=== PATIENT | female | born 1970 | race Caucasian/White ===

== ENCOUNTER 2020-12-18 09:24 | Emergency (ER) | payer OTHER, SELFPAY ==
[2020-12-18 09:41] VITALS: BP 132/84; PULSE 79; RESP 18; TEMP 36.8; O2SAT 96; BMI 36.8
[2020-12-18 09:43] VITALS: BP 132/84; PULSE 79; RESP 18; TEMP 36.8; O2SAT 96
--- NOTE | 2020-12-18 10:11 | ED.PSYCH ---
HPI - Psych General Chief Complaint: Psychiatric Symptoms <Yvonne Ram PA-C - Last Filed: 12/18/20 14:22> Stated Complaint: crisis <Yvonne Ram PA-C - Last Filed: 12/18/20 14:22> Time Seen by Provider: 12/18/20 10:00 <Yvonne Ram PA-C - Last Filed: 12/18/20 14:22> Source: patient <Yvonne Ram PA-C - Last Filed: 12/18/20 14:22> Mode of arrival: EMS <MADELEINE Carrasco Last Filed: 12/18/20 14:22> Limitations: no limitations <Yvonne Ram PA-C - Last Filed: 12/18/20 14:22> History of Present Illness HPI Narrative: Patient is a 50-year-old female unknown medical history who comes from a senior care stating she wants to kill herself via smothering herself. She states she does not like the senior care she is in and she is on a list to be transferred but she thinks she is 6 on the list and does not think she is going to be transferred any time soon. She states she does want to hurt 1 of the girls who lives at the senior care because the girl thinks she wants to buck her. She admits to seeing patterns on the wall sometimes they are scary men and sometimes they are monsters. She denies any auditory hallucinations. She has no physical complaints at this time. She denies any alcohol or drug use. She denies taking any psychiatric medications on a daily basis and she denies any mental health diagnoses. She states she only takes a vitamin daily. She is requesting to speak with crisis. <Yvonne Ram PA-C - Last Filed: 12/18/20 14:22> Related Data Home Medications: Home Medications Medication Instructions Recorded Confirmed acetaminophen [Mapap Arthritis 1 - 2 tab PO Q8H PRN 12/18/20 12/18/20 Pain] ascorbic acid-vitamin E-biotin tab PO DIRECTED 12/18/20 [Hair, Skin, Nails with Biotin] cyanocobalamin (vitamin B-12) 1 tab PO DAILY 12/18/20 12/18/20 [Vitamin B-12] diphenhydramine HCl [Banophen] 1 cap PO BEDTIME 12/18/20 12/18/20 docusate sodium 1 cap PO BID PRN 12/18/20 12/18/20 lanolin oyfvsci-dr-z.pet-ceres appl TOPICAL BID 12/18/20 [Minerin Creme] lorazepam 1 tab PO BID PRN 12/18/20 12/18/20 nicotine 1 patch TOPICAL DAILY 12/18/20 12/18/20 omeprazole 1 cap PO DAILY 12/18/20 12/18/20 oxybutynin chloride 1 tab PO DAILY 12/18/20 12/18/20 paliperidone palmitate [Invega 1 syringe IM Q4W 12/18/20 12/18/20 Sustenna] quetiapine 1 tab PO BEDTIME 12/18/20 12/18/20 quetiapine 1 tab PO DAILY PRN 12/18/20 12/18/20 topiramate 1 tab PO QAM 12/18/20 12/18/20 <Yvonne Ram PA-C - Last Filed: 12/18/20 14:22> Allergies/Adverse Reactions: Allergies Allergy/AdvReac Type Severity Reaction Status Date / Time lisinopril [LISINOPRIL] Allergy Unknown UNKNOWN Unverified 06/17/20 14:51 <Yvonne Ram PA-C - Last Filed: 12/18/20 14:22> Review of Systems Review of Systems: Yes all other systems are reviewed and are negative <Yvonne Ram PA-C - Last Filed: 12/18/20 14:22> FOR[facility]LY [facility], [facility] Social History Social History: Social History Alcohol intake: former Smoking Status: Current every day smoker Smoked in Last 30 Days: Yes Use of substances other than those prescribed or required for medical reasons: No Advance Directives: No Advance Directives Information Provided: No <Yvonne Ram PA-C - Last Filed: 12/18/20 14:22> Physical Exam Vital Signs: Vital Signs: Last Vital Signs Temp 97.8 F 12/19/20 06:37 Pulse 83 12/19/20 06:37 Resp 19 12/19/20 06:37 BP 96/53 L 12/19/20 06:37 Pulse Ox 97 12/19/20 06:37 Body Mass Index 36.8 <Yvonne Ram PA-C - Last Filed: 12/18/20 14:22> Vital Signs: Last Vital Signs Temp 97.8 F 12/19/20 06:37 Pulse 83 12/19/20 06:37 Resp 19 12/19/20 06:37 BP 96/53 L 12/19/20 06:37 Pulse Ox 97 12/19/20 06:37 Body Mass Index 36.8 <LESIA Lawson - Last Filed: 12/19/20 08:17> Const: General: cooperative, healthy appearing, comfortable and no acute distress <Yvonne Ram PA-C - Last Filed: 12/18/20 14:22> Nutritional Appearance: average body habitus <Yvonne Ram PA-C - Last Filed: 12/18/20 14:22> Orientation/consciousness: patient oriented x3 <Yvonne Ram PA-C - Last Filed: 12/18/20 14:22> HENMT: Head: Yes normal to inspection, Yes normocephalic and Yes atraumatic <Yvonne Ram PA-C - Last Filed: 12/18/20 14:22> Ears: hearing grossly normal bilaterally <Yvonne Ram PA-C - Last Filed: 12/18/20 14:22> General nose exam: Normal external nose present <Yvonne Ram PA-C - Last Filed: 12/18/20 14:22> Face and sinus: Yes normal facial exam <Yvonne Ram PA-C - Last Filed: 12/18/20 14:22> Eyes: General: appearance normal, both eyes and all related structures <Yvonne Ram PA-C - Last Filed: 12/18/20 14:22> Resp: Effort & Inspection: normal respiratory effort and able to speak in complete sentences <Yvonne Ram PA-C - Last Filed: 12/18/20 14:22> Neuro: General: patient oriented x3 <Yvonne Ram PA-C - Last Filed: 12/18/20 14:22> Psych: Appearance: disheveled <Yvonne Ram PA-C - Last Filed: 12/18/20 14:22> Speech and movement: Normal speech and movement present <Yvonne Ram PA-C - Last Filed: 12/18/20 14:22> Affect: normal affect <Yvonne Ram PA-C - Last Filed: 12/18/20 14:22> Attitude: cooperative <Yvonne Ram PA-C - Last Filed: 12/18/20 14:22> Thought process: Flight of ideas present <Yvonne Ram PA-C - Last Filed: 12/18/20 14:22> Thought content: Suicidality present and Homicidality present <Yvonne Ram PA-C - Last Filed: 12/18/20 14:22> Insight: Limited insight present (Psych) <Yvonne Ram PA-C - Last Filed: 12/18/20 14:22> Judgement: Limited judgement present (Psych) <Yvonne Ram PA-C - Last Filed: 12/18/20 14:22> Course Course Course Narrative: Patient is a 50-year-old female with no known psychiatric or medical history who presents with SI via self smothering and HI from her senior care. Ultimately, it appears the patient would like to transfer to a different senior care and is requesting a consult with crisis. VSS, tox screen ordered, consult ordered. <Yvonne Ram PA-C - Last Filed: 12/18/20 14:22> Physician observation started at 8am. Patient placed in physician observation because patient is awaiting possible placement to Respite. At the time observation was started patient's vital signs were stable. Home meds have been ordered. Patient is alert and oriented. Neuro exam is non-focal. CV: RRR and lungs are clear. Will continue to monitor. <LESIA Lawson Last Filed: 12/19/20 08:17> Reevaluation(s) Reevaluation #1: + cocaine <Yvonne Ram PA-C - Last Filed: 12/18/20 14:22> Time: 10:48 <MADELEINE Carrasco Last Filed: 12/18/20 14:22> Reevaluation #2: Crisis evluated pt, she should be transferred to respite tomorrow. We will keep until she has bed availability as patient is SI/HI. <Yvonne Ram PA-C - Last Filed: 12/18/20 14:22> Time: 14:21 <Yvonne Ram PA-C - Last Filed: 12/18/20 14:22> MDM - Psych Lab Data Labs: Lab Results 12/18/20 12/18/20 Range/Units 09:58 12:41 Urine Opiates Screen Not Detected (Not Detect) Ur Barbiturates Screen Not Detected (Not Detect) Ur Phencyclidine Scrn Not Detected (Not Detect) Ur Amphetamines Screen Not Detected (Not Detect) U Benzodiazepines Scrn Not Detected (Not Detect) Urine Cocaine Screen POSITIVE H (Not Detect) U Marijuana (THC) Screen Not Detected (Not Detect) COVID-19 (GONZALEZ) Negative (Negative) COVID-19 Clin Com See Note <Yvonne Ram PA-C - Last Filed: 12/18/20 14:22> Lab Results 12/18/20 12/18/20 Range/Units 09:58 12:41 Urine Opiates Screen Not Detected (Not Detect) Ur Barbiturates Screen Not Detected (Not Detect) Ur Phencyclidine Scrn Not Detected (Not Detect) Ur Amphetamines Screen Not Detected (Not Detect) U Benzodiazepines Scrn Not Detected (Not Detect) Urine Cocaine Screen POSITIVE H (Not Detect) U Marijuana (THC) Screen Not Detected (Not Detect) COVID-19 (GONZALEZ) Negative (Negative) COVID-19 Clin Com See Note <LESIA Lawson Last Filed: 12/19/20 08:17> Discharge Plan Discharge Prescriptions: No Action nicotine 14 mg/24 hr patch 24 hour 1 patch topical DAILY RF: 0 oxybutynin chloride 10 mg tablet extended release 24hr 1 tab PO DAILY RF: 0 cyanocobalamin (vitamin B-12) [Vitamin B-12] 250 mcg tablet 1 tab PO DAILY RF: 0 omeprazole 40 mg capsule,delayed release(DR/EC) 1 cap PO DAILY RF: 0 quetiapine 100 mg tablet 1 tab PO BEDTIME RF: 0 acetaminophen [Mapap Arthritis Pain] 650 mg tablet extended release 1 - 2 tab PO Q8H PRN (Reason: pain) RF: 0 lorazepam 0.5 mg tablet 1 tab PO BID PRN (Reason: dyspnea) RF: 0 diphenhydramine HCl [Banophen] 25 mg capsule 1 cap PO BEDTIME RF: 0 docusate sodium 100 mg capsule 1 cap PO BID PRN (Reason: constipation) RF: 0 topiramate 100 mg tablet 1 tab PO QAM RF: 0 quetiapine 50 mg tablet 1 tab PO DAILY PRN (Reason: anxiety) RF: 0 Minerin Creme Cream topical BID RF: 0 Invega Sustenna 156 mg/mL syringe 1 syringe IM Q4W RF: 0 Hair, Skin, Nails with Biotin 7.5-7.5-1,250 mg-unit-mcg tablet,chewable PO DIRECTED RF: 0 <Yvonne Ram PA-C - Last Filed: 12/18/20 14:22>
[2020-12-18 10:29] LABS: Amphetamine Screen Urine Not Detected (Not Detect); Barbiturates, Urine Not Detected (Not Detect); Benzodiazepines Screen Urine Not Detected (Not Detect); Cannabinoid Screen Urine Not Detected (Not Detect); Cocaine Screen Urine POSITIVE (Not Detect); Opiate Screen Urine Not Detected (Not Detect); Phencyclidine Screen Urine Not Detected (Not Detect)
--- NOTE | 2020-12-18 11:00 | PC.NURSE ---
[facility] faxed and called, clinician should be out to see pt within the hour.
--- NOTE | 2020-12-18 12:25 | PC.NURSE ---
[facility] at bedside for eval.
--- NOTE | 2020-12-18 12:48 | PC.NURSE ---
[facility] contacted for medicaiton list. Staff to fax list.
[2020-12-18 13:04] LABS: COVID-19 Test Negative (Negative)
--- NOTE | 2020-12-18 15:14 | PC.NURSE ---
Report received. Pt asleep at current. No signs of distress. RR even and unlabored.
--- NOTE | 2020-12-18 16:52 | PC.NURSE ---
Pt asleep at current. No signs of distress. RR even and unlabored.
[2020-12-18 17:06] VITALS: BP 93/48; PULSE 79; RESP 18; TEMP 36.8; O2SAT 95
[2020-12-19 06:37] VITALS: BP 96/53; PULSE 83; RESP 19; TEMP 36.6; O2SAT 97
--- NOTE | 2020-12-19 07:23 | PC.NURSE ---
Report received. PT currently eating breakfast, calm and cooperative. PT is respite bedsearch.
[2020-12-19] MEDS: Nicotine 14 MG PATCH.TD24 TRANSDERMA (09:07)
[2020-12-19] MEDS: Cyanocobalamin (Vitamin B-12) 500 MCG TABLET 250 MCG PO (09:21)
[2020-12-19] MEDS: Topiramate 100 MG TABLET PO (09:21)
[2020-12-19] MEDS: Omeprazole 40 MG CAPSULE.DR PO (09:21)
[2020-12-19 09:33] VITALS: BP 112/61; PULSE 67; RESP 18; TEMP 36.6; O2SAT 97
--- NOTE | 2020-12-19 09:55 | PC.NURSE ---
PT labile, crying and then states she is happy, tangential in conversation, reports that the TV is talking about her. PT easily reoriented and redirectible.
--- NOTE | 2020-12-19 10:59 | PC.NURSE ---
[facility] at bedside for MSU
== END 2020-12-19 12:36 ==
PROVIDERS: Physician Assistant; Emergency Provider Emergency Medicine; PCP Pediatrics
DX: F33.1 Major depressive disorder, recurrent, moderate (principal); R45.851 Suicidal ideations; R45.850 Homicidal ideations; F17.200 Nicotine dependence, unspecified, uncomplicated; Z71.6 Tobacco abuse counseling; Z20.822 Contact with and (suspected) exposure to COVID-19; Z79.899 Other long term (current) drug therapy
CPT/HCPCS: 36415; 80307; 87635; 96372; 99285

== ENCOUNTER 2023-05-29 21:13 | Inpatient (IN) | payer OTHER, SELFPAY ==
--- OUTSIDE RECORDS SUMMARY | 2023-05-29 21:17 | XMS_ITS | Continuity of Care Document ---
Author Name Unknown Organization [facility] Address [address] [place] [address]- Care Team Providers Care Director Employment Name Role Phone Arlene Hernandez DO Primary Care Physician Encounter [facility] Date(s): 03/22/22 - 04/21/22 [facility] [address] [place], [place] [id number] Allergies, Adverse Reactions, Alerts Substance Reaction Severity Status lisinopril Active Immunizations Given and Recorded Vaccine Date Status Refusal Reason influenza virus vaccine, inactivated 1 07/28/21 Gi deneen influenza virus vaccine, inactivated 07/23/20 Give n influenza virus vaccine, inactivated 07/11/19 Give n influenza virus vaccine, inactivated 08/20/17 Miguel rded influenza virus vaccine, inactivated 07/19/14 Give n influenza virus vaccine, inactivated 08/23/11 Give n SARS-CoV-2 (COVID-19) mRNA-1273 vaccine 12/01/20 R ecorded SARS-CoV-2 (COVID-19) mRNA-1273 vaccine 11/03/20 R ecorded tetanus/diphtheria/pertussis, acel(Tdap) 11/06/19 Given pneumococcal 23-valent vaccine 08/20/17 Recorded pneumococcal 23-valent vaccine 07/19/14 Given 1Result Comment: [facility] [id number] Medications Discontinue Nicotine Patches Discontinue Nicotine Patches, See Instructions, # 1 each, Refills 0, Tot. Refills 0, Maintenance, Dx: Tobacco Dependence, 10/25/21 12:24:00 EST, Supply Start Date: 10/25/21 Status: Ordered hydrOXYzine hydrochloride 50 mg oral tablet 1 tablet = 50 mg, By Mouth, 3 times a day, PRN for anxiety, Maintenance, 07/14/21 15:19:00 EDT, Tablet, ; Start Date: 07/14/21 Status: Ordered Invega Sustenna 156 mg/mL intramuscular suspension, extended release = 156 mg, Intramuscular, Every 28 days, # 1 each, 0 Refills, Maintenance, 06/01/21 9:16:00 EDT, Injection, [facility], Partial fill upon patient request if the prescription is for a schedule II opioid drug., 06/06/21, 163, cm, 06/01/21 7:16:... Start Date: 06/01/21 Status: Ordered Mapap Arthritis Pain 650 mg oral tablet, extended release 2 tablet = 1,300 mg, By Mouth, Every 6 hours, PRN as needed, Maintenance, 07/14/21 15:23:00 EDT, ; Start Date: 07/14/21 Status: Ordered metFORMIN 500 mg oral tablet 1 tablet = 500 mg, By Mouth, Daily in AM, with breakfast, # 90 tablet, 1 Refills, Maintenance, 11/08/21 10:10:00 EST, Tablet, [id number] fill upon patient request if the prescriptionis for a schedule II opioid drug., 170, cm, ... Start Date: 11/08/21 Stop Date: 05/07/22 Status: Ordered multivitamin Multiple Vitamins oral tablet 1 tablet, By Mouth, Daily, # 90 tablet, 4 Refills, Maintenance, 07/28/21 17:59:00 EDT, Tablet, [id number] Partial fill upon patient request if the prescription is for a schedule II opioid drug., 1 tablet By Mouth Daily, 163, cm, 07/28/21 9:27... Start Date: 07/28/21 Status: Ordered omeprazole 40 mg oral enteric coated capsule 1 capsule, By Mouth, Daily, # 30 capsule, 2 Refills, Maintenance, 06/02/21 13:03:00 EDT, [facility], 163, cm, 06/01/21 10:51:00 EDT, Height, 104.7, kg, 05/25/21 4:20:00 EDT, Dry Weight Start Date: 06/02/21 Status: Ordered oxybutynin 10 mg/24 hr oral tablet, extended release 1 tablet = 10 mg, By Mouth, Daily, # 30 tablet, 5 Refills, Maintenance, 06/02/21 13:03:00 EDT, ER Tablet, [facility], 163, cm, 06/01/21 10:51:00 EDT, Height, 104.7, kg, 05/25/21 4:20:00 EDT, Dry Weight Start Date: 06/02/21 Status: Ordered SEROquel 100 mg oral tablet 100 mg, 1, tablet, By Mouth, Daily at bedtime, # 30 tablet, Refills 0, Tot. Refills 0, Maintenance,06/01/21 9:12:00 EDT, Route to Pharmacy Electronically, [facility], Partial fill upon patient request if the prescription is for a schedule I... Start Date: 06/01/21 Status: Ordered SEROquel 50 mg oral tablet 1 tablet = 50 mg, By Mouth, 2 times a day, PRN Anxiety, # 60 tablet, 0 Refills, Maintenance, 06/01/21 9:12:00 EDT, Tablet, [facility], Partial fill upon patient request if the prescription is for a schedule II opioid drug., 163, cm, 06/01/21... Start Date: 06/01/21 Stop Date: 07/01/21 Status: Ordered simethicone 80 mg oral tablet, chewable 80 mg, 1, tablet, Chew, 3 times a day after meals and bedtime, PRN, Maintenance, gi discomfort, 07/14/21 15:20:00 EDT, ; Start Date: 07/14/21 Status: Ordered Topamax 100 mg oral tablet 1 tablet = 100 mg, By Mouth, Daily, # 30 tablet, 0 Refills, Maintenance, 06/01/21 9:16:00 EDT, Tablet, [facility], Partial fill upon patient request if the prescription is for a schedule IIopioid drug., 163, cm, 06/01/21 7:16:00 EDT, Height... Start Date: 06/01/21 Stop Date: 07/01/21 Status: Ordered Ventolin HFA 108 mcg/inh inhalation aerosol with adapter 1 puffs, Inhalation, Every 6 hours, PRN for wheezing, # 18 Gm, 0 Refills, Maintenance, 06/01/21 9:11:00 EDT, Aerosol, [facility], 163, cm, 06/01/21 7:16:00 EDT, Height, 104.7, kg, 05/25/21 4:20:00 EDT, Dry Weight Start Date: 06/01/21 Status: Ordered Problem List Condition Effective Dates Status Health Status Inform ant Anemia(Confirmed) Active Cannabis abuse(Confirmed) Active Cocaine abuse(Confirmed) Active Drug abuse(Confirmed) Active Dysuria(Confirmed) Active GERD (gastroesophageal reflu x disease)(Confirmed) Active Stress incontinence(Confirmed) Active Nicotine dependence(Confirmed) Active Obesity(Confirmed) Active Screen for STD (sexually tra nsmitted disease)(Confirmed) Active Encounter for well adult exa m with abnormal findings(Confirmed) Active Personality disorder(Confirmed) Active PTSD (post-traumatic stress disorder)(Confirmed) Active Prediabetes(Confirmed) Active Schizoaffective Disorder(Confirmed) 08/23/11 Active Encounter for general adult medical examination without abnormal findings(Confirmed) Active Wheezing(Confirmed) Active Social History Social History Type Response Smoking Status Current every day zahra sutton entered on: 07/21/14 Sex
--- OUTSIDE RECORDS SUMMARY | 2023-05-29 21:17 | XMS_ITS | Continuity of Care Document ---
Author Name Unknown Organization [facility] Address [address] [place] [address]- Care Team Providers Care Ad Operations Specialist Name Role Phone Not on Staff, PCP Primary Care Physician Unavail able Encounter [facility] Date(s): 04/09/23 - 04/10/[address] [address]- Encounter Diagnosis Schizophrenia(Final) - 04/10/23 Bipolar illness(Final) - 04/10/23 Hallucination(Final) - 04/10/23 Discharge Disposition: A-D/C Home Attending Physician: Breezy Nix MD Admitting Physician: Breezy Nix MD Referring Physician: Not on Staff, Referring MD Allergies, Adverse Reactions, Alerts No Known Allergies Medications nystatin topical 358560 u/gm powder 1 application, Topically, 2 times a day, # 30 Gm, 0 Refills, Acute 04/14/23 12:12:00 EDT, 04/10/23 12:12:00 EDT, Powder, [facility], Partial fill upon patient request if the prescription is for a schedule II opioid drug., 1 application T... Start Date: 04/10/23 Stop Date: 04/14/23 Status: Ordered Vital Signs Most recent to oldest [Reference Range]: 1 2 3 Oxygen Saturation [94-100 %] 98 % (04/10/23 12:08 PM) 97 % (04/10/23 9:00 AM) 95 % (04/10/23 6:15 AM) Pulse Rate [55-90 bpm] 72 bpm (04/10/23 12:08 PM) 70 bpm (04/10/23 9:00 AM) 87 bpm (04/10/23 6:15 AM) Blood Pressure [90-138/55-84 mm Hg] 110/67mm Hg (04/10/23 12:08 PM) 105/56mm Hg (04/10/23 9:00 AM) 99/57mm Hg (04/10/23 6:15 AM) Respiratory Rate [16-30 br/min] 16 br/min (04/10/23 12:08 PM) 17 br/min (04/10/23 9:00 AM) 18 br/min (04/10/23 6:15 AM) Temperature [96.8-100.4 DegF] 98.2 DegF (04/10/23 12:08 PM) 98.0 DegF (04/10/23 9:00 AM) 97.5 DegF (04/09/23 10:52 PM) Liters per Minute 2 L/min (04/09/23 10:52 PM) Mode of Delivery (Oxygen) Room air (04/10/23 12:08 PM) Room air (04/10/23 9:00 AM) Room air (04/10/23 6:15 AM) Blood pressure sites Arm, right (04/09/23 10:52 PM) Temperature Route Oral (04/10/23 12:08 PM) Oral (04/10/23 9:00 AM) Oral (04/09/23 10:52 PM) Note * Dinah VINES, Breezy R: PERFORM Event Display: Patient Education Leaflets Authored Date: [id number] Bipolar Disorder ?? [id number] Bipolar Disorder Bipolar disorder is a serious, life-altering illness. It causes strong mood swings between depression and hannah. It used to be called manic depression. The mood swings are different from the normal ups and downs people have in their lives. They are more severe and last longer. They can seriously interfere with work and relationships. These episodes are changes from usual moods and behavior. They can be mild, or drastic and explosive. The time between feelings of depression and hannah varies with each person. It can be weeks, month, or even years. ??? In a manic episode, you may think fast and do things quickly. It may seem like you are getting a lot done. It may feel very good at first. But in the extreme, hannah can lead to a lifestyle that is disorganized and chaotic. You may take part in risky behavior. Examples are spending sprees, sexual acting-out, or drug use. In later stages, you may have no interest in food. You may not be able tosleep for days at a time. Your speech may speed up and become hard to understand. You may appear toothers as if you are in your own world. ??? In a depressive episode, you may feel a lack of interest in normal activities. Sometimes you feel sadness or guilt without any clear reason. Your thinking may become slow. You may also lack energy or good concentration, or feel hopeless. Some people have thoughts of harming themselves at this stage. Thoughts can even turn to suicide. You may feel OK between these phases. This does not mean that the illness is gone. People with thisdisorder will often have to treat it all their life. Correct use of medicines and ongoing medical and mental health support can greatly ease symptoms. They can enhance your quality of life. The exact cause of bipolar disorder is unknown. But there is a genetic link that makes a person more likely to get it. Using illegal drugs such as speed (amphetamine) and cocaine raises a person's risk for this illness. Home care Here is what you can do at home: ??? Ongoing care and support can help you manage this disease. Find a healthcare provider and therapist who meet your needs. Seek help right away when you feel like you may be heading into either a manic episode or a depressive state. ??? Take your medicine as prescribed. Get regular blood work to check the levels of medicine in your body. Do this??even if you think you don???t need to do it. ??? Don't change or stop taking your medicine unless your healthcare provider says it is OK to do so. Don't share or use another person's medicines. ??? Tell all your healthcare providers about all the prescriptions, ycol-iwy-btuvsir medicines, and supplements you take.? ?Certain supplements interact with medicines. They may cause dangerous side effects. You can also ask your pharmacist about medicine interactions before starting any new medicine or supplement. ??? Talk with your family and trusted friends about your thoughts and feelings. Ask them to help you notice behavior changes early. You can then get help and have your medicines adjusted, if needed. When you are feeling well, make a management plan for a trusted friend or family member to help you during hard times. For example, you can ask them to hold your credit cards for you if you overspend during a hannah. Or they can get emergency help for you if your depression leads to suicidal thoughts. Ifyour illness is severe, consider giving trusted people access to your healthcare providers. They can then work together to keep you safe. ??? Don't drink alcohol or use illegal drugs. They can bring on an episode and make it worse. ??? If your life is severely affected by this illness, the Americans with Disabilities Act (ADA) may provide help. The ADA protects people with chronic physical and mental health problems. Contact your local ADA office for help if you are having trouble keeping jobs,managing workplace issues, or caring for yourself because of your bipolar disorder. The U.[place]. Department of Justice has a toll-free [employer] information line at 956-591-5527 (voice) or 726-708-6504 (TTY). It can help you find a local office. Or??go to www.Suitey.gov for more information. ??? Join an in-person or virtual support group for people with mental health problems. ?? Follow-up care Follow up with your healthcare provider or therapist as advised. They can help you find ways to improve your life. ?? Call or text [phone] When you call or text 988, you will be connected to trained crisis counselors at the Suicide Prevention Lifeline. An online chat option is also available. Lifeline is free and available 23/04. 988 counselors will work closely with [facility] to get you the care you need. Call or text [phone] if you have: ??? Suicidal thoughts, a plan to harm yourself, and the means to do so ??? Serious thoughts of hurting someone else ??? Trouble breathing ??? Confusion ??? Drowsiness ortrouble wakening ??? Fainting or loss of consciousness ??? Rapid heart rate, very low heart rate, or a new irregular heart rate ??? Seizure ??? New chest pain that becomes more severe, lasts longer, or spreads into your shoulder, arm, neck, jaw, or back ?? When to seek medical advice Call your healthcare provider right away if any of these happen: ??? Feeling like your symptoms aregetting worse (depression, agitation, or excessive energy) ??? Not eating or sleeping for more than48 hours ??? Feeling out of control (racing thoughts, paranoid thoughts, hallucinations, or poor concentration) ??? Feeling like you want to harm yourself or another ??? Being unable to care for yourself ?? Last Reviewed Date: 2022 ?? [id number] [employer]. All rights reserved. This information is not intended as a substitute for professional medical care. Always follow your healthcare professional's instructions. ?? Patient Care team information Care Team Personnel Name: Not on Staff, PCP Position: [facility] Physician (General Medicine) Member Role: PCP Name: *[facility], ED Attending Position: [facility] ED Attendings Patient Name: Kahlil Alvarado Position: [facility] ED TA [facility] Member Role: Rrt Name: Breezy Nix MD Position: [facility] ED Medicine MD Member Role: Admitting Physician Address: Address: [address] [place] [address] [place], [place] [address] Name: Catalina Vasquez Position: [facility] ED RN W/OE and Tasks Member Role: Patient Care Provider
--- OUTSIDE RECORDS SUMMARY | 2023-05-29 21:17 | XMS_ITS | Continuity of Care Document ---
Author Name Unknown Organization [facility] Address [address] [place] [id number]- Care Team Providers Care District Sales Leader Name Role Phone Arlene Hernandez DO Primary Care Physician Encounter [facility] [place] Date(s): 12/28/20 - 12/29/[address] [address]- Encounter Diagnosis Examination, general medical(Final) - 12/28/20 Discharge Disposition: A-D/C Home Attending Physician: Kahlil Rocha MD Admitting Physician: Kahlil Rocha MD Referring Physician: Not on Staff, Referring MD Allergies, Adverse Reactions, Alerts Substance Reaction Severity Status lisinopril Active Immunizations Given and Recorded Vaccine Date Status Refusal Reason influenza virus vaccine, inactivated 07/23/20 Give n influenza virus vaccine, inactivated 07/11/19 Give n influenza virus vaccine, inactivated 07/19/14 Give n influenza virus vaccine, inactivated 08/23/11 Give n tetanus/diphtheria/pertussis, acel(Tdap) 11/06/19 Given pneumococcal 23-valent vaccine 07/19/14 Given Medications Benadryl 25 mg oral capsule 1 capsule = 25 mg, By Mouth, Daily at bedtime, # 30 capsule, 0 Refills, Maintenance, 01/18/18 9:37:18 EDT, Capsule Start Date: 01/18/18 Status: Ordered Colace sodium 100 mg oral capsule 100 mg, 1, capsule, By Mouth, 2 times a day, hold for looses stools, Refills 0, Maintenance, 11/15/18 11:13:27 EST Start Date: 11/15/18 Status: Ordered [facility] DRY SKIN THERAPY CREME [facility] DRY SKIN THERAPY CREME, See Instructions, # 454 Gm, 0 Refills, Maintenance, APPLY TO AFFECTED AREA TWICE A DAY, 163, cm, 09/20/20 11:14:00 EST, Height, 104.7, kg, 11/21/20 5:07:00 EST, Dry Weight Start Date: 11/26/20 Status: Ordered diclofenac sodium 50 mg oral delayed release tablet 1 tablet = 50 mg, By Mouth, 2 times a day, with food, # 28 tablet, 0 Refills, Maintenance, :29:00 EST, [facility]/pharmacy #[id number], 163, cm, 07/23/20 13:15:00 EDT, Height, 105.3, kg, 07/23/20 13:15:00 EDT, Dry Weight Start Date: 09/07/20 Stop Date: 09/21/20 Status: Ordered Diflucan 150 mg oral tablet 1 tablet = 150 mg, By Mouth, Once, # 1 tablet, 0 Refills, Soft Stop, 10/11/20 13:10:00 EST, Tablet,[facility][id number], Partial fill upon patient request if the prescription is for a schedule II opioid drug., 163, cm, 09/20/20 11:14:00 EST, Height, 10... Start Date: 10/11/20 Status: Ordered Eucerin Moisturizing Creme Eucerin Moisturizing Creme, 1, application, Topically, 2 times a day, # 454 Gm, Refills 2, Tot. Refills 2, Maintenance, 11/06/19 14:46:00 EST, Compound, 160.3, cm, 11/06/19 14:14:00 EST, Height, 117.1, kg, 10/29/19 10:15:00 EST, Dry Weight Start Date: 11/06/19 Status: Ordered guaiFENesin 100 mg/5 mL oral liquid 5 mL = 100 mg, By Mouth, 2 times a day, PRN for cough, # 120 mL, 0 Refills, Maintenance, 09/16/19 12:41:32 EST, Liquid, [id number], 160.8, cm, 09/16/19 12:10:53 EST, Height, 100, kg, :30:20 EDT, Dry Weight Start Date: 09/16/19 Stop Date: 09/26/19 Status: Ordered Invega Sustenna 156 mg/mL intramuscular suspension, extended release Intramuscular, Every 28 days, 0 Refills, Maintenance, 03/06/18 15:04:32 EDT Start Date: 03/06/18 Status: Ordered LORazepam 0.5 mg oral tablet 0 Refills, Maintenance, 11/06/19 19:02:00 EST Start Date: 11/06/19 Status: Ordered Mapap Arthritis Pain 650 mg oral tablet, extended release 1-2 tablet, By Mouth, Every 8 hours, PRN NEEDED FOR PAIN, # 50 tablet, 5 Refills, Maintenance, 07/21/20 15:03:00 EDT, [facility]/pharmacy #[id number], 163, cm, 06/24/20 11:48:00 EDT, Height, 105.8, kg, 03/08/20 17:47:00 EDT, Dry Weight Start Date: 07/21/20 Status: Ordered Nature's Bounty Hair Skin & Nails oral tablet, chewable See Instructions, take as directed per package labeling, # 100 each, 2 Refills, Maintenance, 03/18/20 13:42:00 EDT, [facility]/pharmacy #[id number], d/c prior MV, take as directed per package labeling, 163, cm, 03/08/20 17:43:00 EDT, Height, 105.8, kg, 03/08/20 17... Start Date: 03/18/20 Status: Ordered nicotine 2 mg oral transmucosal lozenge See Instructions, 1 lozenge Every 2 hours prn as directed on package labeling do not chew or swallow whole, # 110 lozenge, 1 Refills, Maintenance, 07/11/19 8:57:30 EDT, 1 lozenge Every 2 hours prn; as directed on package labeling; do not chew or swa... Start Date: 07/11/19 Status: Ordered nicotine 21 mg/24 hr transdermal film, extended release 1 patch, Topically, Daily, # 30 patch, 0 Refills, Maintenance, 07/11/19 9:02:23 EDT, Patch Start Date: 07/11/19 Status: Ordered omeprazole 40 mg oral enteric coated capsule 1 capsule, By Mouth, Daily, # 30 capsule, 6 Refills, Maintenance, 07/13/20 12:42:00 EDT, [id number], 163, cm, 06/24/20 11:48:00 EDT, Height, 105.8, kg, 03/08/20 17:47:00 EDT, Dry Weight Start Date: 07/13/20 Status: Ordered oxybutynin 10 mg/24 hr oral tablet, extended release 1 tablet = 10 mg, By Mouth, Daily, # 30 tablet, 5 Refills, Maintenance, 05/25/20 15:37:00 EDT, ER Tablet, [facility]/pharmacy #[id number], 163, cm, 03/08/20 17:43:00 EDT, Height, 105.8, kg, 03/08/20 17:47:00 EDT,Dry Weight Start Date: 05/25/20 Status: Ordered QUEtiapine 200 mg oral tablet 200 mg, 1, tablet, By Mouth, Daily at bedtime, Psych prescriber, Refills 0, Maintenance, 07/11/19 9:01:13 EDT Start Date: 07/11/19 Status: Ordered QUEtiapine 50 mg oral tablet 1 tablet = 50 mg, By Mouth, Every 4 hours, PRN Agitation, # 60 tablet, 0 Refills, Maintenance, 07/11/19 9:02:49 EDT, Tablet, rx by [facility] Start Date: 07/11/19 Status: Ordered Topamax 100 mg oral tablet 1 tablet = 100 mg, By Mouth, Daily, # 30 tablet, 0 Refills, Maintenance, 01/18/18 9:37:42 EDT, Tablet Start Date: 01/18/18 Status: Ordered Ventolin HFA 108 mcg/inh inhalation aerosol with adapter 1 puffs, Inhalation, Every 6 hours, PRN for wheezing, # 18 Gm, 0 Refills, Maintenance, 09/16/19 12:41:30 EST, Aerosol, [facility]/pharmacy #[id number], 160.8, cm, 09/16/19 12:10:53 EST, Height, 100, kg, 07/11/19 8:30:20 EDT, Dry Weight Start Date: 09/16/19 Status: Ordered Vitamin B-12 250 mcg oral tablet 1 tablet, By Mouth, Daily, # 30 tablet, 11 Refills, Maintenance, 10/21/20 18:16:00 EST, [id number], 163, cm, 09/20/20 11:14:00 EST, Height, 107.3, kg, 09/20/20 11:18:00 EST, Dry Weight Start Date: 10/21/20 Status: Ordered Zithromax Z-Peewee 250 mg oral tablet See Instructions, as directed on package labeling, # 1 pack/packet, 0 Refills, Maintenance, 10/11/20 13:10:00 EST, [facility]/pharmacy #[id number], Partial fill upon patient request if the prescription is for a schedule II opioid drug., 163, cm, 09/20/20 11:14:00... Start Date: 10/11/20 Status: Ordered Problem List Condition Effective Dates Status Health Status Inform ant Anemia(Confirmed) Active Cannabis abuse(Confirmed) Active Cocaine abuse(Confirmed) Active Drug abuse(Confirmed) Active Dysuria(Confirmed) Active GERD (gastroesophageal reflu x disease)(Confirmed) Active Stress incontinence(Confirmed) Active Nicotine dependence(Confirmed) Active Screen for STD (sexually tra nsmitted disease)(Confirmed) Active Personality disorder(Confirmed) Active PTSD (post-traumatic stress disorder)(Confirmed) Active Schizoaffective Disorder(Confirmed) 08/23/11 Active Wheezing(Confirmed) Active Vital Signs Most recent to oldest [Reference Range]: 1 2 Oxygen Saturation [94-100 %] 97 % (12/29/20 1:45 AM) 96 % (12/28/20 9:08 PM) Pulse Rate [55-90 bpm] 88 bpm (12/29/20 1:45 AM) 81 bpm (12/28/20 9:08 PM) Blood Pressure [90-138/55-84 mm Hg] 95/4 8mm Hg (12/29/20 1:45 AM) 129/64mm Hg (12/28/20 9:08 PM) Respiratory Rate [16-30 br/min] 16 br/mi n (12/29/20 1:45 AM) 18 br/min (12/28/20 9:08 PM) Temperature [96.8-100.4 DegF] 98.5 DegF (12/29/20 1:45 AM) 97.6 DegF (12/28/20 9:08 PM) Mode of Delivery (Oxygen) Room air (12/29/20 1:45 AM) Room air (12/28/20 9:08 PM) Blood pressure sites Arm, left (12/29/20 1:45 AM) Arm, left (12/28/20 9:08 PM) Temperature Route Oral (12/29/20 1:45 AM) Oral (12/28/20 9:08 PM) Social History Social History Type Response Smoking Status Current every day zahra sutton entered on: 07/21/14 Sex Female
--- OUTSIDE RECORDS SUMMARY | 2023-05-29 21:17 | XMS_ITS | Continuity of Care Document ---
Author Name Unknown Organization [facility] Address [address] [place] [id number]- Care Team Providers Care Electronic Publishing Specialist Name Role Phone Arlene Hernandez DO Primary Care Physician [place] [facility] [place] 09/12/[address] [address]- Discharge Disposition: A-D/C Home Attending Physician: Kahlil [...] 11:13:27 EST Start Date: 11/15/18 Status: Ordered diclofenac sodium 50 mg oral delayed release tablet 1 tablet = 50 mg, By Mouth, 2 times a day, with food, # 28 tablet, 0 Refills, Maintenance, :29:00 EST, [facility]/pharmacy #[id number], 163, cm, 07/23/20 13:15:00 EDT, Height, 105.3, kg, 07/23/20 13:15:00 EDT, Dry Weight Start Date: 09/07/20 Stop Date: 09/21/20 Status: Ordered Eucerin Moisturizing Creme Eucerin Moisturizing [...] 0 Refills, Maintenance, 09/16/19 12:41:32 EST, Liquid, [facility]/pharmacy #[id number], 160.8, cm, 09/16/19 12:10:53 EST, Height, 100, kg, 198:30:20 EDT, Dry Weight Start Date: 09/16/19 Stop [...] tablet, 5 Refills, Maintenance, 07/21/20 15:03:00 EDT, [id number], 163, cm, 06/24/20 11:48:00 EDT, Height, 105.8, kg, 03/08/20 17:47:00 EDT, Dry Weight Start Date: 07/21/20 Status: Ordered Nature's Bounty Hair Skin & Nails oral tablet, chewable See Instructions, take as directed per package labeling, # 100 each, 2 Refills, Maintenance, 03/18/20 13:42:00 EDT, [facility]/pharmacy #[id number], d/c prior MV, take as directed [...] capsule, 6 Refills, Maintenance, 07/13/20 12:42:00 EDT, [id number], 163, cm, 06/24/20 11:48:00 EDT, Height, 105.8, kg, 03/08/20 17:47:00 EDT, Dry Weight Start Date: 07/13/20 Status: Ordered oxybutynin 10 mg/24 hr oral tablet, extended release 1 tablet = 10 mg, By Mouth, Daily, # 30 tablet, 5 Refills, Maintenance, 05/25/20 15:37:00 EDT, ER Tablet, [facility]/pharmacy #[id number], 163, cm, 03/08/20 17:43:00 EDT, Height, [...] 0 Refills, Maintenance, 09/16/19 12:41:30 EST, Aerosol, [facility]/pharmacy #[id number], 160.8, cm, 09/16/19 12:10:53 EST, Height, 100, kg, 07/11/19 8:30:20 EDT, Dry Weight Start Date: 09/16/19 Status: Ordered Vitamin B12 250 mcg oral tablet 1 tablet = 250 mcg, By Mouth, Daily, # 90 tablet, 3 Refills, Maintenance, 09/16/19 12:41:31 EST, Tablet, [id number], 160.8, cm, 09/16/19 12:10:53 EST, Height, 100, kg, 07/11/19 8:30:20 EDT, Dry Weight Start Date: 09/16/19 Stop Date: 09/10/20 Status: Ordered Problem List Condition Effective Dates [...] 2 Oxygen Saturation [94-100 %] 97 % (09/12/20 2:08 PM) 96 % (09/12/20 10:15 AM) Pulse Rate [55-90 bpm] 75 bpm (09/12/20 2:08 PM) 79 bpm (09/12/20 10:15 AM) Blood Pressure [90-138/55-84 mm Hg] 108/ 44mm Hg (09/12/20 2:08 PM) 119/68mm Hg (09/12/20 10:15 AM) Respiratory Rate [16-30 br/min] 17 br/mi n (09/12/20 2:08 PM) 16 br/min (09/12/20 10:15 AM) Temperature [96.8-100.4 DegF] 98.4 DegF (09/12/20 2:08 PM) 98.4 DegF (09/12/20 10:15 AM) Mode of Delivery (Oxygen) Room air (09/12/20 2:08 PM) Blood pressure sites Arm, left (09/12/20 2:08 PM) Arm, left (09/12/20 10:15 AM) Temperature Route Oral (09/12/20 2:08 PM) Oral (09/12/20 10:15 AM) Social History Social History Type Response Smoking Status Current every day zahra sutton entered on: 07/21/14 Sex Female
--- OUTSIDE RECORDS SUMMARY | 2023-05-29 21:17 | XMS_ITS | Continuity of Care Document ---
Author Name Unknown Organization [facility] ter Address [address] [place] [id number]- Care Team Providers Care Electronic Maintenance Supervisor Name Role Phone Arlene Hernandez DO Primary Care Physician Encounter [facility] Date(s): 11/05/20 - 11/05/[address] [address]- Encounter Diagnosis Medical clearance for psychiatric admission(Final) - 11/05/20 Discharge Disposition: A-D/C Home Attending Physician: Gurinder Wheeler MD Admitting Physician: Gurinder Wheeler MD Referring Physician: Not on Staff, Referring [...] 28 tablet, 0 Refills, Maintenance, :29:00 EST, [id number], 163, cm, 07/23/20 13:15:00 EDT, Height, 105.3, kg, 07/23/20 13:15:00 EDT, Dry Weight Start Date: 09/07/20 Stop Date: 09/21/20 Status: Ordered Diflucan 150 mg oral tablet 1 tablet = 150 mg, By Mouth, Once, # 1 tablet, 0 Refills, Soft Stop, 10/11/20 13:10:00 EST, Tablet,[facility]/pharmacy #[id number], Partial fill upon patient request if [...] 0 Refills, Maintenance, 09/16/19 12:41:32 EST, Liquid, [facility]/pharmacy #[id number], 160.8, cm, 09/16/19 12:10:53 EST, Height, [...] tablet, 5 Refills, Maintenance, 07/21/20 15:03:00 EDT, [facility]/pharmacy #[id number], 163, cm, 06/24/20 11:48:00 EDT, Height, 105.8, kg, 03/08/20 17:47:00 EDT, Dry Weight Start Date: 07/21/20 Status: Ordered Nature's Bounty Hair Skin & Nails oral tablet, chewable See Instructions, take as directed per package labeling, # 100 each, 2 Refills, Maintenance, 03/18/20 13:42:00 EDT, [facility]/pharmacy #[id number], d/c prior MV, take as directed [...] capsule, 6 Refills, Maintenance, 07/13/20 12:42:00 EDT, [facility] STORE [id number], 163, cm, 06/24/20 11:48:00 EDT, Height, 105.8, kg, 03/08/20 17:47:00 EDT, Dry Weight Start Date: 07/13/20 Status: Ordered oxybutynin 10 mg/24 hr oral tablet, extended release 1 tablet = 10 mg, By Mouth, Daily, # 30 tablet, 5 Refills, Maintenance, 05/25/20 15:37:00 EDT, ER Tablet, [facility]/pharmacy #[id number], 163, cm, 03/08/20 17:43:00 EDT, Height, [...] 0 Refills, Maintenance, 09/16/19 12:41:30 EST, Aerosol, [facility]/pharmacy #[id number], 160.8, cm, 09/16/19 12:10:53 EST, Height, 100, kg, 07/11/19 8:30:20 EDT, Dry Weight Start Date: 09/16/19 Status: Ordered Vitamin B-12 250 mcg oral tablet 1 tablet, By Mouth, Daily, # 30 tablet, 11 Refills, Maintenance, 10/21/20 18:16:00 EST, [id number], 163, cm, 09/20/20 11:14:00 EST, Height, 107.3, kg, 09/20/20 11:18:00 EST, Dry Weight Start Date: 10/21/20 Status: Ordered Zithromax Z-Peewee 250 mg oral tablet See Instructions, as directed on package labeling, # 1 pack/packet, 0 Refills, Maintenance, 10/11/20 13:10:00 EST, [facility]/pharmacy #[id number], Partial fill upon patient request if [...] 1 2 3 Oxygen Saturation [94-100 %] 100 % (11/05/20 5:39 PM) 98 % (11/05/20 4:10 PM) 100 % (11/05/20 12:39 PM) Pulse Rate [55-90 bpm] 88 bpm (11/05/20 5:39 PM) 75 bpm (11/05/20 4:10 PM) 70 bpm (11/05/20 12:39 PM) Blood Pressure [90-138/55-84 mm Hg] 135/96mm Hg (11/05/20 5:39 PM) 110/60mm Hg (11/05/20 4:10 PM) 107/68mm Hg (11/05/20 12:39 PM) Respiratory Rate [16-30 br/min] 16 br/min (11/05/20 5:39 PM) 18 br/min (11/05/20 4:10 PM) 18 br/min (11/05/20 12:39 PM) Temperature [96.8-100.4 DegF] 97.9 DegF (11/05/20 5:39 PM) 98 DegF (11/05/20 12:39 PM) Mode of Delivery (Oxygen) Room air (11/05/20 5:39 PM) Room air (11/05/20 4:10 PM) Room air (11/05/20 12:39 PM) Blood pressure sites Arm, left (11/05/20 5:39 PM) Arm, right (11/05/20 4:10 PM) Arm, left (11/05/20 12:39 PM) Temperature Route Oral (11/05/20 5:39 PM) Oral (11/05/20 12:39 PM) Social History Social History Type Response Smoking Status Current every day zahra sutton entered on: 07/21/14 Sex Female
--- OUTSIDE RECORDS SUMMARY | 2023-05-29 21:17 | XMS_ITS | Continuity of Care Document ---
Author Name Unknown Organization [facility] Address [address] [place] [address]- Care Team Providers Care Unix Developer Name Role Phone Arlene Hernandez DO Primary Care Physician [place] [facility] [place] 09/07/20 - 09/14/20 [facility] [address] [place] [address]- Encounter Diagnosis Knee pain, left(Discharge Diagnosis) - 09/07/20 Attending Physician: Julia Chu MD Allergies, Adverse Reactions, Alerts Substance Reaction [...] 28 tablet, 0 Refills, Maintenance, :29:00 EST, [facility]/pharmacy #[id number], 163, cm, 07/23/20 13:15:00 EDT, [...] 0 Refills, Maintenance, 09/16/19 12:41:32 EST, Liquid, [facility]/pharmacy #[id number], 160.8, cm, 09/16/19 12:10:53 EST, [...] each, 2 Refills, Maintenance, 03/18/20 13:42:00 EDT, [facility]/pharmacy #[id number], d/c prior MV, take as [...] capsule, 6 Refills, Maintenance, 07/13/20 12:42:00 EDT, [facility] STORE [id number], 163, cm, 06/24/20 11:48:00 EDT, Height, 105.8, kg, 03/08/20 17:47:00 EDT, Dry Weight Start Date: 07/13/20 Status: Ordered oxybutynin 10 mg/24 hr oral tablet, extended release 1 tablet = 10 mg, By Mouth, Daily, # 30 tablet, 5 Refills, Maintenance, 05/25/20 15:37:00 EDT, ER Tablet, [facility]/pharmacy #[id number], 163, cm, 03/08/20 17:43:00 EDT, [...] 0 Refills, Maintenance, 09/16/19 12:41:30 EST, Aerosol, [id number], 160.8, cm, 09/16/19 12:10:53 EST, [...] Active Schizoaffective Disorder(Confirmed) 08/23/11 Active Wheezing(Confirmed) Active Diagnosis Diagnosis Type Effective Dates Health Status Cl inical Service Informant Knee pain, left Discharge Diagnosis 09/07/20 Social History Social History Type Response Smoking Status Current every day zahra sutton entered on: 07/21/14 Sex Female
--- OUTSIDE RECORDS SUMMARY | 2023-05-29 21:17 | XMS_ITS | Continuity of Care Document ---
Author Name Unknown Organization [facility] Address [address] [place] [address]- Care Team Providers Care Medical Sales Specialist Name Role Phone Arlene Hernandez DO Primary Care Physician [place] [facility] [place] 10/07/20 - 10/14/20 [facility] [address] [place], [place] [address] Attending Physician: Arlene Hernandez DO Allergies, Adverse Reactions, Alerts Substance Reaction Severity [...] 0 Refills, Soft Stop, 10/11/20 13:10:00 EST, Tablet,[facility]/pharmacy #[id number], Partial fill upon patient [...] 0 Refills, Maintenance, 09/16/19 12:41:32 EST, Liquid, [facility]/pharmacy #[id number], 160.8, cm, 09/16/19 12:10:53 [...] each, 2 Refills, Maintenance, 03/18/20 13:42:00 EDT, [facility]/pharmacy #[id number], d/c prior MV, take [...] capsule, 6 Refills, Maintenance, 07/13/20 12:42:00 EDT, [facility] STORE [id number], 163, cm, 06/24/20 11:48:00 EDT, Height, 105.8, kg, 03/08/20 17:47:00 EDT, Dry Weight Start Date: 07/13/20 Status: Ordered oxybutynin 10 mg/24 hr oral tablet, extended release 1 tablet = 10 mg, By Mouth, Daily, # 30 tablet, 5 Refills, Maintenance, 05/25/20 15:37:00 EDT, ER Tablet, [facility]/pharmacy #[id number], 163, cm, 03/08/20 17:43:00 [...] 0 Refills, Maintenance, 09/16/19 12:41:30 EST, Aerosol, [facility]/pharmacy #[id number], 160.8, cm, 09/16/19 12:10:53 [...] Date: 09/16/19 Stop Date: 09/10/20 Status: Ordered Zithromax Z-Peewee 250 mg oral tablet See Instructions, as directed on package labeling, # 1 pack/packet, 0 Refills, Maintenance, 10/11/20 13:10:00 EST, [id number], Partial fill upon patient request if [...] Active Schizoaffective Disorder(Confirmed) 08/23/11 Active Wheezing(Confirmed) Active Social History Social History Type Response Smoking Status Current every day zahra sutton entered on: 07/21/14 Sex Female
--- OUTSIDE RECORDS SUMMARY | 2023-05-29 21:17 | XMS_ITS | Continuity of Care Document ---
Author Name Unknown Organization [facility] ter Address [address] [place] [address]- Care Team Providers Care Specimen Processor Name Role Phone Arlene Hernandez DO Primary Care Physician Encounter [facility] [place] Date(s): 04/04/22 - 04/05/[address] [address]- Discharge Disposition: A-D/C Home Attending Physician: Isabella Gonzales MD Admitting Physician: Isabella Gonzales MD Referring Physician: Not on Staff, Referring [...] 23-valent vaccine 07/19/14 Given 1Result Comment: [facility] [id number] Medications Discontinue Nicotine Patches Discontinue Nicotine Patches, [...] 0 Refills, Maintenance, 06/01/21 9:16:00 EDT, Injection, [facility], Partial fill upon patient request if [...] 1 Refills, Maintenance, 11/08/21 10:10:00 EST, Tablet, [facility]/pharmacy #[id number], Partial fill upon patient request if the prescriptionis for a schedule II opioid drug., 170, cm, ... Start Date: 11/08/21 Stop Date: 05/07/22 Status: Ordered multivitamin Multiple Vitamins oral tablet 1 tablet, By Mouth, Daily, # 90 tablet, 4 Refills, Maintenance, 07/28/21 17:59:00 EDT, Tablet, [facility]/pharmacy #[id number], Partial fill upon patient request if the prescription is for a schedule II opioid drug., 1 tablet By Mouth Daily, 163, cm, 07/28/21 9:27... Start Date: 07/28/21 Status: Ordered nystatin topical 399020 u/gm ointment 1 application, Topically, 3 times a day, for 14 days, # 30 Gm, 0 Refills, Acute 04/19/22 12:35:00 EDT, 04/05/22 12:35:00 EDT, Ointment, [facility]/pharmacy #[id number], Partial fill upon patient request if the prescription is for a schedule II opioid drug., 1 appl... Start Date: 04/05/22 Stop Date: 04/19/22 Status: Ordered omeprazole 40 mg oral enteric coated capsule 1 capsule, By Mouth, Daily, # 30 capsule, 2 Refills, Maintenance, 06/02/21 13:03:00 EDT, [facility], 163, cm, 06/01/21 10:51:00 EDT, Height, 104.7, kg, 05/25/21 4:20:00 EDT, Dry Weight Start Date: 06/02/21 Status: Ordered oxybutynin 10 mg/24 hr oral tablet, extended release 1 tablet = 10 mg, By Mouth, Daily, # 30 tablet, 5 Refills, Maintenance, 06/02/21 13:03:00 EDT, ER Tablet, [facility], 163, cm, 06/01/21 10:51:00 EDT, Height, 104.7, kg, 05/25/21 4:20:00 EDT, Dry Weight Start Date: 06/02/21 Status: Ordered SEROquel 100 mg oral tablet 100 mg, 1, tablet, By Mouth, Daily at bedtime, # 30 tablet, Refills 0, Tot. Refills 0, Maintenance,06/01/21 9:12:00 EDT, Route to Pharmacy Electronically, [facility], Partial fill upon patient request if the prescription is for a schedule I... Start Date: 06/01/21 Status: Ordered SEROquel 50 mg oral tablet 1 tablet = 50 mg, By Mouth, 2 times a day, PRN Anxiety, # 60 tablet, 0 Refills, Maintenance, 06/01/21 9:12:00 EDT, Tablet, [facility], Partial fill upon patient request if the [...] 0 Refills, Maintenance, 06/01/21 9:16:00 EDT, Tablet, [facility], Partial fill upon patient request if the prescription is for a schedule IIopioid drug., 163, cm, 06/01/21 7:16:00 EDT, Height... Start Date: 06/01/21 Stop Date: 07/01/21 Status: Ordered Ventolin HFA 108 mcg/inh inhalation aerosol with adapter 1 puffs, Inhalation, Every 6 hours, PRN for wheezing, # 18 Gm, 0 Refills, Maintenance, 06/01/21 9:11:00 EDT, Aerosol, [facility], 163, cm, 06/01/21 7:16:00 EDT, Height, [...] examination without abnormal findings(Confirmed) Active Wheezing(Confirmed) Active Vital Signs Most recent to oldest [Reference Range]: 1 2 3 Height 165 cm (04/05/22 2:19 PM) Weight 100 kg (04/05/22 2:19 PM) Oxygen Saturation [94-100 %] 100 % (04/05/22 5:22 AM) 99 % (04/04/22 10:08 PM) 95 % (04/04/22 5:05 PM) Pulse Rate [55-90 bpm] 89 bpm (04/05/22 5:22 AM) 88 bpm (04/04/22 10:08 PM) 87 bpm (04/04/22 5:05 PM) Blood Pressure [90-138/55-84 mm Hg] 129/60mm Hg (04/05/22 5:22 AM) 130/55mm Hg (04/04/22 10:08 PM) 128/97mm Hg (04/04/22 5:05 PM) Respiratory Rate [16-30 br/min] 20 br/min (04/05/22:22 AM) 20 br/min (04/04/22 5:05 PM) Temperature [96.8-100.4 DegF] 98.6 DegF (04/05/22 5:22 AM) 98.6 DegF (04/04/22 10:08 PM) 98.5 DegF (04/04/22 5:05 PM) Mode of Delivery (Oxygen) Room air (04/05/22 5:22 AM) Room air (04/04/22 5:05 PM) Blood pressure sites Arm, right (04/05/22:22 AM) Arm, right (04/04/22 10:08 PM) Arm, right (04/04/22 5:05 PM) Temperature Route Oral (04/05/22 5:22 AM) Oral (04/04/22 10:08 PM) Oral (04/04/22 5:05 PM) Dry Weight 100 kg (04/05/22 2:19 PM) Weight Obtained Via Patient/family state d (04/05/22 2:19 PM) Dry Weight Obtained Via Patient/family s tated (04/05/22 2:19 PM) Social History Social History Type Response Smoking Status Current every day zahra sutton entered on: 07/21/14 Sex
--- OUTSIDE RECORDS SUMMARY | 2023-05-29 21:17 | XMS_ITS | Continuity of Care Document ---
Author Name Unknown Organization [facility] ter Address [address] [place] [address]- Care Team Providers Care General Claims Agent Name Role Phone Arlene Hernandez DO Primary Care Physician Encounter [facility] Date(s): 11/26/22 - 11/28/[address] [address]- [facility] Attending Physician: Brigitte Bolaños MD Admitting Physician: Brigitte Bolaños MD Referring Physician: Not on Staff, Referring MD Allergies, Adverse Reactions, Alerts Substance Reaction Severity Status lisinopril Active Immunizations Given and Recorded Vaccine Date Status Refusal Reason SARS-CoV-2 (COVID-19) mRNA-1273 vaccine 04/22/22 R ecorded SARS-CoV-2 (COVID-19) mRNA-1273 vaccine 12/01/20 R ecorded SARS-CoV-2 (COVID-19) mRNA-1273 vaccine 11/03/20 R ecorded influenza virus vaccine, inactivated 1 07/28/21 Gi deneen influenza virus vaccine, inactivated 07/23/20 Give n influenza virus vaccine, inactivated 07/11/19 Give n influenza virus vaccine, inactivated 08/20/17 Miguel rded influenza virus vaccine, inactivated 07/19/14 Give n influenza virus vaccine, inactivated 08/23/11 Give n tetanus/diphtheria/pertussis, acel(Tdap) 11/06/19 Given pneumococcal 23-valent vaccine 08/20/17 Recorded pneumococcal 23-valent vaccine 07/19/14 Given 1Result Comment: [facility] [id number] Medications Acetaminophen Tablet 650 mg, Tablet, By Mouth, Every 8 hours, PRN for Pain , Moderate, Routine, 11/26/22 2:44:00 EST Start Date: 11/26/22 Stop Date: 3/28/23 Status: Ordered benztropine 1 mg oral tablet 1 mg, 1, tablet, By Mouth, 2 times a day, # 180 tablet, Refills 0, Maintenance, 05/12/22 15:45:00 EDT, Partial fill upon patient request if the prescription is for a schedule II opioid drug. Start Date: 05/12/22 Status: Ordered busPIRone 10 mg oral tablet 10 mg, 1, tablet, By Mouth, 3 times a day, # 270 tablet, Refills 0, Maintenance, 05/12/22 15:45:00 EDT, Partial fill upon patient request if the prescription is for a schedule II opioid drug. Start Date: 05/12/22 Status: Ordered diclofenac sodium 50 mg oral delayed release tablet 1 tablet = 50 mg, By Mouth, 3 times a day, # 270 tablet, 0 Refills, Maintenance, 05/12/22 15:45:00 EDT, EC Tablet, Partial fill upon patient request if the prescription is for a schedule II opioid drug. Start Date: 05/12/22 Status: Ordered Discontinue Nicotine Patches Discontinue Nicotine Patches, See Instructions, # 1 each, Refills 0, Tot. Refills 0, Maintenance, Dx: Tobacco Dependence, 10/25/21 12:24:00 EST, Supply Start Date: 10/25/21 Status: Ordered haloperidol 10 mg oral tablet 10 mg, 1, tablet, By Mouth, 2 times a day, # 180 tablet, Refills 0, Maintenance, 05/12/22 15:45:00 EDT, Partial fill upon patient request if the prescription is for a schedule II opioid drug. Start Date: 05/12/22 Status: Ordered HM SENNA-S 8.6-50MG HM SENNA-S 8.6-50MG, 1, tablet, By Mouth, 2 times a day, # 60 tablet, 0 Refills, Maintenance, FOR CONSTIPATION., 06/07/22 8:59:00 EDT, 165, cm, 04/05/22 14:19:00 EDT, Height, 100, kg, 04/05/22 14:19:00 EDT, Dry Weight Start Date: 06/07/22 Status: Ordered hydrOXYzine hydrochloride 50 mg oral tablet 1 tablet = 50 mg, By Mouth, 3 times a day, PRN for anxiety, Maintenance, 07/14/21 15:19:00 EDT, Tablet, ; Start Date: 07/14/21 Status: Ordered hydrOXYzine pamoate 50 mg oral capsule 1 capsule = 50 mg, By Mouth, Daily, 0 Refills, Maintenance, 05/12/22 15:45:00 EDT, Capsule, Partialfill upon patient request if the prescription is for a schedule II opioid drug. Start Date: 05/12/22 Status: Ordered Invega Sustenna 156 mg/mL intramuscular suspension, extended release = 156 mg, Intramuscular, Every 28 days, # 1 each, 0 Refills, Maintenance, 06/01/21 9:16:00 EDT, Injection, [facility], Partial fill upon patient request if [...] 1 Refills, Maintenance, 11/08/21 10:10:00 EST, Tablet, [facility]/pharmacy #[id number], Partial fill upon patient request if the prescriptionis for a schedule II opioid drug., 170, cm, ... Start Date: 11/08/21 Stop Date: 05/07/22 Status: Ordered multivitamin Multiple Vitamins oral tablet 1 tablet, By Mouth, Daily, # 90 tablet, 4 Refills, Maintenance, 07/28/21 17:59:00 EDT, Tablet, [facility]/pharmacy #[id number], Partial fill upon patient request if the prescription is for a schedule II opioid drug., 1 tablet By Mouth Daily, 163, cm, 07/28/21 9:27... Start Date: 07/28/21 Status: Ordered omeprazole 40 mg oral enteric coated capsule 1 capsule, By Mouth, Daily, # 30 capsule, 2 Refills, Maintenance, 06/02/21 13:03:00 EDT, [facility], 163, cm, 06/01/21 10:51:00 EDT, Height, 104.7, kg, 05/25/21 4:20:00 EDT, Dry Weight Start Date: 06/02/21 Status: Ordered oxybutynin 10 mg/24 hr oral tablet, extended release 1 tablet = 10 mg, By Mouth, Daily, # 30 tablet, 5 Refills, Maintenance, 06/02/21 13:03:00 EDT, ER Tablet, [facility], 163, cm, 06/01/21 10:51:00 EDT, Height, 104.7, kg, 05/25/21 4:20:00 EDT, Dry Weight Start Date: 06/02/21 Status: Ordered oxybutynin 15 mg/24 hr oral tablet, extended release 1 tablet = 15 mg, By Mouth, Daily, # 30 tablet, 0 Refills, Maintenance, 05/12/22 15:45:00 EDT, ER Tablet, Partial fill upon patient request if the prescription is for a schedule II opioid drug. Start Date: 05/12/22 Status: Ordered pantoprazole 20 mg oral delayed release tablet 1 tablet = 20 mg, By Mouth, Daily, # 14 tablet, 0 Refills, Maintenance, 08/15/22 13:04:00 EST, CR Tablet, 163, cm, 08/15/22 11:30:00 EST, Height, 100, kg, 08/14/22 6:06:00 EST, Dry Weight Start Date: 08/15/22 Stop Date: 08/29/22 Status: Ordered SEROquel 100 mg oral tablet 100 mg, 1, tablet, By Mouth, Daily at bedtime, # 30 tablet, Refills 0, Tot. Refills 0, Maintenance,06/01/21 9:12:00 EDT, Route to Pharmacy Electronically, [facility], Partial fill upon patient request if the prescription is for a schedule I... Start Date: 06/01/21 Status: Ordered SEROquel 50 mg oral tablet 1 tablet = 50 mg, By Mouth, 2 times a day, PRN Anxiety, # 60 tablet, 0 Refills, Maintenance, 06/01/21 9:12:00 EDT, Tablet, [facility], Partial fill upon patient request if [...] 0 Refills, Maintenance, 06/01/21 9:16:00 EDT, Tablet, [facility], Partial fill upon patient request if the prescription is for a schedule IIopioid drug., 163, cm, 06/01/21 7:16:00 EDT, Height... Start Date: 06/01/21 Stop Date: 07/01/21 Status: Ordered traZODone 100 mg oral tablet 100 mg, 1, tablet, By Mouth, 2 times a day, # 180 tablet, Refills 0, Maintenance, 05/12/22 15:46:00EDT, Partial fill upon patient request if the prescription is for a schedule II opioid drug. Start Date: 05/12/22 Status: Ordered Ventolin HFA 108 mcg/inh inhalation aerosol with adapter 1 puffs, Inhalation, Every 6 hours, PRN for wheezing, # 18 Gm, 0 Refills, Maintenance, 06/01/21 9:11:00 EDT, Aerosol, [facility], 163, cm, 06/01/21 7:16:00 EDT, Height, 104.7, kg, 05/25/21 4:20:00 EDT, Dry Weight Start Date: 06/01/21 Status: Ordered Problem List Condition Confirmation Course Effective Dates Status H ealth Status Informant Anemia Confirmed Active Cannabis abuse Confirmed Active Cocaine abuse Confirmed Active Drug abuse Confirmed Active Dysuria Confirmed Active GERD (gastroesophageal reflux disease) Confirmed Active Stress incontinence Confirmed Active Nicotine dependence Confirmed Active Obesity Confirmed Active Screen for STD (sexually transmitted disease) Confirmed Active Encounter for well adult exam with abnormal findings Confirmed Active Personality disorder Confirmed Active PTSD (post-traumatic stress disorder) Confirmed Active Prediabetes Confirmed Active Schizoaffective Disorder Confirmed 08/23/11 Active Encounter for general adult medical examination without abnormal findings Confirmed Active Wheezing Confirmed Active Results Radiology Reports * Exam Date Time Procedure Performing Provider Status 11/26/22 1:46 AM Ankle Min 3 Views Right Desrochers , S amantha; Auth (Verified) Notes: (Ankle Min 3 Views Right) Reason For Exam: Trauma RESULT: Ankle Min 3 Views Right Tibia/Fibula 2 Views Right, Ankle Min 3 Views Right Reason: Trauma; Clinical Question(s): Fracture COMPARISON: None. FINDINGS: There is an oblique fracture of the distal fibula with mild fragment displacement. The fracture maybe comminuted. The mortise is disrupted with mild lateral subluxation of the talus and lateral malleolus. The knee joint is remarkable only for narrowing of the medial compartment. Generalized soft tissue swelling at the ankle, greater laterally than medially. IMPRESSION: Oblique fracture of the distal fibula with mild fragment displacement. Disrupted mortise with slight lateral subluxation of the talus relative to the tibia. Generalized soft tissue swelling at the ankle. Cartilage thinning in the medial compartment of the right knee. WSN: [id number] Ordering Physician: Aminah Kang Dictated By: Lemuel Rojas MD Dictated Date/Time: 11/26/22 7:19 am Reviewed By: Lemuel Rojas MD Signed By: Lemuel Rojas MD Signed Date/Time: 11/26/22 7:19 am Transcribed By: AMELIA Transcribed Date/Time: 11/26/22 7:15 am * Exam Date Time Procedure Performing Provider Status 11/26/22 1:46 AM Tibia/Fibula 2 Views Right Radha Man; Phyllis (Verified) Notes: (Tibia/Fibula 2 Views Right) Reason For Exam: Trauma RESULT: Tibia/Fibula 2 Views Right Tibia/Fibula 2 Views Right, Ankle Min 3 Views Right Reason: Trauma; Clinical Question(s): Fracture COMPARISON: None. FINDINGS: There is an oblique fracture of the distal fibula with mild fragment displacement. The fracture maybe comminuted. The mortise is disrupted with mild lateral subluxation of the talus and lateral malleolus. The knee joint is remarkable only for narrowing of the medial compartment. Generalized soft tissue swelling at the ankle, greater laterally than medially. IMPRESSION: Oblique fracture of the distal fibula with mild fragment displacement. Disrupted mortise with slight lateral subluxation of the talus relative to the tibia. Generalized soft tissue swelling at the ankle. Cartilage thinning in the medial compartment of the right knee. WSN: [id number] Ordering Physician: Aminah Kang Dictated By: Lemuel Rojas MD Dictated Date/Time: 11/26/22 7:19 am Reviewed By: Lemuel Rojas MD Signed By: Lemuel Rojas MD Signed Date/Time: 11/26/22 7:19 am Transcribed By: AMELIA Transcribed Date/Time: 11/26/22 7:15 am Vital Signs Most recent to oldest [Reference Range]: 1 2 3 Oxygen Saturation [94-100 %] 97 % (11/28/22 4:00 PM) 98 % (11/28/22 2:26 PM) 98 % (11/28/22 9:00 AM) Pulse Rate [55-90 bpm] 80 bpm (11/28/22 4:00 PM) 88 bpm (11/28/22 2: PM) 89 bpm (11/28/22 9:00 AM) Blood Pressure [90-138/55-84 mm Hg] 130/80mm Hg (11/28/22 4:00 PM) 136/88mm Hg (11/28/22 2:26 PM) 148/89mm Hg *H* (11/28/22 9:00 AM) Respiratory Rate [16-30 br/min] 16 br/min (11/28/22 4:00 PM) 18 br/min (11/28/22 2:26 PM) 18 br/min (11/28/22 10:42 AM) Temperature [96.8-100.4 DegF] 98 DegF (11/28/22 2:26 PM) 98.6 DegF (11/28/22 9:00 AM) 98.2 DegF (11/28/22 2:28 AM) Mode of Delivery (Oxygen) Room air (11/28/22 4:00 PM) Room air (11/28/22 2:26 PM) Room air (11/28/22 9:00 AM) Blood pressure sites Arm, left (11/28/22 4:00 PM) Arm, left (11/28/22 2:26 PM) Arm, left (11/28/22 9:00 AM) Temperature Route Oral (11/28/22 2:26 PM) Oral (11/28/22 9:00 AM) Oral (11/28/22 2:28 AM) Social History Social History Type Response Smoking Status Current every day zahra sutton entered on: 07/21/14 Sex XR Ankle - right GE 3 Views * [facility] , CIS S: TRANSCRIBE Lemuel Rojas MD: VERIFY Event Display: Result: Authored Date: [id number] Tibia/Fibula 2 Views Right, Ankle Min 3 Views Right Reason: Trauma; Clinical Question(s): Fracture COMPARISON: None. FINDINGS: There is an oblique fracture of the distal fibula with mild fragment displacement. The fracture maybe comminuted. The mortise is disrupted with mild lateral subluxation of the talus and lateral malleolus. The knee joint is remarkable only for narrowing of the medial compartment. Generalized soft tissue swelling at the ankle, greater laterally than medially. IMPRESSION: Oblique fracture of the distal fibula with mild fragment displacement. Disrupted mortise with slight lateral subluxation of the talus relative to the tibia. Generalized soft tissue swelling at the ankle. Cartilage thinning in the medial compartment of the right knee. WSN: [id number] Ordering Physician: Aminah Kang Dictated By: Lemuel Rojas MD Dictated Date/Time: 11/26/22 7:19 am Reviewed By: Lemuel Rojas MD Signed By: Lemuel Rojas MD Signed Date/Time: 11/26/22 7:19 am Transcribed By: AMELIA Transcribed Date/Time: 11/26/22 7:15 am XR Tibia and Fibula - right 2 Views * [facility] , CIS S: TRANSCRILemuel Neri MD: VERIFY Event Display: Result: Authored Date: [id number] Tibia/Fibula 2 Views Right, Ankle Min 3 Views Right Reason: Trauma; Clinical Question(s): Fracture COMPARISON: None. FINDINGS: There is an oblique fracture of the distal fibula with mild fragment displacement. The fracture maybe comminuted. The mortise is disrupted with mild lateral subluxation of the talus and lateral malleolus. The knee joint is remarkable only for narrowing of the medial compartment. Generalized soft tissue swelling at the ankle, greater laterally than medially. IMPRESSION: Oblique fracture of the distal fibula with mild fragment displacement. Disrupted mortise with slight lateral subluxation of the talus relative to the tibia. Generalized soft tissue swelling at the ankle. Cartilage thinning in the medial compartment of the right knee. WSN: [id number] Ordering Physician: Aminah Kang Dictated By: Lemuel Rojas MD Dictated Date/Time: 11/26/22 7:19 am Reviewed By: Lemuel Rojas MD Signed By: Lemuel Rojas MD Signed Date/Time: 11/26/22 7:19 am Transcribed By: AMELIA Transcribed Date/Time: 11/26/22 7:15 am Patient Care team information Care Team Personnel Name: Patti Arevalo RN Position: [facility] RN Member Role: Primary Care Nurse Name: Arlene Hernandez DO Position: [facility] Primary Care Physician Member Role: PCP Address: Address: [address] [place] [address] [facility] [address] Name: Licha Benjamin RN Position: [facility] RN Member Role: Primary Care Nurse Name: Demarcus Gomez RN Position: [facility] RN Member Role: Primary Care Nurse Name: Vibha Ramos RN Position: [facility] OB RN Member Role: Primary Care Nurse [facility] Attending Position: [facility] ED Attendings Patient Name: Adelaida Guadalupe RN Position: [facility] ED RN W/OE and Tasks Member Role: Patient Care Provider Name: Cara De Los Santos Position: [facility] ED [facility] Member Role: Consumer Credit Counselor Name: Lemuel Pearce Position: [facility] ED [facility] Name: Brigitte Bolaños MD Position: [facility] Resident Member Role: Admitting Physician Address: Address: [address] [place] [address] Care Team Related Persons Name: ALE FRAGOSO Name: CAITIE NELSON
--- OUTSIDE RECORDS SUMMARY | 2023-05-29 21:17 | XMS_ITS | Continuity of Care Document ---
Author Name Unknown Organization [facility] Address [address] [place] [address]- Care Team Providers Care Transplanter Orchid Name Role Phone Arlene Hernandez DO Primary Care Physician Encounter [facility] Date(s): 07/05/20 - 08/04/20 [facility] [address] [place] [address]- [facility] Allergies, Adverse Reactions, Alerts Substance Reaction Severity Status lisinopril Active Immunizations Given and Recorded Vaccine Date Status Refusal Reason influenza virus vaccine, inactivated 07/23/20 Give n influenza virus vaccine, inactivated 07/11/19 Give n influenza virus vaccine, inactivated 07/19/14 Give n influenza virus vaccine, inactivated 08/23/11 Give n tetanus/diphtheria/pertussis, acel(Tdap) 11/06/19 Given pneumococcal 23-valent vaccine 07/19/14 Given Medications azithromycin 500 mg oral tablet 2 tablet = 1,000 mg, By Mouth, Once, # 2 tablet, 0 Refills, Soft Stop, 03/10/20 11:32:00 EDT, Tablet, [id number], 163, cm, 03/08/20 17:43:00 EDT, Height, 105.8, kg, 03/08/20 17:47:00 EDT, DryWeight Start Date: 03/10/20 Status: Ordered Benadryl 25 mg oral capsule 1 capsule = 25 mg, By Mouth, Daily at bedtime, # 30 capsule, 0 Refills, Maintenance, 01/18/18 9:37:18 EDT, Capsule Start Date: 01/18/18 Status: Ordered Colace sodium 100 mg oral capsule 100 mg, 1, capsule, By Mouth, 2 times a day, hold for looses stools, Refills 0, Maintenance, 11/15/18 11:13:27 EST Start Date: 11/15/18 Status: Ordered Eucerin Moisturizing Creme Eucerin Moisturizing [...] each, 2 Refills, Maintenance, 03/18/20 13:42:00 EDT, [id number], d/c prior MV, take as directed [...] capsule, 6 Refills, Maintenance, 07/13/20 12:42:00 EDT, [id number], 163, cm, 06/24/20 11:48:00 EDT, Height, 105.8, kg, 03/08/20 17:47:00 EDT, Dry Weight Start Date: 07/13/20 Status: Ordered oxybutynin 10 mg/24 hr oral tablet, extended release 1 tablet = 10 mg, By Mouth, Daily, # 30 tablet, 5 Refills, Maintenance, 05/25/20 15:37:00 EDT, ER Tablet, [facility]/pharmacy #[id number], 163, cm, 03/08/20 17:43:00 EDT, Height, [...] 0 Refills, Maintenance, 09/16/19 12:41:30 EST, Aerosol, [facility]/pharmacy #[id number], 160.8, cm, 09/16/19 12:10:53 EST, Height, [...]
--- OUTSIDE RECORDS SUMMARY | 2023-05-29 21:17 | XMS_ITS | Continuity of Care Document ---
Author Name Unknown Organization [facility] Address [address] [place] [address]- Care Team Providers Care Supervisory Civil Engineer Name Role Phone Arlene Hernandez DO Primary Care Physician Encounter [facility] Date(s): 07/29/21 - 08/28/21 [facility] [address] [place], [place] [address] Allergies, Adverse Reactions, Alerts Substance Reaction Severity [...] pneumococcal 23-valent vaccine 07/19/14 Given 1Result Comment: [facility] [id number] Medications hydrOXYzine hydrochloride 50 mg oral tablet 1 tablet = 50 mg, By Mouth, 3 times a day, PRN for anxiety, Maintenance, 07/14/21 15:19:00 EDT, Tablet, ; Start Date: 07/14/21 Status: Ordered Invega Sustenna 156 mg/mL intramuscular suspension, extended release = 156 mg, Intramuscular, Every 28 days, # 1 each, 0 Refills, Maintenance, 06/01/21 9:16:00 EDT, Injection, [facility], Partial fill upon patient request if [...] breakfast, # 90 tablet, 1 Refills, Maintenance, 07/28/21 10:16:00 EDT, Tablet, [facility]/pharmacy #[id number], Partial fill upon patient request if the prescriptionis for a schedule II opioid drug., 163, cm, ... Start Date: 07/28/21 Stop Date: 01/24/22 Status: Ordered multivitamin Multiple Vitamins oral tablet 1 tablet, By Mouth, Daily, # 90 tablet, 4 Refills, Maintenance, 07/28/21 17:59:00 EDT, Tablet, [facility]/pharmacy #[id number], Partial fill upon patient request if the prescription is for a schedule II opioid drug., 1 tablet By Mouth Daily, 163, cm, 07/28/21 9:27... Start Date: 07/28/21 Status: Ordered omeprazole 40 mg oral enteric coated capsule 1 capsule, By Mouth, Daily, # 30 capsule, 2 Refills, Maintenance, 06/02/21 13:03:00 EDT, [facility], 163, cm, 06/01/21 10:51:00 EDT, Height, 104.7, kg, 05/25/21 4:20:00 EDT, Dry Weight Start Date: 06/02/21 Status: Ordered oxybutynin 10 mg/24 hr oral tablet, extended release 1 tablet = 10 mg, By Mouth, Daily, # 30 tablet, 5 Refills, Maintenance, 06/02/21 13:03:00 EDT, ER Tablet, [facility], 163, cm, 06/01/21 10:51:00 EDT, Height, 104.7, kg, 05/25/21 4:20:00 EDT, Dry Weight Start Date: 06/02/21 Status: Ordered SEROquel 100 mg oral tablet 100 mg, 1, tablet, By Mouth, Daily at bedtime, # 30 tablet, Refills 0, Tot. Refills 0, Maintenance,06/01/21 9:12:00 EDT, Route to Pharmacy Electronically, [facility], Partial fill upon patient request if the prescription is for a schedule I... Start Date: 06/01/21 Status: Ordered SEROquel 50 mg oral tablet 1 tablet = 50 mg, By Mouth, 2 times a day, PRN Anxiety, # 60 tablet, 0 Refills, Maintenance, 06/01/21 9:12:00 EDT, Tablet, [facility], Partial fill upon patient request if [...] 0 Refills, Maintenance, 06/01/21 9:16:00 EDT, Tablet, [facility], Partial fill upon patient request if the prescription is for a schedule IIopioid drug., 163, cm, 06/01/21 7:16:00 EDT, Height... Start Date: 06/01/21 Stop Date: 07/01/21 Status: Ordered Ventolin HFA 108 mcg/inh inhalation aerosol with adapter 1 puffs, Inhalation, Every 6 hours, PRN for wheezing, # 18 Gm, 0 Refills, Maintenance, 06/01/21 9:11:00 EDT, Aerosol, [facility], 163, cm, 06/01/21 7:16:00 EDT, Height, [...]
--- OUTSIDE RECORDS SUMMARY | 2023-05-29 21:17 | XMS_ITS | Continuity of Care Document ---
Author Name Unknown Organization [facility] Address [address] [place] [address]- Care Team Providers Care Payer Specialist Name Role Phone Arlene Hernandez DO Primary Care Physician En[place] [facility] [place](s[place] 02/20/21 - 02/20/[address] [address]- Encounter Diagnosis Well adult health check(Final) - 02/20/21 Discharge Disposition: A-D/C Home Attending Physician: Bobby Love MD Admitting Physician: Bobby Love MD Referring Physician: Not on Staff, Referring [...] 28 tablet, 0 Refills, Maintenance, :29:00 EST, [facility]/pharmacy #[id number], 163, cm, 07/23/20 13:15:00 EDT, Height, 105.3, kg, 07/23/20 13:15:00 EDT, Dry Weight Start Date: 09/07/20 Stop Date: 09/21/20 Status: Ordered Diflucan 150 mg oral tablet 1 tablet = 150 mg, By Mouth, Once, # 1 tablet, 0 Refills, Soft Stop, 10/11/20 13:10:00 EST, Tablet,[facility]/pharmacy #[id number], Partial fill upon [...] tablet, 5 Refills, Maintenance, 07/21/20 15:03:00 EDT, [facility]/pharmacy #[id number], 163, cm, 06/24/20 11:48:00 EDT, Height, 105.8, kg, 03/08/20 17:47:00 EDT, Dry Weight Start Date: 07/21/20 Status: Ordered meloxicam 15 mg oral tablet 1 tablet = 15 mg, By Mouth, Daily, # 30 tablet, 0 Refills, Maintenance, 02/20/21 10:44:00 EDT, Tablet, Partial fill upon patient request if the prescription is for a schedule II opioid drug. Start Date: 02/20/21 Status: Ordered Nature's Bounty Hair Skin & Nails oral tablet, chewable See Instructions, take as directed per package labeling, # 100 each, 2 Refills, Maintenance, 03/18/20 13:42:00 EDT, [facility]/pharmacy #[id number], d/c prior MV, take as directed per package labeling, 163, cm, 03/08/20 17:43:00 EDT, Height, 105.8, kg, 03/08/20 17... Start Date: 03/18/20 Status: Ordered nicotine 14 mg/24 hr transdermal film, extended release 1 patch, Topically, Daily, # 30 patch, 0 Refills, Maintenance, 02/20/21 10:42:00 EDT, Patch, Partial fill upon patient request if the prescription is for a schedule II opioid drug. Start Date: 02/20/21 Status: Ordered nicotine 2 mg oral transmucosal [...] Daily, # 30 capsule, 2 Refills, Maintenance, 02/12/21 8:30:00 EDT, [facility]/pharmacy #[id number], 163, cm, 09/20/20 11:14:00 EST, Height, 104.7, kg, 11/21/20 5:07:00 EST, Dry Weight Start Date: 02/12/21 Status: Ordered oxybutynin 10 mg/24 hr oral tablet, extended release 1 tablet = 10 mg, By Mouth, Daily, # 30 tablet, 5 Refills, Maintenance, 02/15/21 13:11:00 EDT, [id number] 163, cm, 09/20/20 11:14:00 EST, Height, 104.7, kg, 11/21/20 5:07:00 EST, Dry Weight Start Date: 02/15/21 Status: Ordered QUEtiapine 200 mg oral tablet [...] by Landstrom Start Date: 07/11/19 Status: Ordered risperiDONE 2 mg oral tablet 2 mg, 1, tablet, By Mouth, 3 times a day, Refills 0, Maintenance, 02/20/21 10:44:00 EDT, Partial fill upon patient request if the prescription is for a schedule II opioid drug. Start Date: 02/20/21 Status: Ordered SEROquel 100 mg oral tablet 100 mg, 1, tablet, By Mouth, Daily at bedtime, Refills 0, Maintenance, 02/20/21 10:41:00 EDT, Partial fill upon patient request if the prescription is for a schedule II opioid drug. Start Date: 02/20/21 Status: Ordered SEROquel 50 mg oral tablet See Instructions, PRN Anxiety, 1 tablet By Mouth 2 times a day, 0 Refills, Maintenance, 02/20/21 10:43:00 EDT, Tablet, Partial fill upon patient request if the prescription is for a schedule II opioid drug. Start Date: 02/20/21 Status: Ordered Topamax 100 mg oral tablet 1 tablet = 100 mg, By Mouth, Daily, # 30 tablet, 0 Refills, Maintenance, 01/18/18 9:37:42 EDT, Tablet Start Date: 01/18/18 Status: Ordered Ventolin HFA 108 mcg/inh inhalation aerosol with adapter 1 puffs, Inhalation, Every 6 hours, PRN for wheezing, # 18 Gm, 0 Refills, Maintenance, 09/16/19 12:41:30 EST, Aerosol, [facility]/pharmacy #[id number], 160.8, cm, 09/16/19 12:10:53 EST, Height, 100, kg, 07/11/19 8:30:20 EDT, Dry Weight Start Date: 09/16/19 Status: Ordered Vitamin B-12 250 mcg oral tablet 1 tablet, By Mouth, Daily, # 30 tablet, 11 Refills, Maintenance, 10/21/20 18:16:00 EST, [id number], 163, cm, 09/20/20 11:14:00 EST, Height, 107.3, [...] 2 Oxygen Saturation [94-100 %] 97 % (02/20/21 12:32 PM) 98 % (02/20/21 10:35 AM) Pulse Rate [55-90 bpm] 80 bpm (02/20/21 12:32 PM) 85 bpm (02/20/21 10:35 AM) Blood Pressure [90-138/55-84 mm Hg] 128/ 84mm Hg (02/20/21 12:32 PM) 130/95mm Hg (02/20/21 10:35 AM) Respiratory Rate [16-30 br/min] 18 br/mi n (02/20/21 12:32 PM) 20 br/min (02/20/21 10:35 AM) Temperature [96.8-100.4 DegF] 98.2 DegF (02/20/21 10:35 AM) Mode of Delivery (Oxygen) Room air (02/20/21 10:35 AM) Blood pressure sites Arm, left (02/20/21 10:35 AM) Temperature Route Oral (02/20/21 10:35 AM) Social History Social History Type Response Smoking Status Current every day zahra sutton entered on: 07/21/14 Sex Female
--- OUTSIDE RECORDS SUMMARY | 2023-05-29 21:17 | XMS_ITS | Continuity of Care Document ---
Author Name Unknown Organization [facility] Address [address] [place] [address]- Care Team Providers Care Nursing Resident Name Role Phone Arlene Hernandez DO Primary Care Physician Encounter [facility] [place] Date(s): 08/17/22 - 09/16/22 [facility] [address] [place], [place] [address] Allergies, Adverse Reactions, Alerts Substance Reaction Severity [...] pneumococcal 23-valent vaccine 07/19/14 Given 1Result Comment: [facility] [id number] Medications benztropine 1 mg oral tablet 1 mg, [...] 0 Refills, Maintenance, 06/01/21 9:16:00 EDT, Injection, [facility], Partial fill upon patient request if [...] 1 Refills, Maintenance, 11/08/21 10:10:00 EST, [id number] fill upon patient request if the prescriptionis for a schedule II opioid drug., 170, cm, ... Start Date: 11/08/21 Stop Date: 05/07/22 Status: Ordered multivitamin Multiple Vitamins oral tablet 1 tablet, By Mouth, Daily, # 90 tablet, 4 Refills, Maintenance, 07/28/21 17:59:00 EDT, Tablet, [id number] Partial fill upon patient request if the prescription is for a schedule II opioid drug., 1 tablet By Mouth Daily, 163, cm, 07/28/21 9:27... Start Date: 07/28/21 Status: Ordered omeprazole 40 mg oral enteric coated capsule 1 capsule, By Mouth, Daily, # 30 capsule, 2 Refills, Maintenance, 06/02/21 13:03:00 EDT, [facility], 163, cm, 06/01/21 10:51:00 EDT, Height, 104.7, kg, 05/25/21 4:20:00 EDT, Dry Weight Start Date: 06/02/21 Status: Ordered oxybutynin 10 mg/24 hr oral tablet, extended release 1 tablet = 10 mg, By Mouth, Daily, # 30 tablet, 5 Refills, Maintenance, 06/02/21 13:03:00 EDT, ER Tablet, [facility], 163, cm, 06/01/21 10:51:00 EDT, Height, [...] Maintenance,06/01/21 9:12:00 EDT, Route to Pharmacy Electronically, [facility], Partial fill upon patient request if the prescription is for a schedule I... Start Date: 06/01/21 Status: Ordered SEROquel 50 mg oral tablet 1 tablet = 50 mg, By Mouth, 2 times a day, PRN Anxiety, # 60 tablet, 0 Refills, Maintenance, 06/01/21 9:12:00 EDT, Tablet, [facility], Partial fill upon patient request if [...] 0 Refills, Maintenance, 06/01/21 9:16:00 EDT, Tablet, [facility], Partial fill upon patient request if [...] 0 Refills, Maintenance, 06/01/21 9:11:00 EDT, Aerosol, [facility], 163, cm, 06/01/21 7:16:00 EDT, Height, [...] abnormal findings Confirmed Active Wheezing Confirmed Active Social History Social History Type Response Smoking Status Current every day sm oker entered on: 07/21/14 Sex Patient Care team information Care Team Personnel Name: Oscar Menjivar RN Position: [facility] RN Member Role: Primary Care Nurse Name: Patti Arevalo RN Position: S RN Member Role: Primary Care Nurse Name: Arlene Hernandez DO Position: [facility] Primary Care Physician Member Role: PCP Address: Address: [address] [place] [address] Adult [facility] [place] [address]- [place] Name: Licha Benjamin RN Position: S RN Member Role: Primary Care Nurse Name: Demarcus Gomez RN Position: S RN Member Role: Primary Care Nurse Name: Vibha Ramos RN Position: [facility] OB RN Member Role: Primary Care Nurse Name: Sho Calhoun RN Position: S RN Member Role: Primary Care Nurse Care Team Related Persons Name: ALE FRAGOSO Name: CAITIE NELSON
--- OUTSIDE RECORDS SUMMARY | 2023-05-29 21:17 | XMS_ITS | Continuity of Care Document ---
Author Name Unknown Organization [facility] Address [address] [place] [id number]- Care Team Providers Care Airport Clerk Name Role Phone Arlene Hernandez DO Primary Care Physician En[place] [facility] [place](s): 02/17/21 - 03/19/[address] [address] Attending Physician: Eleno Hernandez Admitting Physician: Eleno Hernandez Referring Physician: AdmtrEleno Allergies, Adverse Reactions, Alerts Substance Reaction Severity [...] 28 tablet, 0 Refills, Maintenance, :29:00 EST, [facility]/pharmacy #[id number], 163, cm, 07/23/20 13:15:00 EDT, Height, 105.3, kg, 07/23/20 13:15:00 EDT, Dry Weight Start Date: 09/07/20 Stop Date: 09/21/20 Status: Ordered Diflucan 150 mg oral tablet 1 tablet = 150 mg, By Mouth, Once, # 1 tablet, 0 Refills, Soft Stop, 10/11/20 13:10:00 EST, Tablet,[facility]/pharmacy #[id number], Partial fill upon patient request [...] tablet, 5 Refills, Maintenance, 07/21/20 15:03:00 EDT, [facility]/pharmacy #[id number], 163, cm, 06/24/20 11:48:00 EDT, [...] each, 2 Refills, Maintenance, 03/18/20 13:42:00 EDT, [facility]/pharmacy #[id number], d/c prior MV, take as directed per package labeling, 163, cm, 03/08/20 17:43:00 EDT, Height, 105.8, kg, 03/08/20 17... Start Date: 03/18/20 Status: Ordered nicotine 14 mg/24 hr transdermal film, extended release 1 patch, Topically, Daily, # 30 patch, 0 Refills, Acute, 02/21/21 14:02:00 EDT, [id number], 30, APPLY 1 PATCH TOPICALLY EVERY DAY, AFTER COMPLETING 21MG/24HR PATCH, 163, cm, 09/20/20 11:14:00 EST, Height, 104.7, kg, 11/21/20 5:07:00 EST, Dry Weight Start Date: 02/21/21 Status: Ordered omeprazole 40 mg oral enteric coated capsule 1 capsule, By Mouth, Daily, # 30 capsule, 2 Refills, Maintenance, 02/12/21 8:30:00 EDT, [facility]/pharmacy #[id number], 163, cm, 09/20/20 11:14:00 EST, Height, 104.7, kg, 11/21/20 5:07:00 EST, Dry Weight Start Date: 02/12/21 Status: Ordered oxybutynin 10 mg/24 hr oral tablet, extended release 1 tablet = 10 mg, By Mouth, Daily, # 30 tablet, 5 Refills, Maintenance, 02/15/21 13:11:00 EDT, ER Tablet, [facility]/pharmacy #[id number], 163, cm, 09/20/20 11:14:00 EST, [...] 0 Refills, Maintenance, 09/16/19 12:41:30 EST, Aerosol, [facility]/pharmacy #[id number], 160.8, cm, 09/16/19 12:10:53 EST, Height, 100, kg, 07/11/19 8:30:20 EDT, Dry Weight Start Date: 09/16/19 Status: Ordered Vitamin B-12 250 mcg oral tablet 1 tablet, By Mouth, Daily, # 30 tablet, 11 Refills, Maintenance, 10/21/20 18:16:00 EST, [id number], 163, cm, 09/20/20 11:14:00 EST, Height, 107.3, [...]
--- OUTSIDE RECORDS SUMMARY | 2023-05-29 21:17 | XMS_ITS | Continuity of Care Document ---
Author Name Unknown Organization [facility] Address [address] [place] [address]- Care Team Providers Care Cms Expert Name Role Phone Arlene Hernandez DO Primary Care Physician Encounter [facility] [place] Date(s): 10/28/20 - 11/27/20 [facility] [address] [place], [place] [address] Allergies, Adverse Reactions, Alerts Substance Reaction Severity [...] food, # 28 tablet, 0 Refills, Maintenance, 209:29:00 EST, [facility]/pharmacy #[id number], 163, cm, 07/23/20 13:15:00 EDT, Height, 105.3, kg, 07/23/20 13:15:00 EDT, Dry Weight Start Date: 09/07/20 Stop Date: 09/21/20 Status: Ordered Diflucan 150 mg oral tablet 1 tablet = 150 mg, By Mouth, Once, # 1 tablet, 0 Refills, Soft Stop, 10/11/20 13:10:00 EST, Tablet,[facility]/pharm[facility] #[id number], Partial fill upon patient [...] 0 Refills, Maintenance, 09/16/19 12:41:32 EST, Liquid, [facility]/pharmacy #[id number], 160.8, cm, 09/16/19 12:10:53 [...] tablet, 5 Refills, Maintenance, 07/21/20 15:03:00 EDT, [facility]/pharmacy #[id number], 163, cm, 06/24/20 11:48:00 EDT, Height, 105.8, kg, 03/08/20 17:47:00 EDT, Dry Weight Start Date: 07/21/20 Status: Ordered Nature's Bounty Hair Skin & Nails oral tablet, chewable See Instructions, take as directed per package labeling, # 100 each, 2 Refills, Maintenance, 03/18/20 13:42:00 EDT, [facility]/pharmacy #[id number], d/c prior MV, take [...] capsule, 6 Refills, Maintenance, 07/13/20 12:42:00 EDT, [id number], 163, cm, 06/24/20 11:48:00 EDT, Height, 105.8, kg, 03/08/20 17:47:00 EDT, Dry Weight Start Date: 07/13/20 Status: Ordered oxybutynin 10 mg/24 hr oral tablet, extended release 1 tablet = 10 mg, By Mouth, Daily, # 30 tablet, 5 Refills, Maintenance, 05/25/20 15:37:00 EDT, ER Tablet, [facility]/pharmacy #[id number], 163, cm, 03/08/20 17:43:00 [...] 0 Refills, Maintenance, 09/16/19 12:41:30 EST, Aerosol, [facility]/pharmacy #[id number], 160.8, cm, 09/16/19 12:10:53 EST, Height, 100, kg, 07/11/19 8:30:20 EDT, Dry Weight Start Date: 09/16/19 Status: Ordered Vitamin B-12 250 mcg oral tablet 1 tablet, By Mouth, Daily, # 30 tablet, 11 Refills, Maintenance, 10/21/20 18:16:00 EST, [id number], 163, cm, 09/20/20 11:14:00 EST, Height, 107.3, kg, 09/20/20 11:18:00 EST, Dry Weight Start Date: 10/21/20 Status: Ordered Zithromax Z-Peewee 250 mg oral tablet See Instructions, as directed on package labeling, # 1 pack/packet, 0 Refills, Maintenance, 10/11/20 13:10:00 EST, [facility]/pharmacy #[id number], Partial fill upon patient request if the [...]
--- OUTSIDE RECORDS SUMMARY | 2023-05-29 21:17 | XMS_ITS | Continuity of Care Document ---
Author Name Unknown Organization [facility] Address [address] [place] [address]- Care Team Providers Care Release And Technical Records Clerk Name Role Phone Arlene Hernandez DO Primary Care Physician ( [phone] Encounter [facility] Date(s): 03/09/21 - 04/08/21 [facility] [address] [place], [place] [address] Allergies, Adverse Reactions, Alerts Substance [...] 28 tablet, 0 Refills, Maintenance, 209:29:00 EST, [facility]/pharmacy #[id number], 163, cm, 07/23/20 13:15:00 EDT, Height, 105.3, kg, 07/23/20 13:15:00 EDT, Dry Weight Start Date: 09/07/20 Stop Date: 09/21/20 Status: Ordered Diflucan 150 mg oral tablet 1 tablet = 150 mg, By Mouth, Once, # 1 tablet, 0 Refills, Soft Stop, 10/11/20 13:10:00 EST, Tablet,[facility]/pharmacy #[id number], Partial fill upon patient [...] 0 Refills, Maintenance, 09/16/19 12:41:32 EST, Liquid, [facility]/pharmacy #[id number], 160.8, cm, 09/16/19 12:10:53 [...] tablet, 5 Refills, Maintenance, 07/21/20 15:03:00 EDT, [facility]/pharmacy #[id number], 163, cm, 06/24/20 11:48:00 [...] each, 2 Refills, Maintenance, 03/18/20 13:42:00 EDT, [facility]/pharmacy #[id number], d/c prior MV, take as directed per package labeling, 163, cm, 03/08/20 17:43:00 EDT, Height, 105.8, kg, 03/08/20 17... Start Date: 03/18/20 Status: Ordered nicotine 14 mg/24 hr transdermal film, extended release 1 patch, Topically, Daily, # 30 patch, 0 Refills, Acute, 02/21/21 14:02:00 EDT, [facility], 30, APPLY 1 PATCH TOPICALLY EVERY DAY, AFTER COMPLETING 21MG/24HR PATCH, 163, cm, 09/20/20 11:14:00 EST, Height, 104.7, kg, 11/21/20 5:07:00 EST, Dry Weight Start Date: 02/21/21 Status: Ordered omeprazole 40 mg oral enteric coated capsule 1 capsule, By Mouth, Daily, # 30 capsule, 2 Refills, Maintenance, 02/12/21 8:30:00 EDT, [facility]/pharmacy #[id number], 163, cm, 09/20/20 11:14:00 EST, Height, 104.7, kg, 11/21/20 5:07:00 EST, Dry Weight Start Date: 02/12/21 Status: Ordered oxybutynin 10 mg/24 hr oral tablet, extended release 1 tablet = 10 mg, By Mouth, Daily, # 30 tablet, 5 Refills, Maintenance, 02/15/21 13:11:00 EDT, ER Tablet, [facility]/pharmacy #[id number], 163, cm, 09/20/20 11:14:00 EST, Height, [...] 0 Refills, Maintenance, 09/16/19 12:41:30 EST, Aerosol, [facility]/pharmacy #[id number], 160.8, cm, 09/16/19 12:10:53 EST, Height, 100, kg, 07/11/19 8:30:20 EDT, Dry Weight Start Date: 09/16/19 Status: Ordered Vitamin B-12 250 mcg oral tablet 1 tablet, By Mouth, Daily, # 30 tablet, 11 Refills, Maintenance, 10/21/20 18:16:00 EST, [facility], 163, cm, 09/20/20 11:14:00 EST, Height, 107.3, [...]
--- OUTSIDE RECORDS SUMMARY | 2023-05-29 21:17 | XMS_ITS | Continuity of Care Document ---
Author Name Unknown Organization [facility] Address [address] [place] [address]- Care Team Providers Care Inoculator Name Role Phone Arlene Hernandez DO Primary Care Physician Encounter [facility] Date(s): 05/20/20 - 06/19/20 [facility] [address] [place] [address]- [facility] Allergies, Adverse Reactions, Alerts Substance Reaction Severity Status lisinopril Active Immunizations Given and Recorded Vaccine Date Status Refusal Reason tetanus/diphtheria/pertussis, acel(Tdap) 11/06/19 Given influenza virus vaccine, inactivated 07/11/19 Give n influenza virus vaccine, inactivated 07/19/14 Give n influenza virus vaccine, inactivated 08/23/11 Give n pneumococcal 23-valent vaccine 07/19/14 Given Medications azithromycin [...] 0 Refills, Maintenance, 09/16/19 12:41:32 EST, Liquid, [facility]/pharmacy #[id number], 160.8, cm, 09/16/19 12:10:53 EST, Height, [...] Pain 650 mg oral tablet, extended release 1 tablet, By Mouth, Every 8 hours, PRN NEEDED FOR PAIN, # 50 tablet, 1 Refills, Acute, 01/08/20 11:41:00 EDT, [id number], 163, cm, 12/05/19 4:26:00 EST, Height, 117.1, kg, 10/29/19 10:15:00 EST, Dry Weight Start Date: 01/08/20 Status: Ordered Nature's Bounty Hair Skin & Nails oral tablet, chewable See Instructions, take as directed per package labeling, # 100 each, 2 Refills, Maintenance, 03/18/20 13:42:00 EDT, [facility]/pharmacy #[id number], d/c prior MV, take as directed [...] 40 mg oral enteric coated capsule 1 capsule = 40 mg, By Mouth, Daily, # 30 capsule, 6 Refills, Maintenance, 09/16/19 12:41:32 EST, Suspension, [facility]/pharmacy #[id number], 160.8, cm, 09/16/19 12:10:53 EST, Height, 100, kg, 07/11/19 8:30:20 EDT, Dry Weight Start Date: 09/16/19 Stop Date: 04/13/20 Status: Ordered oxybutynin 10 mg/24 hr oral tablet, extended release 1 tablet = 10 mg, By Mouth, Daily, # 30 tablet, 5 Refills, Maintenance, 05/25/20 15:37:00 EDT, ER Tablet, [facility]/pharmacy #[id number], 163, cm, 03/08/20 17:43:00 EDT, Height, [...] 0 Refills, Maintenance, 09/16/19 12:41:30 EST, Aerosol, [facility]/pharmacy #[id number], 160.8, cm, 09/16/19 12:10:53 EST, Height, [...] Active Stress incontinence(Confirmed) Active Nicotine dependence(Confirmed) Active Personality disorder(Confirmed) Active PTSD (post-traumatic stress disorder)(Confirmed) Active Schizoaffective Disorder(Confirmed) 08/23/11 Active Wheezing(Confirmed) Active Social History Social History Type Response Smoking Status Current every day zahra sutton entered on: 07/21/14 Sex Female
--- OUTSIDE RECORDS SUMMARY | 2023-05-29 21:17 | XMS_ITS | Continuity of Care Document ---
Author Name Unknown Organization [facility] Address [address] [place] [address]- Care Team Providers Care Wedger Machine Name Role Phone Arlene Hernandez DO Primary Care Physician Encounter [facility] [place] Date(s): 05/28/20 - 05/29/[address] [address]- [facility] Encounter Diagnosis Agitation(Final) - 05/28/20 Discharge Disposition: A-D/C Home Attending Physician: Lemuel Flores MD Admitting Physician: Lemuel Flores MD Referring Physician: Not on Staff, Referring [...] 0 Refills, Maintenance, 09/16/19 12:41:32 EST, Liquid, [facility]/pharmacy #[id number], 160.8, cm, 09/16/19 12:10:53 [...] tablet, 1 Refills, Acute, 01/08/20 11:41:00 EDT, [id number], 163, cm, 12/05/19 4:26:00 EST, Height, 117.1, [...] 6 Refills, Maintenance, 09/16/19 12:41:32 EST, Suspension, [facility]/pharmacy #[id number], 160.8, cm, 09/16/19 12:10:53 EST, Height, 100, kg, 07/11/19 8:30:20 EDT, Dry Weight Start Date: 09/16/19 Stop Date: 04/13/20 Status: Ordered oxybutynin 10 mg/24 hr oral tablet, extended release 1 tablet = 10 mg, By Mouth, Daily, # 30 tablet, 5 Refills, Maintenance, 05/25/20 15:37:00 EDT, ER Tablet, [facility]/pharmacy #[id number], 163, cm, 03/08/20 17:43:00 [...] 0 Refills, Maintenance, 09/16/19 12:41:30 EST, Aerosol, [facility]/pharmacy #[id number], 160.8, cm, 09/16/19 12:10:53 [...] Most recent to oldest [Reference Range]: 1 Oxygen Saturation [94-100 %] 96 % (05/28/20 7:26 PM) Pulse Rate [55-90 bpm] 87 bpm (05/28/20 7:26 PM) Blood Pressure [90-138/55-84 mm Hg] 98/4 8mm Hg (05/28/20 7:26 PM) Respiratory Rate [16-30 br/min] 18 br/mi n (05/28/20 7:26 PM) Temperature [96.8-100.4 DegF] 98.3 DegF (05/28/20 7:26 PM) Mode of Delivery (Oxygen) Room air (05/28/20 7:26 PM) Social History Social History Type Response Smoking Status Current every day zahra sutton entered on: 07/21/14 Sex Female
--- OUTSIDE RECORDS SUMMARY | 2023-05-29 21:17 | XMS_ITS | Continuity of Care Document ---
Author Name Unknown Organization [facility] Address [address] [place] [address]- Care Team Providers Care Code And Test Clerk Name Role Phone Arlene Hernandez DO Primary Care Physician Encounter [facility] [place] Date(s): 12/21/20 - 12/28/20 [facility] [address], [place] [address] Attending Physician: Arlene Hernandez DO Allergies, [...] 28 tablet, 0 Refills, Maintenance, :29:00 EST, [facility]/pharmacy #[id number], 163, cm, 07/23/20 13:15:00 EDT, Height, 105.3, kg, 07/23/20 13:15:00 EDT, Dry Weight Start Date: 09/07/20 Stop Date: 09/21/20 Status: Ordered Diflucan 150 mg oral tablet 1 tablet = 150 mg, By Mouth, Once, # 1 tablet, 0 Refills, Soft Stop, 10/11/20 13:10:00 EST, Tablet,[facility]/pharmacy #[id number], Partial fill upon patient request if [...] 0 Refills, Maintenance, 09/16/19 12:41:32 EST, Liquid, [facility]/pharmacy #[id number], 160.8, cm, 09/16/19 12:10:53 EST, Height, [...] tablet, 5 Refills, Maintenance, 07/21/20 15:03:00 EDT, [facility]/pharmacy #[id number], 163, cm, 06/24/20 11:48:00 EDT, Height, 105.8, kg, 03/08/20 17:47:00 EDT, Dry Weight Start Date: 07/21/20 Status: Ordered Nature's Bounty Hair Skin & Nails oral tablet, chewable See Instructions, take as directed per package labeling, # 100 each, 2 Refills, Maintenance, 03/18/20 13:42:00 EDT, [facility]/pharmacy #[id number], d/c prior MV, take as directed [...] capsule, 6 Refills, Maintenance, 07/13/20 12:42:00 EDT, [facility], 163, cm, 06/24/20 11:48:00 EDT, Height, 105.8, kg, 03/08/20 17:47:00 EDT, Dry Weight Start Date: 07/13/20 Status: Ordered oxybutynin 10 mg/24 hr oral tablet, extended release 1 tablet = 10 mg, By Mouth, Daily, # 30 tablet, 5 Refills, Maintenance, 05/25/20 15:37:00 EDT, ER Tablet, [facility]/pharmacy #[id number], 163, cm, 03/08/20 17:43:00 EDT, Height, [...] 0 Refills, Maintenance, 09/16/19 12:41:30 EST, Aerosol, [facility]/pharmacy #[id number], 160.8, cm, 09/16/19 12:10:53 EST, Height, 100, kg, 07/11/19 8:30:20 EDT, Dry Weight Start Date: 09/16/19 Status: Ordered Vitamin B-12 250 mcg oral tablet 1 tablet, By Mouth, Daily, # 30 tablet, 11 Refills, Maintenance, 10/21/20 18:16:00 EST, [facility], 163, cm, 09/20/20 11:14:00 EST, Height, 107.3, kg, 09/20/20 11:18:00 EST, Dry Weight Start Date: 10/21/20 Status: Ordered Zithromax Z-Peewee 250 mg oral tablet See Instructions, as directed on package labeling, # 1 pack/packet, 0 Refills, Maintenance, 10/11/20 13:10:00 EST, [facility]/pharmacy #[id number], Partial fill upon patient request if [...]
--- OUTSIDE RECORDS SUMMARY | 2023-05-29 21:17 | XMS_ITS | Continuity of Care Document ---
Author Name Unknown Organization [facility] Address [address] [place] [address]- Care Team Providers Care Banana Carrier Name Role Phone Not on Staff, PCP Primary Care Physician Unavail able Encounter [facility] Date(s): 05/31/21 - 07/08/[address] [address]- Attending Physician: Not on Staff, Attending
--- OUTSIDE RECORDS SUMMARY | 2023-05-29 21:17 | XMS_ITS | Continuity of Care Document ---
Author Name Unknown Organization [facility] Address [address] [place] [address]- Care Team Providers Care Spa Therapist Name Role Phone Arlene Hernandez DO Primary Care Physician ( [phone] Encounter [facility] [place] Date(s): 06/25/20 - 07/25/20 [facility] [address] [place] [address]- [facility] Allergies, Adverse Reactions, Alerts Substance Reaction Severity [...] capsule, 6 Refills, Maintenance, 07/13/20 12:42:00 EDT, [facility], 163, cm, 06/24/20 11:48:00 EDT, Height, 105.8, kg, 03/08/20 17:47:00 EDT, Dry Weight Start Date: 07/13/20 Status: Ordered oxybutynin 10 mg/24 hr oral tablet, extended release 1 tablet = 10 mg, By Mouth, Daily, # 30 tablet, 5 Refills, Maintenance, 05/25/20 15:37:00 EDT, ER Tablet, [facility]/pharmacy #[id number], 163, cm, 03/08/20 17:43:00 EDT, [...] 0 Refills, Maintenance, 09/16/19 12:41:30 EST, Aerosol, [facility]/pharmacy #[id number], 160.8, cm, 09/16/19 12:10:53 EST, [...]
--- OUTSIDE RECORDS SUMMARY | 2023-05-29 21:17 | XMS_ITS | Continuity of Care Document ---
Author Name Unknown Organization [facility] Address [address] [place] [address]- Care Team Providers Care Hand Cloth Examiner Name Role Phone Arlene Hernandez DO Primary Care Physician Encounter [facility] [place] Date(s): 07/06/20 - 08/05/20 [facility] [address] [place], [place] [address] Allergies, Adverse Reactions, Alerts Substance [...] 0 Refills, Maintenance, 09/16/19 12:41:32 EST, Liquid, [facility]/pharmacy #[id number], 160.8, cm, 09/16/19 12:10:53 [...] capsule, 6 Refills, Maintenance, 07/13/20 12:42:00 EDT, [facility] ST[facility], 163, cm, 06/24/20 11:48:00 EDT, Height, 105.8, kg, 03/08/20 17:47:00 EDT, Dry Weight Start Date: 07/13/20 Status: Ordered oxybutynin 10 mg/24 hr oral tablet, extended release 1 tablet = 10 mg, By Mouth, Daily, # 30 tablet, 5 Refills, Maintenance, 05/25/20 15:37:00 EDT, ER Tablet, [facility]/pharmacy #[id number], 163, cm, 03/08/20 17:43:00 [...] 0 Refills, Maintenance, 09/16/19 12:41:30 EST, Aerosol, [facility]/pharmacy #[id number], 160.8, cm, 09/16/19 12:10:53 [...]
--- OUTSIDE RECORDS SUMMARY | 2023-05-29 21:17 | XMS_ITS | Continuity of Care Document ---
Author Name Unknown Organization [facility] Address [address] [place] [address]- Care Team Providers Care Podiatry Teacher Name Role Phone Arlene Hernandez DO Primary Care Physician ( [phone] Encounter [facility] [place] Date(s): 12/13/20 - 12/13/[address] [address]- Discharge Disposition: A-D/C Home Attending Physician: Aaron Isaac MD Admitting Physician: Aaron Isaac MD Referring Physician: Not on Staff, Referring [...] 28 tablet, 0 Refills, Maintenance, 209:29:00 EST, [id number], 163, cm, 07/23/20 13:15:00 EDT, Height, 105.3, kg, 07/23/20 13:15:00 EDT, Dry Weight Start Date: 09/07/20 Stop Date: 09/21/20 Status: Ordered Diflucan 150 mg oral tablet 1 tablet = 150 mg, By Mouth, Once, # 1 tablet, 0 Refills, Soft Stop, 10/11/20 13:10:00 EST, Tablet,[facility]/pharmacy #[id number], Partial fill upon patient request if [...] Intramuscular, Every 28 days, 0 Refills, Maintenance, 06/06/18 15:04:32 EDT Start Date: 03/06/18 Status: Ordered LORazepam 0.5 mg oral tablet 0 Refills, Maintenance, 11/06/19 19:02:00 EST Start Date: 11/06/19 Status: Ordered Mapap Arthritis Pain 650 mg oral tablet, extended release 1-2 tablet, By Mouth, Every 8 hours, PRN NEEDED FOR PAIN, # 50 tablet, 5 Refills, Maintenance, 07/21/20 15:03:00 EDT, [facility]/pharmacy #[id number], 163, cm, 06/24/20 11:48:00 EDT, Height, 105.8, kg, 03/08/20 17:47:00 EDT, Dry Weight Start Date: 07/21/20 Status: Ordered Nature's Bounty Hair Skin & Nails oral tablet, chewable See Instructions, take as directed per package labeling, # 100 each, 2 Refills, Maintenance, 03/18/20 13:42:00 EDT, [facility]/pharmacy #[id number], d/c prior MV, take as directed [...] capsule, 6 Refills, Maintenance, 07/13/20 12:42:00 EDT, [facility], 163, cm, 06/24/20 11:48:00 EDT, Height, 105.8, kg, 03/08/20 17:47:00 EDT, Dry Weight Start Date: 07/13/20 Status: Ordered oxybutynin 10 mg/24 hr oral tablet, extended release 1 tablet = 10 mg, By Mouth, Daily, # 30 tablet, 5 Refills, Maintenance, 05/25/20 15:37:00 EDT, ER Tablet, [facility]/pharmacy #[id number], 163, cm, 03/08/20 17:43:00 EDT, Height, [...] 0 Refills, Maintenance, 09/16/19 12:41:30 EST, Aerosol, [facility]/pharmacy #[id number], 160.8, cm, 09/16/19 12:10:53 EST, Height, 100, kg, 07/11/19 8:30:20 EDT, Dry Weight Start Date: 09/16/19 Status: Ordered Vitamin B-12 250 mcg oral tablet 1 tablet, By Mouth, Daily, # 30 tablet, 11 Refills, Maintenance, 10/21/20 18:16:00 EST, [facility], 163, cm, 09/20/20 11:14:00 EST, Height, 107.3, kg, 09/20/20 11:18:00 EST, Dry Weight Start Date: 10/21/20 Status: Ordered Zithromax Z-Peewee 250 mg oral tablet See Instructions, as directed on package labeling, # 1 pack/packet, 0 Refills, Maintenance, 10/11/20 13:10:00 [facility]/pharmacy #[id number], Partial fill upon patient request if the [...] 2 Oxygen Saturation [94-100 %] 97 % (12/13/20 1:49 PM) 97 % (12/13/20 10:44 AM) Pulse Rate [55-90 bpm] 81 bpm (12/13/20 1:49 PM) 63 bpm (12/13/20 10:44 AM) Blood Pressure [90-138/55-84 mm Hg] 113/ 62mm Hg (12/13/20 1:49 PM) 102/55mm Hg (12/13/20 10:44 AM) Respiratory Rate [16-30 br/min] 18 br/mi n (12/13/20 1:49 PM) 18 br/min (12/13/20 10:44 AM) Temperature [96.8-100.4 DegF] 98 DegF (12/13/20 10:44 AM) Mode of Delivery (Oxygen) Room air (12/13/20 1:49 PM) Room air (12/13/20 10:44 AM) Blood pressure sites Arm, left (12/13/20 1:49 PM) Arm, left (12/13/20 10:44 AM) Temperature Route Oral (12/13/20 10:44 AM) Social History Social History Type Response Smoking Status Current every day zahra sutton entered on: 07/21/14 Sex Female
--- OUTSIDE RECORDS SUMMARY | 2023-05-29 21:18 | XMS_ITS | Continuity of Care Document ---
Author Name Unknown Organization [facility] Address [address] [place] [address]- Care Team Providers Care School Business Administrator Name Role Phone Arlene Hernandez DO Primary Care Physician Encounter [facility] Date(s): 07/20/22 - 08/19/22 [facility] [address] [place], [place] [address] Allergies, Adverse Reactions, Alerts Substance Reaction Severity [...] 07/19/14 Given 1Result Comment: [facility] [id number] Medications benztropine 1 mg oral tablet 1 [...] 0 Refills, Maintenance, 06/01/21 9:16:00 EDT, Injection, [facility], Partial fill upon patient request if [...] 1 Refills, Maintenance, 11/08/21 10:10:00 EST, [id number] fill upon patient request if the prescriptionis for a schedule II opioid drug., 170, cm, ... Start Date: 11/08/21 Stop Date: 05/07/22 Status: Ordered multivitamin Multiple Vitamins oral tablet 1 tablet, By Mouth, Daily, # 90 tablet, 4 Refills, Maintenance, 07/28/21 17:59:00 EDT, Tablet, [id number], Partial fill upon patient request if the prescription is for a schedule II opioid drug., 1 tablet By Mouth Daily, 163, cm, 07/28/21 9:27... Start Date: 07/28/21 Status: Ordered omeprazole 40 mg oral enteric coated capsule 1 capsule, By Mouth, Daily, # 30 capsule, 2 Refills, Maintenance, 06/02/21 13:03:00 EDT, [facility], 163, cm, 06/01/21 10:51:00 EDT, Height, 104.7, kg, 05/25/21 4:20:00 EDT, Dry Weight Start Date: 06/02/21 Status: Ordered oxybutynin 10 mg/24 hr oral tablet, extended release 1 tablet = 10 mg, By Mouth, Daily, # 30 tablet, 5 Refills, Maintenance, 06/02/21 13:03:00 EDT, ER Tablet, [facility], 163, cm, 06/01/21 10:51:00 EDT, Height, [...] Maintenance,06/01/21 9:12:00 EDT, Route to Pharmacy Electronically, [facility], Partial fill upon patient request if the prescription is for a schedule I... Start Date: 06/01/21 Status: Ordered SEROquel 50 mg oral tablet 1 tablet = 50 mg, By Mouth, 2 times a day, PRN Anxiety, # 60 tablet, 0 Refills, Maintenance, 06/01/21 9:12:00 EDT, Tablet, [facility], Partial fill upon patient request if [...] 0 Refills, Maintenance, 06/01/21 9:16:00 EDT, Tablet, [facility], Partial fill upon patient request if [...] 0 Refills, Maintenance, 06/01/21 9:11:00 EDT, Aerosol, [facility], 163, cm, 06/01/21 7:16:00 EDT, Height, [...] Team Personnel Name: Oscar Menjivar RN Position: [facility] RN Member Role: Primary Care Nurse Name: Patti Arevalo RN Position: S RN Member Role: Primary Care Nurse Name: Arlene Hernandez DO Position: [facility] Primary Care Physician Member Role: PCP Address: Address: [address] [place] [address] Adult [facility] [place] [address]- [place] Name: Licha Benjamin RN Position: S RN Member Role: Primary Care Nurse Name: Demarcus Gomez RN Position: S RN Member Role: Primary Care Nurse Name: Vibha Ramos RN Position: [facility] OB RN Member Role: Primary Care Nurse Name: Sho Calhoun RN Position: S RN Member Role: Primary Care Nurse Care Team Related Persons Name: ALE FRAGOSO Name: CAITIE NELSON
--- OUTSIDE RECORDS SUMMARY | 2023-05-29 21:18 | XMS_ITS | Continuity of Care Document ---
Author Name Unknown Organization [facility] Address [address] [place] [address]- Care Team Providers Care Tiedown Operator Name Role Phone Arlene Hernandez DO Primary Care Physician [place] [facility] [place] 02/01[place] - 02/02/[address] [address]- Discharge Disposition: A-D/C Home Attending Physician: Bobby [...] 28 tablet, 0 Refills, Maintenance, 209:29:00 EST, [facility]/pharmacy #[id number], 163, cm, 07/23/20 13:15:00 EDT, Height, 105.3, kg, 07/23/20 13:15:00 EDT, Dry Weight Start Date: 09/07/20 Stop Date: 09/21/20 Status: Ordered Diflucan 150 mg oral tablet 1 tablet = 150 mg, By Mouth, Once, # 1 tablet, 0 Refills, Soft Stop, 10/11/20 13:10:00 EST, Tablet,[facility]/pharmacy #[id number], Partial fill upon patient request [...] tablet, 5 Refills, Maintenance, 07/21/20 15:03:00 EDT, [facility]/pharmacy #[id number], 163, cm, 06/24/20 11:48:00 EDT, Height, 105.8, kg, 03/08/20 17:47:00 EDT, Dry Weight Start Date: 07/21/20 Status: Ordered Nature's Bounty Hair Skin & Nails oral tablet, chewable See Instructions, take as directed per package labeling, # 100 each, 2 Refills, Maintenance, 03/18/20 13:42:00 EDT, [facility]/pharmacy #[id number], d/c prior MV, take as [...] capsule, 6 Refills, Maintenance, 07/13/20 12:42:00 EDT, [facility] ST[facility], 163, cm, 06/24/20 11:48:00 EDT, Height, 105.8, kg, 03/08/20 17:47:00 EDT, Dry Weight Start Date: 07/13/20 Status: Ordered oxybutynin 10 mg/24 hr oral tablet, extended release 1 tablet = 10 mg, By Mouth, Daily, # 30 tablet, 5 Refills, Maintenance, 05/25/20 15:37:00 EDT, ER Tablet, [facility]/pharmacy #[id number], 163, cm, 03/08/20 17:43:00 EDT, [...] 0 Refills, Maintenance, 09/16/19 12:41:30 EST, Aerosol, [facility]/pharmacy #[id number], 160.8, cm, 09/16/19 12:10:53 EST, Height, 100, kg, 07/11/19 8:30:20 EDT, Dry Weight Start Date: 09/16/19 Status: Ordered Vitamin B-12 250 mcg oral tablet 1 tablet, By Mouth, Daily, # 30 tablet, 11 Refills, Maintenance, 10/21/20 18:16:00 EST, [facility], 163, cm, 09/20/20 11:14:00 EST, Height, 107.3, kg, 09/20/20 11:18:00 EST, Dry Weight Start Date: 10/21/20 Status: Ordered Zithromax Z-Peewee 250 mg oral tablet See Instructions, as directed on package labeling, # 1 pack/packet, 0 Refills, Maintenance, 10/11/20 13:10:00 [facility]/pharmacy #[id number], Partial fill upon patient request if the [...] 3 Oxygen Saturation [94-100 %] 98 % (02/01/21 8:52 PM) 100 % (02/01/21 12:30 PM) 99 % (02/01/21 11:11 AM) Pulse Rate [55-90 bpm] 68 bpm (02/01/21 8:52 PM) 75 bpm (02/01/21 12:30 PM) 72 bpm (02/01/21 11:11 AM) Blood Pressure [90-138/55-84 mm Hg] 92/56mm Hg (02/01/21 8:52 PM) 119/70mm Hg (02/01/21 12:30 PM) 123/73mm Hg (02/01/21 11:11 AM) Respiratory Rate [16-30 br/min] 19 br/min (02/01/21 8:52 PM) 16 br/min (02/01/21 12:30 PM) 17 br/min (02/01/21 11:11 AM) Temperature [96.8-100.4 DegF] 98.8 DegF (02/01/21 8:52 PM) 97.5 DegF (02/01/21 8:47 AM) Mode of Delivery (Oxygen) Room air (02/01/21 8:52 PM) Room air (02/01/21 12:30 PM) Room air (02/01/21 11:11 AM) Blood pressure sites Arm, left (02/01/21 8:52 PM) Arm, right (02/01/21 11:11 AM) Arm, right (02/01/21 8:47 AM) Temperature Route Oral (02/01/21 8:52 PM) Oral (02/01/21 8:47 AM) Social History Social History Type Response Smoking Status Current every day zahra sutton entered on: 07/21/14 Sex Female
--- OUTSIDE RECORDS SUMMARY | 2023-05-29 21:18 | XMS_ITS | Continuity of Care Document ---
Author Name Unknown Organization [facility] Address [address] [place] [address]- Care Team Providers Care Tire And Lube Technician Name Role Phone Arlene Hernandez DO Primary Care Physician Encounter [facility] [place] Date(s): 05/01/21 - 05/01/[address] [address]- Encounter Diagnosis Cocaine intoxication(Final) - 05/01/21 Delusions(Final) - 05/01/21 Discharge Disposition: A-D/C Home Attending Physician: Cony Madden MD Admitting Physician: Cony Madden MD Referring Physician: Not on Staff, Referring [...] 0 Refills, Soft Stop, 10/11/20 13:10:00 EST, [id number], Partial fill upon patient request if [...] tablet, 5 Refills, Maintenance, 07/21/20 15:03:00 EDT, [facility]/pharmacy #[id number], 163, cm, 06/24/20 11:48:00 EDT, [...] each, 2 Refills, Maintenance, 03/18/20 13:42:00 EDT, [facility]/pharmacy #[id number], d/c prior MV, take as directed per package labeling, 163, cm, 03/08/20 17:43:00 EDT, Height, 105.8, kg, 03/08/20 17... Start Date: 03/18/20 Status: Ordered nicotine 14 mg/24 hr transdermal film, extended release 1 patch, Topically, Daily, # 30 patch, 0 Refills, Acute, 02/21/21 14:02:00 EDT, [facility] ST[facility], 30, APPLY 1 PATCH TOPICALLY EVERY DAY, AFTER COMPLETING 21MG/24HR PATCH, 163, cm, 09/20/20 11:14:00 EST, Height, 104.7, kg, 11/21/20 5:07:00 EST, Dry Weight Start Date: 02/21/21 Status: Ordered omeprazole 40 mg oral enteric coated capsule 1 capsule, By Mouth, Daily, # 30 capsule, 2 Refills, Maintenance, 02/12/21 8:30:00 EDT, [facility]/pharmacy #[id number], 163, cm, 09/20/20 11:14:00 EST, Height, 104.7, kg, 11/21/20 5:07:00 EST, Dry Weight Start Date: 02/12/21 Status: Ordered oxybutynin 10 mg/24 hr oral tablet, extended release 1 tablet = 10 mg, By Mouth, Daily, # 30 tablet, 5 Refills, Maintenance, 02/15/21 13:11:00 EDT, ER Tablet, [facility]/pharmacy #[id number], 163, cm, 09/20/20 11:14:00 EST, [...] Maintenance, 07/11/19 9:02:49 EDT, Tablet, rx by [facility] Start Date: 07/11/19 Status: Ordered risperiDONE 2 [...] 0 Refills, Maintenance, 09/16/19 12:41:30 EST, Aerosol, [facility]/pharmacy #[id number], 160.8, cm, 09/16/19 12:10:53 EST, Height, 100, kg, 07/11/19 8:30:20 EDT, Dry Weight Start Date: 09/16/19 Status: Ordered Vitamin B-12 250 mcg oral tablet 1 tablet, By Mouth, Daily, # 30 tablet, 11 Refills, Maintenance, 10/21/20 18:16:00 EST, [facility], 163, cm, 09/20/20 11:14:00 EST, Height, 107.3, [...] 3 Oxygen Saturation [94-100 %] 98 % (05/01/21 7:26 PM) 99 % (05/01/21 4:41 PM) 98 % (05/01/21 1:21 PM) Pulse Rate [55-90 bpm] 88 bpm (05/01/21 7:26 PM) 74 bpm (05/01/21 4:41 PM) 85 bpm (05/01/21 1:21 PM) Blood Pressure [90-138/55-84 mm Hg] 142/88mm Hg *H* (05/01/21 7:26 PM) 110/68mm Hg (05/01/21 4:41 PM) 131/85mm Hg (05/01/21 1:21 PM) Respiratory Rate [16-30 br/min] 16 br/min (05/01/21 7:26 PM) 16 br/min (05/01/21 4:41 PM) 16 br/min (05/01/21 1:21 PM) Temperature [96.8-100.4 DegF] 97.5 DegF (05/01/21 4:41 PM) 98.6 DegF (05/01/21 1:21 PM) Mode of Delivery (Oxygen) Room air (05/01/21 7:26 PM) Room air (05/01/21 4:41 PM) room air (05/01/21 1:21 PM) Blood pressure sites Arm, left (05/01/21 4:41 PM) Arm, right (05/01/21 1:21 PM) Temperature Route Oral (05/01/21 4:41 PM) Oral (05/01/21 1:21 PM) Social History Social History Type Response Smoking Status Current every day zahra sutton entered on: 07/21/14 Sex Female
--- OUTSIDE RECORDS SUMMARY | 2023-05-29 21:18 | XMS_ITS | Continuity of Care Document ---
Author Name Unknown Organization [facility] Address [address] [place] [address]- Care Team Providers Care Account Executive Agribusiness Name Role Phone Arlene Hernandez DO Primary Care Physician [facility] Date[facility]s): 12/14/22 - 02/03/23 [facility] [address] [place], [place] [address] Attending Physician: Arlene Hernandez DO Allergies, Adverse Reactions, Alerts Substance Reaction Severity Status lisinopril Active Immunizations Given and Recorded Vaccine Date Status Refusal Reason SARS-CoV-2 mRNA ([id number]) vax 01/11/23 Recorded [id number] bivalent booster vax 12/19/22 Recorded SARS-CoV-2 (COVID-19) mRNA-1273 vaccine 04/22/22 R ecorded [...] pneumococcal 23-valent vaccine 07/19/14 Given 1Result Comment: [facility] [id number] Medications divalproex sodium 250 mg oral tablet, extended release 5 tablet = 1,250 mg, By Mouth, Daily, # 150 tablet, 0 Refills, Maintenance, 12/26/22 21:00:00 EDT, ER Tablet, [id number], Partial fill upon patient request if the prescription is for a schedule II opioid drug., 165, cm, 12/26/22 8:47:00 EDT, H... Start Date: 12/26/22 Status: Ordered Home physical therapy Home physical therapy, See Instructions, # 1 each, Refills 0, Tot. Refills 0, Maintenance, Home physical therapy 1-2x per week for up to 12 weeks For help with ambulation, stransfers, strength, balance, and safety, 12/26/22 21:10:00 EDT, Supply Start Date: 12/26/22 Status: Ordered levothyroxine 0.025 mg oral tablet 1 tablet = 25 mcg, By Mouth, Daily, # 30 tablet, 0 Refills, Maintenance, 12/26/22 21:01:00 EDT, Tablet, [facility]/pharmacy #[id number], Partial fill upon patient request if the prescription is for a schedule II opioid drug., 165, cm, 12/26/22 8:47:00 EDT, Height,... Start Date: 12/26/22 Status: Ordered metFORMIN 500 mg oral tablet 1 each = 500 mg, By Mouth, Daily in AM, # 30 tablet, 0 Refills, Maintenance, 12/26/22 21:03:00 EDT,Tablet, [facility]/pharmacy #[id number], Partial fill upon patient request if the prescription is for a scheduleII opioid drug., 165, cm, 12/26/22 8:47:00 EDT, Hei... Start Date: 12/26/22 Stop Date: 01/25/23 Status: Ordered omeprazole 20 mg oral enteric coated capsule 1 capsule = 20 mg, By Mouth, Daily, TAKE 1 CAPSULE BY MOUTH EVERY DAY, # 30 capsule, 0 Refills, Maintenance, 12/26/22 21:00:00 EDT, [id number], Partial fill upon patient request if the prescription is for a schedule II opioid drug., 165, cm, 0... Start Date: 12/26/22 Stop Date: 01/25/23 Status: Ordered oxybutynin 5 mg/24 hours oral tablet, extended release 1 tablet = 5 mg, By Mouth, Daily, # 30 tablet, 0 Refills, Maintenance, 12/26/22 21:01:00 EDT, XL Tablet, [facility]/pharmacy #[id number], Partial fill upon patient request if the prescription is for a schedule IIopioid drug., 165, cm, 12/26/22 8:47:00 EDT, Height... Start Date: 12/26/22 Status: Ordered paliperidone 3 mg oral tablet, extended release 1 tablet = 3 mg, By Mouth, Daily, # 30 tablet, 0 Refills, Maintenance, 12/26/22 21:00:00 EDT, ER Tablet, [id number], Partial fill upon patient request if the prescription is for a schedule IIopioid drug., 165, cm, 12/26/22 8:47:00 EDT, Height... Start Date: 12/26/22 Status: Ordered Rollator walker Rollator walker, See Instructions, # 1 each, Refills 0, Tot. Refills 0, Maintenance, Use walker as needed, 12/26/22 21:08:00 EDT, Supply Start Date: 12/26/22 Status: Ordered SEROquel 100 mg oral tablet 100 mg, 1, tablet, By Mouth, Daily at bedtime, # 30 tablet, Refills 0, Tot. Refills 0, Maintenance,12/26/22 21:01:00 EDT, Route to Pharmacy Electronically, [facility]/pharmacy #[id number], Partial fill upon patient request if the prescription is for a schedule II... Start Date: 12/26/22 Status: Ordered SEROquel 50 mg oral tablet 1 tablet = 50 mg, By Mouth, 2 times a day, PRN Psychosis, # 60 tablet, 0 Refills, Maintenance, 12/26/22 21:01:00 EDT, Tablet, [facility]/pharmacy #[id number], Partial fill upon patient request if the prescriptionis for a schedule II opioid drug., 165, cm, ... Start Date: 12/26/22 Stop Date: 01/25/23 Status: Ordered Problem List Condition Confirmation Course [...] Confirmed Active Schizoaffective Disorder Confirmed 08/23/11 Active Severe obesity Confirmed Active Encounter for general adult medical examination without abnormal findings Confirmed Active Wheezing Confirmed Active Social History Social History Type Response Smoking Status Current every day zahra lesley entered on: 07/21/14 Sex Female Patient Care team information Care Team Personnel Name: Patti Arevalo RN Position: S RN Member Role: Primary Care Nurse Name: Arlene Hernandez DO Position: [facility] Primary Care Physician Member Role: PCP Address: Address: [address] [place] [address] Adult [facility] Pediatric [place], [place] [address] Name: Licha Benjamin RN Position: S RN Member Role: Primary Care Nurse Name: Demarcus Gomez RN Position: [facility] RN Member Role: Primary Care Nurse Name: Marva Ibarra RN Position: S RN Member Role: Primary Care Nurse Name: Lenora Grimaldo RN Position: S RN Member Role: Primary Care Nurse Name: Vibha Ramos RN Position: [facility] OB RN Member Role: Primary Care Nurse Care Team Related Persons Name: CAMACHO METAL GRINDERASHLI Address: home [address] [place] [address] Name: CAITIE NELSON Name: SANCHEZ PIPING SUPERVISORPJ Address: home [address] [place] [address]
--- OUTSIDE RECORDS SUMMARY | 2023-05-29 21:18 | XMS_ITS | Continuity of Care Document ---
Author Name Unknown Organization [facility] Address [address] [place] [address]- Care Team Providers Care Slag Wheeler Name Role Phone Arlene Hernandez DO Primary Care Physician Encounter [facility] [place] Date(s): 01/21/21 - 01/21/[address] [address]- Encounter Diagnosis Chest pain(Final) - 01/21/21 Discharge Disposition: A-D/C Home Attending Physician: Aaron [...] 5 Refills, Maintenance, 07/21/20 15:03:00 EDT, [facility]/pharmacy #[id number], 163, cm, 06/24/20 11:48:00 EDT, Height, 105.8, kg, 03/08/20 17:47:00 EDT, Dry Weight Start Date: 07/21/20 Status: Ordered Nature's Bounty Hair Skin & Nails oral tablet, chewable See Instructions, take as directed per package labeling, # 100 each, 2 Refills, Maintenance, 03/18/20 13:42:00 EDT, [facility]/pharmacy #[id number], d/c prior MV, take as directed [...] 6 Refills, Maintenance, 07/13/20 12:42:00 EDT, [facility] STORE [id number], 163, cm, 06/24/20 11:48:00 EDT, Height, 105.8, kg, 03/08/20 17:47:00 EDT, Dry Weight Start Date: 07/13/20 Status: Ordered oxybutynin 10 mg/24 hr oral tablet, extended release 1 tablet = 10 mg, By Mouth, Daily, # 30 tablet, 5 Refills, Maintenance, 05/25/20 15:37:00 EDT, ER Tablet, [facility]/pharmacy #[id number], 163, cm, 03/08/20 17:43:00 EDT, Height, [...] Refills, Maintenance, 09/16/19 12:41:30 EST, Aerosol, [facility]/pharmacy #[id number], 160.8, cm, 09/16/19 12:10:53 EST, Height, 100, kg, 07/11/19 8:30:20 EDT, Dry Weight Start Date: 09/16/19 Status: Ordered Vitamin B-12 250 mcg oral tablet 1 tablet, By Mouth, Daily, # 30 tablet, 11 Refills, Maintenance, 10/21/20 18:16:00 EST, [facility] STORE 17527, 163, cm, 09/20/20 11:14:00 EST, Height, 107.3, kg, 09/20/20 11:18:00 EST, Dry Weight Start Date: 10/21/20 Status: Ordered Zithromax Z-Peewee 250 mg oral tablet See Instructions, as directed on package labeling, # 1 pack/packet, 0 Refills, Maintenance, 10/11/20 13:10:00 EST, [id number], Partial fill upon patient request if the [...] Active Schizoaffective Disorder(Confirmed) 08/23/11 Active Wheezing(Confirmed) Active Results Radiology Reports * Exam Date Time Procedure Performing Provider Status 01/21/21 12:57 PM Chest Portable Carito Mckeon Aut h (Verified) Notes: (Chest Portable) Reason For Exam: Shortness of Breath RESULT: Chest Portable Chest Portable REASON: Shortness of Breath; Clinical Question(s): CHF / CHF COMPARISON: 10/05/2020 FINDINGS: LINES AND TUBES: None. LUNGS AND PLEURA: Clear lungs. Normal pulmonary vascularity. No pleural effusion. No pneumothorax. HEART, MEDIASTINUM AND CLINT: Heart is normal in size. Normal mediastinal and hilar contour. BONES AND SOFT TISSUES: No acute abnormality. IMPRESSION: No evidence of acute abnormality. WSN: [id number] Ordering Physician: Florian Stacy Dictated By: Jignesh Krishnamurthy MD Dictated Date/Time: 01/21/21 1:00 pm Reviewed By: Jignesh Krishnamurthy MD Signed By: Jignesh Krishnamurthy MD Signed Date/Time: 01/21/21 1:00 pm Transcribed By: AMELIA Transcribed Date/Time: 01/21/21 12:59 pm Vital Signs Most recent to oldest [Reference Range]: 1 2 3 Oxygen Saturation [94-100 %] 96 % (01/21/21 3:00 PM) 96 % (01/21/21 1:00 PM) 97 % (01/21/21 12:19 PM) Pulse Rate [55-90 bpm] 98 bpm *H* (01/21/21 3:00 PM) 77 bpm (01/21/21 1:00 PM) 76 bpm (01/21/21 12:00 PM) Blood Pressure [90-138/55-84 mm Hg] 121/78mm Hg (01/21/21 3:00 PM) 137/71mm Hg (01/21/21 1:00 PM) Respiratory Rate [16-30 br/min] 19 br/min (01/21/21 3:00 PM) 19 br/min (01/21/21 1:00 PM) 18 br/min (01/21/21 12:00 PM) Temperature [96.8-100.4 DegF] 98.2 DegF (01/21/21 3:00 PM) 98.7 DegF (01/21/21 1:00 PM) Liters per Minute 2 L/min (01/21/21 12:19 PM) Mode of Delivery (Oxygen) Room air (01/21/21 3:00 PM) Room air (01/21/21 1:00 PM) Nasal cannula (01/21/21 12:19 PM) Temperature Route Oral (01/21/21 3:00 PM) Oral (01/21/21 1:00 PM) Social History Social History Type Response Smoking Status Current every day zahra sutton entered on: 07/21/14 Sex Female
--- OUTSIDE RECORDS SUMMARY | 2023-05-29 21:18 | XMS_ITS | Continuity of Care Document ---
Author Name Unknown Organization [facility] Address [address] [place] [address]- Care Team Providers Care Machine Pecan Picker Name Role Phone Arlene Hernandez DO Primary Care Physician ( [phone] [place] [facility] [place]/20 [facility] [address] [place] [address]- [facility] Allergies, Adverse Reactions, Alerts Substance Reaction [...] 0 Refills, Maintenance, 09/16/19 12:41:32 EST, Liquid, [facility]/pharmacy #[id number], 160.8, cm, 09/16/19 12:10:53 EST, Height, [...] tablet, 1 Refills, Acute, 01/08/20 11:41:00 EDT, [facility] STORE 23310, 163, cm, 12/05/19 4:26:00 EST, Height, 117.1, kg, 10/29/19 10:15:00 EST, Dry Weight Start Date: 01/08/20 Status: Ordered Nature's Bounty Hair Skin & Nails oral tablet, chewable See Instructions, take as directed per package labeling, # 100 each, 2 Refills, Maintenance, 03/18/20 13:42:00 EDT, [facility]/pharmacy #[id number], d/c prior MV, take as directed [...] 6 Refills, Maintenance, 09/16/19 12:41:32 EST, Suspension, [facility]/pharmacy #[id number], 160.8, cm, 09/16/19 12:10:53 EST, Height, 100, kg, 07/11/19 8:30:20 EDT, Dry Weight Start Date: 09/16/19 Stop Date: 04/13/20 Status: Ordered oxybutynin 10 mg/24 hr oral tablet, extended release 1 tablet = 10 mg, By Mouth, Daily, # 30 tablet, 5 Refills, Maintenance, 10/29/19 12:00:00 EST, ER Tablet, [facility]/pharmacy #[id number], 160.3, cm, 10/29/19 10:15:00 EST, Height, 117.1, kg, 10/29/19 10:15:00 EST, Dry Weight Start Date: 10/29/19 Status: Ordered QUEtiapine 200 mg oral tablet [...]
--- OUTSIDE RECORDS SUMMARY | 2023-05-29 21:18 | XMS_ITS | Continuity of Care Document ---
Author Name Unknown Organization [facility] ter Address [address] [place] [address]- Care Team Providers Care Car Varnisher Name Role Phone Arlene Hernandez DO Primary Care Physician [facility]counter [facility] Date(s): 09/16/19 - 09/16/[address] [address]- [facility] Attending Physician: Arlene Hernandez DO Allergies, Adverse Reactions, Alerts Substance Reaction Severity Status lisinopril Active Immunizations Given and Recorded Vaccine Date Status Refusal Reason influenza virus vaccine, inactivated 07/11/19 Give n influenza virus vaccine, inactivated 07/19/14 Give n influenza virus vaccine, inactivated 08/23/11 Give n pneumococcal 23-valent vaccine 07/19/14 Given Medications Benadryl [...] 11:13:27 EST Start Date: 11/15/18 Status: Ordered guaiFENesin 100 mg/5 mL oral [...] 15:04:32 EDT Start Date: 03/06/18 Status: Ordered multivitamin Multiple Vitamins oral tablet 1 tablet, By Mouth, Daily, # 90 tablet, 4 Refills, Maintenance, 09/16/19 12:41:29 EST, Tablet, [facility]/pharmacy #[id number], 1 tablet By Mouth Daily,x90 days, 160.8, cm, 09/16/19 12:10:53 EST, Height, 100, kg,07/11/19 8:30:20 EDT, Dry Weight Start Date: 09/16/19 Stop Date: 12/09/20 Status: Ordered nicotine 2 mg oral transmucosal [...] 6 Refills, Maintenance, 09/16/19 12:41:32 EST, Suspension, [facility]/pharmacy #[id number], 160.8, cm, 09/16/19 12:10:53 EST, Height, 100, kg, 07/11/19 8:30:20 EDT, Dry Weight Start Date: 09/16/19 Stop Date: 04/13/20 Status: Ordered oxybutynin 5 mg oral tablet 1 tablet = 5 mg, By Mouth, 3 times a day, # 30 tablet, 0 Refills, Maintenance, 01/18/18 9:40:48 EDT, Tablet Start Date: 01/18/18 Status: Ordered QUEtiapine 200 mg oral tablet [...] EDT, Tablet Start Date: 01/18/18 Status: Ordered traZODone 50 mg oral tablet 50 mg, 1, tablet, By Mouth, Daily at bedtime, PRN, rx by [facility], # 30 tablet, Refills 0, Maintenance, Insomnia, 07/11/19 9:01:50 EDT Start Date: 07/11/19 Status: Ordered Tylenol 8 Hour 650 mg oral tablet, extended release 1 tablet = 650 mg, By Mouth, Every 8 hours, PRN as needed for pain, # 50 tablet, 1 Refills, Maintenance, 09/16/19 12:41:34 EST, ER Tablet, [id number], 160.8, cm, 09/16/19 12:10:53 EST, Height, 100, kg, 07/11/19 8:30:20 EDT, Dry Weight Start Date: 09/16/19 Status: Ordered Ventolin HFA 108 mcg/inh inhalation [...] Active Cocaine abuse(Confirmed) Active Drug abuse(Confirmed) Active GERD (gastroesophageal reflu x disease)(Confirmed) Active Stress incontinence(Confirmed) Active Nicotine dependence(Confirmed) Active Personality disorder(Confirmed) Active PTSD (post-traumatic stress disorder)(Confirmed) Active Schizoaffective Disorder(Confirmed) 08/23/11 Active Wheezing(Confirmed) Active Social History Social History Type Response Smoking Status Current every day zahra sutton entered on: 07/21/14 Sex
--- OUTSIDE RECORDS SUMMARY | 2023-05-29 21:18 | XMS_ITS | Continuity of Care Document ---
Author Name Unknown Organization [facility] Address [address] [place] [address]- Care Team Providers Care Functional Mental Disability Teacher Name Role Phone Arlene Hernandez DO Primary Care Physician Encounter [facility] [place] Date(s): 09/13/20 - 10/13/20 [facility] [address] [place], [place] [address] Allergies, Adverse Reactions, Alerts Substance Reaction [...] 28 tablet, 0 Refills, Maintenance, :29:00 EST, [facility]/pharmacy #[id number], 163, cm, 07/23/20 13:15:00 EDT, Height, 105.3, kg, 07/23/20 13:15:00 EDT, Dry Weight Start Date: 09/07/20 Stop Date: 09/21/20 Status: Ordered Diflucan 150 mg oral tablet 1 tablet = 150 mg, By Mouth, Once, # 1 tablet, 0 Refills, Soft Stop, 10/11/20 13:10:00 EST, Tablet,[facility]/pharmacy #[id number], Partial fill upon patient request [...] Refills, Maintenance, 09/16/19 12:41:32 EST, Liquid, [facility]/pharmacy #[id number], 160.8, cm, 09/16/19 12:10:53 EST, [...] tablet, 5 Refills, Maintenance, 07/21/20 15:03:00 EDT, [facility]/pharmacy #[id number], 163, cm, 06/24/20 11:48:00 EDT, Height, 105.8, kg, 03/08/20 17:47:00 EDT, Dry Weight Start Date: 07/21/20 Status: Ordered Nature's Bounty Hair Skin & Nails oral tablet, chewable See Instructions, take as directed per package labeling, # 100 each, 2 Refills, Maintenance, 03/18/20 13:42:00 EDT, [facility]/pharmacy #[id number], d/c prior MV, take as [...] capsule, 6 Refills, Maintenance, 07/13/20 12:42:00 EDT, [facility] STORE 53666, 163, cm, 06/24/20 11:48:00 EDT, Height, 105.8, kg, 03/08/20 17:47:00 EDT, Dry Weight Start Date: 07/13/20 Status: Ordered oxybutynin 10 mg/24 hr oral tablet, extended release 1 tablet = 10 mg, By Mouth, Daily, # 30 tablet, 5 Refills, Maintenance, 05/25/20 15:37:00 EDT, ER Tablet, [facility]/pharmacy #[id number], 163, cm, 03/08/20 17:43:00 EDT, [...] Refills, Maintenance, 09/16/19 12:41:30 EST, Aerosol, [facility]/pharmacy #[id number], 160.8, cm, 09/16/19 12:10:53 EST, [...]
--- OUTSIDE RECORDS SUMMARY | 2023-05-29 21:18 | XMS_ITS | Continuity of Care Document ---
Author Name Unknown Organization [facility] Address [address] [place] [address]- Care Team Providers Care Transport Driver Name Role Phone Arlene Hernandez DO Primary Care Physician ( [phone] Encounter [facility] [place] Date(s): 11/08/21 - 11/15/21 [facility] [address] [place], [place] [address] Attending Physician: Arlene Hernandez DO Allergies, Adverse [...] pneumococcal 23-valent vaccine 07/19/14 Given 1Result Comment: formerly named [facility] [id number] Medications Discontinue Nicotine Patches Discontinue Nicotine Patches, [...] 0 Refills, Maintenance, 06/01/21 9:16:00 EDT, Injection, [facility], Partial fill upon patient request if [...] 1 Refills, Maintenance, 11/08/21 10:10:00 EST, Tablet, [facility]/pharmacy #[id number], Partial fill upon patient request if the prescriptionis for a schedule II opioid drug., 170, cm, ... Start Date: 11/08/21 Stop Date: 05/07/22 Status: Ordered multivitamin Multiple Vitamins oral tablet 1 tablet, By Mouth, Daily, # 90 tablet, 4 Refills, Maintenance, 07/28/21 17:59:00 EDT, Tablet, [id number] Partial fill upon patient request if the prescription is for a schedule II opioid drug., 1 tablet By Mouth Daily, 163, cm, 07/28/21 9:27... Start Date: 07/28/21 Status: Ordered omeprazole 40 mg oral enteric coated capsule 1 capsule, By Mouth, Daily, # 30 capsule, 2 Refills, Maintenance, 06/02/21 13:03:00 EDT, [facility], 163, cm, 06/01/21 10:51:00 EDT, Height, 104.7, kg, 05/25/21 4:20:00 EDT, Dry Weight Start Date: 06/02/21 Status: Ordered oxybutynin 10 mg/24 hr oral tablet, extended release 1 tablet = 10 mg, By Mouth, Daily, # 30 tablet, 5 Refills, Maintenance, 06/02/21 13:03:00 EDT, ER Tablet, [facility], 163, cm, 06/01/21 10:51:00 EDT, Height, 104.7, kg, 05/25/21 4:20:00 EDT, Dry Weight Start Date: 06/02/21 Status: Ordered SEROquel 100 mg oral tablet 100 mg, 1, tablet, By Mouth, Daily at bedtime, # 30 tablet, Refills 0, Tot. Refills 0, Maintenance,06/01/21 9:12:00 EDT, Route to Pharmacy Electronically, [facility], Partial fill upon patient request if the prescription is for a schedule I... Start Date: 06/01/21 Status: Ordered SEROquel 50 mg oral tablet 1 tablet = 50 mg, By Mouth, 2 times a day, PRN Anxiety, # 60 tablet, 0 Refills, Maintenance, 06/01/21 9:12:00 EDT, Tablet, [facility], Partial fill upon patient request if [...] 0 Refills, Maintenance, 06/01/21 9:16:00 EDT, Tablet, [facility], Partial fill upon patient request if the prescription is for a schedule IIopioid drug., 163, cm, 06/01/21 7:16:00 EDT, Height... Start Date: 06/01/21 Stop Date: 07/01/21 Status: Ordered Ventolin HFA 108 mcg/inh inhalation aerosol with adapter 1 puffs, Inhalation, Every 6 hours, PRN for wheezing, # 18 Gm, 0 Refills, Maintenance, 06/01/21 9:11:00 EDT, Aerosol, [facility], 163, cm, 06/01/21 7:16:00 EDT, Height, [...]
--- OUTSIDE RECORDS SUMMARY | 2023-05-29 21:18 | XMS_ITS | Continuity of Care Document ---
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/pharmacy #[id number], 163, cm, 07/23/20 13:15:00 [...] tablet, 5 Refills, Maintenance, 07/21/20 15:03:00 EDT, [facility]/pharmacy #[id number], 163, cm, 06/24/20 11:48:00 [...] patch, 0 Refills, Acute, 02/21/21 14:02:00 EDT, [facility] STORE 55036, 30, APPLY 1 PATCH TOPICALLY EVERY DAY, AFTER COMPLETING 21MG/24HR PATCH, 163, cm, 09/20/20 11:14:00 EST, Height, 104.7, kg, 11/21/20 5:07:00 EST, Dry Weight Start Date: 02/21/21 Status: Ordered omeprazole 40 mg oral enteric coated capsule 1 capsule, By Mouth, Daily, # 30 capsule, 2 Refills, Maintenance, 02/12/21 8:30:00 EDT, [facility]/pharmacy #[id number], 163, cm, 09/20/20 11:14:00 EST, Height, 104.7, kg, 11/21/20 5:07:00 EST, Dry Weight Start Date: 02/12/21 Status: Ordered oxybutynin 10 mg/24 hr oral tablet, extended release 1 tablet = 10 mg, By Mouth, Daily, # 30 tablet, 5 Refills, Maintenance, 02/15/21 13:11:00 EDT, ER Tablet, [facility]/pharmacy #[id number], 163, cm, 09/20/20 11:14:00 [...] Refills, Maintenance, 10/21/20 18:16:00 EST, [facility], 163, cm, 09/20/20 11:14:00 EST, Height, 107.3, [...]
--- OUTSIDE RECORDS SUMMARY | 2023-05-29 21:18 | XMS_ITS | Continuity of Care Document ---
Author Name Unknown Organization [facility] ter Address [address] [place] [address]- Care Team Providers Care Toilet And Laundry Soap Supervisor Name Role Phone Arlene Hernandez DO Primary Care Physician ( [phone] [place] [facility] [place] 04/04/21 - 04/04/[address] [address]- Discharge Disposition: A-D/C Home Attending Physician: Anne Montes MD Admitting Physician: Anne Montes MD Referring Physician: Not on Staff, Referring [...] 28 tablet, 0 Refills, Maintenance, 209:29:00 EST, [facility]/pharmacy #[id number], 163, cm, 07/23/20 13:15:00 EDT, [...] patch, 0 Refills, Acute, 02/21/21 14:02:00 EDT, [facility] STORE 42137, 30, APPLY 1 PATCH TOPICALLY EVERY DAY, AFTER COMPLETING 21MG/24HR PATCH, 163, cm, 09/20/20 11:14:00 EST, Height, 104.7, kg, 11/21/20 5:07:00 EST, Dry Weight Start Date: 02/21/21 Status: Ordered omeprazole 40 mg oral enteric coated capsule 1 capsule, By Mouth, Daily, # 30 capsule, 2 Refills, Maintenance, 02/12/21 8:30:00 EDT, [facility]/pharmacy #[id number], 163, cm, 09/20/20 11:14:00 EST, Height, 104.7, kg, 11/21/20 5:07:00 EST, Dry Weight Start Date: 02/12/21 Status: Ordered oxybutynin 10 mg/24 hr oral tablet, extended release 1 tablet = 10 mg, By Mouth, Daily, # 30 tablet, 5 Refills, Maintenance, 02/15/21 13:11:00 EDT, ER Tablet, [facility]/pharmacy #[id number], 163, cm, 09/20/20 11:14:00 EST, [...] Refills, Maintenance, 10/21/20 18:16:00 EST, [facility], 163, cm, 09/20/20 11:14:00 EST, Height, 107.3, [...] [Reference Range]: 1 Oxygen Saturation [94-100 %] 100 % (04/04/21 12:48 PM) Pulse Rate [55-90 bpm] 80 bpm (04/04/21 12:48 PM) Blood Pressure [90-138/55-84 mm Hg] 104/ 61mm Hg (04/04/21 12:48 PM) Respiratory Rate [16-30 br/min] 18 br/mi n (04/04/21 12:48 PM) Temperature [96.8-100.4 DegF] 98.2 DegF (04/04/21 12:48 PM) Mode of Delivery (Oxygen) Room air (04/04/21 12:48 PM) Blood pressure sites Arm, right (04/04/21 12:48 PM) Temperature Route Oral (04/04/21 12:48 PM) Social History Social History Type Response Smoking Status Current every day zahra sutton entered on: 07/21/14 Sex Female
--- OUTSIDE RECORDS SUMMARY | 2023-05-29 21:18 | XMS_ITS | Continuity of Care Document ---
Author Name Unknown Organization [facility] Address [address] [place] [id number]- Care Team Providers Care Professor Of Physical Education Name Role Phone Arlene Hernandez DO Primary Care Physician Encounter [facility] Date(s): 10/24/20 - 10/24/[address] [address]- Encounter Diagnosis Encounter for medical screening examination(Final) - 10/24/20 Discharge Disposition: A-D/C Home Attending Physician: Hui Herrera MD Admitting Physician: Hui Herrera MD Referring Physician: Not on Staff, Referring [...] 28 tablet, 0 Refills, Maintenance, 209:29:00 EST, [facility]/pharmacy #[id number], 163, cm, 07/23/20 13:15:00 EDT, Height, 105.3, kg, 07/23/20 13:15:00 EDT, Dry Weight Start Date: 09/07/20 Stop Date: 09/21/20 Status: Ordered Diflucan 150 mg oral tablet 1 tablet = 150 mg, By Mouth, Once, # 1 tablet, 0 Refills, Soft Stop, 10/11/20 13:10:00 EST, Tablet,[facility]/pharmacy #[id number], Partial fill upon patient request [...] 0 Refills, Maintenance, 09/16/19 12:41:32 EST, Liquid, [facility]/pharmacy #[id number], 160.8, cm, 09/16/19 12:10:53 EST, [...] tablet, 5 Refills, Maintenance, 07/21/20 15:03:00 EDT, [facility]/pharmacy #[id number], 163, cm, 06/24/20 11:48:00 EDT, Height, 105.8, kg, 03/08/20 17:47:00 EDT, Dry Weight Start Date: 07/21/20 Status: Ordered Nature's Bounty Hair Skin & Nails oral tablet, chewable See Instructions, take as directed per package labeling, # 100 each, 2 Refills, Maintenance, 03/18/20 13:42:00 EDT, [facility]/pharmacy #[id number], d/c prior MV, take as [...] capsule, 6 Refills, Maintenance, 07/13/20 12:42:00 EDT, [facility] STORE [id number], 163, cm, 06/24/20 11:48:00 EDT, Height, 105.8, kg, 03/08/20 17:47:00 EDT, Dry Weight Start Date: 07/13/20 Status: Ordered oxybutynin 10 mg/24 hr oral tablet, extended release 1 tablet = 10 mg, By Mouth, Daily, # 30 tablet, 5 Refills, Maintenance, 05/25/20 15:37:00 EDT, ER Tablet, [facility]/pharmacy #[id number], 163, cm, 03/08/20 17:43:00 EDT, [...] 0 Refills, Maintenance, 09/16/19 12:41:30 EST, Aerosol, [facility]/pharmacy #[id number], 160.8, cm, 09/16/19 12:10:53 EST, Height, 100, kg, 07/11/19 8:30:20 EDT, Dry Weight Start Date: 09/16/19 Status: Ordered Vitamin B-12 250 mcg oral tablet 1 tablet, By Mouth, Daily, # 30 tablet, 11 Refills, Maintenance, 10/21/20 18:16:00 EST, [facility] STORE [id number], 163, cm, 09/20/20 11:14:00 EST, Height, 107.3, kg, 09/20/20 11:18:00 EST, Dry Weight Start Date: 10/21/20 Status: Ordered Zithromax Z-Peewee 250 mg oral tablet See Instructions, as directed on package labeling, # 1 pack/packet, 0 Refills, Maintenance, 10/11/20 13:10:00 EST, [facility]/pharmacy #[id number], Partial fill upon patient request [...] 2 Oxygen Saturation [94-100 %] 97 % (10/24/20 2:39 PM) 99 % (10/24/20 11:14 AM) Pulse Rate [55-90 bpm] 107 bpm *H* (10/24/20 2:39 PM) 84 bpm (10/24/20 11:14 AM) Blood Pressure [90-138/55-84 mm Hg] 148/ 78mm Hg *H* (10/24/20 2:39 PM) 132/77mm Hg (10/24/20 11:14 AM) Respiratory Rate [16-30 br/min] 19 br/mi n (10/24/20 2:39 PM) 19 br/min (10/24/20 11:14 AM) Temperature [96.8-100.4 DegF] 98.6 DegF (10/24/20 11:14 AM) Mode of Delivery (Oxygen) Room air (10/24/20 2:39 PM) Room air (10/24/20 11:14 AM) Blood pressure sites Arm, right (10/24/20 2:39 PM) Arm, right (10/24/20 11:14 AM) Temperature Route Oral (10/24/20 11:14 AM) Social History Social History Type Response Smoking Status Current every day zahra sutton entered on: 07/21/14 Sex Female
--- OUTSIDE RECORDS SUMMARY | 2023-05-29 21:18 | XMS_ITS | Continuity of Care Document ---
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 Name Role Phone Arlene Hernandez DO Primary Care Physician ( [phone] Encounter [facility] Date(s): 12/02/19 - 12/12/19 [facility] Jaime Bola[facility]oss [facility] [address] [place] [address], [address] [place] [address]- Attending Physician: Eleno Hernandez Admitting Physician: AdmEleno spain Referring Physician: AdmtrEleno Allergies, Adverse Reactions, Alerts [...] 0 Refills, Maintenance, 09/16/19 12:41:32 EST, Liquid, [facility]/pharmacy #[id number], 160.8, cm, 09/16/19 12:10:53 EST, Height, 100, kg, 198:30:20 EDT, Dry Weight Start Date: 09/16/19 Stop Date: 09/26/19 Status: Ordered Invega Sustenna 156 mg/mL intramuscular suspension, extended release Intramuscular, Every 28 days, 0 Refills, Maintenance, 03/06/18 15:04:32 EDT Start Date: 03/06/18 Status: Ordered LORazepam 0.5 mg oral tablet 0 Refills, Maintenance, 11/06/19 19:02:00 EST Start Date: 11/06/19 Status: Ordered Nature's Bounty Hair Skin & Nails oral tablet, chewable See Instructions, take as directed per package labeling, # 100 each, 0 Refills, Maintenance, 11/06/19 14:46:00 EST, [facility]/pharmacy #[id number], d/c prior MV, take as directed per package labeling, 160.3, cm,11/06/19 14:14:00 EST, Height, 117.1, kg, 10/29/19... Start Date: 11/06/19 Status: Ordered nicotine 2 mg oral transmucosal [...] 6 Refills, Maintenance, 09/16/19 12:41:32 EST, Suspension, [facility]/pharmacy #[id number], 160.8, cm, 09/16/19 12:10:53 EST, Height, 100, kg, 07/11/19 8:30:20 EDT, Dry Weight Start Date: 09/16/19 Stop Date: 04/13/20 Status: Ordered oxybutynin 10 mg/24 hr oral tablet, extended release 1 tablet = 10 mg, By Mouth, Daily, # 30 tablet, 5 Refills, Maintenance, 10/29/19 12:00:00 EST, ER Tablet, [facility]/pharmacy #[id number], 160.3, cm, 10/29/19 10:15:00 EST, Height, [...] EDT, Tablet Start Date: 01/18/18 Status: Ordered Tylenol 8 Hour 650 mg oral tablet, extended release 1 tablet = 650 mg, By Mouth, Every 8 hours, PRN as needed for pain, # 50 tablet, 1 Refills, Maintenance, 09/16/19 12:41:34 EST, ER Tablet, [facility]/pharmacy #[id number], 160.8, cm, 09/16/19 12:10:53 EST, Height, 100, kg, 07/11/19 8:30:20 EDT, Dry Weight Start Date: 09/16/19 Status: Ordered Ventolin HFA 108 mcg/inh inhalation aerosol with adapter 1 puffs, Inhalation, Every 6 hours, PRN for wheezing, # 18 Gm, 0 Refills, Maintenance, 09/16/19 12:41:30 EST, Aerosol, [facility]/pharmacy #[id number], 160.8, cm, 09/16/19 12:10:53 EST, Height, 100, kg, 07/11/19 8:30:20 EDT, Dry Weight Start Date: 09/16/19 Status: Ordered Vitamin B12 250 mcg oral tablet 1 tablet = 250 mcg, By Mouth, Daily, # 90 tablet, 3 Refills, Maintenance, 09/16/19 12:41:31 EST, Tablet, [facility]/pharmacy #[id number], 160.8, cm, 09/16/19 12:10:53 EST, [...]
--- OUTSIDE RECORDS SUMMARY | 2023-05-29 21:18 | XMS_ITS | Continuity of Care Document ---
Author Name Unknown Organization [facility] ter Address [address] [place] [address]- Care Team Providers Care Crusher Tender Name Role Phone Arlene Hernandez DO Primary Care Physician Encounter [facility] [id number] Date(s): 01/02/20 - 01/03/[address] [address]- [facility] Encounter Diagnosis Hallucinations(Final) - 01/02/20 Discharge Disposition: A-D/C Home Attending Physician: Edi Tineo MD Admitting Physician: Edi Tineo MD Referring Physician: Not on Staff, Referring [...] 0 Refills, Maintenance, 09/16/19 12:41:32 EST, Liquid, [facility]/pharmacy #[id number], 160.8, cm, 09/16/19 12:10:53 EST, [...] each, 0 Refills, Maintenance, 11/06/19 14:46:00 EST, [facility]/pharmacy #[id number], d/c prior MV, take as [...] 6 Refills, Maintenance, 09/16/19 12:41:32 EST, Suspension, [facility]/pharmacy #[id number], 160.8, cm, 09/16/19 12:10:53 EST, Height, 100, kg, 07/11/19 8:30:20 EDT, Dry Weight Start Date: 09/16/19 Stop Date: 04/13/20 Status: Ordered oxybutynin 10 mg/24 hr oral tablet, extended release 1 tablet = 10 mg, By Mouth, Daily, # 30 tablet, 5 Refills, Maintenance, 10/29/19 12:00:00 EST, ER Tablet, [facility]/pharmacy #[id number], 160.3, cm, 10/29/19 10:15:00 EST, Height, [...] Refills, Maintenance, 09/16/19 12:41:34 EST, ER Tablet, [facility]/pharmacy #[id number], 160.8, cm, 09/16/19 12:10:53 EST, [...] Exam Date Time Procedure Performing Provider Status 01/02/20 12:41 PM Chest Portable KiCarlota lepe; Auth (Ve rified) Notes: (Chest Portable) Reason For Exam: Cough RESULT: Chest Portable Chest Portable AP upright 11:49 AM Refer to EMR; Reason: Cough COMPARISON: 12/16/2019. FINDINGS: LINES AND TUBES: None. LUNGS AND PLEURA: Low lung volumes with mild basilar atelectasis. Lungs are otherwise clear with no consolidation. Chronic left apical suture line or calcification. No pleural effusion. No pneumothorax. HEART, MEDIASTINUM AND CLINT: Heart is normal in size. Normal mediastinal and hilar contour. BONES AND SOFT TISSUES: No acute abnormality. IMPRESSION: Low lung volumes. No acute abnormality. I have personally reviewed the images and I agree with this report. WSN: [id number] Ordering Physician: Henny Grimes Dictated By: Connie Durham MD Dictated Date/Time: 01/02/20 12:47 p Reviewed By: Reyes Berger MD Signed By: Reyes Berger MD Signed Date/Time: 01/02/20 12:52 pm Transcribed By: AMELIA Transcribed Date/Time: 01/02/20 12:45 pm Vital Signs Most recent to oldest [Reference Range]: 1 2 3 Oxygen Saturation [94-100 %] 97 % (01/03/20 6:58 AM) 99 % (01/02/20 9:12 PM) 100 % (01/02/20 3:42 PM) Pulse Rate [55-90 bpm] 80 bpm (01/03/20 6:58 AM) 80 bpm (01/02/20 9:12 PM) 85 bpm (01/02/20 3:42 PM) Blood Pressure [90-138/55-84 mm Hg] 106/64mm Hg (01/03/20 6:58 AM) 118/68mm Hg (01/02/20 9:12 PM) 116/63mm Hg (01/02/20 3:42 PM) Respiratory Rate [16-30 br/min] 18 br/min (01/03/20 6:58 AM) 18 br/min (01/02/20 9:12 PM) 18 br/min (01/02/20 3:42 PM) Temperature [96.8-100.4 DegF] 98.1 DegF (01/03/20 6:58 AM) 98.2 DegF (01/02/20 9:12 PM) 97.5 DegF (01/02/20 3:42 PM) Mode of Delivery (Oxygen) Room air (01/03/20 6:58 AM) Room air (01/02/20 9:12 PM) Room air (01/02/20 3:42 PM) Blood pressure sites Arm, left (01/03/20 6:58 AM) Arm, right (01/02/20 9:12 PM) Arm, right (01/02/20 2:22 PM) Temperature Route Oral (01/03/20 6:58 AM) Oral (01/02/20 9:12 PM) Oral (01/02/20 3:42 PM) Social History Social History Type Response Smoking Status Current every day zahra sutton entered on: 07/21/14 Sex Female
--- OUTSIDE RECORDS SUMMARY | 2023-05-29 21:18 | XMS_ITS | Continuity of Care Document ---
Author Name Unknown Organization [facility] Address [address] [place] [address]- Care Team Providers Care Noc Analyst Name Role Phone Arlene Hernandez DO Primary Care Physician ( [phone] Encounter [facility] Date(s): 12/05/19 - 12/05/[address] [address]- [facility] Encounter Diagnosis Dyspnea(Final) - 12/05/19 Alcohol use(Final) - 12/05/19 Discharge Disposition: A-D/C Home Attending Physician: Chun Saez MD Admitting Physician: Chun Saez MD Referring Physician: Not on Staff, Referring [...] each, 0 Refills, Maintenance, 11/06/19 14:46:00 EST, [facility]/pharmacy [...] 6 Refills, Maintenance, 09/16/19 12:41:32 EST, Suspension, [facility]/pharmacy #[id number], 160.8, cm, 09/16/19 12:10:53 EST, Height, 100, kg, 07/11/19 8:30:20 EDT, Dry Weight Start Date: 09/16/19 Stop Date: 04/13/20 Status: Ordered oxybutynin 10 mg/24 hr oral tablet, extended release 1 tablet = 10 mg, By Mouth, Daily, # 30 tablet, 5 Refills, Maintenance, 10/29/19 12:00:00 EST, ER Tablet, [facility]/pharmacy #[id number], 160.3, cm, 10/29/19 10:15:00 EST, [...] Refills, Maintenance, 09/16/19 12:41:34 EST, ER Tablet, [facility] [...] Exam Date Time Procedure Performing Provider Status 12/05/19 4:57 AM Chest 2 Views Frontal and Lat Marco Haque; Phyllis (Verified) Notes: (Chest 2 Views Frontal and Lat) Reason For Exam: wheezing;Other: RESULT: Chest 2 Views Frontal and Lat PA and lateral chest dated December 05, 2019. Comparison films are from August 15, 2029. HISTORY: Wheezing. FINDINGS: The cardiac silhouette is within normal limits for size. Hilar and mediastinal structuresare unremarkable. No airspace infiltrate or pleural effusion is identified. Visualized osseous structures are unremarkable. IMPRESSION: No evidence of acute pulmonary disease. Examination [address]. Thank you for allowing me to participate in the care of this patient. WSN: [id number] Ordering Physician: Sameer Hewitt Dictated By: Grant Hsieh MD Dictated Date/Time: 12/05/19 8:01 am Reviewed By: Grant Hsieh MD Signed By: Garnt Hsieh MD Signed Date/Time: 12/05/19 8:01 am Transcribed By: AMELIA Transcribed Date/Time: 12/05/19 8:00 am Vital Signs Most recent to oldest [Reference Range]: 1 2 3 Height 163 cm (12/05/19 4:26 AM) 163 cm (12/05/19 3:04 AM) Oxygen Saturation [94-100 %] 100 % (12/05/19 6:00 AM) 100 % (12/05/19 4:26 AM) 100 % (12/05/19 3:04 AM) Pulse Rate [55-90 bpm] 70 bpm (12/05/19 6:00 AM) 59 bpm (12/05/19 4:26 AM) 77 bpm (12/05/19 3:04 AM) Blood Pressure [90-138/55-84 mm Hg] 117/78mm Hg (12/05/19 6:00 AM) 111/59mm Hg (12/05/19 4:26 AM) 105/61mm Hg (12/05/19 3:04 AM) Respiratory Rate [16-30 br/min] 17 br/min (12/05/19 6:00 AM) 18 br/min (12/05/19 4:26 AM) 16 br/min (12/05/19 3:04 AM) Temperature [96.8-100.4 DegF] 97.6 DegF (12/05/19 3:04 AM) 98.2 DegF (12/05/19 2:57 AM) Mode of Delivery (Oxygen) Room air (12/05/19 6:00 AM) Room air (12/05/19 4:26 AM) Room air (12/05/19 3:04 AM) Blood pressure sites Arm, left (12/05/19 6:00 AM) Arm, left (12/05/19 4:26 AM) Arm, right (12/05/19 2:57 AM) Temperature Route Oral (12/05/19 3:04 AM) Oral (12/05/19 2:57 AM) Social History Social History Type Response Smoking Status Current every day zahra sutton entered on: 07/21/14 Sex
--- OUTSIDE RECORDS SUMMARY | 2023-05-29 21:18 | XMS_ITS | Continuity of Care Document ---
Author Name Unknown Organization [facility] ter Address [address] [place] [address]- Care Team Providers Care Usability Specialist Name Role Phone Arlene Hernandez DO Primary Care Physician Encounter [facility] Date(s): 01/10/23 - 01/11/[address] [address]- Discharge Disposition: Transfer to [facility] Facility Attending Physician: Missael Reyes MD Admitting Physician: Missael Reyes MD Referring Physician: Not on Staff, Referring MD Allergies, Adverse Reactions, Alerts Substance Reaction Severity Status lisinopril Active Immunizations Given and Recorded Vaccine Date Status Refusal Reason [id number] bivalent booster vax 12/19/22 Recorded SARS-CoV-2 (COVID-19) [...] pneumococcal 23-valent vaccine 07/19/14 Given 1Result Comment: [facility] [id number] Medications divalproex sodium 250 mg oral tablet, [...] 0 Refills, Maintenance, 12/26/22 21:01:00 EDT, Tablet, [facility]/pharmacy #[id number], Partial fill upon patient request if the prescription is for a schedule II opioid drug., 165, cm, 12/26/22 8:47:00 EDT, Height,... Start Date: 12/26/22 Status: Ordered metFORMIN 500 mg oral tablet 1 each = 500 mg, By Mouth, Daily in AM, # 30 tablet, 0 Refills, Maintenance, 12/26/22 21:03:00 EDT,Tablet, [facility]/pharmacy #[id number], Partial fill upon patient request [...] Refills, Maintenance, 12/26/22 21:01:00 EDT, XL Tablet, [facility]/pharmacy #[id number], Partial fill upon patient request if the prescription is for a schedule IIopioid drug., 165, cm, 12/26/22 8:47:00 EDT, Height... Start Date: 12/26/22 Status: Ordered paliperidone 3 mg oral tablet, extended release 1 tablet = 3 mg, By Mouth, Daily, # 30 tablet, 0 Refills, Maintenance, 12/26/22 21:00:00 EDT, ER Tablet, [facility]/pharmacy #[id number], Partial fill upon patient request [...] Maintenance,12/26/22 21:01:00 EDT, Route to Pharmacy Electronically, [facility]/pharmacy #[id number], Partial fill upon patient request if the prescription is for a schedule II... Start Date: 12/26/22 Status: Ordered SEROquel 50 mg oral tablet 1 tablet = 50 mg, By Mouth, 2 times a day, PRN Psychosis, # 60 tablet, 0 Refills, Maintenance, 12/26/22 21:01:00 EDT, Tablet, [facility]/pharmacy #[id number], Partial fill upon patient request [...] abnormal findings Confirmed Active Wheezing Confirmed Active Vital Signs Most recent to oldest [Reference Range]: 1 2 3 Oxygen Saturation [94-100 %] 98 % (01/11/23 4:18 PM) 96 % (01/11/23 4:38 AM) 97 % (01/10/23 7:32 PM) Pulse Rate [55-90 bpm] 69 bpm (01/11/23 4:18 PM) 66 bpm (01/11/23 4:38 AM) 70 bpm (01/10/23 11:30 PM) Blood Pressure [90-138/55-84 mm Hg] 118/69mm Hg (01/11/23 4:18 PM) 107/63mm Hg (01/11/23 4:38 AM) 110/65mm Hg (01/10/23 11:30 PM) Respiratory Rate [16-30 br/min] 16 br/min (01/11/23 4:18 PM) 16 br/min (01/11/23 4:38 AM) 16 br/min (01/10/23 11:30 PM) Temperature [96.8-100.4 DegF] 98.2 DegF (01/11/23 4:18 PM) 98.2 DegF (01/10/23 7:32 PM) 98 DegF (01/10/23 4:40 PM) Mode of Delivery (Oxygen) Room air (01/11/23 4:18 PM) Room air (01/11/23 4:38 AM) Room air (01/10/23 7:32 PM) Blood pressure sites Arm, right (01/11/23 4:18 PM) Arm, right (01/10/23 4:40 PM) Temperature Route Oral (01/11/23 4:18 PM) Oral (01/10/23 7:32 PM) Oral (01/10/23 4:40 PM) Social History Social History Type Response Smoking Status Current every day zahra sutton entered on: 07/21/14 Sex Female Patient Care team information Care Team Personnel Name: Irina ROYAL, Patti Patel Position: [facility] RN Member Role: Primary Care Nurse Name: Kacey Urban Position: [facility] RN Member Role: Primary Care Nurse Name: Arlene Hernandez DO Position: [facility] Primary Care Physician Member Role: PCP Address: Address: [address] [place] [address] Adult & [place] [address]- Name: Licha Benjamin RN Position: [facility] RN Member Role: Primary Care Nurse Name: Demarcus Gomez RN Position: [facility] RN Member Role: Primary Care Nurse Name: Marva Ibarra RN Position: [facility] RN Member Role: Primary Care Nurse Name: Lenora Grimaldo RN Position: [facility] RN Member Role: Primary Care Nurse Name: Vibha Ramos RN Position: [facility] OB RN Member Role: Primary Care Nurse Name: Adelaida Arreguin RN Position: [facility] RN Member Role: Primary Care Nurse [facility] Attending Position: [facility] ED Attendings Patient Name: Marci Stokes RN Position: [facility] ED RN W/OE and Tasks Member Role: Patient Care Provider Name: Ross Maciel MD Position: [facility] Resident Member Role: ED Resident Address: Address: [address] [place] [address] [place] [address]- Care Team Related Persons Name: CAMACHO MANGA ARTISTASHLI Address: home [address] [place] [address] Name: CAITIE NELSON Name: SANCHEZ TEMPLATE REPRODUCTION TECHNICIAN, PJ Address: home [address] [place] [address]
--- OUTSIDE RECORDS SUMMARY | 2023-05-29 21:18 | XMS_ITS | Continuity of Care Document ---
Author Name Unknown Organization [facility] Address [address] [place] [address]- Care Team Providers Care Compensation And Benefits Analyst Name Role Phone Arlene Hernandez DO Primary Care Physician Encounter [facility] Date(s): 05/09/22 - 09/06/22 [facility] [address] [place], [place] [address] Attending Physician: Arlene Hernandez [...] pneumococcal 23-valent vaccine 07/19/14 Given 1Result Comment: [facility] [id number] Medications benztropine 1 mg oral tablet 1 [...] 0 Refills, Maintenance, 06/01/21 9:16:00 EDT, Injection, [facility], Partial fill upon patient request if [...] 1 Refills, Maintenance, 11/08/21 10:10:00 EST, Tablet, [facility]/pharmacy #[id number], Partial fill upon patient request if the prescriptionis for a schedule II opioid drug., 170, cm, ... Start Date: 11/08/21 Stop Date: 05/07/22 Status: Ordered multivitamin Multiple Vitamins oral tablet 1 tablet, By Mouth, Daily, # 90 tablet, 4 Refills, Maintenance, 07/28/21 17:59:00 EDT, Tablet, [facility]/pharmacy #[id number], Partial fill upon patient request if the prescription is for a schedule II opioid drug., 1 tablet By Mouth Daily, 163, cm, 07/28/21 9:27... Start Date: 07/28/21 Status: Ordered omeprazole 40 mg oral enteric coated capsule 1 capsule, By Mouth, Daily, # 30 capsule, 2 Refills, Maintenance, 06/02/21 13:03:00 EDT, [facility], 163, cm, 06/01/21 10:51:00 EDT, Height, 104.7, kg, 05/25/21 4:20:00 EDT, Dry Weight Start Date: 06/02/21 Status: Ordered oxybutynin 10 mg/24 hr oral tablet, extended release 1 tablet = 10 mg, By Mouth, Daily, # 30 tablet, 5 Refills, Maintenance, 06/02/21 13:03:00 EDT, ER Tablet, [facility], 163, cm, 06/01/21 10:51:00 EDT, Height, [...] Maintenance,06/01/21 9:12:00 EDT, Route to Pharmacy Electronically, [facility], Partial fill upon patient request if the prescription is for a schedule I... Start Date: 06/01/21 Status: Ordered SEROquel 50 mg oral tablet 1 tablet = 50 mg, By Mouth, 2 times a day, PRN Anxiety, # 60 tablet, 0 Refills, Maintenance, 06/01/21 9:12:00 EDT, Tablet, [facility], Partial fill upon patient request if [...] 0 Refills, Maintenance, 06/01/21 9:16:00 EDT, Tablet, [facility], Partial fill upon patient request if [...] 0 Refills, Maintenance, 06/01/21 9:11:00 EDT, Aerosol, [facility], 163, cm, 06/01/21 7:16:00 EDT, Height, [...] day zahra sutton entered on: 07/21/14 Sex Patient Care team information Care Team Personnel Name: Oscar Menjivar RN Position: [facility] RN Member Role: Primary Care Nurse Name: Patti Arevalo RN Position: S RN Member Role: Primary Care Nurse Name: Arlene Hernandez DO Position: [facility] Primary Care Physician Member Role: PCP Address: Address: [address] [facility] [place] [address]- Name: Lciha Benjamin RN Position: S RN Member Role: Primary Care Nurse Name: Demarcus Gomez RN Position: S RN Member Role: Primary Care Nurse Name: Vibha Ramos RN Position: [facility] OB RN Member Role: Primary Care Nurse Name: Sho Calhoun RN Position: S RN Member Role: Primary Care Nurse Care Team Related Persons Name: ALE FRAGOSO Name: CAITIE NELSON
--- OUTSIDE RECORDS SUMMARY | 2023-05-29 21:18 | XMS_ITS | Continuity of Care Document ---
Author Name Unknown Organization [facility] Address [address] [place] [address]- Care Team Providers Care Barrel Roller Operator Name Role Phone Arlene Hernandez DO Primary Care Physician ( [phone] Encounter [facility] Date(s): 12/27/22 - 01/26/23 [facility] [address] [place], [place] [address] Allergies, Adverse Reactions, Alerts Substance Reaction Severity Status lisinopril Active Immunizations Given and Recorded Vaccine Date Status Refusal Reason [id number] bivalent booster vax 12/19/22 Recorded SARS-CoV-2 (COVID-19) [...] pneumococcal 23-valent vaccine 07/19/14 Given 1Result Comment: [facility] [id number] Medications divalproex sodium 250 mg oral tablet, extended release 5 tablet = 1,250 mg, By Mouth, Daily, # 150 tablet, 0 Refills, Maintenance, 12/26/22 21:00:00 EDT, ER Tablet, [id number], Partial fill upon patient request if the [...] 0 Refills, Maintenance, 12/26/22 21:01:00 EDT, Tablet, [facility]/pharmacy #[id number], Partial fill upon patient request if the prescription is for a schedule II opioid drug., 165, cm, 12/26/22 8:47:00 EDT, Height,... Start Date: 12/26/22 Status: Ordered metFORMIN 500 mg oral tablet 1 each = 500 mg, By Mouth, Daily in AM, # 30 tablet, 0 Refills, Maintenance, 12/26/22 21:03:00 EDT,Tablet, [facility]/pharmacy #[id number], Partial fill upon patient request if [...] Refills, Maintenance, 12/26/22 21:01:00 EDT, XL Tablet, [id number], Partial fill upon patient request if the prescription is for a schedule IIopioid drug., 165, cm, 12/26/22 8:47:00 EDT, Height... Start Date: 12/26/22 Status: Ordered paliperidone 3 mg oral tablet, extended release 1 tablet = 3 mg, By Mouth, Daily, # 30 tablet, 0 Refills, Maintenance, 12/26/22 21:00:00 EDT, ER Tablet, [facility]/pharmacy #[id number], Partial fill upon patient request if [...] Maintenance,12/26/22 21:01:00 EDT, Route to Pharmacy Electronically, [facility]/pharmacy #[id number], Partial fill upon patient request if the prescription is for a schedule II... Start Date: 12/26/22 Status: Ordered SEROquel 50 mg oral tablet 1 tablet = 50 mg, By Mouth, 2 times a day, PRN Psychosis, # 60 tablet, 0 Refills, Maintenance, 12/26/22 21:01:00 EDT, Tablet, [facility]/pharmacy #[id number], Partial fill upon patient request if [...] Care Nurse Name: Arlene Hernandez DO Position: [facility] Primary Care Physician Member Role: PCP Address: Address: [address] [place] [address] Adult & Pediatric [place], [place] [address] Name: Licha Benjamin RN Position: S RN Member Role: Primary Care Nurse Name: Demarcus Gomez RN Position: S RN Member Role: Primary Care Nurse Name: Marva Ibarra RN Position: S RN Member Role: Primary Care Nurse Name: Lenora Grimaldo RN Position: S RN Member Role: Primary Care Nurse Name: Vibha Ramos RN Position: [facility] OB RN Member Role: Primary Care Nurse Care Team Related Persons Name: CAMACHO PROJECT DEVELOPMENT LEADERASHLI Address: home [address] [place] [address] Name: CAITIE NELSON Name: SANCHEZ HISTOLOGY TECHNOLOGIST, PJ Address: home [address] [place] [address]
--- OUTSIDE RECORDS SUMMARY | 2023-05-29 21:18 | XMS_ITS | Continuity of Care Document ---
Author Name Unknown Organization [facility] Address [address] [place] [address]- Care Team Providers Care Nursing Aide Name Role Phone Arlene Hernandez DO Primary Care Physician [place] [facility] [place] 12/[place] - 01/01/20 [facility] [address] [place] [address]- [facility] Attending Physician: Eleno Hernandez Admitting Physician: AdmtrEleno Referring Physician: Admtr, Ar8 Allergies, Adverse Reactions, Alerts Substance Reaction Severity [...] 0 Refills, Maintenance, 09/16/19 12:41:32 EST, Liquid, [facility]/pharmacy #[id number], 160.8, cm, 09/16/19 12:10:53 [...] each, 0 Refills, Maintenance, 11/06/19 14:46:00 EST, [facility]/pharmacy #[id number], d/c prior MV, take [...] 6 Refills, Maintenance, 09/16/19 12:41:32 EST, Suspension, [facility]/pharmacy #[id number], 160.8, cm, 09/16/19 12:10:53 EST, Height, 100, kg, 07/11/19 8:30:20 EDT, Dry Weight Start Date: 09/16/19 Stop Date: 04/13/20 Status: Ordered oxybutynin 10 mg/24 hr oral tablet, extended release 1 tablet = 10 mg, By Mouth, Daily, # 30 tablet, 5 Refills, Maintenance, 10/29/19 12:00:00 EST, ER Tablet, [facility]/pharmacy #[id number], 160.3, cm, 10/29/19 10:15:00 [...] Refills, Maintenance, 09/16/19 12:41:34 EST, ER Tablet, [facility]/pharmacy #[id number], 160.8, cm, 09/16/19 12:10:53 [...]
--- OUTSIDE RECORDS SUMMARY | 2023-05-29 21:18 | XMS_ITS | Continuity of Care Document ---
Author Name Unknown Organization [facility] Address [address] [place] [id number]- Care Team Providers Care Roll Up Guider Operator Name Role Phone Arlene Hernandez DO Primary Care Physician En[place] [facility] [place] Date(s): 02/17/21 - 03/19/[address] [address] Allergies, Adverse Reactions, Alerts Substance [...] 28 tablet, 0 Refills, Maintenance, :29:00 EST, [facility]/pharmacy #[id number], 163, cm, 07/23/20 [...] 0 Refills, Maintenance, 09/16/19 12:41:32 EST, Liquid, [facility]/pharmacy #[id number], 160.8, cm, 09/16/19 12:10:53 [...] patch, 0 Refills, Acute, 02/21/21 14:02:00 EDT, [facility] STORE [id number], 30, APPLY 1 PATCH TOPICALLY EVERY DAY, AFTER COMPLETING 21MG/24HR PATCH, 163, cm, 09/20/20 11:14:00 EST, Height, 104.7, kg, 11/21/20 5:07:00 EST, Dry Weight Start Date: 02/21/21 Status: Ordered omeprazole 40 mg oral enteric coated capsule 1 capsule, By Mouth, Daily, # 30 capsule, 2 Refills, Maintenance, 02/12/21 8:30:00 EDT, [facility]/pharmacy #[id number], 163, cm, 09/20/20 11:14:00 EST, Height, 104.7, kg, 11/21/20 5:07:00 EST, Dry Weight Start Date: 02/12/21 Status: Ordered oxybutynin 10 mg/24 hr oral tablet, extended release 1 tablet = 10 mg, By Mouth, Daily, # 30 tablet, 5 Refills, Maintenance, 02/15/21 13:11:00 EDT, ER Tablet, [facility]/pharmacy #[id number], 163, cm, 09/20/20 11:14:00 EST, [...] Refills, Maintenance, 10/21/20 18:16:00 EST, [id number], 163, cm, 09/20/20 11:14:00 EST, Height, 107.3, [...]
--- OUTSIDE RECORDS SUMMARY | 2023-05-29 21:18 | XMS_ITS | Continuity of Care Document ---
Author Name Unknown Organization [facility] Address [address] [place] [address]- Care Team Providers Care Agriculture Manager Name Role Phone Arlene Hernandez DO Primary Care Physician [place] [facility] [place]): 09/20/20 - 10/20/20 [facility] [address] [place], [place] [address] Attending Physician: Eleno Hernandez Admitting Physician: Admtr, Eleno Referring Physician: Admtr, Ar8 Allergies, Adverse Reactions, [...] tablet, 0 Refills, Maintenance, :29:00 EST, [facility]/pharmacy #[id number], 163, cm, 07/23/20 13:15:00 EDT, Height, 105.3, kg, 10/23/20 13:15:00 EDT, Dry Weight Start Date: 09/07/20 Stop Date: 09/21/20 Status: Ordered Diflucan 150 mg oral tablet 1 tablet = 150 mg, By Mouth, Once, # 1 tablet, 0 Refills, Soft Stop, 10/11/20 13:10:00 EST, Tablet,[facility]/pharm[facility] #[id number], Partial fill upon patient [...] Refills, Maintenance, 09/16/19 12:41:32 EST, Liquid, [facility]/pharmacy #[id number], 160.8, cm, 09/16/19 12:10:53 [...] 2 Refills, Maintenance, 03/18/20 13:42:00 EDT, [facility]/pharmacy #[id number], d/c prior MV, take [...] 6 Refills, Maintenance, 07/13/20 12:42:00 EDT, [facility] STORE 210[facility], 163, cm, 06/24/20 11:48:00 EDT, Height, 105.8, kg, 03/08/20 17:47:00 EDT, Dry Weight Start Date: 07/13/20 Status: Ordered oxybutynin 10 mg/24 hr oral tablet, extended release 1 tablet = 10 mg, By Mouth, Daily, # 30 tablet, 5 Refills, Maintenance, 05/25/20 15:37:00 EDT, ER Tablet, [facility]/pharmacy #[id number], 163, cm, 03/08/20 17:43:00 [...] Refills, Maintenance, 09/16/19 12:41:30 EST, Aerosol, [facility]/pharmacy #[id number], 160.8, cm, 09/16/19 12:10:53 [...]
--- OUTSIDE RECORDS SUMMARY | 2023-05-29 21:18 | XMS_ITS | Continuity of Care Document ---
Author Name Unknown Organization [facility] Address [address] [place] [address]- Care Team Providers Care Outside Sales Professional Name Role Phone Arlene Hernandez DO Primary Care Physician [place] [facility] [place] Date(s): 11/06/19 - 11/16/19 [facility] [address] [place] [address]- [facility] Attending Physician: Eleno Hernandez Admitting Physician: AdmtrEleno Referring Physician: Admtr ArCarola Allergies, Adverse Reactions, Alerts Substance Reaction Severity [...] each, 0 Refills, Maintenance, 11/06/19 14:46:00 EST, [facility]/pharmacy #[id number], d/c prior MV, [...] 6 Refills, Maintenance, 09/16/19 12:41:32 EST, Suspension, [facility]/pharmacy #[id number], 160.8, cm, 09/16/19 12:10:53 EST, Height, 100, kg, 07/11/19 8:30:20 EDT, Dry Weight Start Date: 09/16/19 Stop Date: 04/13/20 Status: Ordered oxybutynin 10 mg/24 hr oral tablet, extended release 1 tablet = 10 mg, By Mouth, Daily, # 30 tablet, 5 Refills, Maintenance, 10/29/19 12:00:00 EST, ER Tablet, [facility]/pharmacy #[id number], 160.3, cm, 10/29/19 10:15:00 EST, Height, [...] Refills, Maintenance, 09/16/19 12:41:34 EST, ER Tablet, [facility]/pharmacy #[id number], 160.8, cm, 09/16/19 [...]
--- OUTSIDE RECORDS SUMMARY | 2023-05-29 21:18 | XMS_ITS | Continuity of Care Document ---
Author Name Unknown Organization [facility] Address [address] [place] [address]- Care Team Providers Care Research Instrumentation Technician Name Role Phone Alrene Hernandez DO Primary Care Physician En[place] [facility] [place] Date(s): 05/18/22 - 07/14/22 [facility] [address] [place], [place] [address] Attending Physician: Sharon West DO Allergies, Adverse Reactions, Alerts Substance Reaction [...] 23-valent vaccine 07/19/14 Given 1Result Comment: [facility] [id number] Medications benztropine 1 mg oral tablet 1 [...] 0 Refills, Maintenance, 06/01/21 9:16:00 EDT, Injection, [facility], Partial fill upon patient request if [...] 1 tablet = 500 mg, By Mouth, Daily, with meals, # 30 tablet, 0 Refills, Maintenance, 05/12/22 15:45:00 EDT, Tablet, Partial fill upon patient request if the prescription is for a schedule II opioid drug. Start Date: 05/12/22 Status: Ordered metFORMIN 500 mg oral tablet 1 tablet = 500 mg, By Mouth, Daily in AM, with breakfast, # 90 tablet, 1 Refills, Maintenance, 11/08/21 10:10:00 EST, Tablet, [facility]/pharmacy #[id number], Partial fill upon patient request if the prescriptionis for a schedule II opioid drug., 170, cm, ... Start Date: 11/08/21 Stop Date: 05/07/22 Status: Ordered multivitamin Multiple Vitamins oral tablet 1 tablet, By Mouth, Daily, # 90 tablet, 4 Refills, Maintenance, 07/28/21 17:59:00 EDT, [id number] Partial fill upon patient request if the prescription is for a schedule II opioid drug., 1 tablet By Mouth Daily, 163, cm, 07/28/21 9:27... Start Date: 07/28/21 Status: Ordered omeprazole 40 mg oral enteric coated capsule 1 capsule, By Mouth, Daily, # 30 capsule, 2 Refills, Maintenance, 06/02/21 13:03:00 EDT, [facility], 163, cm, 06/01/21 10:51:00 EDT, Height, 104.7, kg, 05/25/21 4:20:00 EDT, Dry Weight Start Date: 06/02/21 Status: Ordered oxybutynin 10 mg/24 hr oral tablet, extended release 1 tablet = 10 mg, By Mouth, Daily, # 30 tablet, 5 Refills, Maintenance, 06/02/21 13:03:00 EDT, ER Tablet, [facility], 163, cm, 06/01/21 10:51:00 EDT, Height, [...] opioid drug. Start Date: 05/12/22 Status: Ordered SEROquel 100 mg oral tablet 100 mg, 1, tablet, By Mouth, Daily at bedtime, # 30 tablet, Refills 0, Tot. Refills 0, Maintenance,06/01/21 9:12:00 EDT, Route to Pharmacy Electronically, [facility], Partial fill upon patient request if the prescription is for a schedule I... Start Date: 06/01/21 Status: Ordered SEROquel 50 mg oral tablet 1 tablet = 50 mg, By Mouth, 2 times a day, PRN Anxiety, # 60 tablet, 0 Refills, Maintenance, 06/01/21 9:12:00 EDT, Tablet, [facility], Partial fill upon patient request if [...] 0 Refills, Maintenance, 06/01/21 9:16:00 EDT, Tablet, [facility], Partial fill upon patient request if [...] 0 Refills, Maintenance, 06/01/21 9:11:00 EDT, Aerosol, [facility], 163, cm, 06/01/21 7:16:00 EDT, Height, [...] on: 07/21/14 Sex Patient Care team information Personnel Name: Arlene Hernandez DO Address: Address: [address] [place] [address] [facility] [address]
--- OUTSIDE RECORDS SUMMARY | 2023-05-29 21:18 | XMS_ITS | Continuity of Care Document ---
Author Name Unknown Organization [facility] Address [address] [place] [address]- Care Team Providers Care Slate Splitter Name Role Phone Arlene Hernandez DO Primary Care Physician Encounter [facility] [place] Date(s): 07/23/20 - 07/30/20 [facility] [address] [place] [address]- [facility] Attending Physician: Arlene Hernandez DO Allergies, Adverse [...] capsule, 6 Refills, Maintenance, 07/13/20 12:42:00 EDT, [facility] ST[id number], 163, cm, 06/24/20 11:48:00 EDT, Height, 105.8, kg, 03/08/20 17:47:00 EDT, Dry Weight Start Date: 07/13/20 Status: Ordered oxybutynin 10 mg/24 hr oral tablet, extended release 1 tablet = 10 mg, By Mouth, Daily, # 30 tablet, 5 Refills, Maintenance, 05/25/20 15:37:00 EDT, ER Tablet, [facility]/pharmacy #[id number], 163, cm, 03/08/20 17:43:00 EDT, [...] 0 Refills, Maintenance, 09/16/19 12:41:30 EST, Aerosol, [facility]/pharmacy #[id number], 160.8, cm, 09/16/19 12:10:53 EST, [...] Most recent to oldest [Reference Range]: 1 Height 163 cm (07/23/20 1:15 PM) Weight 105.3 kg (07/23/20 1:15 PM) Oxygen Saturation [94-100 %] 97 % (07/23/20 1:15 PM) Pulse Rate [55-90 bpm] 98 bpm *H* (07/23/20 1:15 PM) Body Mass Index [18.5-24.99] 39.63 *>HHI* (07/23/20 1:15 PM) Blood Pressure [90-138/55-84 mm Hg] 124/ 79mm Hg (07/23/20 1:15 PM) Temperature [96.8-100.4 DegF] 98.5 DegF (07/23/20 1:15 PM) Mode of Delivery (Oxygen) Room air (07/23/20 1:15 PM) Blood pressure sites Arm, left (07/23/20 1:15 PM) Temperature Route Temporal (07/23/20 1:15 PM) Dry Weight 105.3 kg (07/23/20 1:15 PM) Weight Obtained Via Standing scale (07/23/20 1:15 PM) Social History Social History Type Response Smoking Status Current every day zahra sutton entered on: 07/21/14 Sex Female
--- OUTSIDE RECORDS SUMMARY | 2023-05-29 21:18 | XMS_ITS | Continuity of Care Document ---
Author Name Unknown Organization [facility] Address [address] [place] [address]- Care Team Providers Care Petrologist Name Role Phone Arlene Hernandez DO Primary Care Physician Encounter [facility] [place] Date(s): 03/23/22 - 04/27/22 [facility] [address] [place], [place] [address] Attending Physician: Amber OLERICULTURE PROFESSOR, Yoana Allergies, Adverse Reactions, Alerts Substance Reaction Severity [...] pneumococcal 23-valent vaccine 07/19/14 Given 1Result Comment: [facility] [id number] Medications Discontinue Nicotine Patches Discontinue Nicotine Patches, [...] 0 Refills, Maintenance, 06/01/21 9:16:00 EDT, Injection, [facility], Partial fill upon patient request if [...] 1 Refills, Maintenance, 11/08/21 10:10:00 EST, Tablet, [facility]/pharmacy #[id number], Partial fill upon patient request if the prescriptionis for a schedule II opioid drug., 170, cm, ... Start Date: 11/08/21 Stop Date: 05/07/22 Status: Ordered multivitamin Multiple Vitamins oral tablet 1 tablet, By Mouth, Daily, # 90 tablet, 4 Refills, Maintenance, 07/28/21 17:59:00 EDT, Tablet, [facility]/pharmacy #[id number], Partial fill upon patient request if the prescription is for a schedule II opioid drug., 1 tablet By Mouth Daily, 163, cm, 07/28/21 9:27... Start Date: 07/28/21 Status: Ordered omeprazole 40 mg oral enteric coated capsule 1 capsule, By Mouth, Daily, # 30 capsule, 2 Refills, Maintenance, 06/02/21 13:03:00 EDT, [facility], 163, cm, 06/01/21 10:51:00 EDT, Height, 104.7, kg, 05/25/21 4:20:00 EDT, Dry Weight Start Date: 06/02/21 Status: Ordered oxybutynin 10 mg/24 hr oral tablet, extended release 1 tablet = 10 mg, By Mouth, Daily, # 30 tablet, 5 Refills, Maintenance, 06/02/21 13:03:00 EDT, ER Tablet, [facility], 163, cm, 06/01/21 10:51:00 EDT, Height, 104.7, kg, 05/25/21 4:20:00 EDT, Dry Weight Start Date: 06/02/21 Status: Ordered SEROquel 100 mg oral tablet 100 mg, 1, tablet, By Mouth, Daily at bedtime, # 30 tablet, Refills 0, Tot. Refills 0, Maintenance,06/01/21 9:12:00 EDT, Route to Pharmacy Electronically, [facility], Partial fill upon patient request if the prescription is for a schedule I... Start Date: 06/01/21 Status: Ordered SEROquel 50 mg oral tablet 1 tablet = 50 mg, By Mouth, 2 times a day, PRN Anxiety, # 60 tablet, 0 Refills, Maintenance, 06/01/21 9:12:00 EDT, Tablet, [facility], Partial fill upon patient request [...] 0 Refills, Maintenance, 06/01/21 9:16:00 EDT, Tablet, [facility], Partial fill upon patient request if the prescription is for a schedule IIopioid drug., 163, cm, 06/01/21 7:16:00 EDT, Height... Start Date: 06/01/21 Stop Date: 07/01/21 Status: Ordered Ventolin HFA 108 mcg/inh inhalation aerosol with adapter 1 puffs, Inhalation, Every 6 hours, PRN for wheezing, # 18 Gm, 0 Refills, Maintenance, 06/01/21 9:11:00 EDT, Aerosol, [facility], 163, cm, 06/01/21 7:16:00 EDT, Height, [...]
--- OUTSIDE RECORDS SUMMARY | 2023-05-29 21:18 | XMS_ITS | Continuity of Care Document ---
Author Name Unknown Organization [facility] Address [address] [place] [address]- Care Team Providers Care Prosthetic Lab Technician Name Role Phone Not on Staff, PCP Primary Care Physician Unavail able Encounter [facility] Date(s): 03/09/23 - 04/08/23 [facility] [address] [place], [place] [address] Attending Physician: Eleno Hernandez Admitting Physician: AdmEleno spain Referring Physician: Admtr, Ar8 Allergies, Adverse Reactions, Alerts Substance Reaction Severity Status lisinopril Active Immunizations Given and Recorded Vaccine Date Status Refusal Reason SARS-CoV-2 mRNA (sxvhotl-ymya-zalab) vax 01/11/23 Recorded [id number] bivalent booster vax 12/19/22 Recorded SARS-CoV-2 (COVID-19) [...] 1Result Comment: [facility] [id number] Medications clotrimazole 1% topical cream 1 application, Topically, 2 times a day, # 60 Gm, 0 Refills, Maintenance, 03/29/23 12:58:00 EDT, Cream, [facility]/pharmacy #[id number], Partial fill upon patient request if the prescription is for a schedule II opioid drug., 1 application Topically 2 times a day,... Start Date: 03/29/23 Status: Ordered divalproex sodium 250 mg oral tablet, extended release 5 tablet = 1,250 mg, By Mouth, Daily, # 150 tablet, 0 Refills, Maintenance, 12/26/22 21:00:00 EDT, ER Tablet, [facility]/pharmacy #[id number], Partial fill upon patient request if the prescription is for a schedule II opioid drug., 165, cm, 12/26/22 8:47:00 EDT, H... Start Date: 12/26/22 Status: Ordered divalproex sodium 500 mg oral enteric coated tablet 1 tablet = 500 mg, By Mouth, 3 times a day, # 90 tablet, 0 Refills, Maintenance, 02/15/23 18:41:00 EDT, EC Tablet, Partial fill upon patient request if the prescription is for a schedule II opioid drug. Start Date: 02/15/23 Status: Ordered Home physical therapy Home physical therapy, See Instructions, # 1 each, Refills 0, Tot. Refills 0, Maintenance, Home physical therapy 1-2x per week for up to 12 weeks For help with ambulation, stransfers, strength, balance, and safety, 12/26/22 21:10:00 EDT, Supply Start Date: 12/26/22 Status: Ordered Invega Sustenna 234 mg/1.5 mL intramuscular suspension, extended release 0 Refills, Maintenance, 02/15/23 18:40:00 EDT, Partial fill upon patient request if the prescription is for a schedule II opioid drug. Start Date: 02/15/23 Status: Ordered Invega Sustenna 234 mg/1.5 mL intramuscular suspension, extended release 0 Refills, Maintenance, 03/05/23 0:29:00 EDT, Partial fill upon patient request if the prescriptionis for a schedule II opioid drug. Start Date: 03/05/23 Status: Ordered levothyroxine 0.025 mg oral tablet 1 tablet = 25 mcg, By Mouth, Daily, # 30 tablet, 0 Refills, Maintenance, 12/26/22 21:01:00 EDT, Tablet, [id number], Partial fill upon patient request if the prescription is for a schedule II opioid drug., 165, cm, 12/26/22 8:47:00 EDT, Height,... Start Date: 12/26/22 Status: Ordered levothyroxine 0.025 mg oral tablet 1 tablet = 25 mcg, By Mouth, Daily, # 30 tablet, 0 Refills, Maintenance, 02/15/23 18:40:00 EDT, Tablet, Partial fill upon patient request if the prescription is for a schedule II opioid drug. Start Date: 02/15/23 Status: Ordered levothyroxine 0.025 mg oral tablet 0 Refills, Maintenance, 03/05/23 0:29:00 EDT, Partial fill upon patient request if the prescriptionis for a schedule II opioid drug. Start Date: 03/05/23 Status: Ordered metFORMIN 500 mg oral tablet 1 each = 500 mg, By Mouth, Daily in AM, # 30 tablet, 0 Refills, Maintenance, 12/26/22 21:03:00 EDT,Tablet, [facility]/pharmacy #[id number], Partial fill upon patient request if the prescription is for a scheduleII opioid drug., 165, cm, 12/26/22 8:47:00 EDT, Hei... Start Date: 12/26/22 Stop Date: 01/25/23 Status: Ordered metFORMIN 500 mg oral tablet 0 Refills, Maintenance, 03/05/23 0:29:00 EDT, Partial fill upon patient request if the prescriptionis for a schedule II opioid drug. Start Date: 03/05/23 Status: Ordered omeprazole 20 mg oral enteric [...] omeprazole 20 mg oral enteric coated capsule 0 Refills, Maintenance, 03/05/23 0:29:00 EDT, Partial fill upon patient request if the prescriptionis for a schedule II opioid drug. Start Date: 03/05/23 Status: Ordered oxybutynin 5 mg oral tablet 1 tablet = 5 mg, By Mouth, 3 times a day, # 30 tablet, 0 Refills, Maintenance, 02/15/23 18:40:00 EDT, Tablet, Partial fill upon patient request if the prescription is for a schedule II opioid drug. Start Date: 02/15/23 Status: Ordered oxybutynin 5 mg oral tablet 0 Refills, Maintenance, 03/05/23 0:29:00 EDT, Partial fill upon patient request if the prescriptionis for a schedule II opioid drug. Start Date: 03/05/23 Status: Ordered oxybutynin 5 mg/24 hours oral tablet, extended release 1 tablet = 5 mg, By Mouth, Daily, # 30 tablet, 0 Refills, Maintenance, 12/26/22 21:01:00 EDT, XL Tablet, [facility]/pharmacy #[id number], Partial fill upon patient request if the prescription is for a schedule IIopioid drug., 165, cm, 12/26/22 8:47:00 EDT, Height... Start Date: 12/26/22 Status: Ordered paliperidone 3 mg oral tablet, extended release 1 tablet = 3 mg, By Mouth, Daily, # 30 tablet, 0 Refills, Maintenance, 12/26/22 21:00:00 EDT, ER Tablet, [facility]/pharmacy #[id number], Partial fill upon patient request if the prescription is for a schedule IIopioid drug., 165, cm, 12/26/22 8:47:00 EDT, Height... Start Date: 12/26/22 Status: Ordered QUEtiapine 100 mg oral tablet 100 mg, 1, tablet, By Mouth, 3 times a day, # 90 tablet, Refills 0, Maintenance, 02/15/23 18:40:00 EDT, Partial fill upon patient request if the prescription is for a schedule II opioid drug. Start Date: 02/15/23 Status: Ordered QUEtiapine 100 mg oral tablet Refills 0, Maintenance, 03/05/23 0:29:00 EDT, Partial fill upon patient request if the prescriptionis for a schedule II opioid drug. Start Date: 03/05/23 Status: Ordered Rollator walker Rollator walker, See Instructions, # 1 each, Refills 0, Tot. Refills 0, Maintenance, Use walker as needed, 12/26/22 21:08:00 EDT, Supply Start Date: 12/26/22 Status: Ordered SEROquel 100 mg oral tablet 100 mg, 1, tablet, By Mouth, Daily at bedtime, # 30 tablet, Refills 0, Tot. Refills 0, Maintenance,12/26/22 21:01:00 EDT, Route to Pharmacy Electronically, [facility]/pharmacy #[id number], Partial fill upon patient request if the prescription is for a schedule II... Start Date: 12/26/22 Status: Ordered SEROquel 50 mg oral tablet 1 tablet = 50 mg, By Mouth, 2 times a day, PRN Psychosis, # 60 tablet, 0 Refills, Maintenance, 12/26/22 21:01:00 EDT, Tablet, [facility]/pharmacy #[id number], Partial fill upon patient request if the prescriptionis for a schedule II opioid drug., 165, cm, ... Start Date: 12/26/22 Stop Date: 01/25/23 Status: Ordered traZODone 150 mg oral tablet 0.5 tablet = 75 mg, By Mouth, 2 times a day, # 30 tablet, 0 Refills, Maintenance, 02/15/23 18:41:00EDT, Tablet, Partial fill upon patient request if the prescription is for a schedule II opioid drug. Start Date: 02/15/23 Status: Ordered traZODone 150 mg oral tablet 0 Refills, Maintenance, 03/05/23 0:29:00 EDT, Partial fill upon patient request if the prescriptionis for a schedule II opioid drug. Start Date: 03/05/23 Status: Ordered Problem List Condition Confirmation Course [...] Team Personnel Name: Patti Arevalo RN Position: [facility] RN Member Role: Primary Care Nurse Name: Licha Benjamin RN Position: [facility] RN Member Role: Primary Care Nurse Name: Demarcus Gomez RN Position: [facility] RN Member Role: Primary Care Nurse Name: Marva Ibarra RN Position: S RN Member Role: Primary Care Nurse Name: Not on Staff, PCP Position: [facility] Physician (General Medicine) Member Role: PCP Name: Lenora Grimaldo RN Position: S RN Member Role: Primary Care Nurse Name: Vibha Ramos RN Position: [facility] OB RN Member Role: Primary Care Nurse Care Team Related Persons Name: CAMACHO POTATO PICKERASHLI Address: [address] [place] [address] Name: CAITIE NELSON Name: SANCHEZ MACHINE PACKAGERPJ Address: home [address] [place] [address]
--- OUTSIDE RECORDS SUMMARY | 2023-05-29 21:18 | XMS_ITS | Continuity of Care Document ---
Author Name Unknown Organization [facility] Address [address] [place] [address]- Care Team Providers Care Fish House Worker Name Role Phone Arlene Hernandez DO Primary Care Physician Encounter [facility] Date(s): 06/24/20 - 07/01/20 [facility] [address] [place] [address]- [facility] Attending Physician: Arlene Hernandez DO Allergies, Adverse [...] Maintenance, 09/16/19 12:41:32 EST, Liquid, [facility]/pharmacy #[id number], 160.8, cm, 09/16/19 12:10:53 EST, [...] 1 Refills, Acute, 01/08/20 11:41:00 EDT, [facility] STORE [id number], 163, cm, 12/05/19 4:26:00 EST, Height, 117.1, kg, 10/29/19 10:15:00 EST, Dry Weight Start Date: 01/08/20 Status: Ordered Nature's Bounty Hair Skin & Nails oral tablet, chewable See Instructions, take as directed per package labeling, # 100 each, 2 Refills, Maintenance, 03/18/20 13:42:00 EDT, [facility]/pharmacy #[id number], d/c prior MV, take as [...] Refills, Maintenance, 09/16/19 12:41:32 EST, Suspension, [facility]/pharmacy #[id number], 160.8, cm, 09/16/19 12:10:53 EST, Height, 100, kg, 07/11/19 8:30:20 EDT, Dry Weight Start Date: 09/16/19 Stop Date: 04/13/20 Status: Ordered oxybutynin 10 mg/24 hr oral tablet, extended release 1 tablet = 10 mg, By Mouth, Daily, # 30 tablet, 5 Refills, Maintenance, 05/25/20 15:37:00 EDT, ER Tablet, [facility]/pharmacy #[id number], 163, cm, 03/08/20 17:43:00 EDT, [...] oldest [Reference Range]: 1 Height 163 cm (06/24/20 11:48 AM) Weight 105.4 kg (06/24/20 11:48 AM) Oxygen Saturation [94-100 %] 98 % (06/24/20 11:48 AM) Pulse Rate [55-90 bpm] 83 bpm (06/24/20 11:48 AM) Body Mass Index [18.5-24.99] 39.67 *>HHI* (06/24/20 11:48 AM) Blood Pressure [90-138/55-84 mm Hg] 120/ 64mm Hg (06/24/20 11:48 AM) Temperature [96.8-100.4 DegF] 98.3 DegF (06/24/20 11:48 AM) Mode of Delivery (Oxygen) Room air (06/24/20 11:48 AM) Blood pressure sites Arm, left (06/24/20 11:48 AM) Temperature Route Temporal (06/24/20 11:48 AM) Weight Obtained Via Standing scale (06/24/20 11:48 AM) Social History Social History Type Response Smoking Status Current every day zahra sutton entered on: 07/21/14 Sex Female
--- OUTSIDE RECORDS SUMMARY | 2023-05-29 21:19 | XMS_ITS | Continuity of Care Document ---
Author Name Unknown Organization [facility] Address [address] [place] [address]- Care Team Providers Care Dirt Shoveler Name Role Phone Arlene Hernandez DO Primary Care Physician [facility]counter [facility] Date(s): 10/06/20 - 11/05/20 [facility] [address] [place], [place] [address] Allergies, Adverse Reactions, Alerts Substance [...] 28 tablet, 0 Refills, Maintenance, :29:00 EST, [facility]/pharmacy #[id number], 163, cm, 07/23/20 13:15:00 EDT, Height, 105.3, kg, 07/23/20 13:15:00 EDT, Dry Weight Start Date: 09/07/20 Stop Date: 09/21/20 Status: Ordered Diflucan 150 mg oral tablet 1 tablet = 150 mg, By Mouth, Once, # 1 tablet, 0 Refills, Soft Stop, 10/11/20 13:10:00 EST, Tablet,[facility]/pharmacy #[id number], Partial fill upon patient request if [...] tablet, 5 Refills, Maintenance, 07/21/20 15:03:00 EDT, [facility]/pharmacy #[id number], 163, cm, 06/24/20 11:48:00 EDT, Height, [...] capsule, 6 Refills, Maintenance, 07/13/20 12:42:00 EDT, [facility] STORE [id number], 163, cm, 06/24/20 11:48:00 EDT, Height, 105.8, kg, 03/08/20 17:47:00 EDT, Dry Weight Start Date: 07/13/20 Status: Ordered oxybutynin 10 mg/24 hr oral tablet, extended release 1 tablet = 10 mg, By Mouth, Daily, # 30 tablet, 5 Refills, Maintenance, 05/25/20 15:37:00 EDT, ER Tablet, [facility]/pharmacy #[id number], 163, cm, 03/08/20 17:43:00 EDT, Height, [...] 0 Refills, Maintenance, 09/16/19 12:41:30 EST, Aerosol, [facility]/pharmacy #[id number], 160.8, cm, 09/16/19 12:10:53 EST, Height, 100, kg, 07/11/19 8:30:20 EDT, Dry Weight Start Date: 09/16/19 Status: Ordered Vitamin B-12 250 mcg oral tablet 1 tablet, By Mouth, Daily, # 30 tablet, 11 Refills, Maintenance, 10/21/20 18:16:00 EST, [id number], 163, cm, 09/20/20 11:14:00 EST, Height, 107.3, kg, 09/20/20 11:18:00 EST, Dry Weight Start Date: 10/21/20 Status: Ordered Zithromax Z-Peewee 250 mg oral tablet See Instructions, as directed on package labeling, # 1 pack/packet, 0 Refills, Maintenance, 10/11/20 13:10:00 EST, [facility]/pharmacy #[id number], Partial fill upon patient request if [...]
--- OUTSIDE RECORDS SUMMARY | 2023-05-29 21:19 | XMS_ITS | Continuity of Care Document ---
Author Name Unknown Organization [facility] Address [address] [place] [address]- Care Team Providers Care Professional Soccer Player Name Role Phone Arlene Hernandez DO Primary Care Physician ( [phone] Encounter [facility] Date(s): 06/09/20 - 07/09/20 [facility] [address] [place] [address]- [facility] Allergies, Adverse Reactions, Alerts Substance Reaction [...] tablet, 1 Refills, Acute, 01/08/20 11:41:00 EDT, [facility] STORE [id number], 163, cm, 12/05/19 4:26:00 EST, Height, 117.1, kg, 10/29/19 10:15:00 EST, Dry Weight Start Date: 01/08/20 Status: Ordered Nature's Bounty Hair Skin & Nails oral tablet, chewable See Instructions, take as directed per package labeling, # 100 each, 2 Refills, Maintenance, 03/18/20 13:42:00 EDT, [facility]/pharmacy #[id number], d/c prior MV, [...] Refills, Maintenance, 05/25/20 15:37:00 EDT, ER Tablet, [facility]/pharmacy #[id number], 163, cm, 03/08/20 17:43:00 EDT, [...] 0 Refills, Maintenance, 09/16/19 12:41:30 EST, Aerosol, [facility]/pharmacy #[id number], 160.8, cm, 09/16/19 [...]
--- OUTSIDE RECORDS SUMMARY | 2023-05-29 21:19 | XMS_ITS | Continuity of Care Document ---
Author Name Unknown Organization [facility] Address [address] [place] [address]- Care Team Providers Care Access Services Representative Name Role Phone Arlene Hernandez DO Primary Care Physician [place] [facility] [place] 05/15/22 - 06/14/22 [facility] [address] [place], [place] [address] Allergies, Adverse Reactions, Alerts [...] [facility] [id number] Medications benztropine 1 mg oral tablet 1 [...] 0 Refills, Maintenance, 06/01/21 9:16:00 EDT, Injection, [facility], Partial fill upon patient request if [...] Refills, Maintenance, 11/08/21 10:10:00 EST, Tablet, [facility]/pharmacy #[id number], Partial fill upon patient request if the prescriptionis for a schedule II opioid drug., 170, cm, ... Start Date: 11/08/21 Stop Date: 05/07/22 Status: Ordered multivitamin Multiple Vitamins oral tablet 1 tablet, By Mouth, Daily, # 90 tablet, 4 Refills, Maintenance, 07/28/21 17:59:00 EDT, Tablet, [facility]/pharmacy #[id number], Partial fill upon patient request if the prescription is for a schedule II opioid drug., 1 tablet By Mouth Daily, 163, cm, 07/28/21 9:27... Start Date: 07/28/21 Status: Ordered omeprazole 40 mg oral enteric coated capsule 1 capsule, By Mouth, Daily, # 30 capsule, 2 Refills, Maintenance, 06/02/21 13:03:00 EDT, [facility], 163, cm, 06/01/21 10:51:00 EDT, Height, 104.7, kg, 05/25/21 4:20:00 EDT, Dry Weight Start Date: 06/02/21 Status: Ordered oxybutynin 10 mg/24 hr oral tablet, extended release 1 tablet = 10 mg, By Mouth, Daily, # 30 tablet, 5 Refills, Maintenance, 06/02/21 13:03:00 EDT, ER Tablet, [facility], 163, cm, 06/01/21 10:51:00 EDT, Height, [...] Maintenance,06/01/21 9:12:00 EDT, Route to Pharmacy Electronically, [facility], Partial fill upon patient request if the prescription is for a schedule I... Start Date: 06/01/21 Status: Ordered SEROquel 50 mg oral tablet 1 tablet = 50 mg, By Mouth, 2 times a day, PRN Anxiety, # 60 tablet, 0 Refills, Maintenance, 06/01/21 9:12:00 EDT, Tablet, [facility], Partial fill upon patient request if [...] 0 Refills, Maintenance, 06/01/21 9:16:00 EDT, Tablet, [facility], Partial fill upon patient request if [...] 0 Refills, Maintenance, 06/01/21 9:11:00 EDT, Aerosol, [facility], 163, cm, 06/01/21 7:16:00 EDT, Height, [...] day zahra sutton entered on: 07/21/14 Sex Care Team Personnel Name: Arlene Hernandez DO Address: [address] [place] [address] Adult [facility] Pediatric [facility] [address]
--- OUTSIDE RECORDS SUMMARY | 2023-05-29 21:19 | XMS_ITS | Continuity of Care Document ---
Author Name Unknown Organization [facility] Address [address] [place] [address]- Care Team Providers Care Thoracic Medicine Physician Name Role Phone Arlene Hernandez DO Primary Care Physician ( [phone] Encounter [place] Date(s): 05/05/22 - 05/05/[address] [address]- Encounter Diagnosis Drug use disorder(Final) - 05/05/22 Discharge Disposition: A-D/C Home Attending Physician: Cony Ortiz MD Admitting Physician: Cony Ortiz MD Referring Physician: Not on Staff, Referring [...] pneumococcal 23-valent vaccine 07/19/14 Given 1Result Comment: [facility] [id number] Medications Discontinue Nicotine Patches Discontinue Nicotine Patches, [...] 0 Refills, Maintenance, 06/01/21 9:16:00 EDT, Injection, [facility], Partial fill upon patient request if [...] 1 Refills, Maintenance, 11/08/21 10:10:00 EST, [id number] [...] capsule, 2 Refills, Maintenance, 06/02/21 13:03:00 EDT, [facility], 163, cm, 06/01/21 10:51:00 EDT, Height, 104.7, kg, 05/25/21 4:20:00 EDT, Dry Weight Start Date: 06/02/21 Status: Ordered oxybutynin 10 mg/24 hr oral tablet, extended release 1 tablet = 10 mg, By Mouth, Daily, # 30 tablet, 5 Refills, Maintenance, 06/02/21 13:03:00 EDT, ER Tablet, [facility], 163, cm, 06/01/21 10:51:00 EDT, Height, 104.7, kg, 05/25/21 4:20:00 EDT, Dry Weight Start Date: 06/02/21 Status: Ordered SEROquel 100 mg oral tablet 100 mg, 1, tablet, By Mouth, Daily at bedtime, # 30 tablet, Refills 0, Tot. Refills 0, Maintenance,06/01/21 9:12:00 EDT, Route to Pharmacy Electronically, [facility], Partial fill upon patient request if the prescription is for a schedule I... Start Date: 06/01/21 Status: Ordered SEROquel 50 mg oral tablet 1 tablet = 50 mg, By Mouth, 2 times a day, PRN Anxiety, # 60 tablet, 0 Refills, Maintenance, 06/01/21 9:12:00 EDT, Tablet, [facility], Partial fill upon patient request if [...] 0 Refills, Maintenance, 06/01/21 9:16:00 EDT, Tablet, [facility], Partial fill upon patient request if the prescription is for a schedule IIopioid drug., 163, cm, 06/01/21 7:16:00 EDT, Height... Start Date: 06/01/21 Stop Date: 07/01/21 Status: Ordered Ventolin HFA 108 mcg/inh inhalation aerosol with adapter 1 puffs, Inhalation, Every 6 hours, PRN for wheezing, # 18 Gm, 0 Refills, Maintenance, 06/01/21 9:11:00 EDT, Aerosol, [facility], 163, cm, 06/01/21 7:16:00 EDT, Height, [...] [Reference Range]: 1 Oxygen Saturation [94-100 %] 98 % (05/05/22 6:28 AM) Pulse Rate [55-90 bpm] 70 bpm (05/05/22 6:28 AM) Blood Pressure [90-138/55-84 mm Hg] 117/ 68mm Hg (05/05/22 6:28 AM) Respiratory Rate [16-30 br/min] 18 br/mi n (05/05/22 6:28 AM) Temperature [96.8-100.4 DegF] 97.5 DegF (05/05/22 6:28 AM) Temperature Route Oral (05/05/22 6:28 AM) Social History Social History Type Response Smoking Status Current every day zahra sutton entered on: 07/21/14 Sex
--- OUTSIDE RECORDS SUMMARY | 2023-05-29 21:19 | XMS_ITS | Continuity of Care Document ---
Author Name Unknown Organization [facility] Address [address] [place] [address]- Care Team Providers Care Safety Officer Name Role Phone Arlene Hernandez DO Primary Care Physician ( [phone] [place] [facility] Date(s): 08/29/22 - 09/28/22 [facility] [address] [place], [place] [address] Attending Physician: Eleno Hernandez Admitting Physician: AdmEleno [...] pneumococcal 23-valent vaccine 07/19/14 Given 1Result Comment: [facility] [id number] Medications benztropine 1 mg oral tablet 1 [...] 0 Refills, Maintenance, 06/01/21 9:16:00 EDT, Injection, [facility], Partial fill upon patient request if [...] 1 Refills, Maintenance, 11/08/21 10:10:00 EST, [id number] Partial fill upon patient request if the prescriptionis for a schedule II opioid drug., 170, cm, ... Start Date: 11/08/21 Stop Date: 05/07/22 Status: Ordered multivitamin Multiple Vitamins oral tablet 1 tablet, By Mouth, Daily, # 90 tablet, 4 Refills, Maintenance, 07/28/21 17:59:00 EDT, Tablet, [facility]/pharmacy #[id number], Partial fill upon patient request if the prescription is for a schedule II opioid drug., 1 tablet By Mouth Daily, 163, cm, 07/28/21 9:27... Start Date: 07/28/21 Status: Ordered omeprazole 40 mg oral enteric coated capsule 1 capsule, By Mouth, Daily, # 30 capsule, 2 Refills, Maintenance, 06/02/21 13:03:00 EDT, [facility], 163, cm, 06/01/21 10:51:00 EDT, Height, 104.7, kg, 05/25/21 4:20:00 EDT, Dry Weight Start Date: 06/02/21 Status: Ordered oxybutynin 10 mg/24 hr oral tablet, extended release 1 tablet = 10 mg, By Mouth, Daily, # 30 tablet, 5 Refills, Maintenance, 06/02/21 13:03:00 EDT, ER Tablet, [facility], 163, cm, 06/01/21 10:51:00 EDT, Height, [...] Maintenance,06/01/21 9:12:00 EDT, Route to Pharmacy Electronically, [facility], Partial fill upon patient request if the prescription is for a schedule I... Start Date: 06/01/21 Status: Ordered SEROquel 50 mg oral tablet 1 tablet = 50 mg, By Mouth, 2 times a day, PRN Anxiety, # 60 tablet, 0 Refills, Maintenance, 06/01/21 9:12:00 EDT, Tablet, [facility], Partial fill upon patient request if [...] 0 Refills, Maintenance, 06/01/21 9:16:00 EDT, Tablet, [facility], Partial fill upon patient request if [...] 0 Refills, Maintenance, 06/01/21 9:11:00 EDT, Aerosol, [facility], 163, cm, 06/01/21 7:16:00 EDT, Height, [...] Team Personnel Name: Oscar Menjivar RN Position: S RN Member Role: Primary Care Nurse Name: Patti Arevalo RN Position: S RN Member Role: Primary Care Nurse Name: Arlene Hernandez DO Position: [facility] Primary Care Physician Member Role: PCP Address: Address: [address] [place], [place] [address] Name: Licha Benjamin RN Position: [facility] RN Member Role: Primary Care Nurse Name: Demarcus Gomez RN Position: [facility] RN Member Role: Primary Care Nurse Name: Vibha Ramos RN Position: [facility] OB RN Member Role: Primary Care Nurse Name: Sho Calhoun RN Position: [facility] RN Member Role: Primary Care Nurse Care Team Related Persons Name: ALE FRAGOSO Name: CAITIE NELSON
--- OUTSIDE RECORDS SUMMARY | 2023-05-29 21:19 | XMS_ITS | Continuity of Care Document ---
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 Start Date: 05/12/22 Status: Ordered hydrOXYzine hydrochloride 50 mg oral [...] 0 Refills, Maintenance, 06/01/21 9:16:00 EDT, Injection, [facility], Partial fill upon patient request if [...] 1 Refills, Maintenance, 11/08/21 10:10:00 EST, Tablet, [facility]/pharmacy #[id number], Partial fill upon patient request if the prescriptionis for a schedule II opioid drug., 170, cm, ... Start Date: 11/08/21 Stop Date: 05/07/22 Status: Ordered multivitamin Multiple Vitamins oral tablet 1 tablet, By Mouth, Daily, # 90 tablet, 4 Refills, Maintenance, 07/28/21 17:59:00 EDT, Tablet, [facility]/pharmacy #[id number], Partial fill upon patient request if the prescription is for a schedule II opioid drug., 1 tablet By Mouth Daily, 163, cm, 07/28/21 9:27... Start Date: 07/28/21 Status: Ordered omeprazole 40 mg oral enteric coated capsule 1 capsule, By Mouth, Daily, # 30 capsule, 2 Refills, Maintenance, 06/02/21 13:03:00 EDT, [facility], 163, cm, 06/01/21 10:51:00 EDT, Height, 104.7, kg, 05/25/21 4:20:00 EDT, Dry Weight Start Date: 06/02/21 Status: Ordered oxybutynin 10 mg/24 hr oral tablet, extended release 1 tablet = 10 mg, By Mouth, Daily, # 30 tablet, 5 Refills, Maintenance, 06/02/21 13:03:00 EDT, ER Tablet, [facility], 163, cm, 06/01/21 10:51:00 EDT, Height, [...] Maintenance,06/01/21 9:12:00 EDT, Route to Pharmacy Electronically, [facility], Partial fill upon patient request if the prescription is for a schedule I... Start Date: 06/01/21 Status: Ordered SEROquel 50 mg oral tablet 1 tablet = 50 mg, By Mouth, 2 times a day, PRN Anxiety, # 60 tablet, 0 Refills, Maintenance, 06/01/21 9:12:00 EDT, Tablet, [facility], Partial fill upon patient request if [...] 0 Refills, Maintenance, 06/01/21 9:16:00 EDT, Tablet, [facility], Partial fill upon patient request if [...] 0 Refills, Maintenance, 06/01/21 9:11:00 EDT, Aerosol, [facility], 163, cm, 06/01/21 7:16:00 EDT, Height, [...] 3 Oxygen Saturation [94-100 %] 96 % (05/13/22 6:11 AM) 96 % (05/12/22 11:00 PM) 95 % (05/12/22 7:57 PM) Pulse Rate [55-90 bpm] 74 bpm (05/13/22 6:11 AM) 76 bpm (05/13/22 3:00 AM) 80 bpm (05/12/22 11:00 PM) Blood Pressure [90-138/55-84 mm Hg] 110/83mm Hg (05/13/22 6:11 AM) 110/58mm Hg (05/13/22 3:00 AM) 114/60mm Hg (05/12/22 11:00 PM) Respiratory Rate [16-30 br/min] 16 br/min (05/13/22 3:00 AM) 18 br/min (05/12/22 11:00 PM) 18 br/min (05/12/22 7:57 PM) Temperature [96.8-100.4 DegF] 98.8 DegF (05/13/22 6:11 AM) 97.7 DegF (05/12/22 1:09 PM) Mode of Delivery (Oxygen) Room air (05/12/22 11:00 PM) Room air (05/12/22 7:57 PM) Room air (05/12/22 1:09 PM) Temperature Route Oral (05/13/22 6:11 AM) Oral (05/12/22 1:09 PM) Social History Social History Type Response Smoking Status Current every day zahra sutton entered on: 07/21/14 Sex
--- OUTSIDE RECORDS SUMMARY | 2023-05-29 21:19 | XMS_ITS | Continuity of Care Document ---
Author Name Unknown Organization [facility] Address [address] [place] [address]- Care Team Providers Care Paint Stripper Name Role Phone Arlene Hernandez DO Primary Care Physician Encounter [facility] Date(s): 06/22/20 - 07/22/[address] [address]- [facility] Allergies, Adverse Reactions, Alerts Substance [...] 6 Refills, Maintenance, 07/13/20 12:42:00 EDT, [id number], 163, cm, 06/24/20 11:48:00 EDT, Height, 105.8, kg, 03/08/20 17:47:00 EDT, Dry Weight Start Date: 07/13/20 Status: Ordered oxybutynin 10 mg/24 hr oral tablet, extended release 1 tablet = 10 mg, By Mouth, Daily, # 30 tablet, 5 Refills, Maintenance, 05/25/20 15:37:00 EDT, ER Tablet, [facility]/pharmacy #[id number], 163, cm, 03/08/20 17:43:00 EDT, [...] Refills, Maintenance, 09/16/19 12:41:30 EST, Aerosol, [facility]/pharmacy #[id number], 160.8, cm, 09/16/19 12:10:53 EST, Height, 100, kg, 07/11/19 8:30:20 EDT, Dry Weight Start Date: 09/16/19 Status: Ordered Vitamin B12 250 mcg oral tablet 1 tablet = 250 mcg, By Mouth, Daily, # 90 tablet, 3 Refills, Maintenance, 09/16/19 12:41:31 EST, Tablet, [facility]/pharmacy #[id number], 160.8, cm, 09/16/19 12:10:53 EST, [...]
--- OUTSIDE RECORDS SUMMARY | 2023-05-29 21:19 | XMS_ITS | Continuity of Care Document ---
Author Name Unknown Organization [facility] ter Address [address] [place] [address]- Care Team Providers Care Crab Steamer Name Role Phone Arlene Hernandez DO Primary Care Physician Encounter [facility] Date(s): 10/23/21 - 10/23/[address] [address]- Encounter Diagnosis Cocaine use(Final) - 10/23/21 Discharge Disposition: A-D/C Home Attending Physician: Lesli Stafford DO Admitting Physician: Lesli Stafford DO Referring Physician: Not on Staff, Referring [...] 23-valent vaccine 07/19/14 Given 1Result Comment: [facility] [id number] Medications hydrOXYzine hydrochloride 50 mg oral tablet 1 tablet = 50 mg, By Mouth, 3 times a day, PRN for anxiety, Maintenance, 07/14/21 15:19:00 EDT, Tablet, ; Start Date: 07/14/21 Status: Ordered Invega Sustenna 156 mg/mL intramuscular suspension, extended release = 156 mg, Intramuscular, Every 28 days, # 1 each, 0 Refills, Maintenance, 06/01/21 9:16:00 EDT, Injection, [facility], Partial fill upon patient request if [...] 1 Refills, Maintenance, 07/28/21 10:16:00 EDT, [id number] Partial fill upon patient request if the prescriptionis for a schedule II opioid drug., 163, cm, ... Start Date: 07/28/21 Stop Date: 01/24/22 Status: Ordered multivitamin Multiple Vitamins oral tablet 1 tablet, By Mouth, Daily, # 90 tablet, 4 Refills, Maintenance, 07/28/21 17:59:00 EDT, Tablet, [id number] Partial fill upon patient request if the prescription is for a schedule II opioid drug., 1 tablet By Mouth Daily, 163, cm, 07/28/21 9:27... Start Date: 07/28/21 Status: Ordered omeprazole 40 mg oral enteric coated capsule 1 capsule, By Mouth, Daily, # 30 capsule, 2 Refills, Maintenance, 06/02/21 13:03:00 EDT, [facility], 163, cm, 06/01/21 10:51:00 EDT, Height, 104.7, kg, 05/25/21 4:20:00 EDT, Dry Weight Start Date: 06/02/21 Status: Ordered oxybutynin 10 mg/24 hr oral tablet, extended release 1 tablet = 10 mg, By Mouth, Daily, # 30 tablet, 5 Refills, Maintenance, 06/02/21 13:03:00 EDT, ER Tablet, [facility], 163, cm, 06/01/21 10:51:00 EDT, Height, [...] 0 Refills, Maintenance, 06/01/21 9:12:00 EDT, Tablet, [facility], Partial fill upon patient request if [...] 0 Refills, Maintenance, 06/01/21 9:16:00 EDT, Tablet, [facility], Partial fill upon patient request if the prescription is for a schedule IIopioid drug., 163, cm, 06/01/21 7:16:00 EDT, Height... Start Date: 06/01/21 Stop Date: 07/01/21 Status: Ordered Ventolin HFA 108 mcg/inh inhalation aerosol with adapter 1 puffs, Inhalation, Every 6 hours, PRN for wheezing, # 18 Gm, 0 Refills, Maintenance, 06/01/21 9:11:00 EDT, Aerosol, [facility], 163, cm, 06/01/21 7:16:00 EDT, Height, [...] oldest [Reference Range]: 1 2 3 Height 170 cm (10/23/21 5:21 PM) Weight 100 kg (10/23/21 5:21 PM) Oxygen Saturation [94-100 %] 9 % *L* (10/23/21 5:21 PM) 98 % (10/23/21 3:51 PM) 98 % (10/23/21 3:44 PM) Pulse Rate [55-90 bpm] 80 bpm (10/23/21 5:21 PM) 93 bpm *H* (10/23/21 3:51 PM) 106 bpm *H* (10/23/21 3:44 PM) Blood Pressure [90-138/55-84 mm Hg] 114/96mm Hg (10/23/21 5:21 PM) 138/76mm Hg (10/23/21 3:51 PM) Respiratory Rate [16-30 br/min] 16 br/min (10/23/21 5:21 PM) 20 br/min (10/23/21 3:51 PM) Temperature [96.8-100.4 DegF] 97.7 DegF (10/23/21 5:21 PM) 97.9 DegF (10/23/21 3:51 PM) Mode of Delivery (Oxygen) Room air (10/23/21 5:21 PM) Room air (10/23/21 3:51 PM) Room air (10/23/21 3:44 PM) Blood pressure sites Arm, left (1/23/22 5:21 PM) Arm, right (10/23/21 3:51 PM) Temperature Route Oral (10/23/21 5:21 PM) Oral (10/23/21 3:51 PM) Dry Weight 100 kg (10/23/21 5:21 PM) Social History Social History Type Response Smoking Status Current every day zahra sutton entered on: 07/21/14 Sex
--- OUTSIDE RECORDS SUMMARY | 2023-05-29 21:19 | XMS_ITS | Continuity of Care Document ---
Author Name Unknown Organization [facility] Address [address] [place] [address]- Care Team Providers Care Hob Machine Operator Name Role Phone Arlene Hernandez DO Primary Care Physician ( [phone] Encounter [facility] Date(s): 12/15/20 - 01/14/21 [facility] [address] [place], [place] [address] Allergies, Adverse Reactions, Alerts Substance [...] 28 tablet, 0 Refills, Maintenance, :29:00 EST, [facility]/pharmacy #[id number], 163, cm, 07/23/20 13:15:00 EDT, Height, 105.3, kg, 07/23/20 13:15:00 EDT, Dry Weight Start Date: 09/07/20 Stop Date: 09/21/20 Status: Ordered Diflucan 150 mg oral tablet 1 tablet = 150 mg, By Mouth, Once, # 1 tablet, 0 Refills, Soft Stop, 10/11/20 13:10:00 EST, Tablet,[facility]/pharm[facility] #[id number], Partial fill upon patient [...] 0 Refills, Maintenance, 09/16/19 12:41:32 EST, Liquid, [facility]/pharmacy #[id number], 160.8, cm, 09/16/19 12:10:53 [...] tablet, 5 Refills, Maintenance, 07/21/20 15:03:00 EDT, [facility]/pharmacy #[id number], 163, cm, 06/24/20 11:48:00 EDT, Height, 105.8, kg, 03/08/20 17:47:00 EDT, Dry Weight Start Date: 07/21/20 Status: Ordered Nature's Bounty Hair Skin & Nails oral tablet, chewable See Instructions, take as directed per package labeling, # 100 each, 2 Refills, Maintenance, 03/18/20 13:42:00 EDT, [facility]/pharmacy #[id number], d/c prior MV, take [...] capsule, 6 Refills, Maintenance, 07/13/20 12:42:00 EDT, [id number], 163, cm, 06/24/20 11:48:00 EDT, Height, 105.8, kg, 03/08/20 17:47:00 EDT, Dry Weight Start Date: 07/13/20 Status: Ordered oxybutynin 10 mg/24 hr oral tablet, extended release 1 tablet = 10 mg, By Mouth, Daily, # 30 tablet, 5 Refills, Maintenance, 05/25/20 15:37:00 EDT, ER Tablet, [facility]/pharmacy #[id number], 163, cm, 03/08/20 17:43:00 [...] 0 Refills, Maintenance, 09/16/19 12:41:30 EST, Aerosol, [facility]/pharmacy #[id number], 160.8, cm, 09/16/19 12:10:53 EST, Height, 100, kg, 07/11/19 8:30:20 EDT, Dry Weight Start Date: 09/16/19 Status: Ordered Vitamin B-12 250 mcg oral tablet 1 tablet, By Mouth, Daily, # 30 tablet, 11 Refills, Maintenance, 10/21/20 18:16:00 EST, [facility], 163, cm, 09/20/20 11:14:00 EST, Height, 107.3, kg, 09/20/20 11:18:00 EST, Dry Weight Start Date: 10/21/20 Status: Ordered Zithromax Z-Peewee 250 mg oral tablet See Instructions, as directed on package labeling, # 1 pack/packet, 0 Refills, Maintenance, 10/11/20 13:10:00 EST, [facility]/pharmacy #[id number], Partial fill upon patient request if the [...]
--- OUTSIDE RECORDS SUMMARY | 2023-05-29 21:19 | XMS_ITS | Continuity of Care Document ---
Author Name Unknown Organization [facility] ter Address [address] [place] [address]- Care Team Providers Care Instrument Maker Name Role Phone Arlene Hernandez DO Primary Care Physician ( [phone] Encounter [facility] Date(s): 08/31/22 - 09/01/[address] [address]- Encounter Diagnosis Polysubstance abuse(Final) - 08/31/22 Discharge Disposition: A-D/C Home Attending Physician: Brigitte Bolaños MD Admitting Physician: [...] pneumococcal 23-valent vaccine 07/19/14 Given 1Result Comment: [facility] [id number] Medications benztropine 1 mg oral tablet 1 [...] 0 Refills, Maintenance, 06/01/21 9:16:00 EDT, Injection, [facility], Partial fill upon patient request if [...] 1 Refills, Maintenance, 11/08/21 10:10:00 EST, Tablet, [facility]/pharmacy #[id number], Partial fill upon patient request if the prescriptionis for a schedule II opioid drug., 170, cm, ... Start Date: 11/08/21 Stop Date: 05/07/22 Status: Ordered multivitamin Multiple Vitamins oral tablet 1 tablet, By Mouth, Daily, # 90 tablet, 4 Refills, Maintenance, 07/28/21 17:59:00 EDT, Tablet, [facility]/pharmacy #[id number], Partial fill upon patient request if the prescription is for a schedule II opioid drug., 1 tablet By Mouth Daily, 163, cm, 07/28/21 9:27... Start Date: 07/28/21 Status: Ordered omeprazole 40 mg oral enteric coated capsule 1 capsule, By Mouth, Daily, # 30 capsule, 2 Refills, Maintenance, 06/02/21 13:03:00 EDT, [facility], 163, cm, 06/01/21 10:51:00 EDT, Height, 104.7, kg, 05/25/21 4:20:00 EDT, Dry Weight Start Date: 06/02/21 Status: Ordered oxybutynin 10 mg/24 hr oral tablet, extended release 1 tablet = 10 mg, By Mouth, Daily, # 30 tablet, 5 Refills, Maintenance, 06/02/21 13:03:00 EDT, ER Tablet, [facility], 163, cm, 06/01/21 10:51:00 EDT, Height, [...] 0 Refills, Maintenance, 06/01/21 9:12:00 EDT, Tablet, [facility], Partial fill upon patient request if [...] 0 Refills, Maintenance, 06/01/21 9:16:00 EDT, Tablet, [facility], Partial fill upon patient request if [...] 0 Refills, Maintenance, 06/01/21 9:11:00 EDT, Aerosol, [facility], 163, cm, 06/01/21 7:16:00 EDT, Height, [...] Range]: 1 2 3 Height 163 cm (09/01/22 7:59 AM) 163 cm (09/01/22 6:30 AM) 163 cm (08/31/22 9:22 PM) Oxygen Saturation [94-100 %] 98 % (09/01/22 7:59 AM) 98 % (09/01/22 6:30 AM) 99 % (08/31/22 9:22 PM) Pulse Rate [55-90 bpm] 87 bpm (09/01/22 7:59 AM) 85 bpm (09/01/22 6:30 AM) 70 bpm (08/31/22 9:22 PM) Blood Pressure [90-138/55-84 mm Hg] 101/77mm Hg (09/01/22 7:59 AM) 109/80mm Hg (09/01/22 6:30 AM) 106/68mm Hg (08/31/22 9:22 PM) Respiratory Rate [16-30 br/min] 17 br/min (09/01/22 7:59 AM) 15 br/min *L* (09/01/22 6:30 AM) 16 br/min (08/31/22 9:22 PM) Temperature [96.8-100.4 DegF] 98.2 DegF (09/01/22 7:59 AM) 98.2 DegF (09/01/22 6:30 AM) 98.2 DegF (08/31/22 9:22 PM) Mode of Delivery (Oxygen) Room air (09/01/22 7:59 AM) Room air (09/01/22 6:30 AM) Room air (08/31/22 9:22 PM) Blood pressure sites Arm, left (09/01/22 7:59 AM) Arm, right (08/31/22 9:22 PM) Arm, right (08/31/22 5:05 PM) Temperature Route Oral (09/01/22 7:59 AM) Oral (09/01/22 6:30 AM) Oral (08/31/22 9:22 PM) Dry Weight 101.5 kg (09/01/22 7:59 AM) 101.5 kg (09/01/22 6:30 AM) 101.5 kg (08/31/22 9:22 PM) Dry Weight Obtained Via Patient/family s tated (08/31/22 9:27 AM) Social History Social History Type Response Smoking Status Current every day zahra sutton entered on: 07/21/14 Sex Patient Care team information Care Team Personnel Name: Oscar Menjivar RN Position: [facility] RN Member Role: Primary Care Nurse Name: Patti Arevalo RN Position: [facility] RN Member Role: Primary Care Nurse Name: Arlene Hernandez DO Position: [facility] Primary Care Physician Member Role: PCP Address: Address: [address] [place] [address]- Name: Licha Benjamin RN Position: [facility] RN Member Role: Primary Care Nurse Name: Demarcus Gomez RN Position: [facility] RN Member Role: Primary Care Nurse Name: Vibha Ramos RN Position: [facility] OB RN Member Role: Primary Care Nurse Name: Sho Calhoun RN Position: [facility] RN Member Role: Primary Care [facility] Attending Position: [facility] ED Attendings Patient Name: Bernard Trino Position: [facility] ED TA [facility] Name: Jayne Newton Position: [facility] ED TA [facility] Member Role: Patient Care Provider Name: Emily Palacios RN Position: [facility] ED RN W/OE and Tasks Member Role: Patient Care Provider Name: Henrique Ramires RN Position: [facility] ED RN W/OE and Tasks Member Role: Patient Care Provider Name: Brigitte Bolaños MD Position: [facility] Resident Member Role: Admitting Physician Address: Address: [address] [facility] [place] [address]- Care Team Related Persons Name: ALE FRAGOSO Name: CAITIE NELSON
--- OUTSIDE RECORDS SUMMARY | 2023-05-29 21:19 | XMS_ITS | Continuity of Care Document ---
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 Date(s): 09/23/19 - 01/21/20 [facility] [address] [place] [address]- [facility] Attending Physician: Arlene Hernandez DO Allergies, Adverse [...] 0 Refills, Maintenance, 09/16/19 12:41:32 EST, Liquid, [facility]/pharmacy #[id number], 160.8, cm, 09/16/19 12:10:53 EST, [...] Refills, Acute, 01/08/20 11:41:00 EDT, [id number], 163, cm, 12/05/19 4:26:00 EST, Height, 117.1, kg, 10/29/19 10:15:00 EST, Dry Weight Start Date: 01/08/20 Status: Ordered Nature's Bounty Hair Skin & Nails oral tablet, chewable See Instructions, take as directed per package labeling, # 100 each, 0 Refills, Maintenance, 01/05/20 15:27:00 EDT, [facility]/pharmacy #[id number], d/c prior MV, take as directed per package labeling, 163, cm, 12/05/19 4:26:00 EST, Height, 117.1, kg, 10/29/19 10:... Start Date: 01/05/20 Status: Ordered nicotine 14 mg/24 hr transdermal film, extended release 1 patch, Topically, Daily, for 30 days, after completion of one month of 21mg/24 hr, # 30 patch, 1 Refills, Acute 03/05/20 14:47:00 EDT, 01/05/20 14:47:00 EDT, Patch, [facility]/pharmacy #[id number], 1 patch Topically Daily,x30 days,Instr:after completion of one m... Start Date: 01/05/20 Stop Date: 03/05/20 Status: Ordered nicotine 2 mg oral transmucosal [...] 6 Refills, Maintenance, 09/16/19 12:41:32 EST, Suspension, [facility]/pharmacy #[id number], 160.8, cm, 09/16/19 12:10:53 EST, Height, 100, kg, 07/11/19 8:30:20 EDT, Dry Weight Start Date: 09/16/19 Stop Date: 04/13/20 Status: Ordered oxybutynin 10 mg/24 hr oral tablet, extended release 1 tablet = 10 mg, By Mouth, Daily, # 30 tablet, 5 Refills, Maintenance, 10/29/19 12:00:00 EST, ER Tablet, [facility]/pharmacy #[id number], 160.3, cm, 10/29/19 10:15:00 EST, [...]
--- OUTSIDE RECORDS SUMMARY | 2023-05-29 21:19 | XMS_ITS | Continuity of Care Document ---
Author Name Unknown Organization [facility] Address [address] [place] [address]- Care Team Providers Care Toll Collector Name Role Phone Arlene Hernandez DO Primary Care Physician Encounter [facility] Date(s): 11/16/20 - 12/16/[address] [address] Allergies, Adverse Reactions, Alerts Substance Reaction [...] 28 tablet, 0 Refills, Maintenance, 209:29:00 EST, [facility]/pharmacy #[id number], 163, cm, 07/23/20 13:15:00 EDT, Height, 105.3, kg, 07/23/20 13:15:00 EDT, Dry Weight Start Date: 09/07/20 Stop Date: 09/21/20 Status: Ordered Diflucan 150 mg oral tablet 1 tablet = 150 mg, By Mouth, Once, # 1 tablet, 0 Refills, Soft Stop, 10/11/20 13:10:00 EST, Tablet,[facility]/pharmacy #[id number], Partial fill upon patient request [...] tablet, 5 Refills, Maintenance, 07/21/20 15:03:00 EDT, [facility]/pharmacy #[id number], 163, cm, 06/24/20 11:48:00 EDT, Height, 105.8, kg, 03/08/20 17:47:00 EDT, Dry Weight Start Date: 07/21/20 Status: Ordered Nature's Bounty Hair Skin & Nails oral tablet, chewable See Instructions, take as directed per package labeling, # 100 each, 2 Refills, Maintenance, 03/18/20 13:42:00 EDT, [facility]/pharmacy #[id number], d/c prior MV, [...] capsule, 6 Refills, Maintenance, 07/13/20 12:42:00 EDT, [facility], 163, cm, 06/24/20 11:48:00 EDT, Height, 105.8, kg, 03/08/20 17:47:00 EDT, Dry Weight Start Date: 07/13/20 Status: Ordered oxybutynin 10 mg/24 hr oral tablet, extended release 1 tablet = 10 mg, By Mouth, Daily, # 30 tablet, 5 Refills, Maintenance, 05/25/20 15:37:00 EDT, ER Tablet, [facility]/pharmacy #[id number], 163, cm, 03/08/20 17:43:00 EDT, [...] 0 Refills, Maintenance, 09/16/19 12:41:30 EST, Aerosol, [facility]/pharmacy #[id number], 160.8, cm, 09/16/19 12:10:53 EST, Height, 100, kg, 07/11/19 8:30:20 EDT, Dry Weight Start Date: 09/16/19 Status: Ordered Vitamin B-12 250 mcg oral tablet 1 tablet, By Mouth, Daily, # 30 tablet, 11 Refills, Maintenance, 10/21/20 18:16:00 EST, [facility], 163, cm, 09/20/20 11:14:00 EST, Height, 107.3, kg, 09/20/20 11:18:00 EST, Dry Weight Start Date: 10/21/20 Status: Ordered Zithromax Z-Peewee 250 mg oral tablet See Instructions, as directed on package labeling, # 1 pack/packet, 0 Refills, Maintenance, 10/11/20 13:10:00 EST, [facility]/pharmacy #[id number], Partial fill upon patient request if the [...]
--- OUTSIDE RECORDS SUMMARY | 2023-05-29 21:19 | XMS_ITS | Continuity of Care Document ---
Author Name Unknown Organization [facility] Address [address] [place] [address]- Care Team Providers Care Escort Blind Name Role Phone Arlene Hernandez DO Primary Care Physician Encounter [facility] [place] Date(s): 05/10/21 - 08/07/21 [facility] [address] [place], [place] [address] Attending Physician: Arlene Hernandez DO Allergies, Adverse [...] Given 1Result Comment: [facility] [id number] Medications hydrOXYzine hydrochloride 50 mg oral tablet 1 tablet = 50 mg, By Mouth, 3 times a day, PRN for anxiety, Maintenance, 07/14/21 15:19:00 EDT, Tablet, ; Start Date: 07/14/21 Status: Ordered Invega Sustenna 156 mg/mL intramuscular suspension, extended release = 156 mg, Intramuscular, Every 28 days, # 1 each, 0 Refills, Maintenance, 06/01/21 9:16:00 EDT, Injection, [facility], Partial fill upon patient request if [...] 1 Refills, Maintenance, 07/28/21 10:16:00 EDT, [facility]t, [id number] Partial fill upon patient request if the prescriptionis for a schedule II opioid drug., magan Olivera, ... Start Date: 07/28/21 Stop Date: 01/24/22 Status: Ordered multivitamin Multiple Vitamins oral tablet 1 tablet, By Mouth, Daily, # 90 tablet, 4 Refills, Maintenance, 07/28/21 17:59:00 EDT, [facility]t, [id number] Partial fill upon patient request if the prescription is for a schedule II opioid drug., 1 tablet By Mouth Daily, 163, cm, 07/28/21 9:27... Start Date: 07/28/21 Status: Ordered omeprazole 40 mg oral enteric coated capsule 1 capsule, By Mouth, Daily, # 30 capsule, 2 Refills, Maintenance, 06/02/21 13:03:00 EDT, [facility], 163, cm, 06/01/21 10:51:00 EDT, Height, 104.7, kg, 05/25/21 4:20:00 EDT, Dry Weight Start Date: 06/02/21 Status: Ordered oxybutynin 10 mg/24 hr oral tablet, extended release 1 tablet = 10 mg, By Mouth, Daily, # 30 tablet, 5 Refills, Maintenance, 06/02/21 13:03:00 EDT, ER Tablet, [facility], 163, cm, 06/01/21 10:51:00 EDT, Height, 104.7, kg, 05/25/21 4:20:00 EDT, Dry Weight Start Date: 06/02/21 Status: Ordered SEROquel 100 mg oral tablet 100 mg, 1, tablet, By Mouth, Daily at bedtime, # 30 tablet, Refills 0, Tot. Refills 0, Maintenance,06/01/21 9:12:00 EDT, Route to Pharmacy Electronically, [facility], Partial fill upon patient request if the prescription is for a schedule I... Start Date: 06/01/21 Status: Ordered SEROquel 50 mg oral tablet 1 tablet = 50 mg, By Mouth, 2 times a day, PRN Anxiety, # 60 tablet, 0 Refills, Maintenance, 06/01/21 9:12:00 EDT, Tablet, [facility], Partial fill upon patient request if [...] 0 Refills, Maintenance, 06/01/21 9:16:00 EDT, Tablet, [facility], Partial fill upon patient request if the prescription is for a schedule IIopioid drug., 163, cm, 06/01/21 7:16:00 EDT, Height... Start Date: 06/01/21 Stop Date: 07/01/21 Status: Ordered Ventolin HFA 108 mcg/inh inhalation aerosol with adapter 1 puffs, Inhalation, Every 6 hours, PRN for wheezing, # 18 Gm, 0 Refills, Maintenance, 06/01/21 9:11:00 EDT, Aerosol, [facility], 163, cm, 06/01/21 7:16:00 EDT, Height, [...]
--- OUTSIDE RECORDS SUMMARY | 2023-05-29 21:19 | XMS_ITS | Continuity of Care Document ---
Author Name Unknown Organization [facility] Address [address] [place] [address]- Care Team Providers Care Venetian Blind Worker Name Role Phone Arlene Hernandez DO Primary Care Physician [place] [facility] [place]09[place]20 [place] 10/09/20 [facility] [address] [place], [place] [address] Allergies, Adverse Reactions, Alerts Substance Reaction [...] 28 tablet, 0 Refills, Maintenance, :29:00 EST, [facility]/pharmacy #[id number], 163, cm, 07/23/20 13:15:00 EDT, [...] capsule, 6 Refills, Maintenance, 07/13/20 12:42:00 EDT, [facility] STORE [facility], 163, cm, 06/24/20 11:48:00 EDT, Height, 105.8, kg, 03/08/20 17:47:00 EDT, Dry Weight Start Date: 07/13/20 Status: Ordered oxybutynin 10 mg/24 hr oral tablet, extended release 1 tablet = 10 mg, By Mouth, Daily, # 30 tablet, 5 Refills, Maintenance, 05/25/20 15:37:00 EDT, ER Tablet, [facility]/pharmacy #[id number], 163, cm, 03/08/20 17:43:00 EDT, [...]
--- OUTSIDE RECORDS SUMMARY | 2023-05-29 21:19 | XMS_ITS | Continuity of Care Document ---
Author Name Unknown Organization [facility] Address [address] [place] [address]- Care Team Providers Care Narcotics Detective Name Role Phone Arlene Hernandez DO Primary Care Physician Encounter [facility] Date(s): 02/08/21 - 03/10/21 [facility] [address] [place], [place] [address] Allergies, Adverse Reactions, Alerts [...] 28 tablet, 0 Refills, Maintenance, :29:00 EST, [facility]/pharmacy #[id number], 163, cm, 07/23/20 13:15:00 EDT, Height, 105.3, kg, 07/23/20 13:15:00 EDT, Dry Weight Start Date: 09/07/20 Stop Date: 09/21/20 Status: Ordered Diflucan 150 mg oral tablet 1 tablet = 150 mg, By Mouth, Once, # 1 tablet, 0 Refills, Soft Stop, 10/11/20 13:10:00 EST, Tablet,[facility]/pharmacy #[id number], Partial fill upon patient [...] 0 Refills, Maintenance, 09/16/19 12:41:32 EST, Liquid, [facility]/pharmacy #[id number], 160.8, cm, 09/16/19 12:10:53 [...] tablet, 5 Refills, Maintenance, 07/21/20 15:03:00 EDT, [facility]/pharmacy #[id number], 163, cm, 06/24/20 11:48:00 [...] each, 2 Refills, Maintenance, 03/18/20 13:42:00 EDT, [facility]/pharmacy #[id number], d/c prior MV, take as directed per package labeling, 163, cm, 03/08/20 17:43:00 EDT, Height, 105.8, kg, 03/08/20 17... Start Date: 03/18/20 Status: Ordered nicotine 14 mg/24 hr transdermal film, extended release 1 patch, Topically, Daily, # 30 patch, 0 Refills, Acute, 02/21/21 14:02:00 EDT, [facility] STORE 54726, 30, APPLY 1 PATCH TOPICALLY EVERY DAY, AFTER COMPLETING 21MG/24HR PATCH, 163, cm, 09/20/20 11:14:00 EST, Height, 104.7, kg, 11/21/20 5:07:00 EST, Dry Weight Start Date: 02/21/21 Status: Ordered omeprazole 40 mg oral enteric coated capsule 1 capsule, By Mouth, Daily, # 30 capsule, 2 Refills, Maintenance, 02/12/21 8:30:00 EDT, [facility]/pharmacy #[id number], 163, cm, 09/20/20 11:14:00 EST, Height, 104.7, kg, 11/21/20 5:07:00 EST, Dry Weight Start Date: 02/12/21 Status: Ordered oxybutynin 10 mg/24 hr oral tablet, extended release 1 tablet = 10 mg, By Mouth, Daily, # 30 tablet, 5 Refills, Maintenance, 02/15/21 13:11:00 EDT, ER Tablet, [facility]/pharmacy #[id number], 163, cm, 09/20/20 11:14:00 [...] 0 Refills, Maintenance, 09/16/19 12:41:30 EST, Aerosol, [facility]/pharmacy #[id number], 160.8, cm, 09/16/19 12:10:53 EST, Height, 100, kg, 07/11/19 8:30:20 EDT, Dry Weight Start Date: 09/16/19 Status: Ordered Vitamin B-12 250 mcg oral tablet 1 tablet, By Mouth, Daily, # 30 tablet, 11 Refills, Maintenance, 10/21/20 18:16:00 EST, [facility], 163, cm, 09/20/20 11:14:00 EST, Height, 107.3, [...]
--- OUTSIDE RECORDS SUMMARY | 2023-05-29 21:19 | XMS_ITS | Continuity of Care Document ---
Author Name Unknown Organization [facility] Address [address] [place] [address]- Care Team Providers Care Plastic Worker Name Role Phone Arlene Hernandez DO Primary Care Physician Encounter [facility] [place] Date(s): 03/08/20 - 03/15/20 [facility] [address] [place] [address]- [facility] Attending Physician: Ezequiel VINES, Awais Jose Referring Physician: Arlene Hernandez DO Allergies, Adverse Reactions, [...] Refills, Acute, 01/08/20 11:41:00 EDT, [facility], 163, cm, 12/05/19 4:26:00 EST, Height, 117.1, kg, 10/29/19 10:15:00 EST, Dry Weight Start Date: 01/08/20 Status: Ordered metroNIDAZOLE 500 mg oral tablet 1 tablet = 500 mg, By Mouth, Every 12 hours, for 7 days, # 14 tablet, 0 Refills, Acute 03/17/20 11:32:00 EDT, 03/10/20 11:32:00 EDT, Tablet, [facility]/pharmacy #[id number], 163, cm, 03/08/20 17:43:00 EDT, Height, 105.8, kg, 03/08/20 17:47:00 EDT, Dry Weight Start Date: 03/10/20 Stop Date: 03/17/20 Status: Ordered Nature's Bounty Hair Skin & Nails oral tablet, chewable See Instructions, take as directed per package labeling, # 100 each, 0 Refills, Maintenance, 01/05/20 15:27:00 EDT, [facility]/pharmacy #[id number], d/c prior MV, take as directed per package labeling, 163, cm, 12/05/19 4:26:00 EST, Height, 117.1, kg, 10/29/19 10:... Start Date: 01/05/20 Status: Ordered nicotine 2 mg oral transmucosal [...] Refills, Maintenance, 10/29/19 12:00:00 EST, ER Tablet, [id number], 160.3, cm, 10/29/19 10:15:00 EST, Height, [...] oldest [Reference Range]: 1 Height 163 cm (03/08/20 5:43 PM) Weight 105.8 kg (03/08/20 5:43 PM) Oxygen Saturation [94-100 %] 97 % (03/08/20 5:43 PM) Pulse Rate [55-90 bpm] 107 bpm *H* (03/08/20 5:43 PM) Body Mass Index [18.5-24.99] 39.82 *>HHI* (03/08/20 5:43 PM) Blood Pressure [90-138/55-84 mm Hg] 142/ 72mm Hg *H* (03/08/20 5:43 PM) Respiratory Rate [16-30 br/min] 18 br/mi n (03/08/20 5:43 PM) Temperature [96.8-100.4 DegF] 96.4 DegF *L* (03/08/20 5:43 PM) Mode of Delivery (Oxygen) Room air (03/08/20 5:43 PM) Blood pressure sites Arm, right (03/08/20 5:43 PM) Temperature Route Temporal (03/08/20 5:43 PM) Dry Weight 105.8 kg (03/08/20 5:43 PM) Weight Obtained Via Standing scale (03/08/20 5:43 PM) Dry Weight Obtained Via Standing scale (03/08/20 5:43 PM) Social History Social History Type Response Smoking Status Current every day zahra sutton entered on: 07/21/14 Sex Female
--- OUTSIDE RECORDS SUMMARY | 2023-05-29 21:19 | XMS_ITS | Continuity of Care Document ---
Author Name Unknown Organization [facility] Jaime castillo's [facility] Address [address] [place] [address], [address] [place] [address]- Care Team Providers Care Binder Caser Name Role Phone Arlene Hernandez DO Primary Care Physician Encounter [facility] R [id number] Date(s): 11/15/20 - 12/15/20 [facility]ime Bola[facility]oss [facility] [address] [facility], [address] [place], [place] [address] Attending Physician: Eleno Hernandez Admitting Physician: [...] 28 tablet, 0 Refills, Maintenance, :29:00 EST, [facility]/pharmacy #[id number], 163, cm, 07/23/20 13:15:00 EDT, Height, 105.3, kg, 07/23/20 13:15:00 EDT, Dry Weight Start Date: 09/07/20 Stop Date: 09/21/20 Status: Ordered Diflucan 150 mg oral tablet 1 tablet = 150 mg, By Mouth, Once, # 1 tablet, 0 Refills, Soft Stop, 10/11/20 13:10:00 EST, Tablet,[facility]/pharmacy #[id number], Partial fill upon patient request [...] tablet, 5 Refills, Maintenance, 07/21/20 15:03:00 EDT, [facility]/pharmacy #[id number], 163, cm, 06/24/20 11:48:00 EDT, Height, 105.8, kg, 03/08/20 17:47:00 EDT, Dry Weight Start Date: 07/21/20 Status: Ordered Nature's Bounty Hair Skin & Nails oral tablet, chewable See Instructions, take as directed per package labeling, # 100 each, 2 Refills, Maintenance, 03/18/20 13:42:00 EDT, [facility]/pharmacy #[id number], d/c prior MV, take as [...] capsule, 6 Refills, Maintenance, 07/13/20 12:42:00 EDT, [facility], 163, cm, 06/24/20 11:48:00 EDT, Height, 105.8, kg, 03/08/20 17:47:00 EDT, Dry Weight Start Date: 07/13/20 Status: Ordered oxybutynin 10 mg/24 hr oral tablet, extended release 1 tablet = 10 mg, By Mouth, Daily, # 30 tablet, 5 Refills, Maintenance, 05/25/20 15:37:00 EDT, ER Tablet, [facility]/pharmacy #[id number], 163, cm, 03/08/20 17:43:00 EDT, [...] 0 Refills, Maintenance, 09/16/19 12:41:30 EST, Aerosol, [facility]/pharmacy #[id number], 160.8, cm, 09/16/19 12:10:53 EST, Height, 100, kg, 07/11/19 8:30:20 EDT, Dry Weight Start Date: 09/16/19 Status: Ordered Vitamin B-12 250 mcg oral tablet 1 tablet, By Mouth, Daily, # 30 tablet, 11 Refills, Maintenance, 10/21/20 18:16:00 EST, [facility] STORE 29553, 163, cm, 09/20/20 11:14:00 EST, Height, 107.3, kg, 09/20/20 11:18:00 EST, Dry Weight Start Date: 10/21/20 Status: Ordered Zithromax Z-Peewee 250 mg oral tablet See Instructions, as directed on package labeling, # 1 pack/packet, 0 Refills, Maintenance, 10/11/20 13:10:00 [facility]/pharmacy #[id number], Partial fill upon patient request if the [...]
--- OUTSIDE RECORDS SUMMARY | 2023-05-29 21:19 | XMS_ITS | Continuity of Care Document ---
Author Name Unknown Organization [facility] Address [address] [place] [address]- Care Team Providers Care Funeral Service Apprentice Name Role Phone Arlene Hernandez DO Primary Care Physician ( [phone] [place] [facility] [place] 06/14[place]22 - 07/14/22 [facility] [address] [place], [place] [address] Attending Physician: Eleno Hernandez Admitting Physician: AdmtrEleno [...] pneumococcal 23-valent vaccine 07/19/14 Given 1Result Comment: [facility] [id number] Medications benztropine 1 mg oral tablet 1 [...] 0 Refills, Maintenance, 06/01/21 9:16:00 EDT, Injection, [facility], Partial fill upon patient request if [...] 1 Refills, Maintenance, 11/08/21 10:10:00 EST, Tablet, [facility]/pharmacy #[id number], Partial fill upon patient request if the prescriptionis for a schedule II opioid drug., 170, cm, ... Start Date: 11/08/21 Stop Date: 05/07/22 Status: Ordered multivitamin Multiple Vitamins oral tablet 1 tablet, By Mouth, Daily, # 90 tablet, 4 Refills, Maintenance, 07/28/21 17:59:00 EDT, Tablet, [id number] Partial fill upon patient request if the prescription is for a schedule II opioid drug., 1 tablet By Mouth Daily, 163, cm, 07/28/21 9:27... Start Date: 07/28/21 Status: Ordered omeprazole 40 mg oral enteric coated capsule 1 capsule, By Mouth, Daily, # 30 capsule, 2 Refills, Maintenance, 06/02/21 13:03:00 EDT, [facility], 163, cm, 06/01/21 10:51:00 EDT, Height, 104.7, kg, 05/25/21 4:20:00 EDT, Dry Weight Start Date: 06/02/21 Status: Ordered oxybutynin 10 mg/24 hr oral tablet, extended release 1 tablet = 10 mg, By Mouth, Daily, # 30 tablet, 5 Refills, Maintenance, 06/02/21 13:03:00 EDT, ER Tablet, [facility], 163, cm, 06/01/21 10:51:00 EDT, Height, [...] 0 Refills, Maintenance, 06/01/21 9:12:00 EDT, Tablet, [facility], Partial fill upon patient request if [...] 0 Refills, Maintenance, 06/01/21 9:16:00 EDT, Tablet, [facility], Partial fill upon patient request if [...] 0 Refills, Maintenance, 06/01/21 9:11:00 EDT, Aerosol, [facility], 163, cm, 06/01/21 7:16:00 EDT, Height, [...] Personnel Name: Arlene Hernandez DO Address: Address: [address] [place] [address] [facility] [address]
--- OUTSIDE RECORDS SUMMARY | 2023-05-29 21:19 | XMS_ITS | Continuity of Care Document ---
Author Name Unknown Organization [facility] Address [address] [place] [address]- Care Team Providers Care Senior Mobile Application Developer Name Role Phone Arlene Hernandez DO Primary Care Physician [place] [facility] [place] 01/03/23 - 01/04/[address] [address]- Encounter Diagnosis Chronic schizophrenia(Final) - 01/04/23 Discharge Disposition: A-D/C Home Attending Physician: Edi Tineo MD Admitting Physician: Edi Tineo MD Referring Physician: Not on Staff, Referring MD Allergies, Adverse Reactions, Alerts Substance Reaction Severity Status lisinopril Active Immunizations Given and Recorded Vaccine Date Status Refusal Reason [id number] bivalent booster vax 12/19/22 Recorded SARS-CoV-2 (COVID-19) [...] pneumococcal 23-valent vaccine 07/19/14 Given 1Result Comment: [facility] [id number] Medications divalproex sodium 250 mg oral tablet, [...] tablet, 0 Refills, Maintenance, 12/26/22 21:03:00 EDT,Tablet, [id number], Partial fill upon patient request [...] Refills, Maintenance, 12/26/22 21:01:00 EDT, XL Tablet, [facility]/pharmacy #[id number], Partial fill upon patient request if [...] Maintenance,12/26/22 21:01:00 EDT, Route to Pharmacy Electronically, [facility]/pharmacy #[id number], Partial fill upon patient request if the prescription is for a schedule II... Start Date: 12/26/22 Status: Ordered SEROquel 50 mg oral tablet 1 tablet = 50 mg, By Mouth, 2 times a day, PRN Psychosis, # 60 tablet, 0 Refills, Maintenance, 12/26/22 21:01:00 EDT, Tablet, [facility]/pharmacy #[id number], Partial fill upon patient request if [...] 3 Oxygen Saturation [94-100 %] 96 % (01/04/23 6:51 AM) 98 % (01/03/23 8:51 PM) 98 % (01/03/23 6:58 PM) Pulse Rate [55-90 bpm] 85 bpm (01/04/23 6:51 AM) 94 bpm *H* (01/03/23 8:51 PM) 115 bpm *H* (01/03/23 6:58 PM) Blood Pressure [90-138/55-84 mm Hg] 96/57mm Hg (01/04/23 6:51 AM) 115/52mm Hg (01/03/23 8:51 PM) 116/86mm Hg (01/03/23 6:58 PM) Respiratory Rate [16-30 br/min] 16 br/min (01/04/23 6:51 AM) 18 br/min (01/03/23 8:51 PM) 18 br/min (01/03/23 6:58 PM) Temperature [96.8-100.4 DegF] 97.7 DegF (01/04/23 6:51 AM) 97.8 DegF (01/03/23 8:51 PM) 98.0 DegF (01/03/23 4:12 PM) Mode of Delivery (Oxygen) Room air (01/04/23 6:51 AM) Room air (01/03/23 8:51 PM) Blood pressure sites Arm, right (01/04/23 6:51 AM) Temperature Route Oral (01/04/23 6:51 AM) Oral (01/03/23 8:51 PM) Oral (01/03/23 4:12 PM) Social History Social History Type Response Smoking Status Current every day zahra sutton entered on: 07/21/14 Sex Patient Care team information Care Team Personnel Name: Irina ROYAL, Patti Patel Position: [facility] RN Member Role: Primary Care Nurse Name: Kacey Urban Position: [facility] RN Member Role: Primary Care Nurse Name: Arlene Hernandez DO Position: [facility] Primary Care Physician Member Role: PCP Address: Address: [address] [place] [address]- Name: Licha Benjamin RN Position: [facility] RN Member Role: Primary Care Nurse Name: Demarcus Gomez RN Position: [facility] RN Member Role: Primary Care Nurse Name: Marva Ibarra RN Position: [facility] RN Member Role: Primary Care Nurse Name: Lenora Grimaldo RN Position: [facility] RN Member Role: Primary Care Nurse Name: Vibha Ramos RN Position: [facility] OB RN Member Role: Primary Care Nurse Name: Adelaida Arreguin RN Position: [facility] RN Member Role: Primary Care Nurse [facility]: [facility] Attending Position: [facility] ED Attendings Patient Name: Chris Botello RN Position: [facility] ED RN W/OE and Tasks Member Role: Patient Care Provider Name: Della Plunkett RN Position: [facility] ED RN W/OE and Tasks Member Role: Patient Care Provider Name: Edi Tineo MD Position: [facility] ED Medicine MD Member Role: Admitting Physician Address: Address: [address] [place] [address]- Care Team Related Persons Name: ALE FRAGOSO Name: CAITIE NELSON
--- OUTSIDE RECORDS SUMMARY | 2023-05-29 21:19 | XMS_ITS | Continuity of Care Document ---
Author Name Unknown Organization [facility] Address [address] [place] [address]- Care Team Providers Care Lead Portfolio Manager Name Role Phone Not on Staff, PCP Primary Care Physician Unavail able Encounter [facility] Date(s): 05/31/21 - 06/30/[address] [address]-
--- OUTSIDE RECORDS SUMMARY | 2023-05-29 21:19 | XMS_ITS | Continuity of Care Document ---
Author Name Unknown Organization [facility] Address [address] [place] [address]- Care Team Providers Care Production Wood Craftsman Name Role Phone Arlene Hernandez DO Primary Care Physician ( [phone] Encounter [facility] ACCT R [id number] Date(s): 03/08/20 - 04/07/20 [facility] [address] [place] [address]- [facility] Attending Physician: Eleno Hernandez Admitting Physician: Admtr, Orlando8 Referring Physician: Admtr, Ar8 Allergies, Adverse Reactions, [...] 0 Refills, Maintenance, 09/16/19 12:41:32 EST, Liquid, [facility]/pharmacy #[id number], 160.8, cm, 09/16/19 12:10:53 EST, [...] Refills, Acute, 01/08/20 11:41:00 EDT, [facility], 163, cm, 12/05/19 4:26:00 EST, Height, 117.1, [...] 6 Refills, Maintenance, 09/16/19 12:41:32 EST, Suspension, [facility]/pharmacy #[id number], 160.8, cm, 09/16/19 12:10:53 EST, Height, 100, kg, 07/11/19 8:30:20 EDT, Dry Weight Start Date: 09/16/19 Stop Date: 04/13/20 Status: Ordered oxybutynin 10 mg/24 hr oral tablet, extended release 1 tablet = 10 mg, By Mouth, Daily, # 30 tablet, 5 Refills, Maintenance, 10/29/19 12:00:00 EST, ER Tablet, [facility]/pharmacy #[id number], 160.3, cm, 10/29/19 10:15:00 EST, [...] 0 Refills, Maintenance, 09/16/19 12:41:30 EST, Aerosol, [facility]/pharmacy #[id number], 160.8, cm, 09/16/19 12:10:53 EST, [...]
--- OUTSIDE RECORDS SUMMARY | 2023-05-29 21:19 | XMS_ITS | Continuity of Care Document ---
Author Name Unknown Organization [facility] Address [address] [place] [address]- Care Team Providers Care It Systems Manager Name Role Phone Arlene Hernandez DO Primary Care Physician Encounter [facility] [place] Date(s): 10/09/20 - 10/09/[address] [address]- Discharge Disposition: A-D/C Home Attending Physician: Tato Elias DO Admitting Physician: Tato Elias DO Referring Physician: Not on Staff, Referring [...] 28 tablet, 0 Refills, Maintenance, :29:00 EST, [facility]/pharmacy #[id number], 163, cm, 07/23/20 13:15:00 EDT, Height, 105.3, [...] 0 Refills, Maintenance, 09/16/19 12:41:32 EST, Liquid, [facility]/pharmacy #[id number], 160.8, cm, 09/16/19 12:10:53 EST, Height, [...] tablet, 5 Refills, Maintenance, 07/21/20 15:03:00 EDT, [facility]/pharmacy #[id number], 163, cm, 06/24/20 11:48:00 EDT, Height, 105.8, kg, 03/08/20 17:47:00 EDT, Dry Weight Start Date: 07/21/20 Status: Ordered Nature's Bounty Hair Skin & Nails oral tablet, chewable See Instructions, take as directed per package labeling, # 100 each, 2 Refills, Maintenance, 03/18/20 13:42:00 EDT, [facility]/pharmacy #[id number], d/c prior MV, take as directed [...] capsule, 6 Refills, Maintenance, 07/13/20 12:42:00 EDT, [facility], 163, cm, 06/24/20 11:48:00 EDT, Height, 105.8, kg, 03/08/20 17:47:00 EDT, Dry Weight Start Date: 07/13/20 Status: Ordered oxybutynin 10 mg/24 hr oral tablet, extended release 1 tablet = 10 mg, By Mouth, Daily, # 30 tablet, 5 Refills, Maintenance, 05/25/20 15:37:00 EDT, ER Tablet, [facility]/pharmacy #[id number], 163, cm, 03/08/20 17:43:00 EDT, Height, [...] [Reference Range]: 1 Oxygen Saturation [94-100 %] 97 % (10/09/20 11:02 AM) Pulse Rate [55-90 bpm] 71 bpm (10/09/20 11:02 AM) Blood Pressure [90-138/55-84 mm Hg] 112/ 68mm Hg (10/09/20 11:02 AM) Respiratory Rate [16-30 br/min] 18 br/mi n (10/09/20 11:02 AM) Temperature [96.8-100.4 DegF] 98.4 DegF (10/09/20 11:02 AM) Mode of Delivery (Oxygen) Room air (10/09/20 11:02 AM) Temperature Route Oral (10/09/20 11:02 AM) Social History Social History Type Response Smoking Status Current every day zahra sutton entered on: 07/21/14 Sex Female
--- OUTSIDE RECORDS SUMMARY | 2023-05-29 21:19 | XMS_ITS | Continuity of Care Document ---
Author Name Unknown Organization [facility] Address [address] [place] [address]- Care Team Providers Care Printer'S Assistant Name Role Phone Arlene Hernandez DO Primary Care Physician ( [phone] [place] [facility] [place]s): 09/16/19 - 09/23/19 [facility] [address] [place] [address]- [facility] Attending Physician: Arlene Hernandez DO Allergies, Adverse [...] 4 Refills, Maintenance, 09/16/19 12:41:29 EST, Tablet, [facility]/pharmacy #[id number], 1 tablet By Mouth Daily,x90 [...] 6 Refills, Maintenance, 09/16/19 12:41:32 EST, Suspension, [facility]/pharmacy #[id number], 160.8, cm, 09/16/19 12:10:53 [...] recent to oldest [Reference Range]: 1 Height 160.8 cm (09/16/19 12:10 PM) Weight 104 kg (09/16/19 12:10 PM) Oxygen Saturation [94-100 %] 98 % (09/16/19 12:10 PM) Pulse Rate [55-90 bpm] 83 bpm (09/16/19 12:10 PM) Body Mass Index [18.5-24.99] 40.22 *>HHI* (09/16/19 12:10 PM) Blood Pressure [90-138/55-84 mm Hg] 136/ 84mm Hg (09/16/19 12:10 PM) Social History Social History Type Response Smoking Status Current every day zahra sutton entered on: 07/21/14 Sex
--- OUTSIDE RECORDS SUMMARY | 2023-05-29 21:19 | XMS_ITS | Continuity of Care Document ---
Author Name Unknown Organization [facility] ter Address [address] [place] [address]- Care Team Providers Care Database Developer Name Role Phone Not on Staff, PCP Primary Care Physician Unavail able Encounter [facility] [place] Date(s): 03/29/23 - 03/29/[address] [address]- Encounter Diagnosis Schizoaffective disorder(Final) - 03/29/23 Discharge Disposition: A-D/C Home Attending Physician: Johnna Maki MD Admitting Physician: Johnna Maki MD Referring Physician: Not on Staff, Referring MD Allergies, Adverse Reactions, Alerts Substance Reaction Severity Status lisinopril Active Immunizations Given and Recorded Vaccine Date Status Refusal Reason SARS-CoV-2 mRNA (izgeazu-asov-lkons) vax 01/11/23 Recorded [id number] bivalent booster vax 12/19/22 Recorded SARS-CoV-2 (COVID-19) [...] 1Result Comment: [facility] [id number] Medications clotrimazole 1% topical cream 1 application, Topically, 2 times a day, # 60 Gm, 0 Refills, Maintenance, 03/29/23 12:58:00 EDT, Cream, [facility]/pharmacy #[id number], Partial fill upon patient request if the prescription is for a schedule II opioid drug., 1 application Topically 2 times a day,... Start Date: 03/29/23 Status: Ordered divalproex sodium 250 mg oral tablet, extended release 5 tablet = 1,250 mg, By Mouth, Daily, # 150 tablet, 0 Refills, Maintenance, 12/26/22 21:00:00 EDT, ER Tablet, [facility]/pharmacy #[id number], Partial fill upon patient request if [...] tablet, 0 Refills, Maintenance, 12/26/22 21:03:00 EDT,Tablet, [facility]/pharmacy #[id number], Partial fill upon patient request if [...] Refills, Maintenance, 12/26/22 21:01:00 EDT, XL Tablet, [facility]/pharmacy #[id number], Partial fill upon patient request if the prescription is for a schedule IIopioid drug., 165, cm, 12/26/22 8:47:00 EDT, Height... Start Date: 12/26/22 Status: Ordered paliperidone 3 mg oral tablet, extended release 1 tablet = 3 mg, By Mouth, Daily, # 30 tablet, 0 Refills, Maintenance, 12/26/22 21:00:00 EDT, ER Tablet, [facility]/pharmacy #[id number], Partial fill upon patient request if [...] Maintenance,12/26/22 21:01:00 EDT, Route to Pharmacy Electronically, [facility]/pharmacy #[id number], Partial fill upon patient request if the prescription is for a schedule II... Start Date: 12/26/22 Status: Ordered SEROquel 50 mg oral tablet 1 tablet = 50 mg, By Mouth, 2 times a day, PRN Psychosis, # 60 tablet, 0 Refills, Maintenance, 12/26/22 21:01:00 EDT, Tablet, [facility]/pharmacy #[id number], Partial fill upon patient request if [...] Range]: 1 2 Oxygen Saturation [94-100 %] 94 % (03/29/23 6:14 AM) 94 % (03/29/23 3:06 AM) Pulse Rate [55-90 bpm] 82 bpm (03/29/23 6:14 AM) 101 bpm *H* (03/29/23 3:06 AM) Blood Pressure [90-138/55-84 mm Hg] 94/5 2mm Hg (03/29/23 6:14 AM) 114/70mm Hg (03/29/23 3:06 AM) Respiratory Rate [16-30 br/min] 16 br/mi n (03/29/23 6:14 AM) 20 br/min (03/29/23 3:06 AM) Temperature [96.8-100.4 DegF] 98.1 DegF (03/29/23 6:14 AM) 99.1 DegF (03/29/23 3:06 AM) Mode of Delivery (Oxygen) Room air (03/29/23 6:14 AM) Room air (03/29/23 3:06 AM) Blood pressure sites Arm, right (03/29/23 6:14 AM) Temperature Route Oral (03/29/23 6:14 AM) Oral (03/29/23 3:06 AM) Social History Social History Type Response Smoking Status Current every day zahra lesley entered on: 07/21/14 Sex Female Patient Care team information Care Team Personnel Name: Patti Arevalo RN Position: [facility] RN Member Role: Primary Care Nurse Name: Licha Benjamin RN Position: [facility] RN Member Role: Primary Care Nurse Name: Demarcus Gomez RN Position: [facility] RN Member Role: Primary Care Nurse Name: Marva Ibarra RN Position: [facility] RN Member Role: Primary Care Nurse Name: Not on Staff, PCP Position: [facility] Physician (General Medicine) Member Role: PCP Name: Lenora Grimaldo RN Position: [facility] RN Member Role: Primary Care Nurse Name: Vibha Ramos RN Position: [facility] OB RN Member Role: Primary Care Nurse Name: Maria Alejandra Power Position: [facility] ED TA ADA Name: Stephanie Mcgraw RN Position: [facility] ED RN W/OE and Tasks Member Role: Patient Care Provider Address: Address: [address] [place] [address] [place] [address]- Name: Glynn VINES, Johnna Celis Position: [facility] ED Medicine MD Member Role: Admitting Physician Address: Address: [address] [place] [address] Name: Rosaura Basurto Position: [facility] Associate Professional Member Role: ED Physician State Federal Relations Deputy Director Address: Address: [address] [place] [address]- Care Team Related Persons Name: CAMACHO CHEMIST ORGANICASHLI Address: home [address] [place] [address] Name: CAITIE NELSON Name: SANCHEZ SQL DATA ARCHITECTPJ Address: home [address] [place] [address]
--- OUTSIDE RECORDS SUMMARY | 2023-05-29 21:19 | XMS_ITS | Continuity of Care Document ---
Author Name Unknown Organization [facility] Address [address] [place] [address]- Care Team Providers Care Director Corporate Communications Name Role Phone Not on Staff, PCP Primary Care Physician Unavail able Encounter [facility] Date(s): 06/08/21 - 07/08/[address] [address] Attending Physician: Eleno Hernandez Admitting Physician: Eleno Hernandez Referring Physician: Eleno Hernandez
--- OUTSIDE RECORDS SUMMARY | 2023-05-29 21:19 | XMS_ITS | Continuity of Care Document ---
Author Name Unknown Organization [facility] Address [address] [place] [address]- Care Team Providers Care Fruit Worker Name Role Phone Arlene Hernandez DO Primary Care Physician Encounter [facility] Date(s): 10/30/22 - 01/07/23 [facility] [address] [place], [place] [address] Attending Physician: Arlene Hernandez DO Allergies, Adverse Reactions, Alerts Substance Reaction Severity Status lisinopril Active Immunizations Given and Recorded Vaccine Date Status Refusal Reason [id number] bivalent booster vax 12/19/22 Recorded SARS-CoV-2 (COVID-19) [...] 23-valent vaccine 07/19/14 Given 1Result Comment: [facility] [id number] Medications divalproex sodium 250 mg oral tablet, [...] 0 Refills, Maintenance, 12/26/22 21:01:00 EDT, Tablet, [facility]/pharmacy #[id number], Partial fill upon patient request if the prescription is for a schedule II opioid drug., 165, cm, 12/26/22 8:47:00 EDT, Height,... Start Date: 12/26/22 Status: Ordered metFORMIN 500 mg oral tablet 1 each = 500 mg, By Mouth, Daily in AM, # 30 tablet, 0 Refills, Maintenance, 12/26/22 21:03:00 EDT,Tablet, [facility]/pharmacy #[id number], Partial fill upon patient request if the prescription is for a scheduleII opioid drug., 165, cm, 12/26/22 8:47:00 EDT, Hei... Start Date: 12/26/22 Stop Date: 01/25/23 Status: Ordered omeprazole 20 mg oral enteric coated capsule 1 capsule = 20 mg, By Mouth, Daily, TAKE 1 CAPSULE BY MOUTH EVERY DAY, # 30 capsule, 0 Refills, Maintenance, 12/26/22 21:00:00 EDT, [facility]/pharmacy #[id number], Partial fill upon patient request if the prescription is for a schedule II opioid drug., 165, cm, 0... Start Date: 12/26/22 Stop Date: 01/25/23 Status: Ordered oxybutynin 5 mg/24 hours oral tablet, extended release 1 tablet = 5 mg, By Mouth, Daily, # 30 tablet, 0 Refills, Maintenance, 12/26/22 21:01:00 EDT, XL Tablet, [facility]/pharmacy #[id number], Partial fill upon patient request if the prescription is for a schedule IIopioid drug., 165, cm, 12/26/22 8:47:00 EDT, Height... Start Date: 12/26/22 Status: Ordered paliperidone 3 mg oral tablet, extended release 1 tablet = 3 mg, By Mouth, Daily, # 30 tablet, 0 Refills, Maintenance, 12/26/22 21:00:00 EDT, ER Tablet, [facility]/pharmacy #[id number], Partial fill upon patient request if [...] Maintenance,12/26/22 21:01:00 EDT, Route to Pharmacy Electronically, [facility]/pharmacy #[id number], Partial fill upon patient request if the prescription is for a schedule II... Start Date: 12/26/22 Status: Ordered SEROquel 50 mg oral tablet 1 tablet = 50 mg, By Mouth, 2 times a day, PRN Psychosis, # 60 tablet, 0 Refills, Maintenance, 12/26/22 21:01:00 EDT, Tablet, [facility]/pharmacy #[id number], Partial fill upon patient request if [...] Primary Care Nurse Name: Kacey Urban Position: S RN Member Role: Primary Care Nurse Name: Arlene Hernandez DO Position: [facility] Primary Care Physician Member Role: PCP Address: Address: [address] [place] [address] Adult & Pediatric Medicine [address] Name: Licha Benjamin RN Position: S RN Member Role: Primary Care Nurse Name: Demarcus Gomez RN Position: [facility] RN Member Role: Primary Care Nurse Name: Marva Ibarra RN Position: S RN Member Role: Primary Care Nurse Name: Lenora Grimaldo RN Position: S RN Member Role: Primary Care Nurse Name: Vibha Ramos RN Position: [facility] OB RN Member Role: Primary Care Nurse Name: Adelaida Arreguin RN Position: S RN Member Role: Primary Care Nurse Care Team Related Persons Name: ALE FRAGOSO Name: CAITIE NELSON
--- OUTSIDE RECORDS SUMMARY | 2023-05-29 21:19 | XMS_ITS | Continuity of Care Document ---
Author Name Unknown Organization [facility] Address [address] [place] [address]- Care Team Providers Care Ornamental Metal Worker Apprentice Name Role Phone Arlene Hernandez DO Primary Care Physician En[place] [facility] [place] Date(s): 01/11/22 - 02/10/22 [facility] [address] [place], [place] [address] Allergies, Adverse Reactions, Alerts Substance [...] pneumococcal 23-valent vaccine 07/19/14 Given 1Result Comment: [facility] [place] [id number] Medications Discontinue Nicotine Patches Discontinue Nicotine Patches, [...] 0 Refills, Maintenance, 06/01/21 9:16:00 EDT, Injection, [facility], Partial fill upon patient request if [...] 1 Refills, Maintenance, 11/08/21 10:10:00 EST, [id number] Partial fill upon patient request if the prescriptionis for a schedule II opioid drug., 170, cm, ... Start Date: 11/08/21 Stop Date: 05/07/22 Status: Ordered multivitamin Multiple Vitamins oral tablet 1 tablet, By Mouth, Daily, # 90 tablet, 4 Refills, Maintenance, 07/28/21 17:59:00 EDT, Tablet, [id number] Partial fill upon patient request if the prescription is for a schedule II opioid drug., 1 tablet By Mouth Daily, 163, cm, 07/28/21 9:27... Start Date: 07/28/21 Status: Ordered omeprazole 40 mg oral enteric coated capsule 1 capsule, By Mouth, Daily, # 30 capsule, 2 Refills, Maintenance, 06/02/21 13:03:00 EDT, [facility], 163, cm, 06/01/21 10:51:00 EDT, Height, 104.7, kg, 05/25/21 4:20:00 EDT, Dry Weight Start Date: 06/02/21 Status: Ordered oxybutynin 10 mg/24 hr oral tablet, extended release 1 tablet = 10 mg, By Mouth, Daily, # 30 tablet, 5 Refills, Maintenance, 06/02/21 13:03:00 EDT, ER Tablet, [facility], 163, cm, 06/01/21 10:51:00 EDT, Height, [...] 0 Refills, Maintenance, 06/01/21 9:12:00 EDT, Tablet, [facility], Partial [...] 0 Refills, Maintenance, 06/01/21 9:11:00 EDT, Aerosol, [facility], 163, cm, 06/01/21 7:16:00 EDT, Height, [...]
--- OUTSIDE RECORDS SUMMARY | 2023-05-29 21:19 | XMS_ITS | Continuity of Care Document ---
Author Name Unknown Organization [facility] ter Address [address] [place] [address]- Care Team Providers Care School Lunch Manager Name Role Phone Arlene Hernandez DO Primary Care Physician Encounter [facility] [place] Date(s): 06/28/20 - 06/29/[address] [address]- [facility] Encounter Diagnosis Osteoarthritis of left knee(Final) - 06/28/20 Discharge Disposition: A-D/C Home Attending Physician: Jcae Cat DO Admitting Physician: Jace Cat DO Referring Physician: Not on Staff, Referring [...] 0 Refills, Maintenance, 09/16/19 12:41:32 EST, Liquid, [facility]/pharmacy #[id number], 160.8, cm, 09/16/19 12:10:53 EST, Height, [...] Refills, Acute, 01/08/20 11:41:00 EDT, [id number], 163, cm, 12/05/19 4:26:00 EST, Height, 117.1, kg, 10/29/19 10:15:00 EST, Dry Weight Start Date: 01/08/20 Status: Ordered metronidazole topical 0.75% gel with applicator 1 applicator, Vaginally, Daily at bedtime, for 5 days, # 70 Gm, 0 Refills, Acute 07/01/20 13:52:00 EDT, 06/26/20 13:52:00 EDT, Gel, [id number], 1 applicator Vaginally Daily at bedtime,x5 days, 163, cm, 06/24/20 11:48:00 EDT, Height, 105.8, kg,... Start Date: 06/26/20 Stop Date: 07/01/20 Status: Ordered Nature's Bounty Hair Skin & [...] 6 Refills, Maintenance, 09/16/19 12:41:32 EST, Suspension, [id number], 160.8, cm, 09/16/19 12:10:53 EST, Height, 100, kg, 07/11/19 8:30:20 EDT, Dry Weight Start Date: 09/16/19 Stop Date: 04/13/20 Status: Ordered oxybutynin 10 mg/24 hr oral tablet, extended release 1 tablet = 10 mg, By Mouth, Daily, # 30 tablet, 5 Refills, Maintenance, 05/25/20 15:37:00 EDT, ER Tablet, [id number], 163, cm, 03/08/20 17:43:00 [...] 0 Refills, Maintenance, 09/16/19 12:41:30 EST, Aerosol, [facility]/pharmacy #[id number], 160.8, cm, 09/16/19 12:10:53 EST, Height, 100, kg, 07/11/19 8:30:20 EDT, Dry Weight Start Date: 09/16/19 Status: Ordered Vitamin B12 250 mcg oral tablet 1 tablet = 250 mcg, By Mouth, Daily, # 90 tablet, 3 Refills, Maintenance, 09/16/19 12:41:31 EST, Tablet, [facility]/pharmacy #[id number], 160.8, cm, 09/16/19 12:10:53 EST, Height, [...] Exam Date Time Procedure Performing Provider Status 06/28/20 9:47 PM Knee 1 or 2 Views Left Elina Rob ; Phyllis (Verified) Notes: (Knee 1 or 2 Views Left) Reason For Exam: Pain RESULT: Knee 1 or 2 Views Left Knee 1 or 2 Views Left CLINICAL INDICATION: Reason: Pain; Clinical Question(s): Arthritis COMPARISONS: 05/02/2019 TECHNIQUE: AP and lateral views of the left knee were obtained. FINDINGS: No fracture or dislocation. No joint effusion. The patella is normally positioned. Stable tricompartmental degenerative joint space narrowing most pronounced in the medial femorotibial compartment. IMPRESSION: Stable tricompartmental osteoarthritis most pronounced in the medial femorotibial compartment. WSN: [id number] Ordering Physician: Priyanka Seay Dictated By: Jignesh Dooley MD Dictated Date/Time: 06/28/20 9:58 pm Reviewed By: Jignesh Dooley MD Signed By: Jignesh Dooley MD Signed Date/Time: 06/28/20 9:58 pm Transcribed By: AMELIA Transcribed Date/Time: 06/28/20 9:57 pm Vital Signs Most recent to oldest [Reference Range]: 1 2 Oxygen Saturation [94-100 %] 98 % (06/28/20 9:14 PM) 99 % (06/28/20 4:55 PM) Pulse Rate [55-90 bpm] 64 bpm (06/28/20 9:14 PM) 74 bpm (06/28/20 4:55 PM) Blood Pressure [90-138/55-84 mm Hg] 104/ 64mm Hg (06/28/20 9:14 PM) 126/75mm Hg (06/28/20 4:55 PM) Respiratory Rate [16-30 br/min] 18 br/mi n (06/28/20 9:14 PM) 20 br/min (06/28/20 4:55 PM) Temperature [96.8-100.4 DegF] 98.0 DegF (06/28/20 9:14 PM) 98.1 DegF (06/28/20 4:55 PM) Mode of Delivery (Oxygen) Room air (06/28/20 9:14 PM) Room air (06/28/20 4:55 PM) Blood pressure sites Arm, right (06/28/20 9:14 PM) Arm, left (06/28/20 4:55 PM) Temperature Route Oral (06/28/20 9:14 PM) Oral (06/28/20 4:55 PM) Social History Social History Type Response Smoking Status Current every day zahra sutton entered on: 07/21/14 Sex Female
--- OUTSIDE RECORDS SUMMARY | 2023-05-29 21:20 | XMS_ITS | Continuity of Care Document ---
Author Name Unknown Organization [facility] Address [address] [place] [address]- Care Team Providers Care [employer] Law Clerk Name Role Phone Arlene Hernandez DO Primary Care Physician En[place] [facility] [place](s): 10/11/20 - 10/18/20 [facility] [address] [place] [address]- Encounter Diagnosis Cocaine abuse(Discharge Diagnosis) - 10/11/20 Drug abuse(Discharge Diagnosis) - 10/11/20 Acute bronchitis(Discharge Diagnosis) - 10/11/20 Vaginal discharge(Discharge Diagnosis) - 10/11/20 Attending Physician: Robert Guerrero MD Allergies, Adverse Reactions, Alerts Substance Reaction [...] 28 tablet, 0 Refills, Maintenance, 209:29:00 EST, [facility]/pharmacy #[id number], 163, cm, 07/23/20 13:15:00 EDT, Height, 105.3, kg, 07/23/20 13:15:00 EDT, Dry Weight Start Date: 09/07/20 Stop Date: 09/21/20 Status: Ordered Diflucan 150 mg oral tablet 1 tablet = 150 mg, By Mouth, Once, # 1 tablet, 0 Refills, Soft Stop, 10/11/20 13:10:00 EST, Tablet,[facility]/pharm[facility] #[id number], Partial fill upon patient [...] 0 Refills, Maintenance, 09/16/19 12:41:32 EST, Liquid, [facility]/pharmacy #[id number], 160.8, cm, 09/16/19 12:10:53 [...] tablet, 5 Refills, Maintenance, 07/21/20 15:03:00 EDT, [facility]/pharmacy #[id number], 163, cm, 06/24/20 11:48:00 EDT, Height, 105.8, kg, 03/08/20 17:47:00 EDT, Dry Weight Start Date: 07/21/20 Status: Ordered Nature's Bounty Hair Skin & Nails oral tablet, chewable See Instructions, take as directed per package labeling, # 100 each, 2 Refills, Maintenance, 03/18/20 13:42:00 EDT, [facility]/pharmacy #[id number], d/c prior MV, take [...] capsule, 6 Refills, Maintenance, 07/13/20 12:42:00 EDT, [facility], 163, cm, 06/24/20 11:48:00 EDT, Height, 105.8, kg, 03/08/20 17:47:00 EDT, Dry Weight Start Date: 07/13/20 Status: Ordered oxybutynin 10 mg/24 hr oral tablet, extended release 1 tablet = 10 mg, By Mouth, Daily, # 30 tablet, 5 Refills, Maintenance, 05/25/20 15:37:00 EDT, ER Tablet, [facility]/pharmacy #[id number], 163, cm, 03/08/20 17:43:00 [...] 0 Refills, Maintenance, 09/16/19 12:41:30 EST, Aerosol, [facility]/pharmacy #[id number], 160.8, cm, 09/16/19 12:10:53 EST, Height, 100, kg, 07/11/19 8:30:20 EDT, Dry Weight Start Date: 09/16/19 Status: Ordered Vitamin B12 250 mcg oral tablet 1 tablet = 250 mcg, By Mouth, Daily, # 90 tablet, 3 Refills, Maintenance, 09/16/19 12:41:31 EST, Tablet, [facility]/pharmacy #[id number], 160.8, cm, 09/16/19 12:10:53 EST, Height, 100, kg, 07/11/19 8:30:20 EDT, Dry Weight Start Date: 09/16/19 Stop Date: 09/10/20 Status: Ordered Zithromax Z-Peewee 250 mg oral tablet See Instructions, as directed on package labeling, # 1 pack/packet, 0 Refills, Maintenance, 10/11/20 13:10:00 EST, [facility]/pharmacy #[id number], Partial fill upon patient [...] Diagnosis Diagnosis Type Effective Dates Health Status Clinical Service Informant Cocaine abuse Discharge Diagnosis 10/11/20 Drug abuse Discharge Diagnosis 10/11/20 Acute bronchitis Discharge Diagnosis 10/11/20 Vaginal discharge Discharge Diagnosis 10/11/20 Social History Social History Type Response Smoking Status Current every day zahra sutton entered on: 07/21/14 Sex Female
--- OUTSIDE RECORDS SUMMARY | 2023-05-29 21:20 | XMS_ITS | Continuity of Care Document ---
Author Name Unknown Organization [facility] ter Address [address] [place] [address]- Care Team Providers Care Soil Analyst Name Role Phone Arlene Hernandez DO Primary Care Physician [place] [facility] [place](s): 03/05/20 - 03/05/[address] [address]- [facility] Discharge Disposition: A-D/C Walkout Attending Physician: Not on Staff, Attending MD Admitting Physician: Not on Staff, Admitting MD Referring Physician: Not on Staff, Referring [...] 0 Refills, Maintenance, 09/16/19 12:41:32 EST, Liquid, [facility]/pharmacy #[id number], 160.8, cm, 09/16/19 12:10:53 [...] tablet, 1 Refills, Acute, 01/08/20 11:41:00 EDT, [facility], 163, cm, 12/05/19 4:26:00 EST, Height, 117.1, kg, 10/29/19 10:15:00 EST, Dry Weight Start Date: 01/08/20 Status: Ordered Nature's Bounty Hair Skin & Nails oral tablet, chewable See Instructions, take as directed per package labeling, # 100 each, 0 Refills, Maintenance, 01/05/20 15:27:00 EDT, [facility]/pharmacy #[id number], d/c prior MV, take [...] 6 Refills, Maintenance, 09/16/19 12:41:32 EST, Suspension, [facility]/pharmacy #[id number], 160.8, cm, 09/16/19 12:10:53 EST, Height, 100, kg, 07/11/19 8:30:20 EDT, Dry Weight Start Date: 09/16/19 Stop Date: 04/13/20 Status: Ordered oxybutynin 10 mg/24 hr oral tablet, extended release 1 tablet = 10 mg, By Mouth, Daily, # 30 tablet, 5 Refills, Maintenance, 10/29/19 12:00:00 EST, ER Tablet, [facility]/pharmacy #[id number], 160.3, cm, 10/29/19 10:15:00 [...] Most recent to oldest [Reference Range]: 1 Weight 102.9 kg (03/05/20 9:47 AM) Oxygen Saturation [94-100 %] 97 % (03/05/20 9:47 AM) Pulse Rate [55-90 bpm] 109 bpm *H* (03/05/20 9:47 AM) Blood Pressure [90-138/55-84 mm Hg] 119/ 67mm Hg (03/05/20 9:47 AM) Respiratory Rate [16-30 br/min] 18 br/mi n (03/05/20 9:47 AM) Temperature [96.8-100.4 DegF] 97.4 DegF (03/05/20 9:47 AM) Mode of Delivery (Oxygen) Room air (03/05/20 9:47 AM) Blood pressure sites Arm, left (03/05/20 9:47 AM) Temperature Route Oral (03/05/20 9:47 AM) Dry Weight 102.9 kg (03/05/20 9:47 AM) Weight Obtained Via Standing scale (03/05/20 9:47 AM) Dry Weight Obtained Via Standing scale (03/05/20 9:47 AM) Social History Social History Type Response Smoking Status Current every day zahra sutton entered on: 07/21/14 Sex Female
--- OUTSIDE RECORDS SUMMARY | 2023-05-29 21:20 | XMS_ITS | Continuity of Care Document ---
Author Name Unknown Organization [facility] Address [address] [place] [address]- Care Team Providers Care Spice [employer] Name Role Phone Not on Staff, PCP Primary Care Physician Unavail able Encounter [facility] Date(s): 03/02/23 - 04/08/23 [facility] [address] [place], [place] [address] Attending Physician: Arlene Hernandez DO Allergies, Adverse Reactions, Alerts Substance Reaction Severity Status lisinopril Active Immunizations Given and Recorded Vaccine Date Status Refusal Reason SARS-CoV-2 mRNA (fdwdhac-ivez-zlvsx) vax 01/11/23 Recorded [id number] bivalent booster vax 12/19/22 Recorded SARS-CoV-2 (COVID-19) [...] pneumococcal 23-valent vaccine 07/19/14 Given 1Result Comment: [facility] [place]note 2] [id number] Medications clotrimazole 1% topical cream 1 application, Topically, 2 times a day, # 60 Gm, 0 Refills, Maintenance, 03/29/23 12:58:00 EDT, Cream, [facility]/pharmacy #[id number], Partial fill upon patient request if the prescription is for a schedule II opioid drug., 1 application Topically 2 times a day,... Start Date: 03/29/23 Status: Ordered divalproex sodium 250 mg oral tablet, extended release 5 tablet = 1,250 mg, By Mouth, Daily, # 150 tablet, 0 Refills, Maintenance, 12/26/22 21:00:00 EDT, ER Tablet, [facility]/pharmacy #[id number], Partial fill upon patient [...] Refills, Maintenance, 12/26/22 21:01:00 EDT, Tablet, [facility]/pharmacy #[id number], Partial fill upon patient [...] 0 Refills, Maintenance, 12/26/22 21:03:00 EDT,Tablet, [facility]/pharmacy #[id number], Partial fill upon patient [...] Maintenance, 12/26/22 21:01:00 EDT, XL Tablet, [facility]/pharmacy #[id number], Partial fill upon patient request if the prescription is for a schedule IIopioid drug., 165, cm, 12/26/22 8:47:00 EDT, Height... Start Date: 12/26/22 Status: Ordered paliperidone 3 mg oral tablet, extended release 1 tablet = 3 mg, By Mouth, Daily, # 30 tablet, 0 Refills, Maintenance, 12/26/22 21:00:00 EDT, ER Tablet, [facility]/pharmacy #[id number], Partial fill upon patient [...] 21:01:00 EDT, Route to Pharmacy Electronically, [facility]/pharmacy #[id number], Partial fill upon patient request if the prescription is for a schedule II... Start Date: 12/26/22 Status: Ordered SEROquel 50 mg oral tablet 1 tablet = 50 mg, By Mouth, 2 times a day, PRN Psychosis, # 60 tablet, 0 Refills, Maintenance, 12/26/22 21:01:00 EDT, Tablet, [facility]/pharmacy #[id number], Partial fill upon patient [...] Team Personnel Name: Patti Arevalo RN Position: [facility] RN Member Role: Primary Care Nurse Name: Licha Benjamin RN Position: [facility] RN Member Role: Primary Care Nurse Name: Demarcus Gomez RN Position: [facility] RN Member Role: Primary Care Nurse Name: Marva Ibarra RN Position: [facility] RN Member Role: Primary Care Nurse Name: Not on Staff, PCP Position: [facility] Physician (General Medicine) Member Role: PCP Name: Lenora Grimaldo RN Position: [facility] RN Member Role: Primary Care Nurse Name: Vibha Ramos RN Position: [facility] OB RN Member Role: Primary Care Nurse Care Team Related Persons Name: CAMACHO PRINTED CIRCUIT BOARDS ROUTERASHLI Address: [address] [place] [address] Name: CAITIE NELSON Name: SANCHEZ ENERGY ECONOMIST, PJ Address: [place] [place] [address]
--- OUTSIDE RECORDS SUMMARY | 2023-05-29 21:20 | XMS_ITS | Continuity of Care Document ---
Author Name Unknown Organization [facility] Address [address] [place] [address]- Care Team Providers Care Hematology Supervisor Name Role Phone Arlene Hernandez DO Primary Care Physician [place] [facility] [place]13[place]21 - 11/12/21 [facility] [address] [place], [place] [address] Allergies, Adverse Reactions, Alerts Substance [...] pneumococcal 23-valent vaccine 07/19/14 Given 1Result Comment: [facility] [id number] Medications Discontinue Nicotine Patches Discontinue Nicotine Patches, [...] 0 Refills, Maintenance, 06/01/21 9:16:00 EDT, Injection, [facility], Partial fill upon patient request if [...] 1 Refills, Maintenance, 11/08/21 10:10:00 EST, Tablet, [id number], Partial fill upon patient request if the prescriptionis for a schedule II opioid drug., 170, cm, ... Start Date: 11/08/21 Stop Date: 05/07/22 Status: Ordered multivitamin Multiple Vitamins oral tablet 1 tablet, By Mouth, Daily, # 90 tablet, 4 Refills, Maintenance, 07/28/21 17:59:00 EDT, Tablet, [id number], Partial fill upon patient request if the prescription is for a schedule II opioid drug., 1 tablet By Mouth Daily, 163, cm, 07/28/21 9:27... Start Date: 07/28/21 Status: Ordered omeprazole 40 mg oral enteric coated capsule 1 capsule, By Mouth, Daily, # 30 capsule, 2 Refills, Maintenance, 06/02/21 13:03:00 EDT, [facility], 163, cm, 06/01/21 10:51:00 EDT, Height, 104.7, kg, 05/25/21 4:20:00 EDT, Dry Weight Start Date: 06/02/21 Status: Ordered oxybutynin 10 mg/24 hr oral tablet, extended release 1 tablet = 10 mg, By Mouth, Daily, # 30 tablet, 5 Refills, Maintenance, 06/02/21 13:03:00 EDT, ER Tablet, [facility], 163, cm, 06/01/21 10:51:00 EDT, Height, 104.7, kg, 05/25/21 4:20:00 EDT, Dry Weight Start Date: 06/02/21 Status: Ordered SEROquel 100 mg oral tablet 100 mg, 1, tablet, By Mouth, Daily at bedtime, # 30 tablet, Refills 0, Tot. Refills 0, Maintenance,06/01/21 9:12:00 EDT, Route to Pharmacy Electronically, [facility], Partial fill upon patient request if the prescription is for a schedule I... Start Date: 06/01/21 Status: Ordered SEROquel 50 mg oral tablet 1 tablet = 50 mg, By Mouth, 2 times a day, PRN Anxiety, # 60 tablet, 0 Refills, Maintenance, 06/01/21 9:12:00 EDT, Tablet, [facility], Partial fill upon patient request if [...] 0 Refills, Maintenance, 06/01/21 9:16:00 EDT, Tablet, [facility], Partial fill upon patient request if the prescription is for a schedule IIopioid drug., 163, cm, 06/01/21 7:16:00 EDT, Height... Start Date: 06/01/21 Stop Date: 07/01/21 Status: Ordered Ventolin HFA 108 mcg/inh inhalation aerosol with adapter 1 puffs, Inhalation, Every 6 hours, PRN for wheezing, # 18 Gm, 0 Refills, Maintenance, 06/01/21 9:11:00 EDT, Aerosol, [facility], 163, cm, 06/01/21 7:16:00 EDT, Height, [...] Type Response Smoking Status Current every day zhara sutton entered on: 07/21/14 Sex
--- OUTSIDE RECORDS SUMMARY | 2023-05-29 21:20 | XMS_ITS | Continuity of Care Document ---
Author Name Unknown Organization [facility] Address [address] [place] [address]- Care Team Providers Care Log Loader Helper Name Role Phone Arlene Hernandez DO Primary Care Physician Encounter [facility] [place] Date(s): 03/04/23 - 03/05/[address] [address]- Encounter Diagnosis Schizoaffective disorder(Final) - 03/05/23 Discharge Disposition: A-D/C Home Attending Physician: Jace Cat DO Admitting Physician: Jace Cat DO Referring Physician: Not on Staff, Referring MD Allergies, Adverse Reactions, Alerts Substance Reaction Severity Status lisinopril Active Immunizations Given and Recorded Vaccine Date Status Refusal Reason SARS-CoV-2 mRNA (ivezyzw-onvz-otcql) vax 01/11/23 Recorded [id number] bivalent booster vax 12/19/22 Recorded SARS-CoV-2 (COVID-19) [...] Given 1Result Comment: [facility] [id number] Medications divalproex sodium 250 mg oral tablet, extended release 5 tablet = 1,250 mg, By Mouth, Daily, # 150 tablet, 0 Refills, Maintenance, 12/26/22 21:00:00 EDT, ER Tablet, [facility]/pharmacy #[id number], Partial [...] 0 Refills, Maintenance, 12/26/22 21:01:00 EDT, Tablet, [facility]/pharmacy #[id number], [...] tablet, 0 Refills, Maintenance, 12/26/22 21:03:00 EDT,Tablet, [facility]/pharmacy #[id number], Partial fill [...] Refills, Maintenance, 12/26/22 21:01:00 EDT, XL Tablet, [facility]/pharmacy #[id number], Partial fill upon patient request if the prescription is for a schedule IIopioid drug., 165, cm, 12/26/22 8:47:00 EDT, Height... Start Date: 12/26/22 Status: Ordered paliperidone 3 mg oral tablet, extended release 1 tablet = 3 mg, By Mouth, Daily, # 30 tablet, 0 Refills, Maintenance, 12/26/22 21:00:00 EDT, ER Tablet, [facility]/pharmacy #[id number], Partial [...] Maintenance,12/26/22 21:01:00 EDT, Route to Pharmacy Electronically, [facility]/pharmacy #[id number], Partial fill upon patient request if the prescription is for a schedule II... Start Date: 12/26/22 Status: Ordered SEROquel 50 mg oral tablet 1 tablet = 50 mg, By Mouth, 2 times a day, PRN Psychosis, # 60 tablet, 0 Refills, Maintenance, 12/26/22 21:01:00 EDT, Tablet, [facility]/pharmacy #[id number], [...] 1 2 3 Oxygen Saturation [94-100 %] 99 % (03/05/23 2:34 PM) 99 % (03/05/23 10:45 AM) 99 % (03/05/23 1:55 AM) Pulse Rate [55-90 bpm] 70 bpm (03/05/23 2:34 PM) 72 bpm (03/05/23 10:45 AM) 70 bpm (03/05/23 1:55 AM) Blood Pressure [90-138/55-84 mm Hg] 123/72mm Hg (03/05/23 2:34 PM) 119/68mm Hg (03/05/23 10:45 AM) 121/66mm Hg (03/05/23 1:55 AM) Respiratory Rate [16-30 br/min] 18 br/min (03/05/23 2:34 PM) 18 br/min (03/05/23 10:45 AM) 18 br/min (03/05/23 1:55 AM) Temperature [96.8-100.4 DegF] 97.7 DegF (03/04/23 8:38 PM) Mode of Delivery (Oxygen) Room air (03/05/23 2:34 PM) Room air (03/05/23 10:45 AM) Room air (03/05/23 1:55 AM) Blood pressure sites Arm, left (03/05/23 2:34 PM) Arm, left (03/05/23 10:45 AM) Arm, left (03/05/23 1:55 AM) Temperature Route Oral (03/04/23 8:38 PM) Social History Social History Type Response Smoking Status Current every day zahra lesley entered on: 07/21/14 Sex Female Patient Care team information Care Team Personnel Name: Patti Arevalo RN Position: [facility] RN Member Role: Primary Care Nurse Name: Arlene Hernandez DO Position: [facility] Physician - Primary Care Member Role: PCP Address: Address: [address] [place] [address] Adult & Pediatric [place], [place] [address] Name: Licha Benjamin RN Position: S RN Member Role: Primary Care Nurse Name: Demarcus Gomez RN Position: S RN Member Role: Primary Care Nurse Name: Marva Ibarra RN Position: S RN Member Role: Primary Care Nurse Name: Lenora Grimaldo RN Position: S RN Member Role: Primary Care Nurse Name: Vibha Ramos RN Position: [facility] OB RN Member Role: Primary Care Nurse [facility] Attending Position: [facility] ED Attendings Patient Name: Jace Cat DO Position: [facility] Resident Member Role: Admitting Physician Address: Address: [address] [place] [address] Name: Jenna Carbajal Position: [facility] ED [facility] Name: Tasia Ho Position: [facility] ED RN W/OE and Tasks Member Role: Patient Care Provider Care Team Related Persons Name: CAMACHO METAL BUGGY OPERATORASHLI Address: [address] [place] [address] Name: CAITIE NELSON Name: SANCHEZ DIRECTOR OF HOUSINGPJ Address: home [address] [place] [address]
--- OUTSIDE RECORDS SUMMARY | 2023-05-29 21:20 | XMS_ITS | Continuity of Care Document ---
Author Name Unknown Organization [facility] Address [address] [place] [address]- Care Team Providers Care Route Service Representative Name Role Phone Arlene Hernandez DO Primary Care Physician Encounter [place] Date(s): 01/11/23 - 03/03/23 [facility] [address] [place], [place] [address] Attending Physician: Arlene Hernandez DO Allergies, Adverse Reactions, Alerts Substance Reaction Severity Status lisinopril Active Immunizations Given and Recorded Vaccine Date Status Refusal Reason SARS-CoV-2 mRNA (mqeaszf-mzhp-tuelz) vax 01/11/23 Recorded [id number] bivalent booster vax 12/19/22 Recorded SARS-CoV-2 (COVID-19) [...] Given 1Result Comment: [facility] [id number] Medications divalproex sodium 250 mg oral tablet, [...] opioid drug. Start Date: 02/15/23 Status: Ordered metFORMIN 500 mg oral tablet 1 each = 500 mg, By Mouth, Daily in AM, # 30 tablet, 0 Refills, Maintenance, 12/26/22 21:03:00 EDT,Tablet, [facility]/pharmacy #[id number], Partial fill upon patient request if the prescription is for a scheduleII opioid drug., 165, magan, 12/26/22 8:47:00 EDT, Hei... Start Date: 12/26/22 [...] Stop Date: 01/25/23 Status: Ordered oxybutynin 5 mg oral tablet 1 tablet = 5 mg, By Mouth, 3 times a day, # 30 tablet, 0 Refills, Maintenance, 02/15/23 18:40:00 EDT, Tablet, Partial fill upon patient request if the prescription is for a schedule II opioid drug. Start Date: 02/15/23 Status: Ordered oxybutynin 5 mg/24 hours oral tablet, extended release 1 tablet = 5 mg, By Mouth, Daily, # 30 tablet, 0 Refills, Maintenance, 12/26/22 21:01:00 EDT, XL Tablet, [facility]/pharmacy #[id number], Partial fill upon patient request if the prescription is for a schedule IIopioid drug., 165, magan, 12/26/22 8:47:00 EDT, Height... Start Date: 12/26/22 Status: Ordered paliperidone 3 mg oral tablet, extended release 1 tablet = 3 mg, By Mouth, Daily, # 30 tablet, 0 Refills, Maintenance, 12/26/22 21:00:00 EDT, ER Tablet, [facility]/pharmacy #[id number], Partial fill upon patient request if the prescription is for a schedule IIopioid drug., 165, magan, 12/26/22 8:47:00 EDT, Height... Start Date: 12/26/22 Status: Ordered QUEtiapine 100 mg oral tablet 100 mg, 1, tablet, By Mouth, 3 times a day, # 90 tablet, Refills 0, Maintenance, 02/15/23 18:40:00 EDT, Partial fill upon patient request if the prescription is for a schedule II opioid drug. Start Date: 02/15/23 Status: Ordered Rollator walker Rollator walker, See [...] opioid drug. Start Date: 02/15/23 Status: Ordered Problem List Condition Confirmation Course [...] Care Nurse Name: Arlene Hernandez DO Position: S Physician - Primary Care Member Role: PCP Address: Address: [address] [place] [address] Adult & Pediatric Medicine [place], [place] [address] Name: Licha Benjamin RN Position: S RN Member Role: Primary Care Nurse Name: Demarcus Gomez RN Position: S RN Member Role: Primary Care Nurse Name: Marva Ibarra RN Position: S RN Member Role: Primary Care Nurse Name: Lenora Grimaldo RN Position: S RN Member Role: Primary Care Nurse Name: Vibha Ramos RN Position: [facility] OB RN Member Role: Primary Care Nurse Care Team Related Persons Name: CAMACHO FISHERMAN HELPERASHLI Address: [address] [place] [address] Name: CAITIE NELSON Name: SANCHEZ CABLE TELEVISION ACCESS COORDINATORPJ Address: home [address] [place] [address]
--- OUTSIDE RECORDS SUMMARY | 2023-05-29 21:20 | XMS_ITS | Continuity of Care Document ---
Author Name Unknown Organization [facility] Address [address] [place] [address]- Care Team Providers Care Mobile Electronics Installer Name Role Phone Arlene Hernandez DO Primary Care Physician [place] [facility] 02/15/23 - 02/16/[address] [address]- Encounter Diagnosis Suicidal ideation(Final) - 02/15/23 Visual hallucination(Final) - 02/15/23 Auditory hallucination(Final) - 02/15/23 Substance use(Final) - 02/15/23 History of schizoaffective disorder(Final) - 02/15/23 Discharge Disposition: Transfer to Psych Facility Attending Physician: Lesli Stafford DO Admitting Physician: Lesli Stafford DO Referring Physician: Not on Staff, Referring MD Allergies, Adverse Reactions, Alerts Substance Reaction Severity Status lisinopril Active Immunizations Given and Recorded Vaccine Date Status Refusal Reason SARS-CoV-2 mRNA (qvhmbpl-btcn-asxvm) vax 01/11/23 Recorded [id number] bivalent booster vax 12/19/22 Recorded SARS-CoV-2 (COVID-19) [...] vaccine 07/19/14 Given 1Result Comment: [facility] [id number] Medications divalproex sodium 250 mg oral tablet, extended release 5 tablet = 1,250 mg, By Mouth, Daily, # 150 tablet, 0 Refills, Maintenance, 12/26/22 21:00:00 EDT, ER Tablet, [facility]/pharmacy #[id number], Partial fill upon patient request [...] 0 Refills, Maintenance, 12/26/22 21:01:00 EDT, Tablet, [facility]/pharmacy #[id number], Partial fill upon patient request [...] tablet, 0 Refills, Maintenance, 12/26/22 21:03:00 EDT,Tablet, [facility]/pharmacy #[id number], Partial fill upon patient request if the prescription is for a scheduleII opioid drug., 165, cm, 12/26/22 8:47:00 EDT, Hei... Start Date: 12/26/22 Stop Date: 01/25/23 Status: Ordered omeprazole 20 mg oral enteric coated capsule 1 capsule = 20 mg, By Mouth, Daily, TAKE 1 CAPSULE BY MOUTH EVERY DAY, # 30 capsule, 0 Refills, Maintenance, 12/26/22 21:00:00 EDT, [facility]/pharmacy #[id number], Partial fill upon patient request [...] Refills, Maintenance, 12/26/22 21:01:00 EDT, XL Tablet, [facility]/pharmacy #[id number], Partial fill upon patient request if the prescription is for a schedule IIopioid drug., 165, cm, 12/26/22 8:47:00 EDT, Height... Start Date: 12/26/22 Status: Ordered paliperidone 3 mg oral tablet, extended release 1 tablet = 3 mg, By Mouth, Daily, # 30 tablet, 0 Refills, Maintenance, 12/26/22 21:00:00 EDT, ER Tablet, [facility]/pharmacy #[id number], Partial fill upon patient request [...] Maintenance,12/26/22 21:01:00 EDT, Route to Pharmacy Electronically, [facility]/pharmacy #[id number], Partial fill upon patient request if the prescription is for a schedule II... Start Date: 12/26/22 Status: Ordered SEROquel 50 mg oral tablet 1 tablet = 50 mg, By Mouth, 2 times a day, PRN Psychosis, # 60 tablet, 0 Refills, Maintenance, 12/26/22 21:01:00 EDT, Tablet, [facility]/pharmacy #[id number], Partial fill upon patient request [...] 3 Oxygen Saturation [94-100 %] 96 % (02/16/23 9:16 AM) 100 % (02/16/23 6:19 AM) 98 % (02/15/23 8:32 PM) Pulse Rate [55-90 bpm] 80 bpm (02/16/23 9:16 AM) 75 bpm (02/16/23 6:19 AM) 71 bpm (02/15/23 8:32 PM) Blood Pressure [90-138/55-84 mm Hg] 125/72mm Hg (02/16/23 9:16 AM) 110/81mm Hg (02/16/23 6:19 AM) 92/72mm Hg (02/15/23 8:32 PM) Respiratory Rate [16-30 br/min] 18 br/min (02/16/23 9:16 AM) 24 br/min (02/16/23 6:19 AM) 17 br/min (02/15/23 8:32 PM) Temperature [96.8-100.4 DegF] 98.2 DegF (02/16/23 9:16 AM) 98 DegF (02/16/23 6:19 AM) 98.0 DegF (02/15/23 8:32 PM) Mode of Delivery (Oxygen) Room air (02/16/23 9:16 AM) Room air (02/16/23 6:19 AM) Room air (02/15/23 8:32 PM) Blood pressure sites Arm, right (02/16/23 9:16 AM) Arm, left (02/16/23 6:19 AM) Arm, right (02/15/23 8:32 PM) Temperature Route Oral (02/16/23 9:16 AM) Oral (02/16/23 6:19 AM) Oral (02/15/23 8:32 PM) Social History Social History Type Response Smoking Status Current every day zahra sutton entered on: 07/21/14 Sex Female Patient Care team information Care Team Personnel Name: Patti Arevalo RN Position: [facility] RN Member Role: Primary Care Nurse Name: Arlene Hernandez DO Position: [facility] Primary Care Physician Member Role: PCP Address: Address: [address] [place] [address] Adult [place] [address]- Name: Licha Benjamin RN Position: [facility] RN Member Role: Primary Care Nurse Name: Demarcus Gomez RN Position: [facility] RN Member Role: Primary Care Nurse Name: Marva Ibarra RN Position: [facility] RN Member Role: Primary Care Nurse Name: Lenora Grimaldo RN Position: [facility] RN Member Role: Primary Care Nurse Name: Vibha Ramos RN Position: [facility] OB RN Member Role: Primary Care Nurse [facility] Attending Position: [facility] ED Attendings Patient Name: Kelly Vasquez RN Position: [facility] ED RN W/OE and Tasks Member Role: Patient Care Provider Name: Isabella Gonzales MD Position: [facility] Resident Member Role: ED Attending Physician Address: Address: [address] [place] [address] [place] [address]- Care Team Related Persons Name: CAMACHO FRAME TABLE OPERATORASHLI Address: [address] [place] [address] Name: CAITIE NELSON Name: SANCHEZ TELEPHONE ENGINEER, PJ Address: [address] [place] [address]
--- OUTSIDE RECORDS SUMMARY | 2023-05-29 21:20 | XMS_ITS | Continuity of Care Document ---
Author Name Unknown Organization [facility] Address [address] [place] [address]- Care Team Providers Care Space Physicist Name Role Phone Arlene Hernandez DO Primary Care Physician Encounter [facility] Date(s): 11/08/21 - 12/08/21 [facility] [address] [place], [place] [address] Attending Physician: AdmEleon spain Admitting Physician: Admtr, [id number] Referring Physician: Admtr, [...] Given 1Result Comment: [facility] [id number] Medications Discontinue Nicotine Patches Discontinue Nicotine Patches, [...] 0 Refills, Maintenance, 06/01/21 9:16:00 EDT, Injection, [facility], Partial fill upon patient request if [...] Refills, Maintenance, 11/08/21 10:10:00 EST, [id number] Partial fill upon patient request if the prescriptionis for a schedule II opioid drug., 170, cm, ... Start Date: 11/08/21 Stop Date: 05/07/22 Status: Ordered multivitamin Multiple Vitamins oral tablet 1 tablet, By Mouth, Daily, # 90 tablet, 4 Refills, Maintenance, 07/28/21 17:59:00 EDT, Tablet, [id number] Partial fill upon patient request if the prescription is for a schedule II opioid drug., 1 tablet By Mouth Daily, 163, cm, 07/28/21 9:27... Start Date: 07/28/21 Status: Ordered omeprazole 40 mg oral enteric coated capsule 1 capsule, By Mouth, Daily, # 30 capsule, 2 Refills, Maintenance, 06/02/21 13:03:00 EDT, [facility], 163, cm, 06/01/21 10:51:00 EDT, Height, 104.7, kg, 05/25/21 4:20:00 EDT, Dry Weight Start Date: 06/02/21 Status: Ordered oxybutynin 10 mg/24 hr oral tablet, extended release 1 tablet = 10 mg, By Mouth, Daily, # 30 tablet, 5 Refills, Maintenance, 06/02/21 13:03:00 EDT, ER Tablet, [facility], 163, cm, 06/01/21 10:51:00 EDT, Height, 104.7, kg, 05/25/21 4:20:00 EDT, Dry Weight Start Date: 06/02/21 Status: Ordered SEROquel 100 mg oral tablet 100 mg, 1, tablet, By Mouth, Daily at bedtime, # 30 tablet, Refills 0, Tot. Refills 0, Maintenance,06/01/21 9:12:00 EDT, Route to Pharmacy Electronically, [facility], Partial fill upon patient request if the prescription is for a schedule I... Start Date: 06/01/21 Status: Ordered SEROquel 50 mg oral tablet 1 tablet = 50 mg, By Mouth, 2 times a day, PRN Anxiety, # 60 tablet, 0 Refills, Maintenance, 06/01/21 9:12:00 EDT, Tablet, [facility], Partial fill upon patient request [...] 0 Refills, Maintenance, 06/01/21 9:16:00 EDT, Tablet, [facility], Partial fill upon patient request if the prescription is for a schedule IIopioid drug., 163, cm, 06/01/21 7:16:00 EDT, Height... Start Date: 06/01/21 Stop Date: 07/01/21 Status: Ordered Ventolin HFA 108 mcg/inh inhalation aerosol with adapter 1 puffs, Inhalation, Every 6 hours, PRN for wheezing, # 18 Gm, 0 Refills, Maintenance, 06/01/21 9:11:00 EDT, Aerosol, [facility], 163, cm, 06/01/21 7:16:00 EDT, Height, [...]
--- OUTSIDE RECORDS SUMMARY | 2023-05-29 21:20 | XMS_ITS | Continuity of Care Document ---
Author Name Unknown Organization [facility] ter Address [address] [place] [id number]- Care Team Providers Care Lead Mobile Developer Name Role Phone Arlene Hernandez DO Primary Care Physician [place] [facility] [place] 02[place]05[place]23 - 02/05/[address] [address]- Encounter Diagnosis Intoxication by drug(Final) - 02/05/23 Discharge Disposition: A-D/C Home Attending Physician: Breezy Alatorre MD Admitting Physician: Breezy Alatorre MD Referring Physician: Not on Staff, Referring MD Allergies, Adverse Reactions, Alerts Substance Reaction Severity Status lisinopril Active Immunizations Given and Recorded Vaccine Date Status Refusal Reason SARS-CoV-2 mRNA ([id number]) vax 01/11/23 Recorded [id number] bivalent booster vax 12/19/22 Recorded SARS-CoV-2 (COVID-19) [...] pneumococcal 23-valent vaccine 07/19/14 Given 1Result Comment: [facility] [id number] Medications divalproex sodium 250 mg oral tablet, [...] 0 Refills, Maintenance, 12/26/22 21:01:00 EDT, Tablet, [facility]/pharmacy #[id number], Partial fill upon patient request if the prescription is for a schedule II opioid drug., 165, cm, 12/26/22 8:47:00 EDT, Height,... Start Date: 12/26/22 Status: Ordered metFORMIN 500 mg oral tablet 1 each = 500 mg, By Mouth, Daily in AM, # 30 tablet, 0 Refills, Maintenance, 12/26/22 21:03:00 EDT,Tablet, [facility]/pharmacy #[id number], Partial fill upon patient [...] Maintenance,12/26/22 21:01:00 EDT, Route to Pharmacy Electronically, [id number], Partial fill upon patient request [...] 3 Oxygen Saturation [94-100 %] 97 % (02/05/23 5:53 PM) 98 % (02/05/23 2:58 PM) Pulse Rate [55-90 bpm] 86 bpm (02/05/23 5:53 PM) 94 bpm *H* (02/05/23 5:40 PM) 107 bpm *H* (02/05/23 2:58 PM) Blood Pressure [90-138/55-84 mm Hg] 140/78mm Hg *H* (02/05/23 5:53 PM) 135/97mm Hg (02/05/23 2:58 PM) Respiratory Rate [16-30 br/min] 18 br/min (02/05/23 5:53 PM) 18 br/min (02/05/23 2:58 PM) Temperature [96.8-100.4 DegF] 98.5 DegF (02/05/23 2:58 PM) Mode of Delivery (Oxygen) Room air (02/05/23 5:53 PM) Room air (02/05/23 2:58 PM) Temperature Route Oral (02/05/23 2:58 PM) Social History Social History Type Response Smoking Status Current every day zahra lesley entered on: 07/21/14 Sex Female Patient Care team information Care Team Personnel Name: Patti Arevalo RN Position: S RN Member Role: Primary Care Nurse Name: Arlene Hernandez DO Position: S Primary Care Physician Member Role: PCP Address: Address: [address] [place] [address] Adult [place] [address]- Name: Licha Benjamin RN Position: S RN Member Role: Primary Care Nurse Name: Demarcus Gomez RN Position: S RN Member Role: Primary Care Nurse Name: Marva Ibarra RN Position: [facility] RN Member Role: Primary Care Nurse Name: Lenora Grimaldo RN Position: [facility] RN Member Role: Primary Care Nurse Name: Vibha Ramos RN Position: [facility] OB RN Member Role: Primary Care Nurse Name: Dorinda Eckert DO Position: [facility] Resident Member Role: ED Resident Address: Address: [address] [place] [address] Name: Breezy Alatorre MD Position: [facility] ED Medicine MD Member Role: Admitting Physician Address: Address: [address] [place] [address] Name: Jaylin Wei Position: [facility] ED TA [facility] Name: Elina Murdock RN Position: [facility] ED RN W/OE and Tasks Member Role: Patient Care Provider Care Team Related Persons Name: CAMACHO PROMOTIONAL MODELASHLI Address: [address] [place] [address] Name: CAITIE NELSON Name: SANCHEZ ORNAMENTAL METAL FABRICATOR APPRENTICEPJ Address: [address] [place] [address]
--- OUTSIDE RECORDS SUMMARY | 2023-05-29 21:20 | XMS_ITS | Continuity of Care Document ---
Author Name Unknown Organization [facility] Address [address] [place] [address]- Care Team Providers Care Chair Maker Name Role Phone Arlene Hernandez DO Primary Care Physician Encounter [facility] Date(s): 11/25/20 - 12/25/20 [facility] [address] [place], [place] [address] Allergies, Adverse Reactions, Alerts [...] tablet, 0 Refills, Maintenance, :29:00 EST, [facility]/pharmacy #[id number], 163, cm, 07/23/20 13:15:00 EDT, Height, 105.3, kg, 07/23/20 13:15:00 EDT, Dry Weight Start Date: 09/07/20 Stop Date: 09/21/20 Status: Ordered Diflucan 150 mg oral tablet 1 tablet = 150 mg, By Mouth, Once, # 1 tablet, 0 Refills, Soft Stop, 10/11/20 13:10:00 EST, Tablet,[facility]/pharmacy #[id number], Partial fill upon patient [...] Refills, Maintenance, 09/16/19 12:41:32 EST, Liquid, [facility]/pharmacy #[id number], 160.8, cm, 09/16/19 12:10:53 [...] 5 Refills, Maintenance, 07/21/20 15:03:00 EDT, [facility]/pharmacy #[id number], 163, cm, 06/24/20 11:48:00 EDT, Height, 105.8, kg, 03/08/20 17:47:00 EDT, Dry Weight Start Date: 07/21/20 Status: Ordered Nature's Bounty Hair Skin & Nails oral tablet, chewable See Instructions, take as directed per package labeling, # 100 each, 2 Refills, Maintenance, 03/18/20 13:42:00 EDT, [facility]/pharmacy #[id number], d/c prior MV, take [...] 6 Refills, Maintenance, 07/13/20 12:42:00 EDT, [facility] STORE [id number], 163, cm, 06/24/20 11:48:00 EDT, Height, 105.8, kg, 03/08/20 17:47:00 EDT, Dry Weight Start Date: 07/13/20 Status: Ordered oxybutynin 10 mg/24 hr oral tablet, extended release 1 tablet = 10 mg, By Mouth, Daily, # 30 tablet, 5 Refills, Maintenance, 05/25/20 15:37:00 EDT, ER Tablet, [facility]/pharmacy #[id number], 163, cm, 03/08/20 17:43:00 [...] Refills, Maintenance, 09/16/19 12:41:30 EST, Aerosol, [facility]/pharmacy #[id number], 160.8, cm, 09/16/19 12:10:53 EST, Height, 100, kg, 07/11/19 8:30:20 EDT, Dry Weight Start Date: 09/16/19 Status: Ordered Vitamin B-12 250 mcg oral tablet 1 tablet, By Mouth, Daily, # 30 tablet, 11 Refills, Maintenance, 10/21/20 18:16:00 EST, [facility] [id number], 163, cm, 09/20/20 11:14:00 EST, Height, 107.3, kg, 09/20/20 11:18:00 EST, Dry Weight Start Date: 10/21/20 Status: Ordered Zithromax Z-Peewee 250 mg oral tablet See Instructions, as directed on package labeling, # 1 pack/packet, 0 Refills, Maintenance, 10/11/20 13:10:00 EST, [facility]/pharmacy #[id number], Partial fill upon patient request if the [...]
--- OUTSIDE RECORDS SUMMARY | 2023-05-29 21:20 | XMS_ITS | Continuity of Care Document ---
Author Name Unknown Organization [facility] ter Address [address] [place] [id number]- Care Team Providers Care Distillery Miller Name Role Phone Arlene Hernandez DO Primary Care Physician Encounter [facility] [place] Date(s): 01/29/20 - 01/29/[address] [address]- [facility] Discharge Disposition: A-D/C Home Attending Physician: Claire Benavides MD Admitting Physician: Claire Benavides MD Referring Physician: Not on Staff, Referring [...] Maintenance, 09/16/19 12:41:32 EST, Liquid, [facility]/pharmacy #[id number], 160.8, cm, 09/16/19 12:10:53 EST, Height, [...] Refills, Acute, 01/08/20 11:41:00 EDT, [id number], 163, cm, 12/05/19 4:26:00 EST, Height, 117.1, kg, 10/29/19 10:15:00 EST, Dry Weight Start Date: 01/08/20 Status: Ordered Nature's Bounty Hair Skin & Nails oral tablet, chewable See Instructions, take as directed per package labeling, # 100 each, 0 Refills, Maintenance, 01/05/20 15:27:00 EDT, [id number], d/c prior MV, take as directed per package labeling, 163, cm, 12/05/19 4:26:00 EST, Height, 117.1, kg, 10/29/19 10:... Start Date: 01/05/20 Status: Ordered nicotine 14 mg/24 hr transdermal film, extended release 1 patch, Topically, Daily, for 30 days, after completion of one month of 21mg/24 hr, # 30 patch, 1 Refills, Acute 03/05/20 14:47:00 EDT, 01/05/20 14:47:00 EDT, Patch, [facility]/pharmacy #[id number], 1 patch Topically Daily,x30 days,Instr:after completion [...] Refills, Maintenance, 09/16/19 12:41:32 EST, Suspension, [facility]/pharmacy #[id number], 160.8, cm, 09/16/19 12:10:53 EST, Height, 100, kg, 07/11/19 8:30:20 EDT, Dry Weight Start Date: 09/16/19 Stop Date: 04/13/20 Status: Ordered oxybutynin 10 mg/24 hr oral tablet, extended release 1 tablet = 10 mg, By Mouth, Daily, # 30 tablet, 5 Refills, Maintenance, 10/29/19 12:00:00 EST, ER Tablet, [facility]/pharmacy #[id number], 160.3, cm, 10/29/19 10:15:00 EST, Height, [...] Maintenance, 09/16/19 12:41:30 EST, Aerosol, [facility]/pharmacy #[id number], 160.8, cm, 09/16/19 12:10:53 EST, Height, [...] 3 Oxygen Saturation [94-100 %] 98 % (01/29/20 4:09 PM) 97 % (01/29/20 2:02 PM) 97 % (01/29/20 7:51 AM) Pulse Rate [55-90 bpm] 68 bpm (01/29/20 4:09 PM) 70 bpm (01/29/20 2:02 PM) 97 bpm *H* (01/29/20 7:51 AM) Blood Pressure [90-138/55-84 mm Hg] 110/74mm Hg (01/29/20 4:09 PM) 108/52mm Hg (01/29/20 2:02 PM) 116/72mm Hg (01/29/20 7:51 AM) Respiratory Rate [16-30 br/min] 16 br/min (01/29/20 4:09 PM) 16 br/min (01/29/20 2:02 PM) 22 br/min (01/29/20 7:51 AM) Temperature [96.8-100.4 DegF] 98.6 DegF (01/29/20 4:09 PM) 97.7 DegF (01/29/20 2:02 PM) 97.9 DegF (01/29/20 7:51 AM) Liters per Minute 0 L/min (01/29/20 7:51 AM) Mode of Delivery (Oxygen) Room air (01/29/20 4:09 PM) Room air (01/29/20 2:02 PM) Room air (01/29/20 7:51 AM) Blood pressure sites Arm, right (01/29/20 4:09 PM) Arm, right (01/29/20 2:02 PM) Arm, left (01/29/20 7:51 AM) Temperature Route Oral (01/29/20 4:09 PM) Oral (01/29/20 2:02 PM) Oral (01/29/20 7:51 AM) Social History Social History Type Response Smoking Status Current every day zahra sutton entered on: 07/21/14 Sex Female
--- OUTSIDE RECORDS SUMMARY | 2023-05-29 21:20 | XMS_ITS | Continuity of Care Document ---
Author Name Unknown Organization [facility] Address [address] [place] [address]- Care Team Providers Care Outdoor Fitness Trainer Name Role Phone Arlene Hernandez DO Primary Care Physician Encounter [facility] [place] Date(s): 08/19/22 - 09/28/22 [facility] [address] [place], [place] [address] Attending Physician: Amber PROJECT MANAGER, Yoana Allergies, Adverse Reactions, Alerts Substance Reaction [...] pneumococcal 23-valent vaccine 07/19/14 Given 1Result Comment: [facility] [id number] Medications benztropine 1 mg oral tablet 1 [...] 0 Refills, Maintenance, 06/01/21 9:16:00 EDT, Injection, [facility], Partial fill upon patient request if [...] 4 Refills, Maintenance, 07/28/21 17:59:00 EDT, Tablet, [facility]/pharmacy #[id number], Partial fill upon patient request if the prescription is for a schedule II opioid drug., 1 tablet By Mouth Daily, 163, cm, 07/28/21 9:27... Start Date: 07/28/21 Status: Ordered omeprazole 40 mg oral enteric coated capsule 1 capsule, By Mouth, Daily, # 30 capsule, 2 Refills, Maintenance, 06/02/21 13:03:00 EDT, [facility], 163, cm, 06/01/21 10:51:00 EDT, Height, 104.7, kg, 05/25/21 4:20:00 EDT, Dry Weight Start Date: 06/02/21 Status: Ordered oxybutynin 10 mg/24 hr oral tablet, extended release 1 tablet = 10 mg, By Mouth, Daily, # 30 tablet, 5 Refills, Maintenance, 06/02/21 13:03:00 EDT, ER Tablet, [facility], 163, cm, 06/01/21 10:51:00 EDT, Height, [...] 0 Refills, Maintenance, 06/01/21 9:12:00 EDT, Tablet, [facility], Partial fill upon patient request if [...] 0 Refills, Maintenance, 06/01/21 9:16:00 EDT, Tablet, [facility], Partial fill upon patient request if [...] 0 Refills, Maintenance, 06/01/21 9:11:00 EDT, Aerosol, [facility], 163, cm, 06/01/21 7:16:00 EDT, Height, [...] Team Personnel Name: Oscar Menjivar RN Position: [facility] RN Member Role: Primary Care Nurse Name: Patti Arevalo RN Position: S RN Member Role: Primary Care Nurse Name: Arlene Hernandez DO Position: [facility] Primary Care Physician Member Role: PCP Address: Address: [address] [place], [place] [address] Name: Licha Benjamin RN Position: S RN Member Role: Primary Care Nurse Name: Demarcus Gomez RN Position: S RN Member Role: Primary Care Nurse Name: Vibha Ramos RN Position: [facility] OB RN Member Role: Primary Care Nurse Name: Sho Calhoun RN Position: S RN Member Role: Primary Care Nurse Care Team Related Persons Name: ALE FRAGOSO Name: CAITIE NELSON
--- OUTSIDE RECORDS SUMMARY | 2023-05-29 21:20 | XMS_ITS | Continuity of Care Document ---
Author Name Unknown Organization [facility] Address [address] [place] [address]- Care Team Providers Care Neurophysiologist Name Role Phone Arlene Hernandez DO Primary Care Physician ( [phone] [place] [facility] [place]21 [facility] [address] [place], [place] [address] Allergies, Adverse Reactions, Alerts Substance Reaction Severity Status lisinopril Active Immunizations Given and Recorded Vaccine Date Status Refusal Reason influenza virus vaccine, inactivated 07/23/20 Give n influenza virus vaccine, inactivated 07/11/19 Give n influenza virus vaccine, inactivated 07/19/14 Give n influenza virus vaccine, inactivated 08/23/11 Give n tetanus/diphtheria/pertussis, acel(Tdap) 11/06/19 Given pneumococcal 23-valent vaccine 07/19/14 Given Medications [facility], See Instructions, # 454 Gm, 0 Refills, Maintenance, APPLY TO AFFECTED AREA TWICE A DAY, 163, cm, 09/20/20 11:14:00 EST, Height, 104.7, kg, 11/21/20 5:07:00 EST, Dry Weight Start Date: 11/26/20 Status: Ordered Hair, Skin, & Nails Gummies oral tablet, chewable See Instructions, TAKE DIRECTED PER PACKAGE LABELING, # 30 tablet, 9 Refills, 06/02/21 13:04:00 EDT, [facility], 30, TAKE DIRECTED PER PACKAGE LABELING, 163, cm, 06/01/21 10:51:00 EDT, Height, 104.7, kg, 05/25/21 4:20:00 EDT, Dry Weight Start Date: 06/02/21 Status: Ordered Invega Sustenna 156 mg/mL intramuscular suspension, extended release = 156 mg, Intramuscular, Every 28 days, # 1 each, 0 Refills, Maintenance, 06/01/21 9:16:00 EDT, Injection, [facility], Partial fill upon patient request if the prescription is for a schedule II opioid drug., 06/06/21, 163, cm, 06/01/21 7:16:... Start Date: 06/01/21 Status: Ordered Mapap Arthritis Pain 650 mg oral tablet, extended release 1-2 tablet, By Mouth, Every 8 hours, PRN NEEDED FOR PAIN, # 50 tablet, 5 Refills, Maintenance, 06/02/21 13:04:00 EDT, [facility], 163, cm, 06/01/21 10:51:00 EDT, Height, 104.7, kg, 05/25/21 4:20:00 EDT, Dry Weight Start Date: 06/02/21 Status: Ordered omeprazole 40 mg oral enteric coated capsule 1 capsule, By Mouth, Daily, # 30 capsule, 2 Refills, Maintenance, 06/02/21 13:03:00 EDT, [facility], 163, cm, 06/01/21 10:51:00 EDT, Height, 104.7, kg, 05/25/21 4:20:00 EDT, Dry Weight Start Date: 06/02/21 Status: Ordered oxybutynin 10 mg/24 hr oral tablet, extended release 1 tablet = 10 mg, By Mouth, Daily, # 30 tablet, 5 Refills, Maintenance, 06/02/21 13:03:00 EDT, ER Tablet, [facility], 163, cm, 06/01/21 10:51:00 EDT, Height, [...] 0 Refills, Maintenance, 06/01/21 9:12:00 EDT, Tablet, [facility], Partial fill upon patient request if the prescription is for a schedule II opioid drug., 163, cm, 06/01/21... Start Date: 06/01/21 Stop Date: 07/01/21 Status: Ordered Topamax 100 mg oral tablet 1 tablet = 100 mg, By Mouth, Daily, # 30 tablet, 0 Refills, Maintenance, 06/01/21 9:16:00 EDT, Tablet, [facility], Partial fill upon patient request if the prescription is for a schedule IIopioid drug., 163, cm, 06/01/21 7:16:00 EDT, Height... Start Date: 06/01/21 Stop Date: 07/01/21 Status: Ordered Ventolin HFA 108 mcg/inh inhalation aerosol with adapter 1 puffs, Inhalation, Every 6 hours, PRN for wheezing, # 18 Gm, 0 Refills, Maintenance, 06/01/21 9:11:00 EDT, Aerosol, [facility], 163, cm, 06/01/21 7:16:00 EDT, Height, [...]
--- OUTSIDE RECORDS SUMMARY | 2023-05-29 21:20 | XMS_ITS | Continuity of Care Document ---
Author Name Unknown Organization [facility] ter Address [address] [place] [address]- Care Team Providers Care Director Index Name Role Phone Arlene Hernandez DO Primary Care Physician ( [phone] Encounter [facility] Date(s): 08/13/22 - 08/15/[address] [address]- Encounter Diagnosis Abdominal pain, right lower quadrant(Final) - 08/14/22 Discharge Disposition: A-D/C Home Attending Physician: Velma Canas MD Admitting Physician: Joaquin VINES, Serge Joseph Referring Physician: Not on Staff, Referring MD [...] vaccine 07/19/14 Given 1Result Comment: [facility] [id number] Medications benztropine 1 mg oral tablet 1 [...] 0 Refills, Maintenance, 06/01/21 9:16:00 EDT, Injection, [facility], Partial fill upon patient request if [...] 1 Refills, Maintenance, 11/08/21 10:10:00 EST, [id number] fill upon patient request if the prescriptionis for a schedule II opioid drug., 170, cm, ... Start Date: 11/08/21 Stop Date: 05/07/22 Status: Ordered multivitamin Multiple Vitamins oral tablet 1 tablet, By Mouth, Daily, # 90 tablet, 4 Refills, Maintenance, 07/28/21 17:59:00 EDT, Tablet, [facility]/pharmacy #[id number], Partial fill upon patient request if the prescription is for a schedule II opioid drug., 1 tablet By Mouth Daily, 163, cm, 07/28/21 9:27... Start Date: 07/28/21 Status: Ordered omeprazole 40 mg oral enteric coated capsule 1 capsule, By Mouth, Daily, # 30 capsule, 2 Refills, Maintenance, 06/02/21 13:03:00 EDT, [facility], 163, cm, 06/01/21 10:51:00 EDT, Height, 104.7, kg, 05/25/21 4:20:00 EDT, Dry Weight Start Date: 06/02/21 Status: Ordered oxybutynin 10 mg/24 hr oral tablet, extended release 1 tablet = 10 mg, By Mouth, Daily, # 30 tablet, 5 Refills, Maintenance, 06/02/21 13:03:00 EDT, ER Tablet, [facility], 163, cm, 06/01/21 10:51:00 EDT, Height, [...] 0 Refills, Maintenance, 06/01/21 9:12:00 EDT, Tablet, [facility], Partial fill upon patient request if [...] 0 Refills, Maintenance, 06/01/21 9:16:00 EDT, Tablet, [facility], Partial fill upon patient request if [...] 0 Refills, Maintenance, 06/01/21 9:11:00 EDT, Aerosol, [facility], 163, cm, 06/01/21 7:16:00 EDT, Height, [...] findings Confirmed Active Wheezing Confirmed Active Results Orders for Microbiology Reports Name Date Wet Prep 08/13/22 Microbiology Reports TEST:Wet Prep STATUS:Auth (Verified) BODY SITE: SOURCE:VAGINA COLLECTED DATE/TIME:08/13/22 11:07 PM Wet Prep SPECIMEN DESCRIPTION : VAGINAL SPECIMEN SPECIAL REQUESTS : NONE DIRECT EXAM : NO TRICHOMONAS,YEAST,OR CLUE CELLS OBSERVED REPORT STATUS : FINAL 08/14/2022 Radiology Reports * Exam Date Time Procedure Performing Provider Status 08/14/22 12:21 AM US Doppler Ext Lower Venous Left Dashawn Almanza (Verified) Notes: (US Doppler Ext Lower Venous Left) Reason For Exam: Pain in limb;Other: RESULT: US Doppler Ext Lower Venous Left US Doppler Ext Lower Venous Left HISTORY: Pain. COMPARISON: None IMAGING TECHNIQUE: Ultrasound of the veins from the groin through the calf was performed using grayscale, color, and spectral Doppler ultrasound assessing for complete compressibility and normal flowcharacteristics. FINDINGS: Common femoral vein: Patent. No thrombosis. Femoral vein: Patent. No thrombosis. Popliteal vein: Patent. No thrombosis. Gastrocnemius veins: The visualized portions are patent without evidence of thrombosis. Peroneal veins: The visualized portions are patent without evidence of thrombosis. Posterior tibial veins: The visualized portions are patent without evidence of thrombosis. Contralateral common femoral vein: Patent. No thrombosis. IMPRESSION: No evidence of deep venous thrombosis. Previously described suspected linear filling defect in the left common femoral vein likely corresponded to inflow artifact. I have personally reviewed the images and I agree with this report. WSN: [id number] Ordering Physician: Lucia Pedraza Dictated By: Eldon Farah MD Dictated Date/Time: 08/14/22 6:51 am Reviewed By: Grant Hsieh MD Signed By: Grant Hsieh MD Signed Date/Time: 08/14/22 6:56 am Transcribed By: AMELIA Transcribed Date/Time: 08/14/22 0:23 am * Exam Date Time Procedure Performing Provider Status 08/13/22 10:[address] Abd/Pelvis W/ IV Contrast Only Albert Sky (Verified) Notes: (CT Abd/Pelvis W/ IV Contrast Only) Reason For Exam: LLQ abdominal pain;Other: RESULT: CT Abd/Pelvis W/ IV Contrast Only CT Abd/Pelvis W/ IV Contrast Only HISTORY: Pain. TECHNIQUE: Spiral CT through the abdomen and pelvis with IV contrast formatted in 3 planes. 100 cc of Omnipaque 350 was administered intravenously. This study was performed without oral contrast. Weight-based protocol using automatic tube modulation was used to optimize exposure parameters. CTDIvol Body: 22.17 mGy, DLP Body: 1234 mGy*cm. COMPARISON: None. FINDINGS: Nitroglycerin Neutralizer View Findings, Lines and Tubes: None. Visualized Chest: Lung bases are clear. No pleural effusion. The heart is normal in size. No pericardial effusion. Diaphragm: Normal. Liver: Normal. Gallbladder: No CT evidence of gallbladder pathology. Bile ducts: No biliary ductal dilation. Spleen: Normal. Pancreas: Normal. Adrenal glands: Normal. Kidneys and ureters: No hydronephrosis, stones, or suspicious masses. Bladder: Normal. Reproductive organs: Unremarkable. Stomach, small bowel, and large bowel: Small type I hiatal hernia. Otherwise, stomach, duodenum, small bowel and colon appear normal. Appendix: Normal. Peritoneum and retroperitoneum: No ascites or pneumoperitoneum. No omental or mesenteric lesions. Lymph nodes: No enlarged lymph nodes. Blood vessels: Normal. No aneurysm. Small apparent linear filling defect in the left common femoralvein (axial: 198). Abdominal and pelvic wall: Unremarkable. Bones: No acute abnormality. IMPRESSION: No CT evidence of acute intra-abdominal or pelvic abnormality. Small apparent linear filling defect, partially visualized in the left common femoral vein may represent a flow artifact however a left lower extremity Doppler ultrasound is recommended to exclude a nonocclusive thrombus. A critical result message ([place]ard) has been communicated via the Surgient system on 08/13/2022 10:38 PM, Message ID [id number]. I have personally reviewed the images and I agree with this report. WSN: [id number] Ordering Physician: Lucia Pedraza Dictated By: Eldon Farah MD Dictated Date/Time: 08/13/22 10:38 p Reviewed By: Sarina Shields MD Signed By: Sarina Shields MD Signed Date/Time: 08/13/22 10:43 pm Transcribed By: AMELIA Transcribed Date/Time: 08/13/22 10:27 pm Vital Signs Most recent to oldest [Reference Range]: 1 2 3 Height 163 cm (08/15/22 11:00 AM) 163 cm (08/15/22 3:23 AM) 163 cm (08/14/22 11:08 PM) Oxygen Saturation [94-100 %] 98 % (08/15/22 11:00 AM) 97 % (08/15/22 6:55 AM) 98 % (08/15/22 3:23 AM) Pulse Rate [55-90 bpm] 78 bpm (08/15/22 11:00 AM) 78 bpm (08/15/22 8:30 AM) 81 bpm (08/15/22 6:55 AM) Blood Pressure [90-138/55-84 mm Hg] 130/80mm Hg (08/15/22 11:00 AM) 130/80mm Hg (08/15/22 8:30 AM) 135/75mm Hg (08/15/22 6:55 AM) Respiratory Rate [16-30 br/min] 18 br/min (08/15/22 11:00 AM) 16 br/min (08/15/22 9:00 AM) 18 br/min (08/15/22 8:30 AM) Temperature [96.8-100.4 DegF] 98.4 DegF (08/15/22 11:00 AM) 98.1 DegF (08/15/22 6:55 AM) 98.6 DegF (08/15/22 3:23 AM) Mode of Delivery (Oxygen) Room air (08/15/22 11:00 AM) Room air (08/15/22 6:55 AM) Room air (08/15/22 3:23 AM) Blood pressure sites Arm, left (08/15/22 11:00 AM) Arm, left (08/15/22 6:55 AM) Arm, left (08/15/22 3:23 AM) Temperature Route Oral (08/15/22 11:00 AM) Oral (08/15/22 6:55 AM) Oral (08/15/22 3:23 AM) Dry Weight 100 kg (08/14/22 5:22 AM) Social History Social History Type Response Smoking Status Current every day zahra sutton entered on: 07/21/14 Sex History and physical note * Joaquin VINES, Serge P: PERFORM Event Display: History and Physical Hospital Authored Date: Patient: ??SAADIA LAKE ? Age:??51 Years?Sex:??Female?:??1970?? Chief Complaint/Reason for Consultation Abdominal pain with nausea/vomiting History of Present Illness Date: 08/13/2022 Source: Patient and review of EMR ?? 51-year-old obese white female resident of a Psychiatric shelter and who has a past medical history of polysubstance abuse, schizoaffective disorder, PTSD, personality disorder, prediabetes, nicotine dependence, GERD, anemia, stress incontinence who presents to the emergency room complaining of right lower quadrant abdominal pain with associated nausea and vomiting for the past one day. ?? She reports that the pain was worse after she ate earlier on. She denies any associated fevers or chills. She is sexual??and also reported having some vaginal discharge which on pelvic exam (by ED provider) was note to be whitish (not cottage cheese consistency though).?? She admits to continuing to use drugs (smoking crack cocaine yesterday) and also states that she does not like Suboxone becauseof the way it makes her feel and so has not been taking it (or any other medications).?? Looking ather Pharmacy refills - it appears that all her medications were refilled on 08/04/2022 and so it is unclear why she is not taking any.?? While in the emergency room she was admitted to having malodorous vaginal discharge for which she was started on antibiotics after pelvic exam was done revealing some white discharge.?? CT scan of the abdomen and pelvis did not show any acute intra-abdominal pathology. Blood work is unremarkable. Review of Systems Constitutional:??No weight loss, fever, chills, weakness or fatigue. HEENT:??No visual loss, blurred vision, double vision or yellow sclera. No hearing loss, sneezing, congestion, runny nose or sore throat. Skin:??No rash or itching. Cardiovascular:??No chest pain, chest pressure or chest discomfort. No palpitations or pedal edema. Respiratory:??No shortness of breath, cough or sputum production. Gastrointestinal:??Positive for persistent nausea/vomiting Genitourinary:??No burning micturition. No urinary frequency or incontinence. Neurologic:??No headache, dizziness, syncope, unilateral weakness, ataxia, numbness or tingling in the extremities. Musculoskeletal:??No muscle pain, back pain, joint pain or stiffness. Hematologic:??No bleeding or bruising. Lymphatics:??No enlarged lymph nodes. Psychiatric:??No depression or anxiety. Endocrine:??No reports of sweating. No cold or heat intolerance. No polyuria or polydipsia. Objective Vital Signs??:?? Temp - 98.1 F;?? VT - 70 bpm;?? RR - 18 br/min;?? BP - 138/78 mmHg;?? SAO2 - 95% on RA ?? Physical Exam General:??Obese WF in bed. Awake and alert. In??no acute cardiopulmonary distress. Mental Status:??Oriented to person, place and time. Normal affect. Head:??Normocephalic. Atraumatic Eyes:??No pallor or jaundice. Pupils are equal, round and reactive to light. Extraocular muscles intact. Ear, Nose and Throat:??Oropharynx clear, mucous membranes moist.??Trachea midline. Neck:??Supple, Full range of motion. Respiratory:??Clear to auscultation bilaterally. No wheezing, rales or rhonchi. Cardiovascular:??Heart sounds normal.??Regular rate and rhythm, no murmurs, rubs or gallops. Gastrointestinal:??Abdomen soft, non-tender, non-distended. Normal bowel sounds.??No hepatosplenomegaly. Genitourinary:??No costovertebral angle tenderness. Pelvic exam was done by ED provider had some whitish discharge but no cervical motion tenderness. Neurologic:??AAOx4. Intact speech & cognition. Cranial nerves II-XII grossly intact. No focal neurological deficits. Skin:??No rashes or lesions. No petechiae or purpura. No edema. Musculoskeletal:??No cyanosis or clubbing. No gross deformities. Normal range of motion. Lymphatics:??Palpation of neck & groin with no swollen or tender lymph nodes. Assessment/Plan 51-year-old obese WF with PMH of PSA,??schizoaffective disorder, PTSD, personality disorder, prediabetes, nicotine dependence, GERD, anemia, stress incontinence here with ?? Intractable nausea and vomiting (R11.2):? - no clear etiology at this time - continue antiemetics and IV fluids - start on clear diet and advance as tolerated ?? Abdominal pain, right lower quadrant (R10.31):? - unclear etiology - monitor ?? STI (sexually transmitted infection) (A64):? - there is concern for STI - she received IM Ceftriaxone , PO Flagyl and PO Doxycycline in the ED - will continue with empiric Flagyl and Doxycycline and follow up on the GC, Chlamydia and BV swab. ?? Polysubstance abuse (F19.10):? - continues to smoke cigarettes and crack cocaine - has not been taking Suboxone because 'of how it makes her feel'. - may benefit from MH evaluation ?? VTE Prophylaxis:? - Lovenox ?? Code Status:? - FC ?Order Code Status:??Code Status Ordered ?? Discharge Planning:? Histories Allergies Lisinopril? Past Medical History/Problem List Anemia Cannabis abuse Cocaine abuse Drug abuse Dysuria Encounter for general adult medical examination without abnormal findings Encounter for well adult exam with abnormal findings GERD (gastroesophageal reflux disease) Nicotine dependence Obesity Personality disorder Prediabetes PTSD (post-traumatic stress disorder) Schizoaffective Disorder Screen for STD (sexually transmitted disease) Stress incontinence Wheezing ? Past Surgical History Hematoma of scalp section X 2 Tubal ligation ? Social History Alcohol Details:??Use: Current. ??Frequency: Daily. ??Other: 3 to 4 drinks a day, 15 to 18 a week.. Employment/School Details:??Status: Unemployed. Exercise Details:??Regular exercise: No. Home/Environment Details:??Living situation: Jail. Sexual Details:??Sexually involved in last 6 months: Yes. ??Self described orientation: Bisexual. Substance Abuse Details:??Use: Past. ??Type: Cocaine, Heroin. Tobacco Details:??Use: Current every day smoker. ? Family History Mother: Stroke ? Medications Home Medications Acetaminophen 1,300?Milligram?By Mouth?Every 6 hours?as needed?as needed Albuterol (Ventolin HFA 108 mcg/inh inhalation aerosol with adapter)?1?puff(s)?Inhalation?Every 6 hours?as needed?for wheezing Benztropine?1?Milligram??By Mouth?2 times a day Buspirone 10?Milligram??By Mouth?3 times a day Diclofenac?50?Milligram?By Mouth?3 times a day Haloperidol (haloperidol 10 mg oral tablet)?10?Milligram?1?tablet?By Mouth?2 times a day Hydroxyzine?50?Milligram?By Mouth?4 times a day?as needed?for anxiety Metformin??500?Milligram?By Mouth?twice a day with meals Multivitamin (multivitamin Multiple Vitamins oral tablet)?1?tab(s)?By Mouth?Daily Omeprazole (omeprazole 40 mg oral enteric coated capsule)?1?capsule?By Mouth?Daily Oxybutynin??15?Milligram?By Mouth?Daily paliperidone (Invega Sustenna 156 mg/mL intramuscular suspension, extended release)?156?Milligram?Intramuscular?Every 28 days Quetiapine?50?Milligram?By Mouth?3 times a day?as needed?Anxiety?for 30?Days Simethicone??80?Milligram?1?tablet?Chew?3 times a day after meals and bedtime?as needed?gi discomfort Topiramate 100?Milligram?By Mouth?Daily?for 30?Days Trazodone??100?Milligram?1?tablet?By Mouth?2 times a day ? EKG study * Event Display: ECG 12-Lead Authored Date: Please click on pdf link to open report * Event Display: ECG 12-Lead Authored Date: Ventricular Rate: 78 BPM Atrial Rate: 78 BPM P-R Interval: 144 ms QRS Duration: 90 ms Q-T Interval: 414 ms QTC Calculation(Bazett): 471 ms P [place]: 57 degrees R [place]: 29 degrees T [place]: 38 degrees Sinus rhythm with marked sinus arrhythmia RSR' or QR pattern in V1 suggests right ventricular conduction delay Borderline ECG When compared with ECG of 01-FEB-2022 14:03, No significant change was found Confirmed by CRISTINE VINES SAMSON ([id number]) on 08/15/2022 6:32:46 PM [place]: [facility] * Sundeep Russo RN: PERFORM, SIGN, VERIFY Event Display: Progress [facility] Authored Date: Patient: SAADIA LAKE Age: 51 years Sex: Female : 1970 Associated Diagnoses: None Author: Sundeep Russo RN Findings Pt was discharged from b. IV removed. Medications reviewed. Education completed. Pt left unit ambulating independently. Paperwork signed and placed in chart. * Arin Torres RN: VERIFY, PERFORM, SIGN Event Display: Progress [facility] Authored Date: Patient: SAADIA LAKE Age: 51 years Sex: Female : 1970 Associated Diagnoses: None Author: Arin Torres RN Findings Narrative/Incidental Pt A&OX4, VSS receiving NACL 150ml /hr C/O nausea and vomiting that has improved after Ativan zofran and Haldol no relief +bs now tolerating using the commode.Pt abd pain given Tylenol 650 mg lungs dim no cough CIWA scale 1.Pt aware plan of care call andres in place will give report.. * Velma Canas MD: PERFORM Event Display: Progress Note Hospital Authored Date: Patient: ??SAADIA LAKE ? Age:??51 Years?Sex:??Female?:??1970?? Subjective Seen and examined, vitals, labs and charts reviewed still n/v/AP ; unable to tolerate PO Diffuse abdominal pain especially upper abdomen Denies any sick contacts, no other residents with similar symptoms??at??shelter Review of Systems Negative??except as above Past Medical History Active Problems??(17) Anemia Cannabis abuse Cocaine abuse Drug abuse Dysuria Encounter for general adult medical examination without abnormal findings Encounter for well adult exam with abnormal findings GERD (gastroesophageal reflux disease) Nicotine dependence Obesity Personality disorder Prediabetes PTSD (post-traumatic stress disorder) Schizoaffective Disorder Screen for STD (sexually transmitted disease) Stress incontinence Wheezing ? Past Surgical History Hematoma of scalp section X 2 Tubal ligation ? Objective Vital Signs?? Temperature: 98.1 DegF (08/14/22 10:54:00) Temperature Route: Oral (08/14/22 10:54:00) Pulse Rate:??91 bpm??High (08/14/22 10:54:00) Respiratory Rate: 18 br/min (08/14/22 10:54:00) Systolic Blood Pressure:??155 mm Hg??High (08/14/22 10:54:00) Diastolic Blood Pressure:??95 mm Hg??High (08/14/22 10:54:00) Blood pressure sites: Arm, right (08/14/22 10:54:00) Mean Arterial Pressure: 102 mm Hg (08/14/22 05:22:00) Pulse Pressure: 59 mm Hg (08/14/22 05:22:00) Oxygen Saturation: 97 % (08/14/22 10:54:00) Mode of Delivery (Oxygen): Room air (08/14/22 10:54:00) Early Warning Score: 0 (08/14/22 10:55:18) ? Intake/Output? 08/13 19:49 08/14 07:00 08/13 07:00 08/12 07:00 08/11 07:00 ?? 08/14 12:14 08/14 12:14 08/14 06:59 08/13 06:59 08/12 06:59 Intake ?235 ?0 ?235 ?0 ?0 Output ?0 ?0 ?0 ?0 ?0 Net Total ?235 ?0 ?235 ?0 ?0 ? Physical Exam General??: Awake, alert,??in no acute distress. HEENT: NC/AT Respiratory: Bilateral air entry, no added sounds Cardiovascular: S1S2 regular. No murmurs, rubs or gallops. Gastrointestinal: Abdomen soft, diffuse tenderness kathy upper abdomen, no rebound tender, bowel sounds present Genitourinary: No CVA tenderness Extremities: No lower extremity pitting??edema. No cyanosis or clubbing. Neurologic: AAOx3, Speech normal. No gross facial asymmetry or gross focal neurological deficits _ Inpatient Medications Medications (28) Active SCHEDULED: (13) Benztropine 1 mg Tablet (benztropine 1 mg oral tablet) ??1 mg, By Mouth, 2 times a day BusPIRone 10 mg Tablet (busPIRone 10 mg oral tablet) ??10 mg, By Mouth, 3 times a day Doxycycline 100 mg Inj (Doxycycline IVPB) ??100 mg, IVPB, Every 12 hours Folic Acid 1 mg Tablet (Folic Acid Tablet) ??1 mg, By Mouth, Daily Haloperidol 10 mg Tablet (haloperidol 10 mg oral tablet) ??10 mg, By Mouth, Daily at bedtime Influenza Quad (6mo - 64 yr) Fluzone 0.5mL (Influenza, Quadrivalent Vaccine (Fluzone Quad)) ??0.5 mL, Intramuscular, Once Multivitamin Tablet ??1 tablet, By Mouth, Daily NaCl 0.9% Flush 3ml (NaCL 0.9% Flush) ??3 mL, IV Push, Every 8 hours Oxybutynin 5 mg ER Tablet (Oxybutynin XL Tablet) ??15 mg, By Mouth, Daily Pantoprazole 40 mg Inj (Pantoprazole Inj) ??40 mg, IV Push Slowly, Daily Pyridoxine 50 mg Tablet (Pyridoxine Tablet) ??50 mg, By Mouth, Daily Thiamine 100 mg Tablet (Thiamine Tablet) ??100 mg, By Mouth, 2 times a day Trazodone 50 mg Tablet (traZODone 50 mg oral tablet) ??100 mg, By Mouth, Daily at bedtime CONTINUOUS: (1) Lactated Ringers (1000 mL) Cont IV 1,000 mL (LR 1,000 mL) ??1,000 mL, IV Infusion, 150 mL/hr PRN: (14) Acetaminophen 325 mg Tablet (Acetaminophen Tablet) ??650 mg, By Mouth, Every 4 hours Al hydroxide/Mg hydroxide/simethicone 200 mg-200 mg-20 mg/5 mL Susp UD (Maalox Plus Liquid) ??15 mL, By Mouth, 4 times a day Haloperidol 5 mg Tablet (haloperidol 5 mg oral tablet) ??5 mg, By Mouth, Every 4 hours HydrOXYzine HCL 10mg Tablet (hydrOXYzine hydrochloride 10 mg oral tablet) ??50 mg, By Mouth, 3 times a day Lorazepam 1 mg Tablet (Ativan Tablet) ??1 mg, By Mouth, Every 2 hours Lorazepam 2 mg Inj Syringe (Ativan Inj) ??2 mg, IV Push Slowly, Every 6 hours Lorazepam 2 mg Tablet (Ativan Tablet) ??2 mg, By Mouth, Every 2 hours Lorazepam 2 mg Tablet (Ativan Tablet) ??2 mg, By Mouth, Every hour Melatonin 3 mg Tablet (Melatonin Tablet) ??3 mg, By Mouth, Daily at bedtime NaCl 0.9% Flush 3ml (NaCL 0.9% Flush) ??3 mL, IV Push, Every 8 hours Ondansetron 2mg/mL Inj (2mL Vial) (Zofran Inj) ??4 mg, IV Push, Every 6 hours Polyethylene Glycol 17 Gm Powder (MiraLax Powder) ??17 Gm 1 pack/packet, By Mouth, Daily Senna 8.6 mg / Docusate 50 mg tablet (Docusate/Senna Tablet) ??1 tablet, By Mouth, 2 times a day Simethicone 80 mg Chewable Tablet (Simethicone Tablet) ??80 mg, Chew, 3 times a day ? 72 Hour Antibiotic History Active Antibiotics Calendar Day Last Administered First Administered Doxycycline??100 mg, 100 mL/hr, IVPB, Every 12 hours ?1 08/14/2022 10:18 08/14/2022 10:18 ? Stopped Antibiotics Stop Date/Time Last Administered First Administered Ceftriaxone??500 mg, Intramuscular, Once 08/14/2022 00:43 08/14/2022 00:43 08/14/2022 00:43 Metronidazole??500 mg, By Mouth, Once 08/14/2022 00:43 08/14/2022 00:42 08/14/2022 00:42 Doxycycline??100 mg, By Mouth, Once 08/14/2022 00:43 08/14/2022 00:42 08/14/2022 00:42 ? Results Recent Labs BLOOD COUNT & DIFF WBC 8.9 k/mm3 ()?? 08/13/2022 20:49 RBC 4.82 m/mm3 ()?? 08/13/2022 20:49 Hgb 14.1 Gm/dL ()?? 08/13/2022 20:49 Hct 42.7 % ()?? 08/13/2022 20:49 MCV 88.6 femtoliters ()?? 08/13/2022 20:49 MCH 29.3 pg ()?? 08/13/2022 20:49 MCHC 33.0 g/dL ()?? 08/13/2022 20:49 Platelet Count 251 k/mm3 ()?? 08/13/2022 20:49 RDW-SD 45.5 femtoliters ()?? 08/13/2022 20:49 MPV 11.4 femtoliters ()?? 08/13/2022 20:49 Nucleated RBC (Automated) 0.0 #/100 WBC'S ()?? 08/13/2022 20:49 Abs. NRBC 0.0 k/mm3 ()?? 08/13/2022 20:49 Abs. Neut 6.8 k/mm3 ()?? 08/13/2022 20:49 Abs. Lymph 1.4 k/mm3 ()?? 08/13/2022 20:49 Abs. [place]lin 0.6 k/mm3 ()?? 08/13/2022 20:49 Abs. Eo 0.1 k/mm3 ()?? 08/13/2022 20:49 Abs. Baso 0.0 k/mm3 ()?? 08/13/2022 20:49 Neut % 76.6 % (High)?? 08/13/2022 20:49 Lymph % 15.7 % ()?? 08/13/2022 20:49 [place] % 6.4 % ()?? 08/13/2022 20:49 Eos % 0.7 % ()?? 08/13/2022 20:49 Baso % 0.3 % ()?? 08/13/2022 20:49 Imm Gran 0.3 % ()?? 08/13/2022 20:49 Abs. Imm Gran 0.0 k/mm3 ()?? 08/13/2022 20:49 ?? CHEM GENERAL Sodium 141 mmol/L ()?? 08/13/2022 20:49 Potassium 4.2 mmol/L ()?? 08/13/2022 20:49 Chloride 101 mmol/L ()?? 08/13/2022 20:49 Bicarbonate Level 24 mmol/L ()?? 08/13/2022 20:49 Anion Gap 16 ()?? 08/13/2022 20:49 Glucose Level 137 mg/dL (High)?? 08/13/2022 20:49 BUN 4 mg/dL (Low)?? 08/13/2022 20:49 Creatinine-Blood 0.7 mg/dL ()?? 08/13/2022 20:49 Estimated GFR Creatinine 102 ML/MIN/1.73 M2 ()?? 08/13/2022 20:49 Calcium 10.3 mg/dL ()?? 08/13/2022 20:49 Protein, Total 7.2 Gm/dL ()?? 08/13/2022 20:49 Albumin 4.6 Gm/dL ()?? 08/13/2022 20:49 AG Ratio 1.8 ()?? 08/13/2022 20:49 Alkaline Phosphatase 114 units/L (High)?? 08/13/2022 20:49 AST (SGOT) 15 units/L ()?? 08/13/2022 20:49 ALT (SGPT) 16 units/L ()?? 08/13/2022 20:49 Bilirubin, Total 0.3 mg/dL ()?? 08/13/2022 20:49 ?? TOXICOLOGY/TDM Ethanol, Serum or Plasma NONE DETECTED mg/dL ()?? 08/13/2022 20:49 ?? VIROLOGY COVID-19 by RT-PCR NEGATIVE ()?? 08/13/2022 21:50 ? Urinalysis?? No qualifying data available. ?? Microbiology ?? Chlamydia/N. Gonorrhoeae TMA (NAAT)?? Collected?? Source: Urine Body Site: Urethra Collected Dt/Tm: 08/13/2022 21:31 Last Updated Dt/Tm: 08/13/2022 21:31 COVID-19 (Novel Coronavirus), Rapid PCR?? Completed?? Source: Nasal Body Site: Nose Collected Dt/Tm: 08/13/2022 22:10 Last Updated Dt/Tm: 08/14/2022 00:09 Wet Prep?? Completed?? Source: Vaginal Body Site: ?? Collected Dt/Tm: 08/13/2022 22:46 Last Updated Dt/Tm: 08/13/2022 23:06 ?SPECIMEN DESCRIPTION : VAGINAL SPECIMENSPECIAL REQUESTS : NONEDIRECT EXAM : NO TRICHOMONAS,YEAST,OR CLUE CELLS OBSERVEDREPORT STATUS : FINAL 08/14/2022 ? Assessment/Plan Chief Complaint: Abdominal pain with nausea/vomiting x1 day ?? Diagnoses Abdominal pain, right lower quadrant ??(R10.31) Intractable nausea and vomiting ??(R11.2) Polysubstance abuse ??(F19.10) STI (sexually transmitted infection) ??(A64) ?? This is 51-year-old obese WF with PMH of PSA,??schizoaffective disorder, PTSD, personality disorder, prediabetes, nicotine dependence, GERD, anemia, stress incontinence here with n/v/ap? 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 abdomen pelvis negative for acute finding Has received??IV Haldol, Compazine, Zofran for??nausea and vomiting but??none of it really worked for her ?? Plan Switch??p.o. pantoprazole to IV??40 mg daily We will try??Ativan as needed for nausea vomiting Continue IV fluid We will keep n.p.o.??unstable to tolerate ?? Concern for sexually transmitted infection - there is concern for STI Status post IM ceftriaxone??for gonorrhea,??Flagyl, doxycycline in the ER Vagina??wet prep negative ?? Plan Continue doxycycline 100 mg twice daily Will hold onto further??metronidazole given??negative wet prep??and??pelvic examination finding in the ER Follow-up??GC chlamydia,??vaginosis panel ?? Polysubstance abuse (F19.10):? - continues to smoke cigarettes and crack cocaine - has not been taking Suboxone because 'of how it makes her feel'. -Urine toxicology ordered ?? Diet:??N.p.o. except medication/ice chips and to able to tolerate ?? VTE Prophylaxis:? - Lovenox ?? Code Status:? -Full ?? Disclaimer: ??This note ??was accomplished with use of [employer] voice recognition software, which is prone to medical and other word misidentifications and grammatical errors. ??The physician does strive to identify and correct these, but some could still be present. ??Please do not hesitate to contact the physician for clarifications. ? Note * Sundeep Russo RN: PERFORM Event Display: Discharge/Transfer Note Hospital Authored Date: [id number] Nursing Discharge Note Entered On: 08/15/2022 13:41 EST Performed On: 08/15/2022 13:41 EST by Sundeep Russo RN Nursing Discharge Note 2 Discharge Time : 08/15/2022 13:55 EST Sundeep Russo RN - 08/15/2022 13:55 EST Discharge Level of Care at Discharge : Home/Jail/Foster Care Patient Left Unit Via : Ambulatory Patient Accompanied Off Unit with : Responsible adult DC Instructions Provided & Signed by Pt : Yes Patient Understands D/C Instructions : Yes Patient Instructions Discharge Signed : Yes Did Pt have Specialty Bed or Wound Vac : No Rafaela ROYAL, Sundeep - 08/15/2022 13:41 EST * Velma Canas MD: MODIFY, PERFORM Event Display: Discharge/Transfer Note Hospital Authored Date: Patient: ??SAADIA LAKE ? Age:??51 Years?Sex:??Female?:??1970?? Patient Information Discharge Location: B Primary Care Physician: Arlene Hernandez DO Admit Date/Time: 08/13/22 19:49 Discharge Disposition Discharge Disposition: ??[facility] Discharge Diagnosis Abdominal pain, right lower quadrant (R10.31) Intractable nausea and vomiting (R11.2) Polysubstance abuse (F19.10) STI (sexually transmitted infection) (A64) ?? _ Discharge Medications Acetaminophen (Mapap Arthritis Pain 650 mg oral tablet, extended release)?2?tab(s)?1,300?Milligram?By Mouth?Every 6 hours?as needed?as needed Albuterol (Ventolin HFA 108 mcg/inh inhalation aerosol with adapter)?1?puff(s)?Inhalation?Every 6 hours?as needed?for wheezing Benztropine (benztropine 1 mg oral tablet)?1?Milligram?1?tablet?By Mouth?2 times a day BusPIRone (busPIRone 10 mg oral tablet)?10?Milligram?1?tablet?By Mouth?3 times a day Diclofenac (diclofenac sodium 50 mg oral delayed release tablet)?1?tab(s)?50?Milligram?By Mouth?3 times a day Haloperidol (haloperidol 10 mg oral tablet)?10?Milligram?1?tablet?By Mouth?2 times a day HydrOXYzine (hydrOXYzine hydrochloride 50 mg oral tablet)?1?tab(s)?50?Milligram?By Mouth?3 times a day?as needed?for anxiety HydrOXYzine (hydrOXYzine pamoate 50 mg oral capsule)?1?capsule?50?Milligram?By Mouth?Daily Metformin (metFORMIN 500 mg oral tablet)?1?tab(s)?500?Milligram?By Mouth?Daily Blanca?for 90?Days?with breakfast Miscellaneous Rx (Discontinue Nicotine Patches)?See Instructions?Dx: Tobacco Dependence Miscellaneous Rx (HM SENNA-S 8.6-50MG)?1?tab(s)?By Mouth?2 times a day?FOR CONSTIPATION. Multivitamin (multivitamin Multiple Vitamins oral tablet)?1?tab(s)?By Mouth?Daily Omeprazole (omeprazole 40 mg oral enteric coated capsule)?1?capsule?By Mouth?Daily Oxybutynin (oxybutynin 10 mg/24 hr oral tablet, extended release)?1?tab(s)?10?Milligram?By Mouth?Daily Oxybutynin (oxybutynin 15 mg/24 hr oral tablet, extended release)?1?tab(s)?15?Milligram?By Mouth?Daily paliperidone (Invega Sustenna 156 mg/mL intramuscular suspension, extended release)?156?Milligram?Intramuscular?Every 28 days Pantoprazole (pantoprazole 20 mg oral delayed release tablet)?1?tab(s)?20?Milligram?By Mouth?Daily?for 14?Days Quetiapine (SEROquel 100 mg oral tablet)?100?Milligram?1?tablet?By Mouth?Daily atbedtime Quetiapine (SEROquel 50 mg oral tablet)?1?tab(s)?50?Milligram?By Mouth?2 times a day?as needed?Anxiety?for 30?Days Simethicone (simethicone 80 mg oral tablet, chewable)?80?Milligram?1?tablet?Chew?3 times a day after meals and bedtime?as needed?gi discomfort Topiramate (Topamax 100 mg oral tablet)?1?tab(s)?100?Milligram?By Mouth?Daily?for 30?Days Trazodone (traZODone 100 mg oral tablet)?100?Milligram?1?tablet?By Mouth?2 times a day ? Medications Started Pantoprazole Allergies Allergies ?(Active and Proposed Allergies Only) lisinopril? (Severity: Unknown severity, Onset: Unknown) ? Hospital Course This is 51-year-old obese WF with PMH of PSA,??schizoaffective disorder, PTSD, personality disorder, prediabetes, nicotine dependence, GERD, anemia, stress incontinence here with n/v/ap??managed for alcohol gastritis,found to have bacterial vaginosis. She was initially kept n.p.o. and then clear liquid diet. ??Her nausea vomiting abdominal pain resolved this morning and she has appetite. ??Therefore regular diet??introduced and she??was able to tolerate it without any difficulty. Patient wants to be discharged. ??Appreciate social sciences instructor and case management working on??her discharge back to??shelter. ?? Pt wants to be discharged. Clinically and hemodynamically stable to do so Patient??denies any chest pain, short of breath, palpitation, nausea vomiting abdominal pain Plan of care discussed with patient, in agreement, so discharge plan made To follow-up with primary care physician??in 1 to 2-week ?? Assessment and plan during hospitalization as below ?? 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 abdomen pelvis negative for acute finding Has received??IV Haldol, Compazine, Zofran for??nausea and vomiting but??none of it really worked for her ?? Plan Switch??p.o. pantoprazole to IV??40 mg daily We will try??Ativan as needed for nausea vomiting Continue IV fluid We will keep n.p.o.??unstable to tolerate ?? Concern for sexually transmitted infection Positive bacterial vaginosis - there is concern for STI Status post IM ceftriaxone??for gonorrhea,??Flagyl, doxycycline in the ER Vagina??wet prep negative ?? Plan Gonorrhea chlamydia negative, Trina negative, trichomonas vaginitis negative.?? However bacterialvaginosis came back positive I doubt patient will be compliant with 7 days course of metronidazole or ??ointment topical cream??which needs??at least a few days??for treatment. ??Therefore we will give??her 1 dose of??2000 mg metronidazole??prior to discharge. ??She need to avoid??any alcohol intake??for the next few days??at [facility]. Will hold onto further??metronidazole given??negative wet prep??and??pelvic examination finding in the ER ?? Polysubstance abuse (F19.10): Positive cocaine and opiate - continues to smoke cigarettes and crack cocaine - has not been taking Suboxone because 'of how it makes her feel'. -Urine toxicology came back positive for Cocaine and opiate -therapy could be from??morphine that we gave ?? Diet:??Regular diet tolerating well ?? VTE Prophylaxis:? - Lovenox ?? Code Status:? -Full ?? Disclaimer: ??This note ??was accomplished with use of Syn[employer] voice recognition software, which is prone to medical and other word misidentifications and grammatical errors. ??The physician does strive to identify and correct these, but some could still be present. ??Please do not hesitate to contact the physician for clarifications. ? Objective Assessment and Plan ? . Physical Exam General??: Awake, alert,??in no acute distress. Respiratory: Bilateral air entry, no added sounds Cardiovascular: S1S2 regular. No murmurs, rubs or gallops. Gastrointestinal: Abdomen soft, NT ND, no rebound tender, bowel sounds present Extremities: No lower extremity pitting??edema. Neurologic: AAOx3, Speech normal. No?? gross focal neurological deficits Pending Results Add On Lab Order ordered on 08/14/2022 Chlamydia/N. Gonorrhoeae TMA (NAAT) ordered on 08/13/2022 Patient Education Titles Gastritis Discharge Instructions?? Vaginal Infection: Understanding the Vaginal Environment?? Vaginal Infection: Bacterial Vaginosis?? Bacterial Vaginosis?? Follow-Up Appointments Added Follow Up ?Time Frame ?Comments Arlene Hernandez DO?1 to 2 weeks Patient Instructions Alcoholic gastritis : avoid alcohol Bacterial vaginosis : We we will give you 1 loading dose of metronidazole 2000 mg??for treatment. ??Please avoid??any kind of alcohol intake??for 1 week. follow up with PCP in 1-2 weeks Home Health Face to Face ^[facility] Results Discharge Labs BLOOD COUNT & DIFF WBC 6.1 k/mm3 ()?? 08/15/2022 08:40 RBC 4.59 m/mm3 ()?? 08/15/2022 08:40 Hgb 13.1 Gm/dL ()?? 08/15/2022 08:40 Hct 40.3 % ()?? 08/15/2022 08:40 MCV 87.8 femtoliters ()?? 08/15/2022 08:40 MCH 28.5 pg ()?? 08/15/2022 08:40 MCHC 32.5 g/dL (Low)?? 08/15/2022 08:40 Platelet Count 331 k/mm3 ()?? 08/15/2022 08:40 RDW-SD 44.9 femtoliters ()?? 08/15/2022 08:40 MPV 9.2 femtoliters (Low)?? 08/15/2022 08:40 Nucleated RBC (Automated) 0.0 #/100 WBC'S ()?? 08/15/2022 08:40 Abs. NRBC 0.0 k/mm3 ()?? 08/15/2022 08:40 Abs. Neut 6.8 k/mm3 ()?? 08/13/2022 20:49 Abs. Lymph 1.4 k/mm3 ()?? 08/13/2022 20:49 Abs. Hamlin 0.6 k/mm3 ()?? 08/13/2022 20:49 Abs. Eo 0.1 k/mm3 ()?? 08/13/2022 20:49 Abs. Baso 0.0 k/mm3 ()?? 08/13/2022 20:49 Neut % 76.6 % (High)?? 08/13/2022 20:49 Lymph % 15.7 % ()?? 08/13/2022 20:49 Hamlin % 6.4 % ()?? 08/13/2022 20:49 Eos % 0.7 % ()?? 08/13/2022 20:49 Baso % 0.3 % ()?? 08/13/2022 20:49 Imm Gran 0.3 % ()?? 08/13/2022 20:49 Abs. Imm Gran 0.0 k/mm3 ()?? 08/13/2022 20:49 ?? CHEM GENERAL Sodium 138 mmol/L ()?? 08/15/2022 08:40 Potassium 4.2 mmol/L ()?? 08/15/2022 08:40 Chloride 104 mmol/L ()?? 08/15/2022 08:40 Bicarbonate Level 25 mmol/L ()?? 08/15/2022 08:40 Anion Gap 9 ()?? 08/15/2022 08:40 Glucose Level 143 mg/dL (High)?? 08/15/2022 08:40 BUN 2 mg/dL (Low)?? 08/15/2022 08:40 Creatinine-Blood 0.5 mg/dL ()?? 08/15/2022 08:40 Estimated GFR Creatinine 113 ML/MIN/1.73 M2 ()?? 08/15/2022 08:40 Calcium 9.8 mg/dL ()?? 08/15/2022 08:40 Calcium, Ionized pH Corrected 1.35 mmol/L (High)?? 08/15/2022 08:40 Phosphorus 3.1 mg/dL ()?? 08/13/2022 20:49 Magnesium 2.1 mg/dL ()?? 08/15/2022 08:40 Protein, Total 7.2 Gm/dL ()?? 08/13/2022 20:49 Albumin 4.6 Gm/dL ()?? 08/13/2022 20:49 AG Ratio 1.8 ()?? 08/13/2022 20:49 Alkaline Phosphatase 114 units/L (High)?? 08/13/2022 20:49 AST (SGOT) 15 units/L ()?? 08/13/2022 20:49 ALT (SGPT) 16 units/L ()?? 08/13/2022 20:49 Bilirubin, Total 0.3 mg/dL ()?? 08/13/2022 20:49 ?? SEROLOGY INF DISEASE Chlamydia Trachomatis Amplified Probe NEGATIVE (N)?? 08/13/2022 23:07 N. Gonorrhoeae Amplified Probe NEGATIVE (N)?? 08/13/2022 23:07 Chlamydia / GC AMP Probe Specimen CERVIX ()?? 08/13/2022 23:07 Trina sp. Group NEGATIVE ()?? 08/13/2022 23:07 Trina Glabrata NEGATIVE ()?? 08/13/2022 23:07 Trichomonas vaginalis NEGATIVE ()?? 08/13/2022 23:07 Bacterial Vaginosis POSITIVE (Abnormal)?? 08/13/2022 23:07 ? TOXICOLOGY/TDM Ethanol, Serum or Plasma NONE DETECTED mg/dL ()?? 08/13/2022 20:49 Barbiturate Screen, Urine NONE DETECTED ()?? 08/14/2022 16:00 Cannabinoid Screen, Urine NONE DETECTED ()?? 08/14/2022 16:00 Cocaine Metabolite Screen, Urine POSITIVE (Abnormal)?? 08/14/2022 16:00 Benzodiazepine Screen, Urine NONE DETECTED ()?? 08/14/2022 16:00 Amphetamine Screen, Urine NONE DETECTED ()?? 08/14/2022 16:00 Opiate Screen, Urine POSITIVE (Abnormal)?? 08/14/2022 16:00 PCP Screen, Urine NONE DETECTED ()?? 08/14/2022 16:00 Oxycodone Screen, Urine NONE DETECTED ()?? 08/14/2022 16:00 Buprenorphine, Urine Random NONE DETECTED ()?? 08/14/2022 16:00 Fentanyl Screen, Urine Result NONE DETECTED ()?? 08/14/2022 16:00 ? UA/URINALYSIS Appear/Color, Urine YELLOW ()?? 08/14/2022 16:00 Specific Bandy, Urine 1.038 (High)?? 08/14/2022 16:00 pH, Urine 7.5 ()?? 08/14/2022 16:00 Albumin, Urine 1+ (Abnormal)?? 08/14/2022 16:00 Glucose, Urine NEGATIVE ()?? 08/14/2022 16:00 Ketones, Urine TRACE (Abnormal)?? 08/14/2022 16:00 Bilirubin, Urine NEGATIVE ()?? 08/14/2022 16:00 Hemoglobin, Urine NEGATIVE ()?? 08/14/2022 16:00 Nitrite, Urine NEGATIVE ()?? 08/14/2022 16:00 Leukocyte, Urine NEGATIVE ()?? 08/14/2022 16:00 Urobilinogen NORMAL mg/dL ()?? 08/14/2022 16:00 WBC's, Urine 2 /HPF ()?? 08/14/2022 16:00 RBC's, Urine 1 /HPF ()?? 08/14/2022 16:00 Bacteria SLIGHT HPF (Abnormal)?? 08/14/2022 16:00 Squamous Epith 2 /HPF ()?? 08/14/2022 16:00 Amorphous Crystals SLIGHT /HPF ()?? 08/14/2022 16:00 Mucus SLIGHT /LPF ()?? 08/14/2022 16:00 Hold Urine Culture Testing available 48 hours from time of collection. ()?? 08/14/2022 16:00 ?? URINE OTHER Urine, NEGATIVE (N)?? 08/14/2022 16:00 ? VIROLOGY COVID-19 by RT-PCR NEGATIVE ()?? 08/13/2022 21:50 ?(08/13/2022 22:[address] Abd/Pelvis W/ IV Contrast Only) ?? IMPRESSION:? No CT evidence of acute intra-abdominal or pelvic abnormality. ?? Small apparent linear filling defect, partially visualized in the left common femoral vein may represent a flow artifact however a left lower extremity Doppler ultrasound is recommended to exclude a nonocclusive thrombus. ?? [1] (08/14/2022 00:21 EST US Doppler Ext Lower Venous Left) ?? IMPRESSION:? No evidence of deep venous thrombosis. Previously described suspected linear filling defect in the left common femoral vein likely corresponded to inflow artifact. ?? [2] _36 minutes spent on discharge [1]??CT Abd/Pelvis W/ IV Contrast Only; Sarina Shields MD 08/13/2022 22:13 EST [2]??US Doppler Ext Lower Venous Left; Grant Hsieh MD 08/14/2022 00:21 EST * Rafaela ROYAL, Sundeep: PERFORM Event Display: Patient Education/Instruction Authored Date: Inpatient Adult Discharge Instructions [address] [address] Name: SAADIA LAKE : 1970 Visit: 08/13/2022 19:49:00 Current Date: 08/15/2022 13:41 Account: [id number] Inpatient Adult Discharge Instructions We would like to thank you for allowing us to assist you with your healthcare needs. The following includes patient education materials and information regarding your injury/illness. Our entire staffstrives to provide an excellent experience for our patients and their families. PLEASE ENSURE YOU FOLLOW-UP PER THE INSTRUCTIONS BELOW! ?? YOUR OPINION IS IMPORTANT TO US! Please complete the survey you may receive by mail or email. Your feedback will be used to make improvements to the healthcare experiences of our patients and their families. Surveys are administered by [employer]. ?? If further treatment with your primary care physician or another doctor is recommended, it is important for you to keep the appointment. Call your primary care physician or return to the Emergency Department immediately if your condition worsens, fails to improve, or new symptoms develop. If you need to find a doctor, you can call [facility] for a referral at [phone] or toll free at [phone]) or log in to [email or web address] ?? You can view and manage your care through the patient portal or by using a health care azeb of your choosing. [employer] is a website that allows you to securely view your medical information including your hospital discharge summary, office visit summaries, medications and follow-up visits. You can also request appointments, renew medications, and request access to your medical information using a health care azeb of your choosing, or just ask a question. You can enroll at [email or web address] or register during your next office visit. You have been discharged from [facility], Patient Care Unit: D3B. If you have any questions regarding these instructions after you leave, please call us and we will be happy to assist you. [facility] Your Care Team Attending Physician Velma Canas MD Discharging Providers Velma Canas MD Reason for Admission Abdominal pain with nausea/vomiting x1 day Your Diagnosis Abdominal pain, right lower quadrant Intractable nausea and vomiting STI (sexually transmitted infection) Polysubstance abuse Tests Performed Below is a partial list of the tests performed during your hospitalization. You may have had other tests and procedures not included in this list. Please discuss all test results with your provider. Alcohol Level Amphetamine Urine Screen Barbiturate Urine Screen Basic Metabolic Panel Benzodiazepine Urine Screen Buprenorphine Urine Cannabinoid Urine Screen CBC CBC w/ Differential Chlamydia/N. Gonorrhoeae TMA (NAAT) Cocaine Urine Screen Comprehensive Metabolic Panel COVID-19 (Novel Coronavirus), Rapid PCR Fentanyl Screen, Urine Ionized Calcium Magnesium Level Opiate Screen Urine Oxycodone Screen Urine PCP Urine PHOSPHORUS Test Urine Urinalysis w/hold for Urine Culture Vaginosis Vaginitis Panel (BV, CV/TV) CT Abd/Pelvis W/ IV Contrast Only US Doppler Ext Lower Venous Left Primary Care Provider Arlene Hernandez DO Advance Directive Health Care Proxy on File Yes - Health Care Proxy No qualifying data available. Discharge Vitals Temperature: 98.4 DegF Height: 163 cm Pulse Rate: 78 bpm ?? Respiratory Rate: 18 br/min ?? Systolic Blood Pressure: 130 mm Hg ?? Diastolic Blood Pressure: 80 mm Hg ?? Oxygen Saturation: 98 % ?? Studies Pending All tests and labs ordered during this hospital stay have been completed unless listed below. Please discuss all pending results with your provider listed above in these instructions. ?? Add On Lab Order Chlamydia/N. Gonorrhoeae TMA (NAAT) What to do next Instructions From Your Doctor Discharge Orders You Need to Schedule the Following Appointments Follow Up with??Arlene Hernandez DO When??Within 1 to 2 weeks Where: Discharge Medications SAADIA LAKE :1970 Visit Date:08/13/2022 Medications: Please continue your medications until treatment is completed or stopped by your provider. Medications not listed below should be discontinued. Discuss any questions related to medications with your provider. What How Much When Instructions Next Dose New Pantoprazole (pantoprazole 20 mg oral delayed releasetablet) 1 tab(s) Oral Daily Duration: 14 Days Pickup at [facility]/pharmacy #[id number] tomorrow morning 9am Changed Metformin (metFORMIN 500 mg oral tablet) 1 tab(s) Oral Daily in the morning Duration: 90 Days with breakfast ?? tomorrow morning 9am Unchanged Acetaminophen (Mapap Arthritis Pain 650 mg oral tablet, extended release) 2 tab(s) Oral Every 6 hours as needed for as needed anytime as needed Unchanged Albuterol (Ventolin HFA 108 mcg/ inh inhalation aerosol with adapter) 1 puff(s) Inhalation Every 6 hours as needed for for wheezing anytime as needed Unchanged Benztropine (benztropine 1 mg oral tablet) 1 tab(s) Oral Twice a day 9pm tonight Unchanged BusPIRone (busPIRone 10 mg oral tablet) 1 tab(s) Oral 3 times a day 3pm today Unchanged Diclofenac (diclofenac sodium 50 mg oral delayed release tablet) 1 tab(s) Oral 3 times a day 3pm today Unchanged Haloperidol (haloperidol 10 mg oral tablet) 1 tab(s) Oral Twice a day resume home schedule Unchanged HydrOXYzine (hydrOXYzine hydrochloride 50 mg oral tablet) 1 tab(s) Oral 3 times a day as needed for for anxiety as needed anytime Unchanged HydrOXYzine (hydrOXYzine pamoate 50 mg oral capsule) 1 capsule Oral Daily tomorrow 9am Unchanged Miscellaneous Rx (Discontinue Nicotine Patches) See instructions Dx: Tobacco Dependence ?? Unchanged Miscellaneous Rx (HM SENNA-S 8.6-50MG) 1 tab(s) Oral Twice a day FOR CONSTIPATION. ?? tonight 9pm Unchanged Multivitamin (multivitamin Multiple Vitamins oral tablet) 1 tab(s) Oral Daily tomorrow 9am Unchanged Omeprazole (omeprazole 40 mg oral enteric coated capsule) 1 capsule Oral Daily tomorrow 9am Unchanged Oxybutynin (oxybutynin 10 mg/ 24 hr oral tablet, extended release) 1 tab(s) Oral Daily tomorrow 9am Unchanged Oxybutynin (oxybutynin 15 mg/ 24 hr oral tablet, extended release) 1 tab(s) Oral Daily tomorrow 9am Unchanged paliperidone (Invega Sustenna 156 mg/ mL intramuscular suspension, extended release) 156 Milligram Intramuscular Every 28 days resume home schedule Unchanged Quetiapine (SEROquel 100 mg oral tablet) 1 tab(s) Oral Daily at Bedtime bedtime Unchanged Quetiapine (SEROquel 50 mg oral tablet) 1 tab(s) Oral Twice a day as needed for Anxiety Duration: 30 Days anytime as needed Unchanged Simethicone (simethicone 80 mg oral tablet, chewable) 1 tab(s) Chew 3 times a day after meals and bedtime as needed for gi discomfort anytime as needed Unchanged Topiramate (Topamax 100 mg oral tablet) 1 tab(s) Oral Daily Duration: 30 Days tomorrow 9am Unchanged Trazodone (traZODone 100 mg oral tablet) 1 tab(s) Oral Twice a day tonight 9pm Pharmacy Information [facility]/pharmacy #[id number]: [address], [place] [phone] Test Results Below is a partial list of the most recent Laboratory test results done prior to this discharge. You may have had other tests and procedures not included in this list. Please discuss all test resultswith your provider. Alcohol Level (08/13/2022) ???Ethanol, Serum or Plasma - NONE DETECTED Amphetamine Urine Screen (08/14/2022) ???Amphetamine Screen, Urine - NONE DETECTED Barbiturate Urine Screen (08/14/2022) ???Barbiturate Screen, Urine - NONE DETECTED Basic Metabolic Panel (08/15/2022) ???Sodium - 138 mmol/L???Potassium - 4.2 mmol/L???Chloride - 104 mmol/L???Bicarbonate Level - 25 mmol/L???Anion Gap - 9???Glucose Level - 143 mg/dL???BUN - 2 mg/dL???Creatinine-Blood - 0.5 mg/dL???Estimated GFR Creatinine - 113 ML/MIN/1.73 M2???Calcium - 9.8 mg/dL Benzodiazepine Urine Screen (08/14/2022) ???Benzodiazepine Screen, Urine - NONE DETECTED Buprenorphine Urine (08/14/2022) ???Buprenorphine, Urine Random - NONE DETECTED Cannabinoid Urine Screen (08/14/2022) ???Cannabinoid Screen, Urine - NONE DETECTED CBC (08/15/2022) ???WBC - 6.1 k/mm3???RBC - 4.59 m/mm3???Hgb - 13.1 Gm/dL???Hct - 40.3 %???MCV - 87.8 femtoliters???MCH - 28.5 pg???MCHC - 32.5 g/dL???Platelet Count - 331 k/mm3???RDW-SD - 44.9 femtoliters???MPV - 9.2 femtoliters???Nucleated RBC (Automated) - 0.0 #/100 WBC'S???Abs. NRBC - 0.0 k/mm3 CBC w/ Differential (08/13/2022) ???WBC - 8.9 k/mm3???RBC - 4.82 m/mm3???Hgb - 14.1 Gm/dL???Hct - 42.7 %???MCV - 88.6 femtoliters???MCH - 29.3 pg???MCHC - 33.0 g/dL???Platelet Count - 251 k/mm3???RDW-SD - 45.5 femtoliters???MPV - 11.4 femtoliters???Nucleated RBC (Automated) - 0.0 #/100 WBC'S???Abs. NRBC - 0.0 k/mm3???Abs. Neut - 6.8 k/mm3???Abs. Lymph - 1.4 k/mm3???Abs. Hamlin - 0.6 k/mm3???Abs. Eo - 0.1 k/mm3???Abs. Baso - 0.0 k/mm3???Neut % - 76.6 %???Lymph % - 15.7 %???Hamlin % - 6.4 %???Eos % - 0.7 %???Baso % - 0.3 %???Imm Gran - 0.3 %???Abs. Imm Gran - 0.0 k/mm3 Chlamydia/N. Gonorrhoeae TMA (NAAT) (08/13/2022) ???Chlamydia Trachomatis Amplified Probe - NEGATIVE???N. Gonorrhoeae Amplified Probe - NEGATIVE???Chlamydia / GC AMP Probe Specimen - CERVIX Cocaine Urine Screen (08/14/2022) ???Cocaine Metabolite Screen, Urine - POSITIVE Comprehensive Metabolic Panel (08/13/2022) ???Sodium - 141 mmol/L???Potassium - 4.2 mmol/L???Chloride - 101 mmol/L???Bicarbonate Level - 24 mmol/L???Anion Gap - 16???Glucose Level - 137 mg/dL???BUN - 4 mg/dL???Creatinine-Blood - 0.7 mg/dL???Estimated GFR Creatinine - 102 ML/MIN/1.73 M2???Calcium - 10.3 mg/dL???Protein, Total - 7.2 Gm/dL???Al bumin - 4.6 Gm/dL???AG Ratio - 1.8???Alkaline Phosphatase - 114 units/L???AST (SGOT) - 15 units/L???ALT (SGPT) - 16 units/L???Bilirubin, Total - 0.3 mg/dL COVID-19 (Novel Coronavirus), Rapid PCR (08/13/2022) ???COVID-19 by RT-PCR - NEGATIVE Fentanyl Screen, Urine (08/14/2022) ???Fentanyl Screen, Urine Result - NONE DETECTED Ionized Calcium (08/15/2022) ???Calcium, Ionized pH Corrected - 1.35 mmol/L Magnesium Level (08/15/2022) ???Magnesium - 2.1 mg/dL Opiate Screen Urine (08/14/2022) ???Opiate Screen, Urine - POSITIVE Oxycodone Screen Urine (08/14/2022) ???Oxycodone Screen, Urine - NONE DETECTED PCP Urine (08/14/2022) ???PCP Screen, Urine - NONE DETECTED PHOSPHORUS (08/13/2022) ???Phosphorus - 3.1 mg/dL Test Urine (08/14/2022) ???Urine, - NEGATIVE Urinalysis w/hold for Urine Culture (08/14/2022) ???Appear/Color, Urine - YELLOW???Specific Bandy, Urine - 1.038???pH, Urine - 7.5???Albumin, Urine - 1+???Glucose, Urine - NEGATIVE???Ketones, Urine - TRACE???Bilirubin, Urine - NEGATIVE???Hemoglobin, Urine - NEGATIVE???Nitrite, Urine - NEGATIVE???Leukocyte, Urine - NEGATIVE???Urobilinogen - NORMAL???WBC's, Urine - 2 /HPF???RBC's, Urine - 1 /HPF???Bacteria - SLIGHT???Squamous Epith - 2 /HPF???Amorphous Crystals - SLIGHT???Mucus - SLIGHT???Hold Urine Culture - Testing available 48 hours from time of collection. Vaginosis Vaginitis Panel (BV, CV/TV) (08/13/2022) ???Trina sp. Group - NEGATIVE???Trina Glabrata - NEGATIVE???Trichomonas vaginalis - NEGATIVE???Bacterial Vaginosis - POSITIVE Allergies (NKA means No Known Allergies) lisinopril Problems Active Problems??(18) 2 prior sections?? Anemia?? Cannabis abuse?? Cocaine abuse?? Drug abuse?? Dysuria?? Encounter for general adult medical examination without abnormal findings?? Encounter for well adult exam with abnormal findings?? GERD (gastroesophageal reflux disease)?? Nicotine dependence?? Obesity?? Personality disorder?? Prediabetes?? PTSD (post-traumatic stress disorder)?? Schizoaffective Disorder?? Screen for STD (sexually transmitted disease)?? Stress incontinence?? Wheezing?? Education Materials Below is the list of Educational Leaflet Providered with your Discharge Instructions. Gastritis Discharge Instructions?? Vaginal Infection: Understanding the Vaginal Environment?? Vaginal Infection: Bacterial Vaginosis?? Bacterial Vaginosis?? Valuables and Belongings I fully understand and agree that [facility] accepts no responsibility for all my personal property including clothing, toilet articles, radios, jewelry, dentures, hearing aids, rings, money, or any other property that is in my possession or is brought to me after admission. I understand certain valuables may be placed in a hospital safe for a short period of time. I understand that the hospital is not liable for loss or damage due to accident, fire, or other natural occurrence while said property is in the safe. I accept full responsibility for any personal property that I keep with me, and will not hold the hospital responsible in case of loss or disappearance. I acknowledge that i have been encouraged to send valuables and belongings home. ?? No Valuables/Belongings: No valuables/belongings present Date for Pt to Sign Valuables/Belongings: 08/14/22 04:27:00 ?? Other Discharge Information ? Pulmonary Rehab Status?? Pulmonary Rehab Discharge Status?? Respiratory Rate: 18 br/min ? Common Emergency Awareness Tips IS IT A STROKE? Act FAST and Check for these signs: FACE Does the face look uneven? ARM Does one arm drift down? SPEECH Does their speech sound strange? TIME Call at any sign of stroke ?? Heart Attack Signs Chest discomfort: Most heart attacks involve discomfort in the center of the chest and lasts more than a few minutes, or goes away and comes back. It can feel like uncomfortable pressure, squeezing, fullness or pain. Discomfort in upper body: Symptoms can include pain or discomfort in one or both arms, back, neck, jaw or stomach. Shortness of breath: With or without discomfort. Other signs: Breaking out in a cold sweat, nausea, or lightheaded. Remember, MINUTES DO MATTER. If you experience any of these heart attack warning signs, call to get immediate medical attention! ?? Smoking can increase your chances of developing chronic health problems and can cause harmful effects to other family members in your house. If you smoke, you are strongly encouraged to quit. Please call [facility] at [phone] or [phone] ([phone]) or log in to [email or web address] for referrals to smoking cessation programs. ?? The National Suicide Prevention Hotline is available 23/04 if you or someone you know needs to find a reason to keep living. By calling 6-812-503-[employer] (3906) you'll be connected to a skilled, trained counselor at a crisis center in your area. INPATIENT DISCHARGE INSTRUCTIONS SIGNATURE PAGE [place] Location:[facility] Registration Date and Time:08/13/2022 19:49 EST Primary Care Physician: Arlene Hernandez DO, I [place], have received the above patient education materials/instructions and have verbalizedunderstanding. If ambulance or transport services are being used I further acknowledge being given a choice of service. ?? If you need to contact me, please call me at this number: . Patient/Hearing Aid Specialist Name: Patient/Hearing Aid Specialist Signature: Relationship to Patient: Witness Name/Signature: Date: * Velma Canas MD: PERFORM Event Display: Patient Education Leaflets Authored Date: [id number] Gastritis Discharge Instructions ?? 673 Gastritis Discharge Instructions ? You must carefully read the Consumer Information Use and Disclaimer below in order to understand and correctly use this information ?? About this topic Gastritis is inflammation of the lining of the stomach. Sometimes gastritis is caused by bacteria. Other times, it can be caused by drugs. Some types of drugs can cause gastritis. The most common arenonsteroidal anti-inflammatory drugs (NSAIDs) like ibuprofen or naproxen. Gastritis can also be caused by other things like drinking alcohol or having a serious illness. It can also happen if you have a health problem in which the body???s own infection fighting system attacks the stomach lining. Based on the cause, you may need to take an antibiotic or other medicine to treat your gastritis. If so, be sure you finish all of the medicine that is ordered. ?? What care is needed at home? Ask your doctor what you need to do when you go home. Make sure?? you ask questions if you do not understand what the doctor says. ??? Eat small meals more often to help with belly pain. ??? Keepa diary about your pain and the foods you eat. Then you can?? avoid those that bother your stomach.??? Avoid or limit spicy foods. ??? Avoid or limit beer, wine, and mixed drinks. ??? If you smoke, try to quit. Your doctor or nurse can help. ??? Try to learn ways to manage stress. Stress may causethe acid levels in?? your stomach to rise. ??? If possible, avoid long-term use of aspirin and other anti- inflammatory drugs. ?? What follow-up care is needed? Your doctor may ask you to make visits to the office to check on your progress. Be sure to keep these visits. ?? What drugs may be needed? The doctor may order drugs to: ? Fight an infection ??? Control how much acid your stomach makes ??? Help healing ?? Will physical activity be limited? You may want to limit your activity if you have belly pain. Having an upset stomach or throwing up may also limit what you do. You may need more rest if you feel weak or tired. What problems could happen? Stomach ulcer or bleeding ??? Stomach cancer ?? When do I need to call the doctor? You start throwing up blood or pass a lot of blood in your stool. ??? Your belly pain becomes much worse all of a sudden or over a few?? hours. ??? Your belly becomes hard or tender. ??? You havechest pain or trouble breathing . ??? Your stools are bright red, black, or tar colored. ??? You are throwing up often. ??? Your belly pain does not get better even after taking medicine,?? changing your diet, and following treatment instructions. ??? You lose a lot of weight without trying. ?? Teach Back: Helping You Understand The Teach Back Method helps you understand the information we are giving you. After you talk with the staff, tell them in your own words what you learned. This helps to make sure the staff has described each thing clearly. It also helps to explain things that may have been confusing. Before going home, make sure you can do these: ? I can tell you about my condition. ??? I can tell you if I need to make changes with my diet ordrugs. ??? I can tell you what I will do if I throw up blood or have bloody or black?? tarry stools. ?? Where can I learn more? [facility] [place] https://www.nhs.[place]/conditions/gastritis/ Last Reviewed Date 2021-03-08 Consumer Information Use and Disclaimer: This generalized information is a limited summary of diagnosis, treatment, and/or medication information. It is not meant to be comprehensive and should be used as a tool to help the user understand and/or assess potential diagnostic and treatment options. It does NOT include all information about conditions, treatments, medications, side effects, or risks that may apply to a specific patient. Itis not intended to be medical advice or a substitute for the medical advice, diagnosis, or treatment of a health care provider based on the health care provider's examination and assessment of a patient???s specific and unique circumstances. Patients must speak with a health care provider for complete information about their health, medical questions, and treatment options, including any risks orbenefits regarding use of medications. This information does not endorse any treatments or medications as safe, effective, or approved for treating a specific patient. [employer] and its affiliates disclaim any warranty or liability relating to this information or the use thereof. The use of this information is governed by the Terms of Use, available at??https://www.[employer]/en/know/fktvwwvb-vajflfamiskdn-hxxxn Last Updated 11/23/21 ?? * Missael VINES, Velma Dickson: PERFORM Event Display: Patient Education Leaflets Authored Date: Vaginal Infection: Understanding the Vaginal Environment ?? 37199 Vaginal Infection: Understanding the Vaginal Environment The vagina is a canal. It connects the uterus (womb) to the outside of the body.??It's home to manytypes of bacteria and other tiny organisms. These different bacteria most often stay balanced in number. This keeps the vagina healthy. If the balance changes, it can cause infection.?? A healthy environment Many types of bacteria are present in a healthy vagina. When balanced, they don???t cause problems.Small amounts of yeast may also be present without causing problems. The most common type of bacteria in the vagina is lactobacillus. It helps keep the vagina at a low pH. A low pH keeps bad bacteria from taking over. ?? Normal vaginal discharge The vagina makes fluid. It's sent out as discharge. This also keeps the vagina healthy. Normal discharge can be clear, white, or yellowish. Most women find that normal discharge varies in amount and color through the month. ?? An unhealthy environment The vaginal environment may get out of balance. This may result in a vaginal infection. There are afew reasons this can happen. The pH may have changed. The amount of one organism, such as yeast, may increase. Or an outside organism may get into the vagina and throw off the balance: ??? Bacterial vaginosis (BV). BV is due to an imbalance in the normal bacteria in the vagina. Lactobacillus bacteria decrease. As a result, the numbers of bad bacteria increase. ??? Candidiasis (yeast infection). Yeast is a type of fungus. A yeast infection occurs when yeast cells in the vagina increase. They then attack vaginal tissues. A type of yeast called Trina albicans is often involved. ??? Trichomoniasis ( trich ). Trich is a parasite. It's passed from 1 person to another during sex. Men with trich often don???t have any symptoms. In women, it can take weeks or months before symptoms appear. ?? Last Reviewed Date: 2022 ?? The [employer]. All rights reserved. This information is not intended as a substitute for professional medical care. Always follow your healthcare professional's instructions. ?? * Missael VINES, Velma Dickson: PERFORM Event Display: Patient Education Leaflets Authored Date: [id number] Vaginal Infection: Bacterial Vaginosis ?? 53723 Vaginal Infection: Bacterial Vaginosis Both good and bad bacteria are present in a healthy vagina. Bacterial vaginosis (BV) occurs when these bacteria get out of balance. The numbers of good bacteria decrease. This allows the numbers of bad bacteria to increase and cause BV. BV is not a serious problem in most cases. Causes of bacterial vaginosis The cause of BV is not clear. Douching may lead to it. Having sex with a new partner or more than??one partner makes it more likely. ?? Symptoms of bacterial vaginosis Symptoms of BV vary for each person. Some people have few symptoms or none at all. If symptoms are present, they can include: ??? Thin, milky white or bermudez or sometimes green discharge ??? Unpleasant???fishy?? odor ??? Irritation, itching, and burning at opening of vagina. This may mean it's caused by more than one type of bacteria. ??? Burning or irritation with sex or when you pee. This may mean it's caused by more than one type of bacteria. ?? Diagnosing bacterial vaginosis Your healthcare provider will ask about your symptoms and health history. They will also do a pelvic exam. This is an exam of your vagina and cervix. They may take a sample of vaginal fluid or discharge. This sample is checked for signs of BV. ?? Treating bacterial vaginosis BV is often treated with antibiotics. They may be given as a pill you take by mouth or as a vaginalcream. To use these medicines: ??? Be sure to take all of your medicine, even if your symptoms go away. ??? If you???re taking antibiotic pills, don't drink alcohol until you???re finished with all of your medicine. ??? If you???re using vaginal cream, apply it as directed. Be aware that the cream may make condoms and diaphragms less effective. ??? Call your healthcare provider if symptoms don't go away within 4 days of starting treatment. Also call if you have a reaction to the medicine. ?? Why treatment matters BV should be treated even if you have no symptoms or your symptoms are mild. Untreated BV can lead to health problems such as: ??? Increased risk for delivery if you???re ??? Increased risk for complications after surgery on the reproductive organs ??? Possible increased risk for pelvic inflammatory disease (PID) ?? Last Reviewed Date: 2022 ?? 0039-1134 The [employer]. All rights reserved. This information is not intended as a substitute for professional medical care. Always follow your healthcare professional's instructions. ?? * SAIRA Delcid S: ANDIE Hsieh MD, Grant B: VERIFY Gagan VINES, Eldon L: SIGN Event Display: Result: Authored Date: [id number] US Doppler Ext Lower Venous Left HISTORY: Pain. COMPARISON: None IMAGING TECHNIQUE: Ultrasound of the veins from the groin through the calf was performed using grayscale, color, and spectral Doppler ultrasound assessing for complete compressibility and normal flowcharacteristics. FINDINGS: Common femoral vein: Patent. No thrombosis. Femoral vein: Patent. No thrombosis. Popliteal vein: Patent. No thrombosis. Gastrocnemius veins: The visualized portions are patent without evidence of thrombosis. Peroneal veins: The visualized portions are patent without evidence of thrombosis. Posterior tibial veins: The visualized portions are patent without evidence of thrombosis. Contralateral common femoral vein: Patent. No thrombosis. IMPRESSION: No evidence of deep venous thrombosis. Previously described suspected linear filling defect in the left common femoral vein likely corresponded to inflow artifact. I have personally reviewed the images and I agree with this report. WSN: [id number] Ordering Physician: Lucia Pedraza Dictated By: Eldon Farah MD Dictated Date/Time: 08/14/22 6:51 am Reviewed By: Grant Hsieh MD Signed By: Grant Hsieh MD Signed Date/Time: 08/14/22 6:56 am Transcribed By: AMELIA Transcribed Date/Time: 08/14/22 0:[address] Abdomen and Pelvis W contrast IV * BHSP[facility]erscribe , CIS S: TRANSCRIBE Alyson VINES, Sarina: VERIFY Eldon Farah MD: SIGN Event Display: Result: Authored Date: CT Abd/Pelvis W/ IV Contrast Only HISTORY: Pain. TECHNIQUE: Spiral CT through the abdomen and pelvis with IV contrast formatted in 3 planes. 100 cc of Omnipaque 350 was administered intravenously. This study was performed without oral contrast. Weight-based protocol using automatic tube modulation was used to optimize exposure parameters. CTDIvol Body: 22.17 mGy, DLP Body: 1234 mGy*cm. COMPARISON: None. FINDINGS: Nitroglycerin Neutralizer View Findings, Lines and Tubes: None. Visualized Chest: Lung bases are clear. No pleural effusion. The heart is normal in size. No pericardial effusion. Diaphragm: Normal. Liver: Normal. Gallbladder: No CT evidence of gallbladder pathology. Bile ducts: No biliary ductal dilation. Spleen: Normal. Pancreas: Normal. Adrenal glands: Normal. Kidneys and ureters: No hydronephrosis, stones, or suspicious masses. Bladder: Normal. Reproductive organs: Unremarkable. Stomach, small bowel, and large bowel: Small type I hiatal hernia. Otherwise, stomach, duodenum, small bowel and colon appear normal. Appendix: Normal. Peritoneum and retroperitoneum: No ascites or pneumoperitoneum. No omental or mesenteric lesions. Lymph nodes: No enlarged lymph nodes. Blood vessels: Normal. No aneurysm. Small apparent linear filling defect in the left common femoralvein (axial: 198). Abdominal and pelvic wall: Unremarkable. Bones: No acute abnormality. IMPRESSION: No CT evidence of acute intra-abdominal or pelvic abnormality. Small apparent linear filling defect, partially visualized in the left common femoral vein may represent a flow artifact however a left lower extremity Doppler ultrasound is recommended to exclude a nonocclusive thrombus. A critical result message ([place]) has been communicated via the [employer] system on 08/13/2022 10:38 PM, Message ID [id number]. I have personally reviewed the images and I agree with this report. WSN: [id number] Ordering Physician: Lucia Pedraza Dictated By: Eldon Farah MD Dictated Date/Time: 08/13/22 10:38 p Reviewed By: Sarina Shields MD Signed By: Sarina Shields MD Signed Date/Time: 08/13/22 10:43 pm Transcribed By: AMELIA Transcribed Date/Time: 08/13/22 10:27 pm Patient Care team information Care Team Personnel Name: Oscar Menjivar RN Position: [facility] RN Member Role: Primary Care Nurse Name: Patti Arevalo RN Position: [facility] RN Member Role: Primary Care Nurse Name: Arlene Hernandez DO Position: [facility] Primary Care Physician Member Role: PCP Address: Address: [address] [place] [address] [facility] [address] Name: Licha Benjamin RN Position: [facility] RN Member Role: Primary Care Nurse Name: Demarcus Gomez RN Position: [facility] RN Member Role: Primary Care Nurse Name: Vibha Ramos RN Position: [facility] OB RN Member Role: Primary Care Nurse Name: Sho Calhoun RN Position: [facility] RN Member Role: Primary Care Nurse Name: Zachary KATE Attending Position: [facility] ED Medicine MD Name: Radha New Position: [facility] ED RN W/OE and Tasks Member Role: Patient Care Provider Name: Janis Morrison MD Position: [facility] Resident Member Role: ED Resident Address: Address: [address] [place] [address] Name: Flory Alvarez Position: [facility] ED TA [facility] Care Team Related Persons Name: ALE FRAGOSO Name: CAITIE NELSON
--- OUTSIDE RECORDS SUMMARY | 2023-05-29 21:20 | XMS_ITS | Continuity of Care Document ---
Author Name Unknown Organization [facility] Address [address] [place] [id number]- Care Team Providers Care Carton Liner Name Role Phone Arlene Hernandez DO Primary Care Physician Encounter [facility] Date(s): 11/19/20 - 03/19/[address] [id number] Attending Physician: Not on Staff, Attending MD Allergies, Adverse Reactions, Alerts Substance Reaction [...] 28 tablet, 0 Refills, Maintenance, 209:29:00 EST, [facility]/pharmacy #[id number], 163, cm, 07/23/20 13:15:00 EDT, Height, 105.3, kg, 07/23/20 13:15:00 EDT, Dry Weight Start Date: 09/07/20 Stop Date: 09/21/20 Status: Ordered Diflucan 150 mg oral tablet 1 tablet = 150 mg, By Mouth, Once, # 1 tablet, 0 Refills, Soft Stop, 10/11/20 13:10:00 EST, Tablet,[facility]/pharmacy #[id number], Partial fill upon patient [...] tablet, 5 Refills, Maintenance, 07/21/20 15:03:00 EDT, [facility]/pharmacy #[id number], 163, cm, 06/24/20 11:48:00 [...] each, 2 Refills, Maintenance, 03/18/20 13:42:00 EDT, [facility]/pharmacy #[id number], d/c prior MV, take as directed per package labeling, 163, cm, 03/08/20 17:43:00 EDT, Height, 105.8, kg, 03/08/20 17... Start Date: 03/18/20 Status: Ordered nicotine 14 mg/24 hr transdermal film, extended release 1 patch, Topically, Daily, # 30 patch, 0 Refills, Acute, 02/21/21 14:02:00 EDT, [id number], 30, APPLY 1 PATCH TOPICALLY EVERY DAY, AFTER COMPLETING 21MG/24HR PATCH, 163, cm, 09/20/20 11:14:00 EST, Height, 104.7, kg, 11/21/20 5:07:00 EST, Dry Weight Start Date: 02/21/21 Status: Ordered omeprazole 40 mg oral enteric coated capsule 1 capsule, By Mouth, Daily, # 30 capsule, 2 Refills, Maintenance, 02/12/21 8:30:00 EDT, [facility]/pharmacy #[id number], 163, cm, 09/20/20 11:14:00 EST, Height, 104.7, kg, 11/21/20 5:07:00 EST, Dry Weight Start Date: 02/12/21 Status: Ordered oxybutynin 10 mg/24 hr oral tablet, extended release 1 tablet = 10 mg, By Mouth, Daily, # 30 tablet, 5 Refills, Maintenance, 02/15/21 13:11:00 EDT, ER Tablet, [facility]/pharmacy #[id number], 163, cm, 09/20/20 11:14:00 [...] Refills, Maintenance, 10/21/20 18:16:00 EST, [id number], 163, cm, 09/20/20 11:14:00 EST, Height, 107.3, [...]
--- OUTSIDE RECORDS SUMMARY | 2023-05-29 21:20 | XMS_ITS | Continuity of Care Document ---
Author Name Unknown Organization [facility] Address [address] [place] [address]- Care Team Providers Care Senior C Software Engineer Name Role Phone Arlene Hernandez DO Primary Care Physician En[place] [facility] [place] [facility] [place] [id number] Date(s): 12/21/20 - 01/20/21 [facility] [address] [place], [place] [address] Attending Physician: Eleno Hernandez Admitting Physician: AdmtrEleno [...] 28 tablet, 0 Refills, Maintenance, 209:29:00 EST, [facility]/pharmacy #[id number], 163, cm, 07/23/20 13:15:00 EDT, Height, 105.3, kg, 07/23/20 13:15:00 EDT, Dry Weight Start Date: 09/07/20 Stop Date: 09/21/20 Status: Ordered Diflucan 150 mg oral tablet 1 tablet = 150 mg, By Mouth, Once, # 1 tablet, 0 Refills, Soft Stop, 10/11/20 13:10:00 EST, Tablet,[facility]/pharmacy #[id number], Partial fill upon [...] tablet, 5 Refills, Maintenance, 07/21/20 15:03:00 EDT, [facility]/pharmacy #[id number], 163, cm, 06/24/20 11:48:00 EDT, Height, 105.8, kg, 03/08/20 17:47:00 EDT, Dry Weight Start Date: 07/21/20 Status: Ordered Nature's Bounty Hair Skin & Nails oral tablet, chewable See Instructions, take as directed per package labeling, # 100 each, 2 Refills, Maintenance, 03/18/20 13:42:00 EDT, [facility]/pharmacy #[id number], d/c prior MV, [...] capsule, 6 Refills, Maintenance, 07/13/20 12:42:00 EDT, [facility] STORE [id number], 163, cm, 06/24/20 11:48:00 EDT, Height, 105.8, kg, 03/08/20 17:47:00 EDT, Dry Weight Start Date: 07/13/20 Status: Ordered oxybutynin 10 mg/24 hr oral tablet, extended release 1 tablet = 10 mg, By Mouth, Daily, # 30 tablet, 5 Refills, Maintenance, 05/25/20 15:37:00 EDT, ER Tablet, [facility]/pharmacy #[id number], 163, cm, 03/08/20 [...] 0 Refills, Maintenance, 09/16/19 12:41:30 EST, Aerosol, [facility]/pharmacy #[id number], 160.8, cm, 09/16/19 12:10:53 EST, Height, 100, kg, 07/11/19 8:30:20 EDT, Dry Weight Start Date: 09/16/19 Status: Ordered Vitamin B-12 250 mcg oral tablet 1 tablet, By Mouth, Daily, # 30 tablet, 11 Refills, Maintenance, 10/21/20 18:16:00 EST, [facility] STORE 40904, 163, cm, 09/20/20 11:14:00 EST, Height, 107.3, kg, 09/20/20 11:18:00 EST, Dry Weight Start Date: 10/21/20 Status: Ordered Zithromax Z-Peewee 250 mg oral tablet See Instructions, as directed on package labeling, # 1 pack/packet, 0 Refills, Maintenance, 10/11/20 13:10:00 [place], [facility]/pharmacy #[id number], Partial fill upon patient request if the [...]
--- OUTSIDE RECORDS SUMMARY | 2023-05-29 21:20 | XMS_ITS | Continuity of Care Document ---
Author Name Unknown Organization [facility] ter Address [address] [place] [address]- Care Team Providers Care Manager Nc Name Role Phone Arlene Hernandez DO Primary Care Physician [place] [facility] [place] - 11/25/[address] [address]- Encounter Diagnosis Suicide risk(Final) - 11/25/21 Visual hallucinations(Final) - 11/25/21 Discharge Disposition: A-D/C Home Attending Physician: Demarco Dixon DO Admitting Physician: Demarco Dixon DO Referring Physician: Not on Staff, Referring [...] Given 1Result Comment: [facility] [id number] Medications Discontinue Nicotine Patches Discontinue Nicotine Patches, [...] 0 Refills, Maintenance, 06/01/21 9:16:00 EDT, Injection, [facility], Partial fill upon patient request if [...] 11/08/21 10:10:00 EST, [id number] [...] capsule, 2 Refills, Maintenance, 06/02/21 13:03:00 EDT, [facility], 163, cm, 06/01/21 10:51:00 EDT, Height, 104.7, kg, 05/25/21 4:20:00 EDT, Dry Weight Start Date: 06/02/21 Status: Ordered oxybutynin 10 mg/24 hr oral tablet, extended release 1 tablet = 10 mg, By Mouth, Daily, # 30 tablet, 5 Refills, Maintenance, 06/02/21 13:03:00 EDT, ER Tablet, [facility], 163, cm, 06/01/21 10:51:00 EDT, Height, [...] 0 Refills, Maintenance, 06/01/21 9:12:00 EDT, Tablet, [facility], Partial fill upon patient request if [...] 0 Refills, Maintenance, 06/01/21 9:16:00 EDT, Tablet, [facility], Partial fill upon patient request if the prescription is for a schedule IIopioid drug., 163, cm, 06/01/21 7:16:00 EDT, Height... Start Date: 06/01/21 Stop Date: 07/01/21 Status: Ordered Ventolin HFA 108 mcg/inh inhalation aerosol with adapter 1 puffs, Inhalation, Every 6 hours, PRN for wheezing, # 18 Gm, 0 Refills, Maintenance, 06/01/21 9:11:00 EDT, Aerosol, [facility], 163, cm, 06/01/21 7:16:00 EDT, Height, [...] Range]: 1 2 Oxygen Saturation [94-100 %] 99 % (11/25/21 7:32 PM) 100 % (11/25/21 2:17 PM) Pulse Rate [55-90 bpm] 73 bpm (11/25/21 7:32 PM) 76 bpm (11/25/21 2:17 PM) Blood Pressure [90-138/55-84 mm Hg] 107/ 58mm Hg (11/25/21 7:32 PM) 126/79mm Hg (11/25/21 2:17 PM) Respiratory Rate [16-30 br/min] 16 br/mi n (11/25/21 7:32 PM) 18 br/min (11/25/21 2:17 PM) Temperature [96.8-100.4 DegF] 98.4 DegF (11/25/21 7:32 PM) 98.3 DegF (11/25/21 2:17 PM) Mode of Delivery (Oxygen) Room air (11/25/21 7:32 PM) Room air (11/25/21 2:17 PM) Temperature Route Oral (11/25/21 7:32 PM) Oral (11/25/21 2:17 PM) Social History Social History Type Response Smoking Status Current every day zahra sutton entered on: 07/21/14 Sex
--- OUTSIDE RECORDS SUMMARY | 2023-05-29 21:20 | XMS_ITS | Continuity of Care Document ---
Author Name Unknown Organization [facility] ter Address [address] [place] [address]- Care Team Providers Care Crown Ironer Name Role Phone Arlene Hernandez DO Primary Care Physician [place] [facility] [place](s[place] 01/05/23 - 01/07/[address] [address]- Encounter Diagnosis Psychosis(Final) - 01/05/23 Discharge Disposition: A-D/C Home Attending Physician: Aaron Isaac MD Admitting Physician: Aaron Isaac MD Referring Physician: Not on Staff, Referring MD Allergies, Adverse Reactions, Alerts Substance Reaction Severity Status lisinopril Active Immunizations Given and Recorded Vaccine Date Status Refusal Reason [id number] bivalent booster vax 12/19/22 Recorded SARS-CoV-2 (COVID-19) [...] pneumococcal 23-valent vaccine 07/19/14 Given 1Result Comment: [facility] [id number] Medications divalproex sodium 250 mg oral tablet, [...] Refills, Maintenance, 12/26/22 21:01:00 EDT, Tablet, [facility]/pharmacy #[id number], Partial fill upon patient request if the prescription is for a schedule II opioid drug., 165, cm, 12/26/22 8:47:00 EDT, Height,... Start Date: 12/26/22 Status: Ordered metFORMIN 500 mg oral tablet 1 each = 500 mg, By Mouth, Daily in AM, # 30 tablet, 0 Refills, Maintenance, 12/26/22 21:03:00 EDT,Tablet, [facility]/pharmacy #[id number], Partial fill upon patient request [...] 21:01:00 EDT, Route to Pharmacy Electronically, [facility]/pharmacy #[id number], Partial fill upon patient request if the prescription is for a schedule II... Start Date: 12/26/22 Status: Ordered SEROquel 50 mg oral tablet 1 tablet = 50 mg, By Mouth, 2 times a day, PRN Psychosis, # 60 tablet, 0 Refills, Maintenance, 12/26/22 21:01:00 EDT, Tablet, [facility]/pharmacy #[id number], Partial fill upon patient request [...] oldest [Reference Range]: 1 2 3 Height 160 cm (01/06/23 2:40 PM) 160 cm (01/06/23 6:27 AM) 160 cm (01/05/23 8:34 PM) Weight 160 kg (01/06/23 2:40 PM) 160 kg (01/06/23 6:27 AM) 160 kg (01/05/23 8:34 PM) Oxygen Saturation [94-100 %] 95 % (01/07/23 8:30 AM) 100 % (01/06/23 2:40 PM) 100 % (01/06/23 6:27 AM) Pulse Rate [55-90 bpm] 73 bpm (01/07/23 8:30 AM) 100 bpm *H* (01/06/23 9:33 PM) 96 bpm *H* (01/06/23 2:40 PM) Body Mass Index [18.5-24.99 kg/m2] 62.5 kg/m2 *>HHI* (01/06/23 2:40 PM) 62.5 kg/m2 *>HHI* (01/06/23 6:27 AM) 62.5 kg/m2 *>HHI* (01/05/23 8:20 PM) Blood Pressure [90-138/55-84 mm Hg] 106/60mm Hg (01/07/23 8:30 AM) 99/55mm Hg (01/06/23 9:33 PM) 131/85mm Hg (01/06/23 2:40 PM) Respiratory Rate [16-30 br/min] 18 br/min (01/07/23 8:30 AM) 18 br/min (01/06/23 2:40 PM) 16 br/min (01/06/23 6:27 AM) Temperature [96.8-100.4 DegF] 98 DegF (01/07/23 8:30 AM) 98.3 DegF (01/06/23 9:33 PM) 97.9 DegF (01/06/23 6:27 AM) Mode of Delivery (Oxygen) Room air (01/07/23 8:30 AM) Room air (01/06/23 2:40 PM) Room air (01/06/23 6:27 AM) Blood pressure sites Arm, right (01/06/23 9:33 PM) Arm, right (01/06/23 2:40 PM) Arm, right (01/06/23 6:27 AM) Temperature Route Oral (01/07/23 8:30 AM) Oral (01/06/23 9:33 PM) Oral (01/06/23 6:27 AM) Dry Weight 80 kg (01/06/23 2:40 PM) 80 kg (01/06/23 6:27 AM) 80 kg (01/05/23 8:34 PM) Social History Social History Type Response Smoking Status Current every day zahra sutton entered on: 07/21/14 Sex EKG study * Event Display: ECG 12-Lead Authored Date: Please click on pdf link to open report * Event Display: ECG 12-Lead Authored Date: Ventricular Rate: 98 BPM Atrial Rate: 98 BPM P-R Interval: 150 ms QRS Duration: 82 ms Q-T Interval: 354 ms QTC Calculation(Bazett): 451 ms P [place]: 53 degrees R [place]: 27 degrees T [place]: 41 degrees Normal sinus rhythm Junctional ST depression, probably normal Borderline ECG When compared with ECG of 21-DEC-2022 12:00, No significant change was found Confirmed by SAMSON COLUNGA MD ([id number]) on 01/06/2023 11:00:13 AM [place]: SAMSON COLUNGA MD Patient Care team information Care Team Personnel Name: Patti Arevalo RN Position: S RN Member Role: Primary Care Nurse Name: Kacey Urban Position: S RN Member Role: Primary Care Nurse Name: Arlene Hernandez DO Position: S Primary Care Physician Member Role: PCP Address: Address: [address] [place] [address] [facility] [address] Name: Licha Benjamin RN Position: S RN Member Role: Primary Care Nurse Name: Demarcus Gomez RN Position: [facility] RN Member Role: Primary Care Nurse Name: Marva Ibarra RN Position: [facility] RN Member Role: Primary Care Nurse Name: Lenora Grimaldo RN Position: [facility] RN Member Role: Primary Care Nurse Name: Vibha Ramos RN Position: [facility] OB RN Member Role: Primary Care Nurse Name: Adelaida Arreguin RN Position: [facility] RN Member Role: Primary Care Nurse [facility] Attending Position: [facility] ED Attendings Patient Name: Aaron Isaac MD Position: [facility] ED Medicine MD Member Role: Admitting Physician Address: Address: [address] [place] [address] [place] [address]- Name: Kelly Vasquez RN Position: [facility] ED RN W/OE and Tasks Member Role: Patient Care Provider Care Team Related Persons Name: ALE FRAGOSO Name: CAITIE NELSON
--- OUTSIDE RECORDS SUMMARY | 2023-05-29 21:20 | XMS_ITS | Continuity of Care Document ---
Author Name Unknown Organization [facility] Address [address] [place] [address], [address] [address]- Care Team Providers Care Dish Person Name Role Phone Arlene Hernandez DO Primary Care Physician [place] [facility] [place]/15[place]20 - 01/25/20 [facility] [address] [place] [address], [address] [place] [address]- Attending Physician: Eleno Hernandez Admitting Physician: AdmEleno [...] 0 Refills, Maintenance, 09/16/19 12:41:32 EST, Liquid, [facility]/pharmacy #[id number], 160.8, cm, 09/16/19 12:10:53 [...] tablet, 1 Refills, Acute, 01/08/20 11:41:00 EDT, [facility] STORE 455[facility], 163, cm, 12/05/19 4:26:00 EST, Height, 117.1, [...] 03/05/20 14:47:00 EDT, 01/05/20 14:47:00 EDT, Patch, [facility]/pharmacy #[id number], 1 patch Topically Daily,x30 days,Instr:after completion [...] 6 Refills, Maintenance, 09/16/19 12:41:32 EST, Suspension, [facility]/pharmacy #[id number], 160.8, cm, 09/16/19 12:10:53 EST, Height, 100, kg, 07/11/19 8:30:20 EDT, Dry Weight Start Date: 09/16/19 Stop Date: 04/13/20 Status: Ordered oxybutynin 10 mg/24 hr oral tablet, extended release 1 tablet = 10 mg, By Mouth, Daily, # 30 tablet, 5 Refills, Maintenance, 10/29/19 12:00:00 EST, ER Tablet, [facility]/pharmacy #[id number], 160.3, cm, 10/29/19 10:15:00 EST, Height, [...]
--- OUTSIDE RECORDS SUMMARY | 2023-05-29 21:20 | XMS_ITS | Continuity of Care Document ---
Author Name Unknown Organization [facility] [place] [facility] Address [address] [place] [address]- Care Team Providers Care Central Sterile Supply Technician Name Role Phone Arlene Hernandez DO Primary Care Physician Encounter [facility] Date(s): 11/01/20 - 12/01/[address] [facility] [place] [place] [facility] [address] [place], [place] [address] Allergies, Adverse Reactions, Alerts Substance Reaction [...] 28 tablet, 0 Refills, Maintenance, :29:00 EST, [facility]/pharmacy #[id number], 163, cm, 07/23/20 13:15:00 EDT, Height, 105.3, kg, 07/23/20 13:15:00 EDT, Dry Weight Start Date: 09/07/20 Stop Date: 09/21/20 Status: Ordered Diflucan 150 mg oral tablet 1 tablet = 150 mg, By Mouth, Once, # 1 tablet, 0 Refills, Soft Stop, 10/11/20 13:10:00 EST, Tablet,[facility]/pharmacy #[id number], Partial fill upon patient request if [...] 0 Refills, Maintenance, 09/16/19 12:41:32 EST, Liquid, [facility]/pharmacy #[id number], 160.8, cm, 09/16/19 12:10:53 EST, Height, [...] tablet, 5 Refills, Maintenance, 07/21/20 15:03:00 EDT, [facility]/pharmacy #[id number], 163, cm, 06/24/20 11:48:00 EDT, Height, 105.8, kg, 03/08/20 17:47:00 EDT, Dry Weight Start Date: 07/21/20 Status: Ordered Nature's Bounty Hair Skin & Nails oral tablet, chewable See Instructions, take as directed per package labeling, # 100 each, 2 Refills, Maintenance, 03/18/20 13:42:00 EDT, [facility]/pharmacy #[id number], d/c prior MV, take as directed [...] capsule, 6 Refills, Maintenance, 07/13/20 12:42:00 EDT, [facility] STORE 09577, 163, cm, 06/24/20 11:48:00 EDT, Height, 105.8, kg, 03/08/20 17:47:00 EDT, Dry Weight Start Date: 07/13/20 Status: Ordered oxybutynin 10 mg/24 hr oral tablet, extended release 1 tablet = 10 mg, By Mouth, Daily, # 30 tablet, 5 Refills, Maintenance, 05/25/20 15:37:00 EDT, ER Tablet, [facility]/pharmacy #[id number], 163, cm, 03/08/20 17:43:00 EDT, Height, [...] 0 Refills, Maintenance, 09/16/19 12:41:30 EST, Aerosol, [facility]/pharmacy #[id number], 160.8, cm, 09/16/19 12:10:53 EST, Height, 100, kg, 07/11/19 8:30:20 EDT, Dry Weight Start Date: 09/16/19 Status: Ordered Vitamin B-12 250 mcg oral tablet 1 tablet, By Mouth, Daily, # 30 tablet, 11 Refills, Maintenance, 10/21/20 18:16:00 EST, [facility] STORE 06179, 163, cm, 09/20/20 11:14:00 EST, Height, 107.3, kg, 09/20/20 11:18:00 EST, Dry Weight Start Date: 10/21/20 Status: Ordered Zithromax Z-Peewee 250 mg oral tablet See Instructions, as directed on package labeling, # 1 pack/packet, 0 Refills, Maintenance, 10/11/20 13:10:00 EST, [facility]/pharmacy #[id number], Partial fill upon patient request if the [...]
--- OUTSIDE RECORDS SUMMARY | 2023-05-29 21:20 | XMS_ITS | Continuity of Care Document ---
Author Name Unknown Organization [facility] Address [address] [place] [address]- Care Team Providers Care Block Press Operator Name Role Phone Arlene Hernandez DO Primary Care Physician [place] [facility] [place] 11/23/21 [facility] [address] [place], [place] [address] Allergies, Adverse Reactions, [...] pneumococcal 23-valent vaccine 07/19/14 Given 1Result Comment: [facility] [id number] Medications Discontinue Nicotine Patches Discontinue Nicotine Patches, [...] 0 Refills, Maintenance, 06/01/21 9:16:00 EDT, Injection, [facility], Partial fill upon patient request if [...] Refills, Maintenance, 11/08/21 10:10:00 EST, [id number] fill upon patient request if the prescriptionis for a schedule II opioid drug., 170, cm, ... Start Date: 11/08/21 Stop Date: 05/07/22 Status: Ordered multivitamin Multiple Vitamins oral tablet 1 tablet, By Mouth, Daily, # 90 tablet, 4 Refills, Maintenance, 07/28/21 17:59:00 EDT, Tablet, [id number] Partial fill upon patient request if the prescription is for a schedule II opioid drug., 1 tablet By Mouth Daily, 163, cm, 07/28/21 9:27... Start Date: 07/28/21 Status: Ordered omeprazole 40 mg oral enteric coated capsule 1 capsule, By Mouth, Daily, # 30 capsule, 2 Refills, Maintenance, 06/02/21 13:03:00 EDT, [facility], 163, cm, 06/01/21 10:51:00 EDT, Height, 104.7, kg, 05/25/21 4:20:00 EDT, Dry Weight Start Date: 06/02/21 Status: Ordered oxybutynin 10 mg/24 hr oral tablet, extended release 1 tablet = 10 mg, By Mouth, Daily, # 30 tablet, 5 Refills, Maintenance, 06/02/21 13:03:00 EDT, ER Tablet, [facility], 163, cm, 06/01/21 10:51:00 EDT, Height, 104.7, kg, 05/25/21 4:20:00 EDT, Dry Weight Start Date: 06/02/21 Status: Ordered SEROquel 100 mg oral tablet 100 mg, 1, tablet, By Mouth, Daily at bedtime, # 30 tablet, Refills 0, Tot. Refills 0, Maintenance,06/01/21 9:12:00 EDT, Route to Pharmacy Electronically, [facility], Partial fill upon patient request if the prescription is for a schedule I... Start Date: 06/01/21 Status: Ordered SEROquel 50 mg oral tablet 1 tablet = 50 mg, By Mouth, 2 times a day, PRN Anxiety, # 60 tablet, 0 Refills, Maintenance, 06/01/21 9:12:00 EDT, Tablet, [facility], Partial fill upon patient request [...] 0 Refills, Maintenance, 06/01/21 9:16:00 EDT, Tablet, [facility], Partial fill upon patient request if the prescription is for a schedule IIopioid drug., 163, cm, 06/01/21 7:16:00 EDT, Height... Start Date: 06/01/21 Stop Date: 07/01/21 Status: Ordered Ventolin HFA 108 mcg/inh inhalation aerosol with adapter 1 puffs, Inhalation, Every 6 hours, PRN for wheezing, # 18 Gm, 0 Refills, Maintenance, 06/01/21 9:11:00 EDT, Aerosol, [facility], 163, cm, 06/01/21 7:16:00 EDT, Height, [...]
--- OUTSIDE RECORDS SUMMARY | 2023-05-29 21:20 | XMS_ITS | Continuity of Care Document ---
Author Name Unknown Organization [facility] Address [address] [place] [address]- Care Team Providers Care Individual Pension Consultant Name Role Phone Arlene Hernandez DO Primary Care Physician En[place] [facility] [place] Date(s): 10/05/20 - 10/06/[address] [address]- Encounter Diagnosis Opioid use(Final) - 10/05/20 Discharge Disposition: A-D/C Home Attending Physician: Chun [...] 28 tablet, 0 Refills, Maintenance, :29:00 EST, [facility]/pharmacy #[id number], 163, cm, 07/23/20 13:15:00 EDT, Height, 105.3, [...] 0 Refills, Maintenance, 09/16/19 12:41:32 EST, Liquid, [facility]/pharmacy #[id number], 160.8, cm, 09/16/19 12:10:53 [...] each, 2 Refills, Maintenance, 03/18/20 13:42:00 EDT, [facility]/pharmacy #[id number], d/c prior MV, take [...] capsule, 6 Refills, Maintenance, 07/13/20 12:42:00 EDT, [facility] STORE 27214, 163, cm, 06/24/20 11:48:00 EDT, Height, 105.8, kg, 03/08/20 17:47:00 EDT, Dry Weight Start Date: 07/13/20 Status: Ordered oxybutynin 10 mg/24 hr oral tablet, extended release 1 tablet = 10 mg, By Mouth, Daily, # 30 tablet, 5 Refills, Maintenance, 05/25/20 15:37:00 EDT, ER Tablet, [facility]/pharmacy #[id number], 163, cm, 03/08/20 17:43:00 [...] Schizoaffective Disorder(Confirmed) 08/23/11 Active Wheezing(Confirmed) Active Results Orders for Microbiology Reports Name Date Wet Prep 10/06/20 Microbiology Reports TEST:Wet Prep STATUS:Auth (Verified) BODY SITE: SOURCE:VAGINA COLLECTED DATE/TIME:10/06/20 6:15 AM Wet Prep SPECIMEN DESCRIPTION : VAGINAL SPECIMEN SPECIAL REQUESTS : NONE DIRECT EXAM : NO TRICHOMONAS,YEAST,OR CLUE CELLS OBSERVED NO WBC'S SEEN REPORT STATUS : FINAL 10/06/2020 Radiology Reports * Exam Date Time Procedure Performing Provider Status 10/05/20 11:00 PM Chest Portable Elina Rob; Auth ( Verified) Notes: (Chest Portable) Reason For Exam: Shortness of Breath RESULT: Chest Portable Chest Portable Hx of Present Illness: Wellness Eval; Reason: Shortness of Breath; Clinical Question(s): CHF COMPARISON: 01/02/2020 FINDINGS: LINES AND TUBES: None. LUNGS AND PLEURA: Clear lungs. Normal pulmonary vascularity. No pleural effusion. No pneumothorax. HEART, MEDIASTINUM AND CLINT: Heart is normal in size. Normal upper mediastinal and hilar contour. BONES AND SOFT TISSUES: No acute abnormality. IMPRESSION: No acute abnormality. WSN: [id number] Ordering Physician: Fareed Scott V Dictated By: Finn Galindo DO Dictated Date/Time: 10/05/20 11:03 p Reviewed By: Finn Galindo DO Signed By: Finn Galindo DO Signed Date/Time: 10/05/20 11:03 pm Transcribed By: AMELIA Transcribed Date/Time: 10/05/20 11:03 pm Vital Signs Most recent to oldest [Reference Range]: 1 2 3 Oxygen Saturation [94-100 %] 94 % (10/06/20 8:52 AM) 96 % (10/06/20 5:45 AM) 100 % (10/06/20 2:30 AM) Pulse Rate [55-90 bpm] 90 bpm (10/06/20 8:52 AM) 83 bpm (10/06/20 5:45 AM) 83 bpm (10/06/20 2:30 AM) Blood Pressure [90-138/55-84 mm Hg] 114/77mm Hg (10/06/20 8:52 AM) 104/52mm Hg (10/06/20 5:45 AM) 115/65mm Hg (10/06/20 2:30 AM) Respiratory Rate [16-30 br/min] 16 br/min (10/06/20 8:52 AM) 18 br/min (10/06/20 5:45 AM) 18 br/min (1/6/21 2:30 AM) Temperature [96.8-100.4 DegF] 98 DegF (10/06/20 8:52 AM) 98.6 DegF (10/06/20 5:45 AM) 97.9 DegF (10/06/20 2:30 AM) Mode of Delivery (Oxygen) Room air (10/06/20 8:52 AM) Room air (10/06/20 5:45 AM) Room air (10/06/20 2:30 AM) Blood pressure sites Arm, right (10/06/20 2:30 AM) Arm, right (10/05/20 10:51 PM) Temperature Route Oral (10/06/20 8:52 AM) Oral (10/06/20 5:45 AM) Oral (10/06/20 2:30 AM) Social History Social History Type Response Smoking Status Current every day zahra sutton entered on: 07/21/14 Sex Female
--- OUTSIDE RECORDS SUMMARY | 2023-05-29 21:20 | XMS_ITS | Continuity of Care Document ---
Author Name Unknown Organization [facility] Address [address] [place] [address]- Care Team Providers Care Clamshell Engineer Name Role Phone Arlene Hernandez DO Primary Care Physician Encounter [facility] [place] Date(s): 03/05/20 - 03/12/20 [facility] [address] [place] [address]- [facility] Encounter Diagnosis Schizoaffective Disorder(Discharge Diagnosis) - 03/05/20 Dysuria(Discharge Diagnosis) - 03/05/20 Attending Physician: Claude Lopez MD Allergies, Adverse Reactions, Alerts Substance Reaction [...] Refills, Maintenance, 09/16/19 12:41:32 EST, Liquid, [facility]/pharmacy #[id number], 160.8, cm, 09/16/19 12:10:53 EST, Height, 100, kg, 07/11/198:30:20 EDT, Dry Weight Start Date: 09/16/19 Stop Date: 09/26/19 Status: Ordered Invega Sustenna 156 mg/mL intramuscular suspension, extended release Intramuscular, Every 28 days, 0 Refills, Maintenance, 03/06/18 15:04:32 EDT Start Date: 03/06/18 Status: Ordered LORazepam 0.5 mg oral tablet 0 Refills, Maintenance, 11/06/19 19:02:00 EST Start Date: 11/06/19 Status: Ordered Macrobid macrocrystals-monohydrate 100 mg oral capsule 1 capsule = 100 mg, By Mouth, Every 12 hours, for 7 days, # 14 capsule, 0 Refills, Acute 03/15/20 18:20:00 EDT, 03/08/20 18:20:00 EDT, Capsule, [facility]/pharmacy #[id number], 163, cm, 03/08/20 17:43:00 EDT, Height, 105.8, kg, 03/08/20 17:47:00 EDT, Dry Weight Start Date: 03/08/20 Stop Date: 03/15/20 Status: Ordered Mapap Arthritis Pain 650 mg oral tablet, extended release 1 tablet, By Mouth, Every 8 hours, PRN NEEDED FOR PAIN, # 50 tablet, 1 Refills, Acute, 01/08/20 11:41:00 EDT, [facility] ST[id number], 163, cm, 12/05/19 4:26:00 EST, Height, 117.1, kg, 10/29/19 10:15:00 EST, Dry Weight Start Date: 01/08/20 Status: Ordered metroNIDAZOLE 500 mg oral tablet 1 tablet = 500 mg, By Mouth, Every 12 hours, for 7 days, # 14 tablet, 0 Refills, Acute 03/17/20 11:32:00 EDT, 03/10/20 11:32:00 EDT, Tablet, [facility]/pharmacy #[id number], 163, cm, 03/08/20 17:43:00 EDT, Height, 105.8, kg, 03/08/20 17:47:00 EDT, Dry Weight Start Date: 03/10/20 Stop Date: 03/17/20 Status: Ordered Nature's Bounty Hair Skin & Nails oral tablet, chewable See Instructions, take as directed per package labeling, # 100 each, 0 Refills, Maintenance, 01/05/20 15:27:00 EDT, [facility]/pharmacy #[id number], d/c prior MV, take as directed [...] Refills, Maintenance, 09/16/19 12:41:32 EST, Suspension, [facility]/pharmacy #[id number], 160.8, cm, 09/16/19 12:10:53 EST, Height, 100, kg, 07/11/19 8:30:20 EDT, Dry Weight Start Date: 09/16/19 Stop Date: 04/13/20 Status: Ordered oxybutynin 10 mg/24 hr oral tablet, extended release 1 tablet = 10 mg, By Mouth, Daily, # 30 tablet, 5 Refills, Maintenance, 10/29/19 12:00:00 EST, ER Tablet, [facility]/pharmacy #[id number], 160.3, cm, 10/29/19 10:15:00 EST, Height, [...] Refills, Maintenance, 09/16/19 12:41:30 EST, Aerosol, [facility]/pharmacy #[id number], 160.8, cm, 09/16/19 12:10:53 EST, Height, [...] Effective Dates Health Status Clinical Service Informant Schizoaffective Disorder Discharge Diagnosis 03/05/20 Dysuria Discharge Diagnosis 03/05/20 Social History Social History Type Response Smoking Status Current every day zahra sutton entered on: 07/21/14 Sex Female
--- OUTSIDE RECORDS SUMMARY | 2023-05-29 21:21 | XMS_ITS | Continuity of Care Document ---
Author Name Unknown Organization [facility] Address [address] [place] [address]- Care Team Providers Care Bacteriology Technician Name Role Phone Arlene Hernandez DO Primary Care Physician ( [phone] Encounter [facility] [place] Date(s): 10/06/20 - 10/13/20 [facility] [address] [place], [place] [address] Attending Physician: Robert Guerrero MD Allergies, Adverse [...] 0 Refills, Maintenance, 09/16/19 12:41:32 EST, Liquid, [facility]/pharmacy #[id number], 160.8, cm, [...] capsule, 6 Refills, Maintenance, 07/13/20 12:42:00 EDT, [facility] STORE [address], 163, cm, 06/24/20 11:48:00 EDT, Height, 105.8, kg, 03/08/20 17:47:00 EDT, Dry Weight Start Date: 07/13/20 Status: Ordered oxybutynin 10 mg/24 hr oral tablet, extended release 1 tablet = 10 mg, By Mouth, Daily, # 30 tablet, 5 Refills, Maintenance, 05/25/20 15:37:00 EDT, ER Tablet, [facility]/pharmacy #[id number], 163, cm, 03/08/20 [...]
--- OUTSIDE RECORDS SUMMARY | 2023-05-29 21:21 | XMS_ITS | Continuity of Care Document ---
Author Name Unknown Organization [facility] Address [address] [place] [address]- Care Team Providers Care Licensed Guide Name Role Phone Arlene Hernandez DO Primary Care Physician Encounter [facility] [place] Date(s): 07/13/21 - 07/19/[address] [address]- Discharge Disposition: A-D/C Home Attending Physician: Edi [...] Given pneumococcal 23-valent vaccine 07/19/14 Given Medications Hair, Skin, & Nails Gummies oral tablet, chewable See Instructions, TAKE DIRECTED PER PACKAGE LABELING, # 30 tablet, 9 Refills, 06/02/21 13:04:00 EDT, [facility], 30, TAKE DIRECTED PER PACKAGE LABELING, 163, cm, 06/01/21 10:51:00 EDT, Height, 104.7, kg, 05/25/21 4:20:00 EDT, Dry Weight Start Date: 06/02/21 Status: Ordered hydrOXYzine hydrochloride 50 mg oral tablet 1 tablet = 50 mg, By Mouth, 3 times a day, PRN for anxiety, Maintenance, 07/14/21 15:19:00 EDT, Tablet, ; Start Date: 07/14/21 Status: Ordered Invega Sustenna 156 mg/mL intramuscular suspension, extended release = 156 mg, Intramuscular, Every 28 days, # 1 each, 0 Refills, Maintenance, 06/01/21 9:16:00 EDT, Injection, [facility], Partial fill upon patient request if the prescription is for a schedule II opioid drug., 06/06/21, 163, cm, 06/01/21 7:16:... Start Date: 06/01/21 Status: Ordered Mapap Arthritis Pain 650 mg oral tablet, extended release 2 tablet = 1,300 mg, By Mouth, Every 6 hours, PRN as needed, Maintenance, 07/14/21 15:23:00 EDT, ; Start Date: 07/14/21 Status: Ordered metroNIDAZOLE 500 mg oral tablet 1 tablet = 500 mg, By Mouth, Every 12 hours, # 6 tablet, 0 Refills, Maintenance, 07/19/21 18:10:00 EDT, [facility]/pharmacy #[id number], Partial fill upon patient request if the prescription is for a schedule II opioid drug., 163, cm, 06/01/21 10:51:00 EDT, Height... Start Date: 07/19/21 Stop Date: 07/22/21 Status: Ordered nicotine 14 mg/24 hr transdermal film, extended release 1 patch, Topically, Daily, Maintenance, 07/14/21 15:26:00 EDT, Patch, ; Start Date: 07/14/21 Status: Ordered nicotine 2 mg oral transmucosal lozenge 1 lozenge = 2 mg, By Mouth, Every 2 hours, PRN as needed, Maintenance, 07/14/21 15:24:00 EDT, ; Start Date: 07/14/21 Status: Ordered omeprazole 40 mg oral enteric coated capsule 1 capsule, By Mouth, Daily, # 30 capsule, 2 Refills, Maintenance, 06/02/21 13:03:00 EDT, [facility], 163, cm, 06/01/21 10:51:00 EDT, Height, 104.7, kg, 05/25/21 4:20:00 EDT, Dry Weight Start Date: 06/02/21 Status: Ordered oxybutynin 10 mg/24 hr oral tablet, extended release 1 tablet = 10 mg, By Mouth, Daily, # 30 tablet, 5 Refills, Maintenance, 06/02/21 13:03:00 EDT, ER Tablet, [facility], 163, cm, 06/01/21 10:51:00 EDT, Height, [...] 0 Refills, Maintenance, 06/01/21 9:12:00 EDT, Tablet, [facility], Partial fill upon patient request if [...] 0 Refills, Maintenance, 06/01/21 9:16:00 EDT, Tablet, [facility], Partial fill upon patient request if the prescription is for a schedule IIopioid drug., 163, cm, 06/01/21 7:16:00 EDT, Height... Start Date: 06/01/21 Stop Date: 07/01/21 Status: Ordered Ventolin HFA 108 mcg/inh inhalation aerosol with adapter 1 puffs, Inhalation, Every 6 hours, PRN for wheezing, # 18 Gm, 0 Refills, Maintenance, 06/01/21 9:11:00 EDT, Aerosol, [facility], 163, cm, 06/01/21 7:16:00 EDT, Height, [...] Results Orders for Microbiology Reports Name Date Urine Culture 07/15/21 Wet Prep 07/15/21 Microbiology Reports TEST:Urine Culture STATUS:Auth (Verified) BODY SITE: SOURCE:URINE COLLECTED DATE/TIME:07/17/21 3:30 PM Urine Culture SPECIMEN DESCRIPTION : URINE CLEAN CATCH/MIDSTREAM SPECIAL REQUESTS : NONE CULTURE : Mixed bacterial deonna, indicative of urogenital contamination. REPORT STATUS : FINAL 07/18/2021 TEST:Wet Prep STATUS:Auth (Verified) BODY SITE: SOURCE:VAGINA COLLECTED DATE/TIME:07/15/21 4:30 PM Wet Prep SPECIMEN DESCRIPTION : VAGINAL SPECIMEN SPECIAL REQUESTS : NONE DIRECT EXAM : 4+ WHITE BLOOD CELLS 2+ TRICHOMONAS NO CLUE CELLS OBSERVED NO YEAST OBSERVED REPORT STATUS : FINAL 07/15/2021 Vital Signs Most recent to oldest [Reference Range]: 1 2 3 Oxygen Saturation [94-100 %] 100 % (07/19/21 6:42 PM) 100 % (07/19/21 1:49 PM) 99 % (07/19/21 6:28 AM) Pulse Rate [55-90 bpm] 67 bpm (07/19/21 6:42 PM) 84 bpm (07/19/21 1:49 PM) 61 bpm (07/19/21 6:28 AM) Blood Pressure [90-138/55-84 mm Hg] 146/83mm Hg *H* (07/19/21 6:42 PM) 114/75mm Hg (07/19/21 1:49 PM) 103/55mm Hg (07/19/21 6:28 AM) Respiratory Rate [16-30 br/min] 18 br/min (07/19/21 6:42 PM) 18 br/min (07/19/21 1:49 PM) 16 br/min (07/19/21 6:28 AM) Temperature [96.8-100.4 DegF] 98 DegF (07/19/21 1:49 PM) 98.4 DegF (07/19/21 6:28 AM) 97.4 DegF (07/18/21 10:18 PM) Mode of Delivery (Oxygen) Room air (07/19/21 6:42 PM) Room air (07/19/21 1:49 PM) Room air (07/19/21 6:28 AM) Blood pressure sites Arm, right (07/19/21 6:42 PM) Arm, right (07/19/21 1:49 PM) Arm, right (07/19/21 6:28 AM) Temperature Route Oral (07/19/21 1:49 PM) Oral (07/19/21 6:28 AM) Oral (07/18/21 10:18 PM) Social History Social History Type Response Smoking Status Current every day zahra sutton entered on: 07/21/14 Sex
--- OUTSIDE RECORDS SUMMARY | 2023-05-29 21:21 | XMS_ITS | Continuity of Care Document ---
Author Name Unknown Organization [facility] Address [address] [place] [address]- Care Team Providers Care Gluer And Wedger Name Role Phone Arlene Hernandez DO Primary Care Physician [place] [facility] [place] 01/02/21 - 01/02/[address] [address]- Encounter Diagnosis Lab test negative for COVID-19 virus(Final) - 01/02/21 Discharge Disposition: A-D/C Home Attending Physician: Gurinder [...] tablet, 5 Refills, Maintenance, 07/21/20 15:03:00 EDT, [facility]/pharmacy #[id number], 163, cm, 06/24/20 11:48:00 EDT, Height, 105.8, kg, 03/08/20 17:47:00 EDT, Dry Weight Start Date: 07/21/20 Status: Ordered Nature's Bounty Hair Skin & Nails oral tablet, chewable See Instructions, take as directed per package labeling, # 100 each, 2 Refills, Maintenance, 03/18/20 13:42:00 EDT, [facility]/pharmacy #[id number], d/c prior MV, [...] capsule, 6 Refills, Maintenance, 07/13/20 12:42:00 EDT, [facility] STORE [id number], 163, cm, 06/24/20 11:48:00 EDT, Height, 105.8, kg, 03/08/20 17:47:00 EDT, Dry Weight Start Date: 07/13/20 Status: Ordered oxybutynin 10 mg/24 hr oral tablet, extended release 1 tablet = 10 mg, By Mouth, Daily, # 30 tablet, 5 Refills, Maintenance, 05/25/20 15:37:00 EDT, ER Tablet, [facility]/pharmacy #[id number], 163, cm, 03/08/20 17:43:00 [...] 0 Refills, Maintenance, 09/16/19 12:41:30 EST, Aerosol, [facility]/pharmacy #[id number], 160.8, cm, 09/16/19 12:10:53 EST, Height, 100, kg, 07/11/19 8:30:20 EDT, Dry Weight Start Date: 09/16/19 Status: Ordered Vitamin B-12 250 mcg oral tablet 1 tablet, By Mouth, Daily, # 30 tablet, 11 Refills, Maintenance, 10/21/20 18:16:00 EST, [facility] STORE [address]308, 163, cm, 09/20/20 11:14:00 EST, Height, 107.3, kg, 09/20/20 11:18:00 EST, Dry Weight Start Date: 10/21/20 Status: Ordered Zithromax Z-Peewee 250 mg oral tablet See Instructions, as directed on package labeling, # 1 pack/packet, 0 Refills, Maintenance, 10/11/20 13:10:00 EST, [facility]/pharmacy #[id number], Partial fill upon patient request if the [...] 1 Oxygen Saturation [94-100 %] 100 % (01/02/21 1:02 PM) Pulse Rate [55-90 bpm] 80 bpm (01/02/21 1:02 PM) Blood Pressure [90-138/55-84 mm Hg] 103/ 62mm Hg (01/02/21 1:02 PM) Respiratory Rate [16-30 br/min] 18 br/mi n (01/02/21 1:02 PM) Temperature [96.8-100.4 DegF] 97.9 DegF (01/02/21 1:02 PM) Mode of Delivery (Oxygen) Room air (01/02/21 1:02 PM) Temperature Route Oral (01/02/21 1:02 PM) Social History Social History Type Response Smoking Status Current every day zahra sutton entered on: 07/21/14 Sex Female
--- OUTSIDE RECORDS SUMMARY | 2023-05-29 21:21 | XMS_ITS | Continuity of Care Document ---
Author Name Unknown Organization [facility] Address [address] [place] [address]- Care Team Providers Care Dictionary Editor Name Role Phone Arlene Hernandez DO Primary Care Physician ( [phone] [place] [facility] [place] 04/22/20 - 05/22/20 [facility] [address] [place] [address]- [facility] Allergies, Adverse Reactions, Alerts Substance Reaction [...] Acute, 01/08/20 11:41:00 EDT, [facility], 163, cm, 12/05/19 4:26:00 EST, Height, 117.1, [...]
--- OUTSIDE RECORDS SUMMARY | 2023-05-29 21:21 | XMS_ITS | Continuity of Care Document ---
Author Name Unknown Organization [facility] Address [address] [place] [address]- Care Team Providers Care Continuing Education Instructor Name Role Phone Not on Staff, PCP Primary Care Physician Unavail able Encounter [facility] Date(s): 04/22/23 - 04/22/[address] [address]- Encounter Diagnosis Yeast infection involving the vagina and surrounding area(Final) - 04/22/23 Discharge Disposition: A-D/C Home Attending Physician: Johnna Maki MD Admitting Physician: Johnna Maki MD Referring Physician: Not on Staff, Referring MD Allergies, Adverse Reactions, Alerts Substance Reaction Severity Status lisinopril Active Immunizations Given and Recorded Vaccine Date Status Refusal Reason SARS-CoV-2 mRNA ([id number]) vax 01/11/23 Recorded [id number] bivalent booster vax 12/19/22 Recorded SARS-CoV-2 (COVID-19) [...] pneumococcal 23-valent vaccine 07/19/14 Given 1Result Comment: [facility] [id number] Medications clotrimazole 1% topical cream 1 application, Topically, 2 times a day, # 60 Gm, 0 Refills, Maintenance, 03/29/23 12:58:00 EDT, Cream, [facility]/pharmacy #[id number], Partial fill upon patient request if the prescription is for a schedule II opioid drug., 1 application Topically 2 times a day,... Start Date: 03/29/23 Status: Ordered divalproex sodium 250 mg oral tablet, extended release 5 tablet = 1,250 mg, By Mouth, Daily, # 150 tablet, 0 Refills, Maintenance, 12/26/22 21:00:00 EDT, ER Tablet, [facility]/pharmacy #[id number], Partial fill upon patient request [...] 0 Refills, Maintenance, 12/26/22 21:01:00 EDT, Tablet, [facility]/pharmacy #[id number], Partial fill upon patient request [...] tablet, 0 Refills, Maintenance, 12/26/22 21:03:00 EDT,Tablet, [facility]/pharmacy #[id number], Partial fill upon patient request [...] capsule, 0 Refills, Maintenance, 12/26/22 21:00:00 EDT, [facility]/pharmacy #[id number], Partial fill upon patient request [...] Refills, Maintenance, 12/26/22 21:01:00 EDT, XL Tablet, [facility]/pharmacy #[id number], Partial fill upon patient request if the prescription is for a schedule IIopioid drug., 165, cm, 12/26/22 8:47:00 EDT, Height... Start Date: 12/26/22 Status: Ordered paliperidone 3 mg oral tablet, extended release 1 tablet = 3 mg, By Mouth, Daily, # 30 tablet, 0 Refills, Maintenance, 12/26/22 21:00:00 EDT, ER Tablet, [facility]/pharmacy #[id number], Partial fill upon patient request [...] Maintenance,12/26/22 21:01:00 EDT, Route to Pharmacy Electronically, [facility]/pharmacy #[id number], Partial fill upon patient request if the prescription is for a schedule II... Start Date: 12/26/22 Status: Ordered SEROquel 50 mg oral tablet 1 tablet = 50 mg, By Mouth, 2 times a day, PRN Psychosis, # 60 tablet, 0 Refills, Maintenance, 12/26/22 21:01:00 EDT, Tablet, [facility]/pharmacy #[id number], Partial fill upon patient request [...] Exam Date Time Procedure Performing Provider Status 04/22/23 12:40 PM Chest Single Frontal View Won Fisherjose; Auth (Verified) Notes: (Chest Single Frontal View) Reason For Exam: Shortness of Breath RESULT: Chest Single Frontal View Chest Single Frontal View Reason: Shortness of Breath; Clinical Question(s): CHF COMPARISON: 01/21/2021 chest radiograph. FINDINGS: LINES AND TUBES: None. LUNGS AND PLEURA: Clear lungs. Normal pulmonary vascularity. No pleural effusion. No pneumothorax. HEART, MEDIASTINUM AND CLINT: Heart is normal in size. Normal mediastinal and hilar contour. BONES AND SOFT TISSUES: No acute abnormality. IMPRESSION: No acute abnormality. WSN: [id number] Ordering Physician: Flaco Mazariegos Dictated By: Frank Jim MD Dictated Date/Time: 04/22/23 1:34 pm Reviewed By: Frank Jim MD Signed By: Frank Jim MD Signed Date/Time: 04/22/23 1:34 pm Transcribed By: AMELIA Transcribed Date/Time: 04/22/23 1:33 pm Vital Signs Most recent to oldest [Reference Range]: 1 2 Oxygen Saturation [94-100 %] 99 % (04/22/23 3:52 PM) 96 % (04/22/23 9:34 AM) Pulse Rate [55-90 bpm] 86 bpm (04/22/23 3:52 PM) 81 bpm (04/22/23 9:34 AM) Blood Pressure [90-138/55-84 mm Hg] 130/ 82mm Hg (04/22/23 3:52 PM) 124/70mm Hg (04/22/23 9:34 AM) Respiratory Rate [16-30 br/min] 18 br/mi n (04/22/23 3:52 PM) 18 br/min (04/22/23 9:34 AM) Temperature [96.8-100.4 DegF] 97.3 DegF (04/22/23 3:52 PM) 98.0 DegF (04/22/23 9:34 AM) Mode of Delivery (Oxygen) Room air (04/22/23 3:52 PM) Room air (04/22/23 9:34 AM) Blood pressure sites Arm, left (04/22/23 3:52 PM) Arm, right (04/22/23 9:34 AM) Temperature Route Oral (04/22/23 3:52 PM) Oral (04/22/23 9:34 AM) Social History Social History Type Response Smoking Status Current every day zahra sutton entered on: 07/21/14 Sex Female Note * Delilah VINES, Flaco Sands: PERFORM Event Display: Patient Education Leaflets Authored Date: [id number] Yeast Infection (Trina Vaginal Infection) ?? [id number] Yeast Infection (Trina Vaginal Infection) You have a??Trina??vaginal infection. This is also known as a yeast infection. It's most often caused by a type of yeast (fungus) called??Trina.??Trina??is normally found in the vagina. But if it increases in number, this can lead to infection and cause symptoms. Symptoms of a yeast infection can include: ??? Clumpy or thin, white discharge, which may look like cottage cheese ??? Itching or burning ??? Burning with urination Certain factors can make a yeast infection more likely. These can include: ??? Taking certain medicines, such as antibiotics or control pills ? Diabetes??? Weak immune system A yeast infection is most often treated with antifungal medicine. This may be given as a vaginal cream or pills you take by mouth. Treatment may last for about 1 to 7 days. Women with severe or recurrent infections may need longer courses of treatment. Home care ??? If you???re prescribed medicine, be sure to use it as directed. Finish??all??of the medicine, even if your symptoms go away.??Don???t try to treat yourself using [id number] products without talking with your healthcare provider first. They will let you know if this is a good choice for you. ??? Ask your provider what steps you can take to help reduce your risk of having a yeast infection in the future. ?? Follow-up care Follow up with your healthcare provider, or as directed. ?? When to get medical advice Call your healthcare provider right away if any of the following occur: ??? You have a fever of 100.4??F (38??C)??or higher, or as directed by your provider. ??? Your symptoms get worse, or they don???t go away within a few days of starting treatment. ??? You have new pain in the lower belly or pelvic region. ??? You have side effects that bother you or a reaction to the cream or pills you???re prescribed. ??? You or any partners you have sex with have new symptoms, such??as a rash, joint pain,or sores. ?? Last Reviewed Date: 2022 ?? [id number] [employer]. All rights reserved. This information is not intended as a substitute for professional medical care. Always follow your healthcare professional's instructions. ?? Patient Care team information Care Team Personnel Name: Patti Arevalo RN Position: [facility] RN Member Role: Primary Care Nurse Name: Licha Benjamin RN Position: [facility] RN Member Role: Primary Care Nurse Name: Demarcus Gomez RN Position: [facility] RN Member Role: Primary Care Nurse Name: Marva Ibarra RN Position: [facility] RN Member Role: Primary Care Nurse Name: Not on Staff, PCP Position: [facility] Physician (General Medicine) Member Role: PCP Name: Lenora Grimaldo RN Position: [facility] RN Member Role: Primary Care Nurse Name: Vibha Ramos RN Position: [facility] OB RN Member Role: Primary Care Nurse Name: Flaco Mazariegos MD Position: [facility] Resident Member Role: ED Resident Address: Address: [address] [place] [id number]- Name: Vishnu Romano RN Position: [facility] ED RN W/OE and Tasks Member Role: Patient Care Provider Name: Johnna Maki MD Position: [facility] ED Medicine MD Member Role: Admitting Physician Address: Address: [address] [place] [address]- Name: Henrique Alejandro Position: [facility] ED TA ADA Member Role: Patient Care Provider Care Team Related Persons Name: CAMACHO WIRE TRANSFER CLERKASHLI Address: [address] [place] [address] Name: CAITIE NELSON Name: [employer], [employer] Address: home [address] [place] [address]
--- OUTSIDE RECORDS SUMMARY | 2023-05-29 21:21 | XMS_ITS | Continuity of Care Document ---
Author Name Unknown Organization [facility] Address [address] [place] [address]- Care Team Providers Care Emergency Care Attendant Name Role Phone Arlene Hernandez DO Primary Care Physician En[place] [facility] [place] Date(s): 12/10/20 - 12/17/20 [facility] [address] [place], [place] [address] Attending Physician: Arlene Hernandez DO [...] 28 tablet, 0 Refills, Maintenance, :29:00 EST, [facility]/pharmacy #[id number], 163, cm, 07/23/20 13:15:00 EDT, Height, 105.3, kg, 07/23/20 13:15:00 EDT, Dry Weight Start Date: 09/07/20 Stop Date: 09/21/20 Status: Ordered Diflucan 150 mg oral tablet 1 tablet = 150 mg, By Mouth, Once, # 1 tablet, 0 Refills, Soft Stop, 10/11/20 13:10:00 EST, Tablet,[facility]/pharmacy #[id number], Partial fill upon patient request [...] 0 Refills, Maintenance, 09/16/19 12:41:32 EST, Liquid, [facility]/pharmacy #[id number], 160.8, cm, 09/16/19 12:10:53 [...] tablet, 5 Refills, Maintenance, 07/21/20 15:03:00 EDT, [facility]/pharmacy #[id number], 163, cm, 06/24/20 11:48:00 EDT, Height, 105.8, kg, 03/08/20 17:47:00 EDT, Dry Weight Start Date: 07/21/20 Status: Ordered Nature's Bounty Hair Skin & Nails oral tablet, chewable See Instructions, take as directed per package labeling, # 100 each, 2 Refills, Maintenance, 03/18/20 13:42:00 EDT, [facility]/pharmacy #[id number], d/c prior MV, take as [...] capsule, 6 Refills, Maintenance, 07/13/20 12:42:00 EDT, [facility] STORE 60833, 163, cm, 06/24/20 11:48:00 EDT, Height, 105.8, kg, 03/08/20 17:47:00 EDT, Dry Weight Start Date: 07/13/20 Status: Ordered oxybutynin 10 mg/24 hr oral tablet, extended release 1 tablet = 10 mg, By Mouth, Daily, # 30 tablet, 5 Refills, Maintenance, 05/25/20 15:37:00 EDT, ER Tablet, [facility]/pharmacy #[id number], 163, cm, 03/08/20 17:43:00 [...] 0 Refills, Maintenance, 09/16/19 12:41:30 EST, Aerosol, [facility]/pharmacy #[id number], 160.8, cm, 09/16/19 12:10:53 EST, Height, 100, kg, 07/11/19 8:30:20 EDT, Dry Weight Start Date: 09/16/19 Status: Ordered Vitamin B-12 250 mcg oral tablet 1 tablet, By Mouth, Daily, # 30 tablet, 11 Refills, Maintenance, 10/21/20 18:16:00 EST, [facility], 163, cm, 09/20/20 11:14:00 EST, Height, 107.3, kg, 09/20/20 11:18:00 EST, Dry Weight Start Date: 10/21/20 Status: Ordered Zithromax Z-Peewee 250 mg oral tablet See Instructions, as directed on package labeling, # 1 pack/packet, 0 Refills, Maintenance, 10/11/20 13:10:00 EST, [facility]/pharmacy #[id number], Partial fill upon patient request [...]
--- OUTSIDE RECORDS SUMMARY | 2023-05-29 21:21 | XMS_ITS | Continuity of Care Document ---
Author Name Unknown Organization [facility] Address [address] [place] [address]- Care Team Providers Care Bellows Assembler Name Role Phone Arlene Hernandez DO Primary Care Physician [facility] Date(s): 10/19/20 - 11/18/20 [facility] [address] [place], [place] [address] Allergies, Adverse [...] 28 tablet, 0 Refills, Maintenance, :29:00 EST, [facility]/pharmacy #[id number], 163, cm, 07/23/20 13:15:00 EDT, Height, 105.3, kg, 07/23/20 13:15:00 EDT, Dry Weight Start Date: 09/07/20 Stop Date: 09/21/20 Status: Ordered Diflucan 150 mg oral tablet 1 tablet = 150 mg, By Mouth, Once, # 1 tablet, 0 Refills, Soft Stop, 10/11/20 13:10:00 EST, Tablet,[facility]/pharmacy #[id number], Partial fill [...] 0 Refills, Maintenance, 09/16/19 12:41:32 EST, Liquid, [facility]/pharmacy #[id number], 160.8, cm, 09/16/19 12:10:53 [...] tablet, 5 Refills, Maintenance, 07/21/20 15:03:00 EDT, [facility]/pharmacy #[id number], 163, cm, 06/24/20 11:48:00 EDT, Height, 105.8, kg, 03/08/20 17:47:00 EDT, Dry Weight Start Date: 07/21/20 Status: Ordered Nature's Bounty Hair Skin & Nails oral tablet, chewable See Instructions, take as directed per package labeling, # 100 each, 2 Refills, Maintenance, 03/18/20 13:42:00 EDT, [facility]/pharmacy #[id number], d/c prior MV, take [...] capsule, 6 Refills, Maintenance, 07/13/20 12:42:00 EDT, [facility] STORE 93770, 163, cm, 06/24/20 11:48:00 EDT, Height, 105.8, kg, 03/08/20 17:47:00 EDT, Dry Weight Start Date: 07/13/20 Status: Ordered oxybutynin 10 mg/24 hr oral tablet, extended release 1 tablet = 10 mg, By Mouth, Daily, # 30 tablet, 5 Refills, Maintenance, 05/25/20 15:37:00 EDT, ER Tablet, [facility]/pharmacy #[id number], 163, cm, 03/08/20 17:43:00 EDT, [...] 0 Refills, Maintenance, 09/16/19 12:41:30 EST, Aerosol, [facility]/pharmacy #[id number], 160.8, cm, 09/16/19 12:10:53 EST, Height, 100, kg, 07/11/19 8:30:20 EDT, Dry Weight Start Date: 09/16/19 Status: Ordered Vitamin B-12 250 mcg oral tablet 1 tablet, By Mouth, Daily, # 30 tablet, 11 Refills, Maintenance, 10/21/20 18:16:00 EST, [facility], 163, cm, 09/20/20 11:14:00 EST, Height, 107.3, kg, 09/20/20 11:18:00 EST, Dry Weight Start Date: 10/21/20 Status: Ordered Zithromax Z-Peewee 250 mg oral tablet See Instructions, as directed on package labeling, # 1 pack/packet, 0 Refills, Maintenance, 10/11/20 13:10:00 EST, [facility]/pharmacy #[id number], Partial [...]
--- OUTSIDE RECORDS SUMMARY | 2023-05-29 21:21 | XMS_ITS | Continuity of Care Document ---
Author Name Unknown Organization [facility] Address [address] [place] [address]- Care Team Providers Care Ux Consultant Name Role Phone Arlene Hernandez DO Primary Care Physician [facility]counter [facility] Date(s): 04/12/21 - 05/12/21 [facility] [address] [place], [place] [address] Allergies, Adverse Reactions, Alerts Substance Reaction [...] 28 tablet, 0 Refills, Maintenance, 209:29:00 EST, [facility]/pharmacy #[id number], 163, cm, 07/23/20 13:15:00 EDT, Height, 105.3, kg, 07/23/20 13:15:00 EDT, Dry Weight Start Date: 09/07/20 Stop Date: 09/21/20 Status: Ordered Diflucan 150 mg oral tablet 1 tablet = 150 mg, By Mouth, Once, # 1 tablet, 0 Refills, Soft Stop, 10/11/20 13:10:00 EST, Tablet,[facility]/pharmacy #[id number], Partial fill upon patient request [...] 0 Refills, Maintenance, 09/16/19 12:41:32 EST, Liquid, [facility]/pharmacy #[id number], 160.8, [...] EDT, [facility] STORE 76851, 30, APPLY 1 PATCH TOPICALLY EVERY DAY, [...] Refills, Maintenance, 10/21/20 18:16:00 EST, [facility], 163, cm, 09/20/20 11:14:00 EST, Height, 107.3, [...]
--- OUTSIDE RECORDS SUMMARY | 2023-05-29 21:21 | XMS_ITS | Continuity of Care Document ---
Author Name Unknown Organization [facility] Address [address] [place] [address]- Care Team Providers Care Outpatient Dietitian Name Role Phone Arlene Hernandez DO Primary Care Physician [facility]counter [facility] Date(s): 02/02/23 - 03/14/23 [facility] [address] [place], [place] [address] Attending Physician: Arlene Hernandez DO Allergies, Adverse Reactions, Alerts Substance Reaction Severity Status lisinopril Active Immunizations Given and Recorded Vaccine Date Status Refusal Reason SARS-CoV-2 mRNA (mjumhlx-[id number]-zbjdk) vax 01/11/23 Recorded [id number] bivalent booster vax 12/19/22 Recorded SARS-CoV-2 (COVID-19) [...] 23-valent vaccine 07/19/14 Given 1Result Comment: [facility] [id number] Medications divalproex sodium 250 mg oral tablet, extended release 5 tablet = 1,250 mg, By Mouth, Daily, # 150 tablet, 0 Refills, Maintenance, 12/26/22 21:00:00 EDT, ER Tablet, [facility]/pharmacy #[id number], Partial fill upon patient [...] Maintenance, 12/26/22 21:01:00 EDT, Tablet, [facility]/pharmacy #[id number], Partial fill upon patient [...] Refills, Maintenance, 12/26/22 21:03:00 EDT,Tablet, [facility]/pharmacy #[id number], Partial fill upon patient [...] Refills, Maintenance, 12/26/22 21:00:00 EDT, [facility]/pharmacy #[id number], Partial fill upon patient [...] 12/26/22 21:01:00 EDT, XL Tablet, [facility]/pharmacy #[id number], Partial fill upon patient request if the prescription is for a schedule IIopioid drug., 165, cm, 12/26/22 8:47:00 EDT, Height... Start Date: 12/26/22 Status: Ordered paliperidone 3 mg oral tablet, extended release 1 tablet = 3 mg, By Mouth, Daily, # 30 tablet, 0 Refills, Maintenance, 12/26/22 21:00:00 EDT, ER Tablet, [facility]/pharmacy #[id number], Partial fill upon patient [...] EDT, Route to Pharmacy Electronically, [facility]/pharmacy #[id number], Partial fill upon patient request if the prescription is for a schedule II... Start Date: 12/26/22 Status: Ordered SEROquel 50 mg oral tablet 1 tablet = 50 mg, By Mouth, 2 times a day, PRN Psychosis, # 60 tablet, 0 Refills, Maintenance, 12/26/22 21:01:00 EDT, Tablet, [facility]/pharmacy #[id number], Partial fill upon patient [...] Primary Care Member Role: PCP Address: Address: [address] [place] [address] Adult & Pediatric Medicine [place], [place] [address] Name: Licha Benjamin RN Position: S RN Member Role: Primary Care Nurse Name: Demarcus Gomez RN Position: S RN Member Role: Primary Care Nurse Name: Marva Ibarra RN Position: S RN Member Role: Primary Care Nurse Name: Lenora Grimaldo RN Position: [facility] RN Member Role: Primary Care Nurse Name: Vibha Ramos RN Position: [facility] OB RN Member Role: Primary Care Nurse Care Team Related Persons Name: CAMACHO RADIO OFFICERASHLI Address: [address] [place] [address] Name: CAITIE NELSON Name: SANCHEZ ROD CUP FILLERPJ Address: [address] [place] [address]
--- OUTSIDE RECORDS SUMMARY | 2023-05-29 21:21 | XMS_ITS | Continuity of Care Document ---
Author Name Unknown Organization [facility] Address [address] [place] [address]- Care Team Providers Care Dining Room Host/Hostess Name Role Phone Arlene Hernandez DO Primary Care Physician ( [phone] Encounter [facility] [place] Date(s): 06/29/20 - 07/29/20 [facility] [address] [place] [address]- [facility] Allergies, Adverse Reactions, Alerts Substance Reaction Severity [...] 6 Refills, Maintenance, 07/13/20 12:42:00 EDT, [facility] STORE 24648, 163, cm, 06/24/20 11:48:00 EDT, Height, 105.8, kg, 03/08/20 17:47:00 EDT, Dry Weight Start Date: 07/13/20 Status: Ordered oxybutynin 10 mg/24 hr oral tablet, extended release 1 tablet = 10 mg, By Mouth, Daily, # 30 tablet, 5 Refills, Maintenance, 05/25/20 15:37:00 EDT, ER Tablet, [facility]/pharmacy #[id number], 163, cm, 03/08/20 17:43:00 EDT, [...] 0 Refills, Maintenance, 09/16/19 12:41:30 EST, Aerosol, [facility]/pharmacy #[id number], 160.8, cm, 09/16/19 12:10:53 EST, [...]
--- OUTSIDE RECORDS SUMMARY | 2023-05-29 21:21 | XMS_ITS | Continuity of Care Document ---
Author Name Unknown Organization [facility] Address [address] [place] [address]- Care Team Providers Care Procedure Rn Name Role Phone Arlene Hernandez DO Primary Care Physician ( [phone] Encounter [facility] Date(s): 02/01/23 - 03/03/23 [facility] [address] [place], [place] [address] Allergies, Adverse Reactions, Alerts Substance Reaction Severity Status lisinopril Active Immunizations Given and Recorded Vaccine Date Status Refusal Reason SARS-CoV-2 mRNA (kfacikk-xjzh-nymhz) vax 01/11/23 Recorded [id number] bivalent booster vax 12/19/22 Recorded SARS-CoV-2 (COVID-19) [...] pneumococcal 23-valent vaccine 07/19/14 Given 1Result Comment: [facility] [id number] Medications divalproex sodium 250 mg oral tablet, extended release 5 tablet = 1,250 mg, By Mouth, Daily, # 150 tablet, 0 Refills, Maintenance, 12/26/22 21:00:00 EDT, ER Tablet, [facility]/pharmacy #[id number], Partial fill upon patient request [...] 0 Refills, Maintenance, 12/26/22 21:01:00 EDT, Tablet, [facility]/pharmacy #[id number], Partial fill upon patient request [...] tablet, 0 Refills, Maintenance, 12/26/22 21:03:00 EDT,Tablet, [facility]/pharmacy #[id number], Partial fill upon patient request if the prescription is for a scheduleII opioid drug., 165, cm, 12/26/22 8:47:00 EDT, Hei... Start Date: 12/26/22 Stop Date: 01/25/23 Status: Ordered omeprazole 20 mg oral enteric coated capsule 1 capsule = 20 mg, By Mouth, Daily, TAKE 1 CAPSULE BY MOUTH EVERY DAY, # 30 capsule, 0 Refills, Maintenance, 12/26/22 21:00:00 EDT, [facility]/pharmacy #[id number], Partial fill upon patient request [...] Refills, Maintenance, 12/26/22 21:01:00 EDT, XL Tablet, [facility]/pharmacy #[id number], Partial fill upon patient request if the prescription is for a schedule IIopioid drug., 165, cm, 12/26/22 8:47:00 EDT, Height... Start Date: 12/26/22 Status: Ordered paliperidone 3 mg oral tablet, extended release 1 tablet = 3 mg, By Mouth, Daily, # 30 tablet, 0 Refills, Maintenance, 12/26/22 21:00:00 EDT, ER Tablet, [facility]/pharmacy #[id number], Partial fill upon patient request [...] Maintenance,12/26/22 21:01:00 EDT, Route to Pharmacy Electronically, [facility]/pharmacy #[id number], Partial fill upon patient request if the prescription is for a schedule II... Start Date: 12/26/22 Status: Ordered SEROquel 50 mg oral tablet 1 tablet = 50 mg, By Mouth, 2 times a day, PRN Psychosis, # 60 tablet, 0 Refills, Maintenance, 12/26/22 21:01:00 EDT, Tablet, [facility]/pharmacy #[id number], Partial fill upon patient request [...] Care Nurse Name: Arlene Hernandez DO Position: [facility] Physician - Primary Care Member Role: PCP Address: Address: [address] [place] [address] Adult & Pediatric Medicine [place], [place] [address] Name: Licha Benjamin RN Position: S RN Member Role: Primary Care Nurse Name: Demarcus Gomez RN Position: [facility] RN Member Role: Primary Care Nurse Name: Marva Ibarra RN Position: [facility] RN Member Role: Primary Care Nurse Name: Lenora Grimaldo RN Position: S RN Member Role: Primary Care Nurse Name: Vibha Ramos RN Position: [facility] OB RN Member Role: Primary Care Nurse Care Team Related Persons Name: CAMACHO DATA ARCHITECT MANAGERASHLI Address: [address] [place] [address] Name: CAITIE NELSON Name: SANCHEZ FIRE CODE INSPECTORPJ Address: [address] [place] [address]
--- OUTSIDE RECORDS SUMMARY | 2023-05-29 21:21 | XMS_ITS | Continuity of Care Document ---
Author Name Unknown Organization [facility] Jaime castillo's [facility] Address [address] [place] [address], [address] [place] [address]- Care Team Providers Care Belt Fixer Name Role Phone Arlene Hernandez DO Primary Care Physician Encounter [facility] Date(s): 10/29/19 - 01/01/20 [facility] Jaime Bolañoss [facility] [address] [facility] [place] [address]- Attending Physician: Patricia Mendoza MD Admitting Physician: Patricia Mendoza MD Referring Physician: Arlene Hernandez DO Allergies, Adverse [...] 0 Refills, Maintenance, 09/16/19 12:41:32 EST, Liquid, [facility]/pharmacy #[id number], 160.8, cm, 09/16/19 12:10:53 EST, Height, [...] each, 0 Refills, Maintenance, 11/06/19 14:46:00 EST, [facility]/pharmacy #[id number], d/c prior MV, take as directed [...] 6 Refills, Maintenance, 09/16/19 12:41:32 EST, Suspension, [facility]/pharmacy #[id number], 160.8, cm, 09/16/19 12:10:53 EST, Height, 100, kg, 07/11/19 8:30:20 EDT, Dry Weight Start Date: 09/16/19 Stop Date: 04/13/20 Status: Ordered oxybutynin 10 mg/24 hr oral tablet, extended release 1 tablet = 10 mg, By Mouth, Daily, # 30 tablet, 5 Refills, Maintenance, 10/29/19 12:00:00 EST, ER Tablet, [facility]/pharmacy #[id number], 160.3, cm, 10/29/19 10:15:00 EST, Height, [...] Refills, Maintenance, 09/16/19 12:41:34 EST, ER Tablet, [facility]/pharmacy #[id number], 160.8, cm, 09/16/19 12:10:53 EST, Height, [...] 3 Refills, Maintenance, 09/16/19 12:41:31 EST, Tablet, [facility]/pharmacy #[id number], 160.8, cm, 09/16/19 12:10:53 EST, Height, [...]
--- OUTSIDE RECORDS SUMMARY | 2023-05-29 21:21 | XMS_ITS | Continuity of Care Document ---
Author Name Unknown Organization [facility] Address [address] [place] [address]- Care Team Providers Care Oyster Worker Name Role Phone Arlene Hernandez DO Primary Care Physician Encounter [facility] Date(s): 09/20/20 - 09/27/20 [facility] [address] [place], [place] [address] Attending Physician: Zaheer Hendrickson MD Referring Physician: Arlene Hernandez DO Allergies, [...] 11:13:27 EST Start Date: 11/15/18 Status: Ordered dextromethorphan 7.5 mg oral tablet, chewable 1 tablet = 7.5 mg, Chew, Every 4 hours, PRN as needed for cough, for 3 days, # 10 tablet, 0 Refills, Acute 09/30/20 11:54:00 EST, 09/27/20 11:54:00 EST, Chew Tablet, [facility]/pharmacy #[id number], Partial fill upon patient request if the prescription is for a sc... Start Date: 09/27/20 Stop Date: 09/30/20 Status: Ordered diclofenac sodium 50 mg oral delayed release tablet 1 tablet = 50 mg, By Mouth, 2 times a day, with food, # 28 tablet, 0 Refills, Maintenance, :29:00 EST, [facility]/pharmacy #[id number], 163, cm, 07/23/20 13:15:00 EDT, Height, [...] [facility] STORE 22835, 163, cm, 06/24/20 11:48:00 EDT, Height, 105.8, [...] oldest [Reference Range]: 1 Height 163 cm (09/20/20 11:14 AM) Weight 107.3 kg (09/20/20 11:14 AM) Oxygen Saturation [94-100 %] 100 % (09/20/20 11:14 AM) Pulse Rate [55-90 bpm] 85 bpm (09/20/20 11:14 AM) Body Mass Index [18.5-24.99] 40.39 *>HHI* (09/20/20 11:14 AM) Blood Pressure [90-138/55-84 mm Hg] 119/ 64mm Hg (09/20/20 11:14 AM) Respiratory Rate [16-30 br/min] 16 br/mi n (09/20/20 11:14 AM) Temperature [96.8-100.4 DegF] 96.9 DegF (09/20/20 11:14 AM) Mode of Delivery (Oxygen) Room air (09/20/20 11:14 AM) Blood pressure sites Arm, right (09/20/20 11:14 AM) Temperature Route Temporal (09/20/20 11:14 AM) Dry Weight 107.3 kg (09/20/20 11:14 AM) Weight Obtained Via Standing scale (09/20/20 11:14 AM) Dry Weight Obtained Via Standing scale (09/20/20 11:14 AM) Social History Social History Type Response Smoking Status Current every day zahra sutton entered on: 07/21/14 Sex Female
--- OUTSIDE RECORDS SUMMARY | 2023-05-29 21:21 | XMS_ITS | Continuity of Care Document ---
Author Name Unknown Organization [facility] Address [address] [place] [address]- Care Team Providers Care Office Secretary Name Role Phone Arlene Hernandez DO Primary Care Physician Encounter [facility] [place] Date(s): 09/27/20 - 09/27/[address] [address]- Encounter Diagnosis Cough(Final) - 09/27/20 Discharge Disposition: A-D/C Home Attending Physician: Gurinder [...] 11:54:00 EST, 09/27/20 11:54:00 EST, Chew Tablet, [facility]/pharmacy #[id number], Partial fill [...] 5 Refills, Maintenance, 07/21/20 15:03:00 EDT, [facility]/pharmacy #[id number], 163, cm, 06/24/20 [...] EDT, [facility] STORE 64639, 163, cm, 06/24/20 11:48:00 EDT, Height, 105.8, [...] Refills, Maintenance, 09/16/19 12:41:31 EST, Tablet, [facility]/pharmacy #[id number], 160.8, [...] 2 Oxygen Saturation [94-100 %] 98 % (09/27/20 12:05 PM) 99 % (09/27/20 9:54 AM) Pulse Rate [55-90 bpm] 85 bpm (09/27/20 12:05 PM) 75 bpm (09/27/20 9:54 AM) Blood Pressure [90-138/55-84 mm Hg] 141/ 90mm Hg *H* (09/27/20 12:05 PM) 115/64mm Hg (09/27/20 9:54 AM) Respiratory Rate [16-30 br/min] 18 br/mi n (09/27/20 12:05 PM) 19 br/min (09/27/20 9:54 AM) Temperature [96.8-100.4 DegF] 97.9 DegF (09/27/20 9:54 AM) Mode of Delivery (Oxygen) Room air (09/27/20 12:05 PM) Room air (09/27/20 9:54 AM) Blood pressure sites Arm, left (09/27/20 12:05 PM) Arm, right (09/27/20 9:54 AM) Temperature Route Oral (09/27/20 9:54 AM) Social History Social History Type Response Smoking Status Current every day zahra sutton entered on: 07/21/14 Sex Female
--- OUTSIDE RECORDS SUMMARY | 2023-05-29 21:21 | XMS_ITS | Continuity of Care Document ---
Author Name Unknown Organization [facility] Jaime drivers Address [address] [facility], [address] [place] [address]- Care Team Providers Care Pipeman Name Role Phone Arlene Hernandez DO Primary Care Physician Encounter [facility] Date(s): 06/08/20 - 07/08/20 [facility] Jaime Bolañoss [facility] [address] [facility], [address] [place] [address]- [facility] Allergies, Adverse Reactions, Alerts Substance Reaction [...] 0 Refills, Maintenance, 09/16/19 12:41:32 EST, Liquid, [facility]/pharmacy #[id number], 160.8, cm, 09/16/19 12:10:53 [...] tablet, 1 Refills, Acute, 01/08/20 11:41:00 EDT, [facility] STORE 86406, 163, cm, 12/05/19 4:26:00 EST, Height, 117.1, kg, 10/29/19 10:15:00 EST, Dry Weight Start Date: 01/08/20 Status: Ordered Nature's Bounty Hair Skin & Nails oral tablet, chewable See Instructions, take as directed per package labeling, # 100 each, 2 Refills, Maintenance, 03/18/20 13:42:00 EDT, [facility]/pharmacy #[id number], d/c prior MV, take [...] 6 Refills, Maintenance, 09/16/19 12:41:32 EST, Suspension, [facility]/pharmacy #[id number], 160.8, cm, 09/16/19 12:10:53 EST, Height, 100, kg, 07/11/19 8:30:20 EDT, Dry Weight Start Date: 09/16/19 Stop Date: 04/13/20 Status: Ordered oxybutynin 10 mg/24 hr oral tablet, extended release 1 tablet = 10 mg, By Mouth, Daily, # 30 tablet, 5 Refills, Maintenance, 05/25/20 15:37:00 EDT, ER Tablet, [facility]/pharmacy #[id number], 163, cm, 03/08/20 17:43:00 [...]
--- OUTSIDE RECORDS SUMMARY | 2023-05-29 21:21 | XMS_ITS | Continuity of Care Document ---
Author Name Unknown Organization [facility] Address [address] [place] [address]- Care Team Providers Care Family Services Specialist Name Role Phone Arlene Hernandez DO Primary Care Physician Encounter [facility] [place] Date(s): 11/06/19 - 11/13/19 [facility] [address] [place] [address]- [facility] Attending Physician: Arlene Hernandez DO [...] 0 Refills, Maintenance, 09/16/19 12:41:32 EST, Liquid, [facility]/pharmacy #[id number], 160.8, cm, 09/16/19 [...] each, 0 Refills, Maintenance, 11/06/19 14:46:00 EST, [id number], d/c prior MV, take as [...] 6 Refills, Maintenance, 09/16/19 12:41:32 EST, Suspension, [facility]/pharmacy #[id number], 160.8, cm, 09/16/19 12:10:53 EST, Height, 100, kg, 07/11/19 8:30:20 EDT, Dry Weight Start Date: 09/16/19 Stop Date: 04/13/20 Status: Ordered oxybutynin 10 mg/24 hr oral tablet, extended release 1 tablet = 10 mg, By Mouth, Daily, # 30 tablet, 5 Refills, Maintenance, 10/29/19 12:00:00 EST, ER Tablet, [facility]/pharmacy #[id number], 160.3, cm, 10/29/19 [...] Refills, Maintenance, 09/16/19 12:41:34 EST, ER Tablet, [facility]/pharmacy #[id number], 160.8, cm, 09/16/19 [...] recent to oldest [Reference Range]: 1 Height 160.3 cm (11/06/19 2:14 PM) Weight 107.1 kg (11/06/19 2:14 PM) Oxygen Saturation [94-100 %] 92 % *L* (11/06/19 2:14 PM) Pulse Rate [55-90 bpm] 92 bpm *H* (11/06/19 2:14 PM) Body Mass Index [18.5-24.99] 41.68 *>HHI* (11/06/19 2:14 PM) Blood Pressure [90-138/55-84 mm Hg] 102/ 68mm Hg (11/06/19 2:14 PM) Respiratory Rate [16-30 br/min] 16 br/mi n (11/06/19 2:14 PM) Temperature [96.8-100.4 DegF] 97.9 DegF (11/06/19 2:14 PM) Mode of Delivery (Oxygen) Room air (11/06/19 2:14 PM) Blood pressure sites Arm, left (11/06/19 2:14 PM) Temperature Route Oral (11/06/19 2:14 PM) Weight Obtained Via Standing scale (11/06/19 2:14 PM) Social History Social History Type Response Smoking Status Current every day zahra sutton entered on: 07/21/14 Sex
--- OUTSIDE RECORDS SUMMARY | 2023-05-29 21:21 | XMS_ITS | Continuity of Care Document ---
Author Name Unknown Organization [facility] Address [address] [place] [id number]- Care Team Providers Care Customer Service Agent Name Role Phone Arlene Hernandez DO Primary Care Physician [place] [facility] [place] 11/28/20 - 11/28/[address] [address]- Encounter Diagnosis Polysubstance abuse(Final) - 11/28/20 Discharge Disposition: A-D/C Home Attending Physician: Tato [...] tablet, 5 Refills, Maintenance, 07/21/20 15:03:00 EDT, [facility]/pharmacy #[id number], 163, cm, 06/24/20 11:48:00 EDT, Height, 105.8, kg, 03/08/20 17:47:00 EDT, Dry Weight Start Date: 07/21/20 Status: Ordered Nature's Bounty Hair Skin & Nails oral tablet, chewable See Instructions, take as directed per package labeling, # 100 each, 2 Refills, Maintenance, 03/18/20 13:42:00 EDT, [facility]/pharmacy #[id number], d/c prior MV, take [...] 07/13/20 12:42:00 EDT, [facility] STORE [id number], 163, cm, 06/24/20 11:48:00 EDT, Height, 105.8, [...] tablet, 11 Refills, Maintenance, 10/21/20 18:16:00 EST, [facility] STORE [id number], 163, cm, 09/20/20 11:14:00 EST, Height, 107.3, kg, 09/20/20 11:18:00 EST, Dry Weight Start Date: 10/21/20 Status: Ordered Zithromax Z-Peewee 250 mg oral tablet See Instructions, as directed on package labeling, # 1 pack/packet, 0 Refills, Maintenance, 10/11/20 13:10:00 EST, [id number], Partial fill upon patient request if the [...] 1 Oxygen Saturation [94-100 %] 100 % (11/28/20 11:34 AM) Pulse Rate [55-90 bpm] 81 bpm (11/28/20 11:34 AM) Blood Pressure [90-138/55-84 mm Hg] 121/ 77mm Hg (11/28/20 11:34 AM) Respiratory Rate [16-30 br/min] 16 br/mi n (11/28/20 11:34 AM) Temperature [96.8-100.4 DegF] 97.3 DegF (11/28/20 11:34 AM) Mode of Delivery (Oxygen) Room air (11/28/20 11:34 AM) Temperature Route Oral (11/28/20 11:34 AM) Social History Social History Type Response Smoking Status Current every day zahra sutton entered on: 07/21/14 Sex Female
--- OUTSIDE RECORDS SUMMARY | 2023-05-29 21:21 | XMS_ITS | Continuity of Care Document ---
Author Name Unknown Organization [facility] Address [address] [place] [address]- Care Team Providers Care Regional Driver Name Role Phone Arlene Hernandez DO Primary Care Physician Encounter [facility] [place] Date(s): 03/28/22 - 04/27/22 [facility] [address] [place], [place] [address] Attending Physician: Eleno Hernandez [...] [facility] [id number] Medications Discontinue Nicotine Patches Discontinue Nicotine Patches, [...] 0 Refills, Maintenance, 06/01/21 9:16:00 EDT, Injection, [facility], Partial fill upon patient request if [...] Refills, Maintenance, 11/08/21 10:10:00 EST, [facility]t, [id number] Partial fill upon patient request if the prescriptionis for a schedule II opioid drug., 170, cm, ... Start Date: 11/08/21 Stop Date: 05/07/22 Status: Ordered multivitamin Multiple Vitamins oral tablet 1 tablet, By Mouth, Daily, # 90 tablet, 4 Refills, Maintenance, 07/28/21 17:59:00 EDT, Tablet, [id number], Partial fill upon patient request if the prescription is for a schedule II opioid drug., 1 tablet By Mouth Daily, 163, cm, 07/28/21 9:27... Start Date: 07/28/21 Status: Ordered omeprazole 40 mg oral enteric coated capsule 1 capsule, By Mouth, Daily, # 30 capsule, 2 Refills, Maintenance, 06/02/21 13:03:00 EDT, [facility], 163, cm, 06/01/21 10:51:00 EDT, Height, 104.7, kg, 05/25/21 4:20:00 EDT, Dry Weight Start Date: 06/02/21 Status: Ordered oxybutynin 10 mg/24 hr oral tablet, extended release 1 tablet = 10 mg, By Mouth, Daily, # 30 tablet, 5 Refills, Maintenance, 06/02/21 13:03:00 EDT, ER Tablet, [facility], 163, cm, 06/01/21 10:51:00 EDT, Height, [...] 0 Refills, Maintenance, 06/01/21 9:12:00 EDT, Tablet, [facility], Partial fill [...] 0 Refills, Maintenance, 06/01/21 9:16:00 EDT, Tablet, [facility], Partial fill upon patient request if the prescription is for a schedule IIopioid drug., 163, cm, 06/01/21 7:16:00 EDT, Height... Start Date: 06/01/21 Stop Date: 07/01/21 Status: Ordered Ventolin HFA 108 mcg/inh inhalation aerosol with adapter 1 puffs, Inhalation, Every 6 hours, PRN for wheezing, # 18 Gm, 0 Refills, Maintenance, 06/01/21 9:11:00 EDT, Aerosol, [facility], 163, cm, 06/01/21 7:16:00 EDT, Height, [...]
--- OUTSIDE RECORDS SUMMARY | 2023-05-29 21:21 | XMS_ITS | Continuity of Care Document ---
Author Name Unknown Organization [facility]ime [employer] [facility] Address [address] [place] [address], [address] [address]- Care Team Providers Care Product Test Engineer Name Role Phone Arlene Hernandez DO Primary Care Physician [place] [facility] [place] 12/02/19 - 02/14/20 [facility] [employer] [address] [facility] [place] [address]- [facility] Attending Physician: Patricia Mendoza MD Admitting Physician: [...] Refills, Maintenance, 09/16/19 12:41:32 EST, Liquid, [facility]/pharmacy #[id number], 160.8, cm, 09/16/19 12:10:53 EST, [...] tablet, 1 Refills, Acute, 01/08/20 11:41:00 EDT, [facility] STORE [id number], 163, cm, 12/05/19 4:26:00 EST, Height, 117.1, kg, 10/29/19 10:15:00 EST, Dry Weight Start Date: 01/08/20 Status: Ordered Nature's Bounty Hair Skin & Nails oral tablet, chewable See Instructions, take as directed per package labeling, # 100 each, 0 Refills, Maintenance, 01/05/20 15:27:00 EDT, [facility]/pharmacy #[id number], d/c prior MV, take as directed per package labeling, 163, cm, 12/05/19 4:26:00 EST, Height, 117.1, kg, 10/29/19 10:... Start Date: 01/05/20 Status: Ordered nicotine 14 mg/24 hr transdermal film, extended release 1 patch, Topically, Daily, for 30 days, after completion of one month of 21mg/24 hr, # 30 patch, 1 Refills, Acute 03/05/20 14:47:00 EDT, 01/05/20 14:47:00 EDT, Patch, [facility]/pharmacy #[id number], 1 patch Topically Daily,x30 days,Instr:after completion [...] Refills, Maintenance, 09/16/19 12:41:32 EST, Suspension, [facility]/pharmacy #[id number], 160.8, cm, 09/16/19 12:10:53 EST, Height, 100, kg, 07/11/19 8:30:20 EDT, Dry Weight Start Date: 09/16/19 Stop Date: 04/13/20 Status: Ordered oxybutynin 10 mg/24 hr oral tablet, extended release 1 tablet = 10 mg, By Mouth, Daily, # 30 tablet, 5 Refills, Maintenance, 10/29/19 12:00:00 EST, ER Tablet, [facility]/pharmacy #[id number], 160.3, cm, 10/29/19 10:15:00 EST, [...]
--- OUTSIDE RECORDS SUMMARY | 2023-05-29 21:21 | XMS_ITS | Continuity of Care Document ---
Author Name Unknown Organization [facility] Address [address] [place] [address], [address] [place] [address]- Care Team Providers Care Dialysis Nurse Name Role Phone Arlene Hernandez DO Primary Care Physician Encounter [facility] Date(s): 11/21/19 - 12/27/19 [facility] [address] [facility] [place] [address]- Attending Physician: Patricia Mendoza MD Admitting Physician: [...] each, 0 Refills, Maintenance, 11/06/19 14:46:00 EST, [facility]/pharmacy #[id number], [...] Maintenance, 10/29/19 12:00:00 EST, ER Tablet, [facility]/pharmacy #[id number], 160.3, cm, 10/29/19 10:15:00 EST, Height, [...] Refills, Maintenance, 09/16/19 12:41:34 EST, ER Tablet, [facility] Refills, Maintenance, 09/16/19 12:41:31 EST, Tablet, [facility]/pharmacy [...]
--- OUTSIDE RECORDS SUMMARY | 2023-05-29 21:21 | XMS_ITS | Continuity of Care Document ---
Author Name Unknown Organization [facility] Address [address] [place] [id number]- Care Team Providers Care Compound Mixer Name Role Phone Arlene Hernandez DO Primary Care Physician Encounter [facility] [place] Date(s): 02/01/22 - 02/02/[address] [address]- Encounter Diagnosis Alcohol use(Final) - 02/02/22 Discharge Disposition: A-D/C Home Attending Physician: Laila Cobos MD Admitting Physician: Laila Cobos MD Referring Physician: Not on Staff, Referring [...] pneumococcal 23-valent vaccine 07/19/14 Given 1Result Comment: [facility] [id number] Medications Discontinue Nicotine Patches Discontinue Nicotine Patches, [...] 0 Refills, Maintenance, 06/01/21 9:16:00 EDT, Injection, [facility], Partial fill upon patient request if [...] 1 Refills, Maintenance, 11/08/21 10:10:00 EST, Tablet, [facility]/pharmacy #[id number], Partial fill upon patient request if the prescriptionis for a schedule II opioid drug., 170, cm, ... Start Date: 11/08/21 Stop Date: 05/07/22 Status: Ordered multivitamin Multiple Vitamins oral tablet 1 tablet, By Mouth, Daily, # 90 tablet, 4 Refills, Maintenance, 07/28/21 17:59:00 EDT, [facility], [id number] Partial fill upon patient request if the prescription is for a schedule II opioid drug., 1 tablet By Mouth Daily, 163, cm, 07/28/21 9:27... Start Date: 07/28/21 Status: Ordered omeprazole 40 mg oral enteric coated capsule 1 capsule, By Mouth, Daily, # 30 capsule, 2 Refills, Maintenance, 06/02/21 13:03:00 EDT, [facility], 163, cm, 06/01/21 10:51:00 EDT, Height, 104.7, kg, 05/25/21 4:20:00 EDT, Dry Weight Start Date: 06/02/21 Status: Ordered oxybutynin 10 mg/24 hr oral tablet, extended release 1 tablet = 10 mg, By Mouth, Daily, # 30 tablet, 5 Refills, Maintenance, 06/02/21 13:03:00 EDT, ER Tablet, [facility], 163, cm, 06/01/21 10:51:00 EDT, Height, [...] 0 Refills, Maintenance, 06/01/21 9:12:00 EDT, Tablet, [facility], Partial fill upon patient request if [...] 0 Refills, Maintenance, 06/01/21 9:16:00 EDT, Tablet, [facility], Partial fill upon patient request if the prescription is for a schedule IIopioid drug., 163, cm, 06/01/21 7:16:00 EDT, Height... Start Date: 06/01/21 Stop Date: 07/01/21 Status: Ordered Ventolin HFA 108 mcg/inh inhalation aerosol with adapter 1 puffs, Inhalation, Every 6 hours, PRN for wheezing, # 18 Gm, 0 Refills, Maintenance, 06/01/21 9:11:00 EDT, Aerosol, [facility], 163, cm, 06/01/21 7:16:00 EDT, Height, [...] examination without abnormal findings(Confirmed) Active Wheezing(Confirmed) Active Results Orders for Microbiology Reports Name Date Wet Prep 02/01/22 Microbiology Reports TEST:Wet Prep STATUS:Auth (Verified) BODY SITE: SOURCE:VAGINA COLLECTED DATE/TIME:02/01/22 2:30 PM Wet Prep SPECIMEN DESCRIPTION : VAGINAL SPECIMEN SPECIAL REQUESTS : NONE DIRECT EXAM : 2+ CLUE CELLS NO WBC'S SEEN NO YEAST OBSERVED NO TRICHOMONAS OBSERVED REPORT STATUS : FINAL 02/01/2022 Vital Signs Most recent to oldest [Reference Range]: 1 2 3 Oxygen Saturation [94-100 %] 99 % (02/02/22 4:59 AM) 99 % (02/01/22 5:27 PM) 98 % (02/01/22 1:17 PM) Pulse Rate [55-90 bpm] 62 bpm (02/02/22 4:59 AM) 65 bpm (02/01/22 5:27 PM) 65 bpm (02/01/22 1:17 PM) Blood Pressure [90-138/55-84 mm Hg] 112/67mm Hg (02/02/22 4:59 AM) 106/74mm Hg (02/01/22 5:27 PM) 120/75mm Hg (02/01/22 1:17 PM) Respiratory Rate [16-30 br/min] 16 br/min (02/02/22 4:59 AM) 16 br/min (02/01/22 5:27 PM) 18 br/min (02/01/22 1:17 PM) Temperature [96.8-100.4 DegF] 98.3 DegF (02/02/22 4:59 AM) 98.5 DegF (02/01/22 5:27 PM) 97.8 DegF (02/01/22 1:17 PM) Mode of Delivery (Oxygen) Room air (02/02/22 4:59 AM) Room air (02/01/22 5:27 PM) Room air (02/01/22 1:17 PM) Temperature Route Oral (02/02/22 4:59 AM) Oral (02/01/22 5:27 PM) Oral (02/01/22 1:17 PM) Social History Social History Type Response Smoking Status Current every day zahra sutton entered on: 07/21/14 Sex
--- OUTSIDE RECORDS SUMMARY | 2023-05-29 21:21 | XMS_ITS | Continuity of Care Document ---
Author Name Unknown Organization [facility] Address [address] [place] [id number]- Care Team Providers Care Plastic Tile Setter Name Role Phone Arlene Hernandez DO Primary Care Physician [place] [facility] [place](s): 11/14/20 - 11/14/[address] [address]- Encounter Diagnosis Toxic ingestion(Final) - 11/14/20 Discharge Disposition: A-D/C Home Attending Physician: Aaron [...] food, # 28 tablet, 0 Refills, Maintenance, 12/08/209:29:00 EST, [id number], 163, cm, 07/23/20 13:15:00 EDT, Height, 105.3, kg, 07/23/20 13:15:00 EDT, Dry Weight Start Date: 09/07/20 Stop Date: 09/21/20 Status: Ordered Diflucan 150 mg oral tablet 1 tablet = 150 mg, By Mouth, Once, # 1 tablet, 0 Refills, Soft Stop, 10/11/20 13:10:00 EST, Tablet,[facility]/pharmacy #[id number], Partial fill upon [...] 0 Refills, Maintenance, 09/16/19 12:41:32 EST, Liquid, [facility]/pharmacy #[id number], 160.8, cm, 09/16/19 [...] tablet, 5 Refills, Maintenance, 07/21/20 15:03:00 EDT, [facility]/pharmacy #[id number], 163, cm, 06/24/20 11:48:00 EDT, Height, 105.8, kg, 03/08/20 17:47:00 EDT, Dry Weight Start Date: 07/21/20 Status: Ordered Nature's Bounty Hair Skin & Nails oral tablet, chewable See Instructions, take as directed per package labeling, # 100 each, 2 Refills, Maintenance, 03/18/20 13:42:00 EDT, [facility]/pharmacy #[id number], d/c prior MV, [...] capsule, 6 Refills, Maintenance, 07/13/20 12:42:00 EDT, [facility] STORE 72519, 163, cm, 06/24/20 11:48:00 EDT, Height, 105.8, kg, 03/08/20 17:47:00 EDT, Dry Weight Start Date: 07/13/20 Status: Ordered oxybutynin 10 mg/24 hr oral tablet, extended release 1 tablet = 10 mg, By Mouth, Daily, # 30 tablet, 5 Refills, Maintenance, 05/25/20 15:37:00 EDT, ER Tablet, [facility]/pharmacy #[id number], 163, cm, 03/08/20 [...] 0 Refills, Maintenance, 09/16/19 12:41:30 EST, Aerosol, [facility]/pharmacy #[id number], 160.8, cm, 09/16/19 12:10:53 EST, Height, 100, kg, 07/11/19 8:30:20 EDT, Dry Weight Start Date: 09/16/19 Status: Ordered Vitamin B-12 250 mcg oral tablet 1 tablet, By Mouth, Daily, # 30 tablet, 11 Refills, Maintenance, 10/21/20 18:16:00 EST, [facility] STORE 04895, 163, cm, 09/20/20 11:14:00 EST, Height, 107.3, kg, 09/20/20 11:18:00 EST, Dry Weight Start Date: 10/21/20 Status: Ordered Zithromax Z-Peewee 250 mg oral tablet See Instructions, as directed on package labeling, # 1 pack/packet, 0 Refills, Maintenance, 10/11/20 13:10:00 EST, [facility]/pharmacy #[id number], Partial fill upon [...] Range]: 1 2 Oxygen Saturation [94-100 %] 100 % (11/14/20 3:16 PM) 100 % (11/14/20 11:31 AM) Pulse Rate [55-90 bpm] 87 bpm (11/14/20 3:16 PM) 98 bpm *H* (11/14/20 11:31 AM) Blood Pressure [90-138/55-84 mm Hg] 130/ 74mm Hg (11/14/20 3:16 PM) 135/70mm Hg (11/14/20 11:31 AM) Respiratory Rate [16-30 br/min] 20 br/mi n (11/14/20 3:16 PM) 24 br/min (11/14/20 11:31 AM) Temperature [96.8-100.4 DegF] 97.6 DegF (11/14/20 11:31 AM) Mode of Delivery (Oxygen) Room air (11/14/20 3:16 PM) Nasal cannula (11/14/20 11:31 AM) Blood pressure sites Arm, right (11/14/20 3:16 PM) Arm, right (11/14/20 11:31 AM) Temperature Route Oral (11/14/20 11:31 AM) Social History Social History Type Response Smoking Status Current every day zahra sutton entered on: 07/21/14 Sex Female
--- OUTSIDE RECORDS SUMMARY | 2023-05-29 21:21 | XMS_ITS | Continuity of Care Document ---
Author Name Unknown Organization [facility] Address [address] [place] [address]- Care Team Providers Care Civil Engineer Name Role Phone Arlene Hernandez DO Primary Care Physician Encounter [facility] [place] [id number] Date(s): 10/07/20 - 11/06/20 [facility] [address] [place], [place] [address] Attending Physician: Eleno Hernandez Admitting Physician: [...] 28 tablet, 0 Refills, Maintenance, :29:00 EST, [facility]/pharmacy #[id number], 163, cm, 07/23/20 13:15:00 EDT, Height, 105.3, kg, 07/23/20 13:15:00 EDT, Dry Weight Start Date: 09/07/20 Stop Date: 09/21/20 Status: Ordered Diflucan 150 mg oral tablet 1 tablet = 150 mg, By Mouth, Once, # 1 tablet, 0 Refills, Soft Stop, 10/11/20 13:10:00 EST, Tablet,[facility]/pharmacy #[id number], Partial fill upon patient request [...] 0 Refills, Maintenance, 09/16/19 12:41:32 EST, Liquid, [facility]/pharmacy #[id number], 160.8, cm, 09/16/19 12:10:53 EST, [...] tablet, 5 Refills, Maintenance, 07/21/20 15:03:00 EDT, [facility]/pharmacy #[id number], 163, cm, 06/24/20 11:48:00 EDT, Height, 105.8, kg, 03/08/20 17:47:00 EDT, Dry Weight Start Date: 07/21/20 Status: Ordered Nature's Bounty Hair Skin & Nails oral tablet, chewable See Instructions, take as directed per package labeling, # 100 each, 2 Refills, Maintenance, 03/18/20 13:42:00 EDT, [facility]/pharmacy #[id number], d/c prior MV, take as [...] capsule, 6 Refills, Maintenance, 07/13/20 12:42:00 EDT, [facility] STORE [id number], 163, cm, 06/24/20 11:48:00 EDT, Height, 105.8, kg, 03/08/20 17:47:00 EDT, Dry Weight Start Date: 07/13/20 Status: Ordered oxybutynin 10 mg/24 hr oral tablet, extended release 1 tablet = 10 mg, By Mouth, Daily, # 30 tablet, 5 Refills, Maintenance, 05/25/20 15:37:00 EDT, ER Tablet, [facility]/pharmacy #[id number], 163, cm, 03/08/20 17:43:00 EDT, [...] 0 Refills, Maintenance, 09/16/19 12:41:30 EST, Aerosol, [facility]/pharmacy #[id number], 160.8, cm, 09/16/19 12:10:53 EST, Height, 100, kg, 07/11/19 8:30:20 EDT, Dry Weight Start Date: 09/16/19 Status: Ordered Vitamin B-12 250 mcg oral tablet 1 tablet, By Mouth, Daily, # 30 tablet, 11 Refills, Maintenance, 10/21/20 18:16:00 EST, [id number], 163, cm, 09/20/20 11:14:00 EST, Height, 107.3, kg, 09/20/20 11:18:00 EST, Dry Weight Start Date: 10/21/20 Status: Ordered Zithromax Z-Peewee 250 mg oral tablet See Instructions, as directed on package labeling, # 1 pack/packet, 0 Refills, Maintenance, 10/11/20 13:10:00 EST, [facility]/pharmacy #[id number], Partial fill upon patient request [...]
--- OUTSIDE RECORDS SUMMARY | 2023-05-29 21:21 | XMS_ITS | Continuity of Care Document ---
Author Name Unknown Organization [facility] ter Address [address] [place] [address]- Care Team Providers Care Senior Project Engineer Name Role Phone Arlene Hernandez DO Primary Care Physician ( [phone] Encounter [facility] Date(s): 08/02/21 - 08/02/[address] [address]- Encounter Diagnosis Psychosis(Final) - 08/02/21 Discharge Disposition: A-D/C Home Attending Physician: Arely Centeno MD Admitting Physician: Arely Centeno MD Referring Physician: Not on Staff, Referring [...] Given 1Result Comment: [facility] [id number] Medications hydrOXYzine hydrochloride 50 mg oral tablet 1 tablet = 50 mg, By Mouth, 3 times a day, PRN for anxiety, Maintenance, 07/14/21 15:19:00 EDT, Tablet, ; Start Date: 07/14/21 Status: Ordered Invega Sustenna 156 mg/mL intramuscular suspension, extended release = 156 mg, Intramuscular, Every 28 days, # 1 each, 0 Refills, Maintenance, 06/01/21 9:16:00 EDT, Injection, [facility], Partial fill upon patient request if [...] 1 Refills, Maintenance, 07/28/21 10:16:00 EDT, [id number] Partial fill upon patient request if the prescriptionis for a schedule II opioid drug., 163, cm, ... Start Date: 07/28/21 Stop Date: 01/24/22 Status: Ordered multivitamin Multiple Vitamins oral tablet 1 tablet, By Mouth, Daily, # 90 tablet, 4 Refills, Maintenance, 07/28/21 17:59:00 EDT, [id number] Partial fill upon patient request if the prescription is for a schedule II opioid drug., 1 tablet By Mouth Daily, 163, cm, 07/28/21 9:27... Start Date: 07/28/21 Status: Ordered omeprazole 40 mg oral enteric coated capsule 1 capsule, By Mouth, Daily, # 30 capsule, 2 Refills, Maintenance, 06/02/21 13:03:00 EDT, [facility], 163, cm, 06/01/21 10:51:00 EDT, Height, 104.7, kg, 05/25/21 4:20:00 EDT, Dry Weight Start Date: 06/02/21 Status: Ordered oxybutynin 10 mg/24 hr oral tablet, extended release 1 tablet = 10 mg, By Mouth, Daily, # 30 tablet, 5 Refills, Maintenance, 06/02/21 13:03:00 EDT, ER Tablet, [facility], 163, cm, 06/01/21 10:51:00 EDT, Height, 104.7, kg, 05/25/21 4:20:00 EDT, Dry Weight Start Date: 06/02/21 Status: Ordered SEROquel 100 mg oral tablet 100 mg, 1, tablet, By Mouth, Daily at bedtime, # 30 tablet, Refills 0, Tot. Refills 0, Maintenance,06/01/21 9:12:00 EDT, Route to Pharmacy Electronically, [facility], Partial fill upon patient request if the prescription is for a schedule I... Start Date: 06/01/21 Status: Ordered SEROquel 50 mg oral tablet 1 tablet = 50 mg, By Mouth, 2 times a day, PRN Anxiety, # 60 tablet, 0 Refills, Maintenance, 06/01/21 9:12:00 EDT, Tablet, [facility], Partial fill upon patient request if [...] 0 Refills, Maintenance, 06/01/21 9:16:00 EDT, Tablet, [facility], Partial fill upon patient request if the prescription is for a schedule IIopioid drug., 163, cm, 06/01/21 7:16:00 EDT, Height... Start Date: 06/01/21 Stop Date: 07/01/21 Status: Ordered Ventolin HFA 108 mcg/inh inhalation aerosol with adapter 1 puffs, Inhalation, Every 6 hours, PRN for wheezing, # 18 Gm, 0 Refills, Maintenance, 06/01/21 9:11:00 EDT, Aerosol, [facility], 163, cm, 06/01/21 7:16:00 EDT, Height, [...] Range]: 1 2 Oxygen Saturation [94-100 %] 96 % (08/02/21 1:23 PM) 96 % (08/02/21 1:23 PM) Pulse Rate [55-90 bpm] 85 bpm (08/02/21 1:23 PM) 85 bpm (08/02/21 1:23 PM) Blood Pressure [90-138/55-84 mm Hg] 113/ 56mm Hg (08/02/21 1:23 PM) 113/56mm Hg (08/02/21 1:23 PM) Respiratory Rate [16-30 br/min] 19 br/mi n (08/02/21 1:23 PM) 19 br/min (08/02/21 1:23 PM) Temperature [96.8-100.4 DegF] 97.5 DegF (08/02/21 1:23 PM) Mode of Delivery (Oxygen) Room air (08/02/21 1:23 PM) Room air (08/02/21 1:23 PM) Blood pressure sites Arm, right (08/02/21 1:23 PM) Arm, right (08/02/21 1:23 PM) Temperature Route Oral (08/02/21 1:23 PM) Social History Social History Type Response Smoking Status Current every day zahra sutton entered on: 07/21/14 Sex
--- OUTSIDE RECORDS SUMMARY | 2023-05-29 21:21 | XMS_ITS | Continuity of Care Document ---
Author Name Unknown Organization [facility] Address [address] [place] [address]- Care Team Providers Care Physical Therapy Director Name Role Phone Arlene Hernandez DO Primary Care Physician ( [phone] Encounter [facility] Date(s): 07/06/20 - 08/05/20 [facility] [address] [place], [place] [address] Allergies, Adverse Reactions, Alerts [...] Refills, Maintenance, 09/16/19 12:41:32 EST, Liquid, [facility]/pharmacy #[id number], 160.8, cm, 09/16/19 12:10:53 [...] 6 Refills, Maintenance, 07/13/20 12:42:00 EDT, [facility] ST[id number], 163, cm, 06/24/20 11:48:00 EDT, Height, 105.8, kg, 03/08/20 17:47:00 EDT, Dry Weight Start Date: 07/13/20 Status: Ordered oxybutynin 10 mg/24 hr oral tablet, extended release 1 tablet = 10 mg, By Mouth, Daily, # 30 tablet, 5 Refills, Maintenance, 05/25/20 15:37:00 EDT, ER Tablet, [facility]/pharmacy #[id number], 163, cm, 03/08/20 17:43:00 [...] Refills, Maintenance, 09/16/19 12:41:30 EST, Aerosol, [facility]/pharmacy #[id number], 160.8, cm, 09/16/19 12:10:53 [...]
--- OUTSIDE RECORDS SUMMARY | 2023-05-29 21:21 | XMS_ITS | Continuity of Care Document ---
Author Name Unknown Organization [facility] Address [address] [place] [address]- Care Team Providers Care Business Risk Consultant Name Role Phone Arlene Hernandez DO Primary Care Physician Encounter [facility] Date(s): 11/20/20 - 11/21/[address] [address]- Encounter Diagnosis COVID-19 virus test result unknown(Final) - 11/21/20 Discharge Disposition: A-D/C Home Attending Physician: Dominick Tate DO Admitting Physician: Dominick Tate DO Referring Physician: Not on Staff, Referring [...] 28 tablet, 0 Refills, Maintenance, 209:29:00 EST, [facility]/pharmacy #[id number], 163, cm, 07/23/20 13:15:00 EDT, Height, 105.3, kg, 07/23/20 13:15:00 EDT, Dry Weight Start Date: 09/07/20 Stop Date: 09/21/20 Status: Ordered Diflucan 150 mg oral tablet 1 tablet = 150 mg, By Mouth, Once, # 1 tablet, 0 Refills, Soft Stop, 10/11/20 13:10:00 EST, Tablet,[id number], Partial fill upon patient [...] 0 Refills, Maintenance, 09/16/19 12:41:32 EST, Liquid, [facility]/pharmacy #[id number], 160.8, cm, 09/16/19 12:10:53 EST, [...] tablet, 5 Refills, Maintenance, 07/21/20 15:03:00 EDT, [facility]/pharmacy #[id number], 163, cm, 06/24/20 11:48:00 EDT, Height, 105.8, kg, 03/08/20 17:47:00 EDT, Dry Weight Start Date: 07/21/20 Status: Ordered Nature's Bounty Hair Skin & Nails oral tablet, chewable See Instructions, take as directed per package labeling, # 100 each, 2 Refills, Maintenance, 03/18/20 13:42:00 EDT, [facility]/pharmacy #[id number], d/c prior MV, take as [...] capsule, 6 Refills, Maintenance, 07/13/20 12:42:00 EDT, [facility] [id number], 163, cm, 06/24/20 11:48:00 EDT, Height, 105.8, kg, 03/08/20 17:47:00 EDT, Dry Weight Start Date: 07/13/20 Status: Ordered oxybutynin 10 mg/24 hr oral tablet, extended release 1 tablet = 10 mg, By Mouth, Daily, # 30 tablet, 5 Refills, Maintenance, 05/25/20 15:37:00 EDT, ER Tablet, [facility]/pharmacy #[id number], 163, cm, 03/08/20 17:43:00 EDT, [...] 0 Refills, Maintenance, 09/16/19 12:41:30 EST, Aerosol, [facility]/pharmacy #[id number], 160.8, cm, 09/16/19 12:10:53 EST, Height, 100, kg, 07/11/19 8:30:20 EDT, Dry Weight Start Date: 09/16/19 Status: Ordered Vitamin B-12 250 mcg oral tablet 1 tablet, By Mouth, Daily, # 30 tablet, 11 Refills, Maintenance, 10/21/20 18:16:00 EST, [facility] [id number], 163, cm, 09/20/20 11:14:00 EST, Height, 107.3, kg, 09/20/20 11:18:00 EST, Dry Weight Start Date: 10/21/20 Status: Ordered Zithromax Z-Peewee 250 mg oral tablet See Instructions, as directed on package labeling, # 1 pack/packet, 0 Refills, Maintenance, 10/11/20 13:10:00 EST, [facility]/pharmacy #[id number], Partial fill upon [...] to oldest [Reference Range]: 1 2 3 Weight 104.7 kg (11/21/20 5:07 AM) 104.7 kg (11/21/20 2:30 AM) 104.7 kg (11/20/20 7:50 PM) Oxygen Saturation [94-100 %] 98 % (11/21/20 5:07 AM) 98 % (11/21/20 2:30 AM) 95 % (11/20/20 9:33 PM) Pulse Rate [55-90 bpm] 102 bpm *H* (11/21/20 5:07 AM) 70 bpm (11/21/20 2:30 AM) 98 bpm *H* (11/20/20 9:33 PM) Blood Pressure [90-138/55-84 mm Hg] 132/75mm Hg (11/21/20 5:07 AM) 128/70mm Hg (11/21/20 2:30 AM) 132/80mm Hg (11/20/20 9:33 PM) Respiratory Rate [16-30 br/min] 20 br/min (11/21/20 5:07 AM) 18 br/min (11/21/20 3:54 AM) 16 br/min (11/21/20 2:30 AM) Temperature [96.8-100.4 DegF] 97.8 DegF (11/21/20 5:07 AM) 98.0 DegF (11/21/20 2:30 AM) 98 DegF (11/20/20 9:33 PM) Mode of Delivery (Oxygen) Room air (11/21/20 5:07 AM) Room air (11/21/20 2:30 AM) Room air (11/20/20 9:33 PM) Blood pressure sites Arm, left (11/21/20 5:07 AM) Arm, left (11/21/20 2:30 AM) Arm, right (11/20/20 9:33 PM) Temperature Route Oral (11/21/20 5:07 AM) Oral (11/21/20 2:30 AM) Oral (11/20/20 9:33 PM) Dry Weight 104.7 kg (11/21/20 5:07 AM) 104.7 kg (11/21/20 2:30 AM) 104.7 kg (11/20/20 7:50 PM) Social History Social History Type Response Smoking Status Current every day zahra sutton entered on: 07/21/14 Sex Female
--- OUTSIDE RECORDS SUMMARY | 2023-05-29 21:21 | XMS_ITS | Continuity of Care Document ---
Author Name Unknown Organization [facility] Address [address] [place] [address], [address] [place] [address]- Care Team Providers Care Calender Operator Name Role Phone Arlene Hernandez DO Primary Care Physician ( [phone] Encounter [facility] Date(s): 11/02/20 - 12/10/20 [facility] [address] [facility], [address] [place], [place] [address] Attending Physician: Patricia Mendoza MD Admitting Physician: [...] tablet, 0 Refills, Maintenance, :29:00 EST, [facility]/pharmacy #[id number], 163, cm, 07/23/20 13:15:00 EDT, Height, 105.3, kg, 07/23/20 13:15:00 EDT, Dry Weight Start Date: 09/07/20 Stop Date: 09/21/20 Status: Ordered Diflucan 150 mg oral tablet 1 tablet = 150 mg, By Mouth, Once, # 1 tablet, 0 Refills, Soft Stop, 10/11/20 13:10:00 EST, Tablet,[facility]/pharmacy #[id number], Partial fill upon patient request [...] 5 Refills, Maintenance, 07/21/20 15:03:00 EDT, [facility]/pharmacy #[id number], 163, cm, 06/24/20 11:48:00 EDT, Height, 105.8, kg, 03/08/20 17:47:00 EDT, Dry Weight Start Date: 07/21/20 Status: Ordered Nature's Bounty Hair Skin & Nails oral tablet, chewable See Instructions, take as directed per package labeling, # 100 each, 2 Refills, Maintenance, 03/18/20 13:42:00 EDT, [facility]/pharmacy #[id number], d/c prior MV, take as [...] 6 Refills, Maintenance, 07/13/20 12:42:00 EDT, [facility] ST[facility] [id number], 163, cm, 06/24/20 11:48:00 EDT, Height, 105.8, kg, 03/08/20 17:47:00 EDT, Dry Weight Start Date: 07/13/20 Status: Ordered oxybutynin 10 mg/24 hr oral tablet, extended release 1 tablet = 10 mg, By Mouth, Daily, # 30 tablet, 5 Refills, Maintenance, 05/25/20 15:37:00 EDT, ER Tablet, [facility]/pharmacy #[id number], 163, cm, 03/08/20 17:43:00 EDT, [...] Refills, Maintenance, 09/16/19 12:41:30 EST, Aerosol, [facility]/pharmacy #[id number], 160.8, cm, 09/16/19 12:10:53 EST, Height, 100, kg, 07/11/19 8:30:20 EDT, Dry Weight Start Date: 09/16/19 Status: Ordered Vitamin B-12 250 mcg oral tablet 1 tablet, By Mouth, Daily, # 30 tablet, 11 Refills, Maintenance, 10/21/20 18:16:00 EST, [facility] [id number], 163, cm, 09/20/20 11:14:00 EST, Height, 107.3, kg, 09/20/20 11:18:00 EST, Dry Weight Start Date: 10/21/20 Status: Ordered Zithromax Z-Peewee 250 mg oral tablet See Instructions, as directed on package labeling, # 1 pack/packet, 0 Refills, Maintenance, 10/11/20 13:10:00 EST, [facility]/pharmacy #[id number], Partial fill upon patient request if the [...]
--- OUTSIDE RECORDS SUMMARY | 2023-05-29 21:21 | XMS_ITS | Continuity of Care Document ---
Author Name Unknown Organization [facility] Address [address] [place] [address]- Care Team Providers Care Internet Marketing Manager Name Role Phone Arlene Hernandez DO Primary Care Physician Encounter [facility] Date(s): 03/22/22 - 04/21/22 [facility] [address] [place], [place] [address] Allergies, Adverse Reactions, Alerts [...] 23-valent vaccine 07/19/14 Given 1Result Comment: [facility] [id number] Medications Discontinue Nicotine Patches Discontinue Nicotine Patches, [...] 0 Refills, Maintenance, 06/01/21 9:16:00 EDT, Injection, [facility], Partial fill upon patient request if [...] 1 Refills, Maintenance, 11/08/21 10:10:00 EST, [facility]t, [id number] fill upon patient request if the prescriptionis for a schedule II opioid drug., 170, cm, ... Start Date: 11/08/21 Stop Date: 05/07/22 Status: Ordered multivitamin Multiple Vitamins oral tablet 1 tablet, By Mouth, Daily, # 90 tablet, 4 Refills, Maintenance, 07/28/21 17:59:00 EDT, Tablet, [id number] Partial fill upon patient request if the prescription is for a schedule II opioid drug., 1 tablet By Mouth Daily, 163, cm, 07/28/21 9:27... Start Date: 07/28/21 Status: Ordered omeprazole 40 mg oral enteric coated capsule 1 capsule, By Mouth, Daily, # 30 capsule, 2 Refills, Maintenance, 06/02/21 13:03:00 EDT, [facility], 163, cm, 06/01/21 10:51:00 EDT, Height, 104.7, kg, 05/25/21 4:20:00 EDT, Dry Weight Start Date: 06/02/21 Status: Ordered oxybutynin 10 mg/24 hr oral tablet, extended release 1 tablet = 10 mg, By Mouth, Daily, # 30 tablet, 5 Refills, Maintenance, 06/02/21 13:03:00 EDT, ER Tablet, [facility], 163, cm, 06/01/21 10:51:00 EDT, Height, [...] 0 Refills, Maintenance, 06/01/21 9:11:00 EDT, Aerosol, [facility], 163, cm, 06/01/21 7:16:00 EDT, Height, [...]
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
[2023-05-29] MEDS: traZODone HCL 50 MG TABLET PO (22:09)
[2023-05-29] MEDS: Magnesium Hydrox/Alum Hydrox 30 ML ORAL.SUSP PO (22:09)
[2023-05-29] MEDS: hydrOXYzine HCL 25 MG TABLET PO (22:09)
[2023-05-30 01:22] VITALS: BMI 27.4
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
[2023-05-30 06:00] VITALS: BP 122/70; PULSE 77; RESP 16; TEMP 36.6; O2SAT 95
[2023-05-30 09:02] LABS: Estimated Average Glucose 97 mg/dL
[2023-05-30 09:51] LABS: Alanine Aminotransferase 13 U/L (0-31); Alkaline Phosphatase 85 U/L (39-117); Anion Gap 13 (12-20); Aspartate Amino Transferase 15 U/L (5-31); Bilirubin Total 0.3 mg/dL (0.0-1.0); Blood Urea Nitrogen 10 mg/dL (9-16); Calcium 9.6 mg/dL (8.4-10.2); Carbon Dioxide 25 mmol/L (22-29); Chloride 104 mmol/L (96-108); Cholesterol 166 mg/dL (<200); Creatinine Clr Calc Pharmacy 101.7; Estimated Glomerular Filt Rate > 60; Glucose Fasting 93 mg/dL (60-99); HDL Cholesterol 53 mg/dL (>40); LDL Cholesterol Calculated 94 mg/dL (<100); Potassium 4.5 mmol/L (3.3-5.1); Sodium 137 mmol/L (135-145); Total Protein 7.1 g/dL (6.5-8.0); Triglycerides 96 mg/dL (<150)
[2023-05-30 09:52] LABS: Thyroid Stimulating Hormone 1.91 uIU/mL (0.32-4.0)
[2023-05-30 09:57] LABS: Folate 6.7 ng/mL (> or = 4.0); Vitamin B12 662 pg/mL (200-900)
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
[2023-05-30 12:04] VITALS: BP 128/90; PULSE 78; RESP 18
[2023-05-30] MEDS: cloNIDine HCL 0.1 MG TABLET PO (12:07)
[2023-05-30] MEDS: Acetaminophen 325 MG TABLET 650 MG PO (12:08)
[2023-05-30] MEDS: metFORMIN HCl 500 MG TABLET PO ×2 (12:08→17:51)
[2023-05-30] MEDS: Levothyroxine Sodium 25 MCG TABLET PO (12:08)
[2023-05-30] MEDS: hydrOXYzine HCL 25 MG TABLET PO (12:08)
[2023-05-30 13:23] LABS: Syphilis Screen Nonreactive (Nonreactive)
[2023-05-30 16:30] VITALS: BP 128/84; PULSE 106; TEMP 36
[2023-05-30] MEDS: Paliperidone Palmitate 234 MG/1.5 ML SYRINGE IM (20:59)
[2023-05-30] MEDS: Divalproex Sodium ER 500 MG TAB.ER.24H PO (21:01)
[2023-05-30] MEDS: Magnesium Hydrox/Alum Hydrox 30 ML ORAL.SUSP PO (21:01)
[2023-05-31 06:00] VITALS: BP 104/60; PULSE 80; RESP 16
[2023-05-31] MEDS: Omeprazole 20 MG CAPSULE.DR PO (06:36)
[2023-05-31] MEDS: Levothyroxine Sodium 25 MCG TABLET PO (06:37)
[2023-05-31] MEDS: metFORMIN HCl 500 MG TABLET PO ×2 (08:08→16:12)
[2023-05-31 08:16] LABS: HBc Num1 7.91 S/CO (0.00-0.79); HBsAGNum1 0.45 S/CO (0.00-0.99); HIV AB/AG Nonreactive (Nonreactive); HIV Num 1 0.06 S/CO (0.00-0.99); Hepatitis B Surface Antigen Negative (Negative); ~Hepatitis B Surface Antibody REACTIVE (Nonreactive); ~Hepatitis C Antibody Nonreactive (Nonreactive)
--- NOTE | 2023-05-31 08:50 | P.PNPSI_ITS ---
Subjective Subjective Date of Service: 05/31/23 Reason For Visit: Psychosis Interim History: Met with patient; discussed with team Patient still expressing some paranoid delusions, and again referenced being fearful of someone's air conditioner and that it will push her... However she is also little bit more organized today, finishing her sentences and not making tangential nonsensical statements; a little better grooming; patient asked about medical issues such as vaginal discharge which is being assessed. Patient slept last night. She does repeatedly ask how long she will be here, She says not to let her discharge and not to let her sign a 3 day notice... Mental Status Exam Mental Status Exam Narrative: Pt is alert and oriented; behavior is a little more organized, more calm though repeatedly asks same question; patient is friendly and cooperative; patient is not in distress; dressed in casual attire and a little more put together, makeup appropriate with adequate hygiene; mood is described as anxious and affect congruent, but not tearful; eye contact appropriate; Speech is normal rate, volume and prosody and not pressured; some psychomotor agitation present but less; thought process little more goal oriented and linear but still can be tangential; Thought content not getting discharged and dealing with paranoid delusional thoughts; continued paranoid delusional thinking; currently no SI; no HI. Patient has thought blocking and positive for AH. Patients insight and judgment impaired but a little improved Diagnostics Vital Signs (24Hr): Vital Signs - 24 hr 05/30/23 12:04 05/30/23 16:30 05/31/23 06:00 Temperature 96.8 F Pulse Rate 78 106 H 80 Respiratory Rate 18 16 Blood Pressure 128/90 H 128/84 104/60 Oxygen Delivery Method Room Air BMI result Body Mass Index 27.4 Labs 05/30/23 08:18 Labs: Laboratory Results - last 48 hr 05/30/23 05/30/23 05/30/23 08:18 08:18 08:18 Sodium 137 Potassium 4.5 Chloride 104 Carbon Dioxide 25 Anion Gap 13 BUN 10 Creatinine 0.71 Estim Creat Clear Calc 101.7 Estimated GFR > 60 Fasting Glucose 93 Estimat Average Glucose 97 Hemoglobin A1c % 5.0 Calcium 9.6 Total Bilirubin 0.3 AST 15 ALT 13 Alkaline Phosphatase 85 Total Protein 7.1 Albumin 4.0 Triglycerides 96 Cholesterol 166 LDL Cholesterol, Calc 94 HDL Cholesterol 53 Vitamin B12 662 Folate 6.7 TSH 1.91 T.pallidum Ab (EIA) Hep Bs Antigen Hep Bs Antibody Hepatitis C Ab (EIA) HIV 1&2 Ab/P24 Ag 4thGn 05/30/23 05/30/23 12:43 12:43 Sodium Potassium Chloride Carbon Dioxide Anion Gap BUN Creatinine Estim Creat Clear Calc Estimated GFR Fasting Glucose Estimat Average Glucose Hemoglobin A1c % Calcium Total Bilirubin AST ALT Alkaline Phosphatase Total Protein Albumin Triglycerides Cholesterol LDL Cholesterol, Calc HDL Cholesterol Vitamin B12 Folate TSH T.pallidum Ab (EIA) Nonreactive Hep Bs Antigen Negative Hep Bs Antibody REACTIVE Hepatitis C Ab (EIA) Nonreactive HIV 1&2 Ab/P24 Ag 4thGn Nonreactive Medications Medications Current Medications Acetaminophen (Acetaminophen 325 Mg Tablet) 650 mg PO Q6H PRN PRN Reason: Headache/Pain Mild Scale (1-3) Last Admin: 05/30/23 12:08 Dose: 650 mg Al Hydroxide/Mg Hydroxide (Magnesium Hydrox/Alum Hydrox 30 Ml Oral.Susp) 30 ml PO Q6H PRN PRN Reason: Heartburn/Nausea Last Admin: 05/30/23 21:01 Dose: 30 ml Albuterol Sulfate (Albuterol Sulfate 90 Mcg 8 Gm Inhaler) 2 puff INHALE RQ4H PRN PRN Reason: Shortness of Breath Artificial Tears (Artificial Tears 15 Ml Drops) 1 drop EYE-BOTH Q4H PRN PRN Reason: Dry Eyes Clonidine HCl (Clonidine Hcl 0.1 Mg Tablet) 0.1 mg PO Q4H PRN; Protocol PRN Reason: anxiety Divalproex Sodium (Divalproex Sodium Er 500 Mg Tab.Er.24h) 500 mg PO BEDTIME [facility] Last Admin: 05/30/23 21:01 Dose: 500 mg Hydroxyzine HCl (Hydroxyzine Hcl 25 Mg Tablet) 25 mg PO Q6H PRN PRN Reason: Anxiety Last Admin: 05/30/23 12:08 Dose: 25 mg Levothyroxine Sodium (Levothyroxine Sodium 25 Mcg Tablet) 25 mcg PO DAILY@0600 [facility] Last Admin: 05/31/23 06:37 Dose: 25 mcg Magnesium Hydroxide (Milk Of Magnesia 30 Ml Oral.Susp) 30 ml PO DAILY PRN PRN Reason: Constipation Metformin HCl (Metformin Hcl 500 Mg Tablet) 500 mg PO BIDWM [facility] Last Admin: 05/31/23 08:08 Dose: 500 mg Omeprazole (Omeprazole 20 Mg Capsule.Dr) 20 mg PO DAILY@0630 [facility] Last Admin: 05/31/23 06:36 Dose: 20 mg Quetiapine Fumarate (Quetiapine Fumarate 100 Mg Tablet) 100 mg PO BEDTIME MRX1 PRN PRN Reason: insomnia Trazodone HCl (Trazodone Hcl 50 Mg Tablet) 50 mg PO BEDTIME PRN PRN Reason: Insomnia Last Admin: 05/29/23 22:09 Dose: 50 mg Allergies Allergies Allergy/AdvReac Type Severity Reaction Status Date / Time lisinopril [LISINOPRIL] Allergy Unknown UNKNOWN Unverified 06/17/20 14:51 Assessment & Plan Assessment & Plan (1) Schizoaffective disorder: Status: Acute Code(s): F25.9 - Schizoaffective disorder, unspecified (2) PTSD (post-traumatic stress disorder): Status: Acute Code(s): F43.10 - Post-traumatic stress disorder, unspecified (3) Severe cocaine use disorder: Status: Acute Code(s): F14.20 - Cocaine dependence, uncomplicated Plan Patient is a 52-year-old female with schizoaffective disorder, PTSD long history of severe cocaine abuse, who presents for dysregulated behavior, paranoid delusions in the face of non medication adherence and crack cocaine -currently patient is disorganized in speech and behavior however she is cooperative and wanting hospitalization and medication treatment -Will seek collateral for information on medication history; patient reports she thinks more clearly on Invega Sustenna Hospital course: on admission, -Patient currently presents with hannah with psychotic symptoms including AH and paranoid delusions.? Will start patient on Invega Sustenna 234 mg today and restart Depakote 500 mg, further titrating during the admission.? Will also restart Seroquel but will make it a p.r.n. for insomnia in order to avoid over sedation given that she has not been on medications for a while.? Will hold off on restarting oxybutynin for now. 05/31 little improvement after getting Invega shot and being restarted on Depakote; speech a little more organized and goal oriented them before though can still make nonsensical remarks; still expressing some paranoid delusions but less so. Clothing attire a little more organized. Seroquel normally 100 mg daily and 150 q.h.s.; however patient slept without using Seroquel so will keep it as a p.r.n. for now to avoid polypharmacy; will restart if needed. Also For now will keep Depakote at 500 mg; patient normally on a 1000 mg q.h.s. however she did sleep last night and is a little more organized so will leave at lower dose for now and monitor Plan: CV Q 15 minute checks Received Invega Sustenna 234 mg IM on 05/30 Pending Invega Sustenna 156 mg IM on 06/04 Continue Depakote ER 500 mg q.h.s.; patient normally on a 1000 mg q.h.s. however she did sleep last night and is a little more organized so will leave at lower dose for now and monitor Continue metformin 500 mg b.i.d. Continue levothyroxine 25 mcg Seroquel 100 mg p.r.n. q.h.s. with a repeat for insomnia (normally 100 mg daily and 150 q.h.s) Hold oxybutynin for now (history of 5 mg t.i.d.) -Labs: UA/CT NG/RPR/HIV/hepB&C Discuss case with [facility]cc On the unit, at this time, pt is not appropriate for psych groups due to disorganized speech and behavior -Reviewed labs from [facility]: CBC, lytes, BUN/creatinine, LFTs are WNL; COVID negative; UDS positive for cocaine -[employer] reviewed notes provided by [facility], including [facility] signed order by patient's outpatient provider, LUCIEN Arzate, dated 05/04/23 indicating that patient takes Invega Sustenna 234 mg Q 28 days; Depakote 1000 mg q.h.s.; Seroquel 200 mg q.h.s. and 100 mg daily. Also prescribed is levothyroxine 25 mcg daily; omeprazole 20 mg daily; oxybutynin 5 mg t.i.d. for history of urinary incontinence, trazodone 150 mg q.h.s.; metformin 500 mg b.i.d.. -Reviewed discharge summary from [facility].? Patient was prescribed clonidine, Seroquel 150 mg q.h.s. and 100 mg daily and trazodone 100 mg q.h.s..? Patient not restarted on Depakote or Invega Sustenna Patient educated on: diagnosis, medication risk/benefits and medical condition Informed Consent: understands, does not understand and further education needed Reason for continued inpatient stay Substantial Risk for: inability to function and rapid decompensation Time Spent With Patient Time: Total time managing care of this patient today ____ minutes.
[2023-05-31 09:31] LABS: HBc Num3 7.58 S/CO; Hepatitis B Core Antibody Reactive (Nonreactive)
[2023-05-31] MEDS: Magnesium Hydrox/Alum Hydrox 30 ML ORAL.SUSP PO (10:13)
[2023-05-31 10:37] LABS: Appearance Urine Clear; Color Urine Yellow; Glucose Urine UA Negative (Negative); Leukocyte Esterase Urine Negative (Negative); Nitrite Urine Negative (Negative); Specific Gravity - Urine <= 1.005 (1.005-1.025); Urine Blood Negative (Negative); Urine Ketones Negative (Negative); Urine Protein Negative (Neg-Trace)
[2023-05-31 10:47] LABS: Bacteria Urine None Seen (None Seen); Hyaline Casts Urine 0-2 /LPF (0-2); RBC Urine 0-2 /HPF (0-2); Squamous Epithelial Cell Urine 0-2 /HPF (0-2); WBC Urine 0-5 /HPF (0-5)
--- NOTE | 2023-05-31 11:15 | HO.PM.IMCN ---
History of Present Illness Data of Consult Service Date: 05/31/23 Primary Care Provider: Arlene Hernandez DO HPI Reason for consult: Admission H&P Pt is a 52-year-old female with a PMH significant for?non insulin-dependent diabetes type 2, hypothyroidism, GERD, urinary incontinence, cocaine use disorder, schizoaffective disorder, and PTSD who is admitted to [facility] psychiatry unit for dysregulated behavior and paranoid delusions in the face of medication non adherence and crack cocaine abuse. Patient has been apparently hearing voices and endorsing vague suicidal ideation. Medical consult for admission H&P. ?Patient remains disorganized at time of interview and exam. She is emotionally labile, alternatively crying then loudly singing. Patient is wearing headphones listening to music. Patient does not answer most questions appropriately. It is unclear if she is speaking nonsensically or occasionally citing lyrics. Pt's only clear medical complaint is of her scar becoming unstitched and open. Reports it being wet and itchy. It is unclear how long ago she underwent surgery, but it is most likely at least 15 years ago. Labs reviewed, grossly unremarkable. Patient tested negative for syphilis, candidiasis, chlamydia, gonorrhea, active hepatitis B, hep C, HIV, and trichomoniasis. Tested positive for bacterial vaginosis. Review of Systems Review of Systems: scar discomfort Yes all other systems are reviewed and are negative [facility] Medical History PTSD (post-traumatic stress disorder) Schizoaffective disorder Severe cocaine use disorder Social History Household Members: Other Household Members Other:: [facility] Housing: Other Housing Other:: [facility] Do you presently have visiting nurse or other home services: No Unable to assess alcohol history related to: Unable to respond Alcohol intake: former Patient Tobacco Use Status: Current everyday Tobacco user Tobacco use type: Cigarette Smoked in Last 30 Days: Yes Patient Given Instructions on How to Stop Smoking: Yes Date Education Initiated: 05/29/23 Second Hand Smoke Exposure: Yes Use of substances other than those prescribed or required for medical reasons: Yes Substance Use Type: Crack/Cocaine Last Used Substance: Days (ago) Currently Displaying Signs/Symptoms of Drug Intoxication Withdrawal: No Spiritual Healthcare Practices: Unknown; pt unable to participate due to mental status [facility] Practices: Unknown; pt unable to participate due to mental status Cultural Healthcare Practices: Unknown; pt unable to participate due to mental status Advance Directives: No Advance Directives Information Provided: No Do you have thoughts of harming others: None Do you have a plan to hurt others: No Plan Recently lost weight without trying: Unsure Eating poorly because of decreased appetite: No Nutrition Risks: No Nutritional Risk Patient : No : No Poor oral hygiene: No service: No Sexual orientation: Unable to collect Meds Allergies Allergy/AdvReac Type Severity Reaction Status Date / Time lisinopril [LISINOPRIL] Allergy Unknown UNKNOWN Unverified 06/17/20 14:51 Active Medications: Current Medications Acetaminophen (Acetaminophen 325 Mg Tablet) 650 mg PO Q6H PRN PRN Reason: Headache/Pain Mild Scale (1-3) Last Admin: 05/30/23 12:08 Dose: 650 mg Al Hydroxide/Mg Hydroxide (Magnesium Hydrox/Alum Hydrox 30 Ml Oral.Susp) 30 ml PO Q6H PRN PRN Reason: Heartburn/Nausea Last Admin: 05/31/23 10:13 Dose: 30 ml Albuterol Sulfate (Albuterol Sulfate 90 Mcg 8 Gm Inhaler) 2 puff INHALE RQ4H PRN PRN Reason: Shortness of Breath Artificial Tears (Artificial Tears 15 Ml Drops) 1 drop EYE-BOTH Q4H PRN PRN Reason: Dry Eyes Clonidine HCl (Clonidine Hcl 0.1 Mg Tablet) 0.1 mg PO Q4H PRN; Protocol PRN Reason: anxiety Divalproex Sodium (Divalproex Sodium Er 500 Mg Tab.Er.24h) 500 mg PO BEDTIME [facility] Last Admin: 05/30/23 21:01 Dose: 500 mg Hydroxyzine HCl (Hydroxyzine Hcl 25 Mg Tablet) 25 mg PO Q6H PRN PRN Reason: Anxiety Last Admin: 05/30/23 12:08 Dose: 25 mg Levothyroxine Sodium (Levothyroxine Sodium 25 Mcg Tablet) 25 mcg PO DAILY@0600 [facility] Last Admin: 05/31/23 06:37 Dose: 25 mcg Magnesium Hydroxide (Milk Of Magnesia 30 Ml Oral.Susp) 30 ml PO DAILY PRN PRN Reason: Constipation Metformin HCl (Metformin Hcl 500 Mg Tablet) 500 mg PO BIDWM [facility] Last Admin: 05/31/23 08:08 Dose: 500 mg Omeprazole (Omeprazole 20 Mg Capsule.Dr) 20 mg PO DAILY@0630 [facility] Last Admin: 05/31/23 06:36 Dose: 20 mg Quetiapine Fumarate (Quetiapine Fumarate 100 Mg Tablet) 100 mg PO BEDTIME MRX1 PRN PRN Reason: insomnia Trazodone HCl (Trazodone Hcl 50 Mg Tablet) 50 mg PO BEDTIME PRN PRN Reason: Insomnia Last Admin: 05/29/23 22:09 Dose: 50 mg Home Medications Medication Instructions Recorded Confirmed Last Taken Type acetaminophen 650 mg 1 - 2 tab PO Q8H PRN pain 12/18/20 12/18/20 Unknown History tablet,extended release (Mapap Arthritis Pain) ascorbic acid 7.5 mg-vit E 7.5 tab PO DIRECTED 12/18/20 12/16/20 History unit-biotin 1,250 mcg chewable tablet (Hair,Skin,Nails with Biotin) cyanocobalamin (vitamin B-12) 250 1 tab PO DAILY 12/18/20 12/18/20 12/16/20 History mcg tablet (Vitamin B-12) diphenhydramine HCl 25 mg capsule 1 cap PO BEDTIME 12/18/20 12/18/20 12/16/20 History (Banophen) docusate sodium 100 mg capsule 1 cap PO BID PRN constipation 12/18/20 12/18/20 Unknown History lanolin alcohols-mineral appl topical BID 12/18/20 12/16/20 History oil-w.petrolatum-ceresin topical cream (Minerin Creme topical) lorazepam 0.5 mg tablet 1 tab PO BID PRN dyspnea 12/18/20 12/18/20 Unknown History nicotine 14 mg/24 hr daily 1 patch topical DAILY 12/18/20 12/18/20 12/16/20 History transdermal patch omeprazole 40 mg capsule,delayed 1 cap PO DAILY 12/18/20 12/18/20 12/16/20 History release oxybutynin chloride 10 mg 1 tab PO DAILY 12/18/20 12/18/20 12/16/20 History tablet,extended release 24 hr paliperidone palmitate 156 mg/mL 1 syringe IM Q4W 12/18/20 12/18/20 12/14/20 History intramuscular syringe (Invega Sustenna) quetiapine 100 mg tablet 1 tab PO BEDTIME 12/18/20 12/18/20 12/16/20 History quetiapine 50 mg tablet 1 tab PO DAILY PRN anxiety 12/18/20 12/18/20 Unknown History topiramate 100 mg tablet 1 tab PO QAM 12/18/20 12/18/20 12/16/20 History divalproex 500 mg tablet,delayed 500 mg PO BID 05/30/23 05/30/23 Unknown History release levothyroxine 25 mcg tablet 25 mcg PO DAILY 05/30/23 05/30/23 Unknown History metformin 500 mg tablet 500 mg PO BID 05/30/23 05/30/23 Unknown History paliperidone 3 mg tablet,extended 3 mg PO DAILY 05/30/23 05/30/23 Unknown History release 24 hr (Invega) Physical Exam Vital Signs and Narrative: Vital Signs: Last Vital Signs Temp 96.8 F 05/30/23 16:30 Pulse 80 05/31/23 06:00 Resp 16 05/31/23 06:00 BP 104/60 05/31/23 06:00 Pulse Ox 95 05/30/23 06:00 O2 Del Method Room Air 05/31/23 06:00 BMI result Body Mass Index 27.4 Constitutional: Alert, in no acute distress. Mental Status/Pschiatric: Patient disorganized, emotionally labile, not answering all questions appropriately. Eyes: Pupils are equal, round, and reactive to light. Ear, Nose, and Throat: Oropharynx clear, mucous membranes moist. Ears and nose without deformities. Trachea midline. Respiratory: Clear to auscultation bilaterally. No wheezing, rales, or rhonchi. Cardiovascular: S1, S2 regular. No murmurs, rubs, or gallops. Gastrointestinal: Abdomen soft, non-tender, non-distended. Normal bowel sounds. Neurologic: Cranial nerves II-XII are grossly intact bilaterally. No focal neurological deficits. Moves all extremities spontaneously. Skin: No rashes or lesions noted. Suprapubic area at site of previous with clean looking, well-healed scar. No sign of erythema, dehiscence, or abscess. Area is moist. Musculoskeletal: No cyanosis or clubbing. Extremities: No edema. Results Labs 05/30/23 08:18 Labs: Laboratory Results - last 24 hr 05/30/23 05/30/2323 12:43 12:43 10:25 Urine Color Yellow Urine Appearance Clear Urine pH 6.0 Ur Specific [place] <= 1.005 Urine Protein Negative Urine Glucose (UA) Negative Urine Ketones Negative Urine Blood Negative Urine Nitrite Negative Ur Leukocyte Esterase Negative Urine RBC 0-2 Urine WBC 0-5 Ur Squamous Epith Cells 0-2 Urine Bacteria None Seen Hyaline Casts 0-2 T.pallidum Ab (EIA) Nonreactive Hep Bs Antigen Negative Hep Bs Antibody REACTIVE Hep B Core Total Ab Reactive Hep B Core IgM Ab Cancelled Hepatitis C Ab (EIA) Nonreactive HIV 1&2 Ab/P24 Ag 4thGn Nonreactive Assessment and Plan (1) Routine history and physical examination of adult: Status: Acute (2) Bacterial vaginal infection: Status: Acute Plan Pt is a 52-year-old female with a PMH significant for?non insulin-dependent diabetes type 2, hypothyroidism, GERD, urinary incontinence, cocaine use disorder, schizoaffective disorder, and PTSD who is admitted to [facility] psychiatry unit for dysregulated behavior and paranoid delusions in the face of medication non adherence and crack cocaine abuse. Patient has been apparently hearing voices and endorsing vague suicidal ideation. Medical consult for admission H&P. ?Patient remains disorganized at time of interview and exam. She is emotionally labile, alternatively crying then loudly singing. Mood disorder Plan as per psychiatry Bacterial vaginosis Patient tested positive for BV Will treat with metronidazole 500 mg p.o. b.i.d. x7 days, started 05/31/2023 discomfort Patient complaining that her scar has become ?unstitched ; complains of area being pruritic and damp No sign of dehiscence or subcutaneous abscess No erythema, sign of infection Zinc oxide cream prn for itch/rash Patient has been counseled to towel area off after shower and to keep dry Hypothyroidism Continue levothyroxine GERD Continue PPI Urinary incontinence Continue oxybutynin Non insulin-dependent diabetes type 2 Continue metformin Diabetic diet Thank you for allowing us to participate in the care of this patient. Signing off at this time. Please let us know if there are any acute complaints or questions. Time Spent With Patient Time: Total time managing care of this patient today ____ minutes.
[2023-05-31 11:48] LABS: CT PCR NOT DETECTED (Not Detect.); NG PCR NOT DETECTED (Not Detect.)
[2023-05-31] MEDS: Acetaminophen 325 MG TABLET 650 MG PO (12:21)
[2023-05-31 13:10] LABS: BV Int Neg Control Negative (Negative); BV Int Pos Control Positive (Positive)
[2023-05-31] MEDS: metroNIDAZOLE 500 MG TABLET PO ×2 (14:20→21:09)
[2023-05-31] MEDS: hydrOXYzine HCL 25 MG TABLET PO (17:57)
[2023-05-31 17:58] VITALS: BP 122/90
[2023-05-31] MEDS: cloNIDine HCL 0.1 MG TABLET PO (17:58)
[2023-05-31 19:35] VITALS: BP 114/78; PULSE 78; RESP 18; TEMP 36.6; O2SAT 97
[2023-05-31] MEDS: Divalproex Sodium ER 500 MG TAB.ER.24H PO (21:09)
[2023-06-01] MEDS: Levothyroxine Sodium 25 MCG TABLET PO (06:33)
[2023-06-01] MEDS: Omeprazole 20 MG CAPSULE.DR PO (06:33)
[2023-06-01] MEDS: metroNIDAZOLE 500 MG TABLET PO ×2 (08:27→20:55)
[2023-06-01] MEDS: metFORMIN HCl 500 MG TABLET PO ×2 (08:28→16:10)
--- NOTE | 2023-06-01 09:26 | PC.NURSE ---
Patient declines nicotine replacement at this time.
[2023-06-01] MEDS: cloNIDine HCL 0.1 MG TABLET PO (10:09)
[2023-06-01 10:10] VITALS: BP 117/69; PULSE 83
--- NOTE | 2023-06-01 13:34 | P.PNPSI_ITS ---
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 Intermittently expressing paranoid delusion about air conditioner. She feels that clonidine has been helpful and appreciates it. Talks about discharge next week because she wants to her hair. Mental Status Exam Mental Status Exam Narrative: Pt is alert and oriented; behavior is still manic though a little more organized; repeatedly asks same question; patient is friendly and cooperative; patient is not in distress; dressed in casual attire with adequate hygiene; mood is described as anxious and affect congruent, but not tearful; eye contact appropriate; Speech is normal rate, volume and prosody and not pressured; some psychomotor agitation present but less; thought process little more goal oriented and linear but still can be tangential; Thought content random things, discharge date, intermittent paranoid delusional thoughts; no SI; no HI. Positive for AH. Patients insight and judgment impaired but a little improved Diagnostics Vital Signs (24Hr): Vital Signs - 24 hr 05/31/23 17:58 05/31/23 19:35 06/01/23 10:10 Temperature 97.8 F Pulse Rate 78 83 Respiratory Rate 18 Blood Pressure 122/90 H 114/78 117/69 Pulse Oximetry 97 Oxygen Delivery Method Room Air BMI result Body Mass Index 27.4 Labs 05/30/23 08:18 Labs: Laboratory Results - last 48 hr 05/30/23 05/30/23 05/30/23 12:43 18:25 21:01 Urine Color Urine Appearance Urine pH Ur Specific [place] Urine Protein Urine Glucose (UA) Urine Ketones Urine Blood Urine Nitrite Ur Leukocyte Esterase Urine RBC Urine WBC Ur Squamous Epith Cells Urine Bacteria Hyaline Casts Trina species DNA Negative Chlam trachomat DNA PCR NOT DETECTED Gardnerella DNA Probe Positive A Hep Bs Antigen Negative Hep Bs Antibody REACTIVE Hep B Core Total Ab Reactive Hep B Core IgM Ab Cancelled Hepatitis C Ab (EIA) Nonreactive HIV 1&2 Ab/P24 Ag 4thGn Nonreactive N.gonorrhoeae DNA (PCR) NOT DETECTED Trichomonas DNA Probe Negative 05/31/23 10:25 Urine Color Yellow Urine Appearance Clear Urine pH 6.0 Ur Specific [place] <= 1.005 Urine Protein Negative Urine Glucose (UA) Negative Urine Ketones Negative Urine Blood Negative Urine Nitrite Negative Ur Leukocyte Esterase Negative Urine RBC 0-2 Urine WBC 0-5 Ur Squamous Epith Cells 0-2 Urine Bacteria None Seen Hyaline Casts 0-2 Trina species DNA Chlam trachomat DNA PCR Gardnerella DNA Probe Hep Bs Antigen Hep Bs Antibody Hep B Core Total Ab Hep B Core IgM Ab Hepatitis C Ab (EIA) HIV 1&2 Ab/P24 Ag 4thGn N.gonorrhoeae DNA (PCR) Trichomonas DNA Probe Medications Medications Current Medications Acetaminophen (Acetaminophen 325 Mg Tablet) 650 mg PO Q6H PRN PRN Reason: Headache/Pain Mild Scale (1-3) Last Admin: 05/31/23 12:21 Dose: 650 mg Al Hydroxide/Mg Hydroxide (Magnesium Hydrox/Alum Hydrox 30 Ml Oral.Susp) 30 ml PO Q6H PRN PRN Reason: Heartburn/Nausea Last Admin: 05/31/23 10:13 Dose: 30 ml Albuterol Sulfate (Albuterol Sulfate 90 Mcg 8 Gm Inhaler) 2 puff INHALE RQ4H PRN PRN Reason: Shortness of Breath Artificial Tears (Artificial Tears 15 Ml Drops) 1 drop EYE-BOTH Q4H PRN PRN Reason: Dry Eyes Clonidine HCl (Clonidine Hcl 0.1 Mg Tablet) 0.1 mg PO Q4H PRN; Protocol PRN Reason: anxiety Last Admin: 06/01/23 10:09 Dose: 0.1 mg Divalproex Sodium (Divalproex Sodium Er 500 Mg Tab.Er.24h) 500 mg PO BEDTIME [facility] Last Admin: 05/31/23 21:09 Dose: 500 mg Hydroxyzine HCl (Hydroxyzine Hcl 25 Mg Tablet) 25 mg PO Q6H PRN PRN Reason: Anxiety Last Admin: 05/31/23 17:57 Dose: 25 mg Levothyroxine Sodium (Levothyroxine Sodium 25 Mcg Tablet) 25 mcg PO DAILY@0600 [facility] Last Admin: 06/01/23 06:33 Dose: 25 mcg Magnesium Hydroxide (Milk Of Magnesia 30 Ml Oral.Susp) 30 ml PO DAILY PRN PRN Reason: Constipation Metformin HCl (Metformin Hcl 500 Mg Tablet) 500 mg PO BIDWM [facility] Last Admin: 06/01/23 08:28 Dose: 500 mg Metronidazole (Metronidazole 500 Mg Tablet) 500 mg PO Q12H [facility] Last Admin: 06/01/23 08:27 Dose: 500 mg Omeprazole (Omeprazole 20 Mg Capsule.Dr) 20 mg PO DAILY@0630 [facility] Last Admin: 06/01/23 06:33 Dose: 20 mg Paliperidone Palmitate (Paliperidone Palmitate 156 Mg/Ml Syringe) 156 mg IM Q30 D [facility] Quetiapine Fumarate (Quetiapine Fumarate 100 Mg Tablet) 100 mg PO BEDTIME MRX1 PRN PRN Reason: insomnia Trazodone HCl (Trazodone Hcl 50 Mg Tablet) 50 mg PO BEDTIME PRN PRN Reason: Insomnia Last Admin: 05/29/23 22:09 Dose: 50 mg Zinc Oxide (Zinc Oxide 20% Ointment 28.35 Gm Tube) 1 appl TOPICAL BID PRN; Protocol PRN Reason: Itching Allergies Allergies Allergy/AdvReac Type Severity Reaction Status Date / Time lisinopril [LISINOPRIL] Allergy Unknown UNKNOWN Unverified 06/17/20 14:51 Assessment & Plan Assessment & Plan (1) Schizoaffective disorder: Status: Acute Code(s): F25.9 - Schizoaffective disorder, unspecified (2) PTSD (post-traumatic stress disorder): Status: Acute Code(s): F43.10 - Post-traumatic stress disorder, unspecified (3) Bacterial vaginal infection: Status: Acute Code(s): N76.0 - Acute vaginitis; B96.89 - Other specified bacterial agents as the cause of diseases classified elsewhere Plan Patient is a 52-year-old female with schizoaffective disorder, PTSD long history of severe cocaine abuse, who presents for dysregulated behavior, paranoid delusions in the face of non medication adherence and crack cocaine -currently patient is disorganized in speech and behavior however she is cooperative and wanting hospitalization and medication treatment -Will seek collateral for information on medication history; patient reports she thinks more clearly on Invega Sustenna Hospital course: on admission, -Patient currently presents with hannah with psychotic symptoms including AH and paranoid delusions.? Will start patient on Invega Sustenna 234 mg today and restart Depakote 500 mg, further titrating during the admission.? Will also restart Seroquel but will make it a p.r.n. for insomnia in order to avoid over sedation given that she has not been on medications for a while.? Will hold off on restarting oxybutynin for now. 05/31 little improvement after getting Invega shot and being restarted on Depakote; speech a little more organized and goal oriented them before though can still make nonsensical remarks; still expressing some paranoid delusions but less so.? Clothing attire a little more organized.? Seroquel normally 100 mg daily and 150 q.h.s.; however patient slept without using Seroquel so will keep it as a p.r.n. for now to avoid polypharmacy; will restart if needed.? Also For now will keep Depakote at 500 mg;? patient normally on a 1000 mg q.h.s. however she did sleep last night and is a little more organized so will leave at lower dose for now and monitor 06/01 though a little bit improved since admission she is still disorganized and manic, labile and with psychotic symptoms. Will very likely increase Depakote as her home dose is a 1000 mg q.h.s., however she is due for lab work tomorrow so will 1st get that take guide treatment Plan: CV Q 15 minute checks Received Invega Sustenna 234 mg IM on 05/30 Pending Invega Sustenna 156 mg IM on 06/04 Continue Depakote ER 500 mg q.h.s.; patient normally on a 1000 mg q.h.s. still manic and will increase pending labs -valproic acid level and associated lab work on 06/02 Continue metformin 500 mg b.i.d. Continue levothyroxine 25 mcg Seroquel 100 mg p.r.n. q.h.s. with a repeat for insomnia (normally 100 mg daily and 150 q.h.s) Hold oxybutynin for now (history of 5 mg t.i.d.); no c/o urinary incontinence On the unit, at this time, pt is not appropriate for psych groups due to disorganized speech and behavior Hospitalist: Bacterial vaginosis Patient tested positive for BV Will treat with metronidazole 500 mg p.o. b.i.d. x7 days, started 05/31/2023 discomfort Patient complaining that her scar has become ?unstitched ; complains of area being pruritic and damp No sign of dehiscence or subcutaneous abscess No erythema, sign of infection Zinc oxide cream prn for itch/rash Patient has been counseled to towel area off after shower and to keep dry -Reviewed labs from 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 and 100 mg daily. Also prescribed is levothyroxine 25 mcg daily; omeprazole 20 mg daily; oxybutynin 5 mg t.i.d. for history of urinary incontinence, trazodone 150 mg q.h.s.; metformin 500 mg b.i.d.. -Reviewed discharge summary from [facility].? Patient was prescribed clonidine, Seroquel 150 mg q.h.s. and 100 mg daily and trazodone 100 mg q.h.s..? Patient not restarted on Depakote or Invega Sustenna Patient educated on: diagnosis and medication risk/benefits Informed Consent: understands and further education needed Reason for continued inpatient stay Substantial Risk for: inability to function Time Spent With Patient Time: Total time managing care of this patient today ____ minutes.
[2023-06-01] MEDS: Artificial Tears 15 ML DROPS 1 DROP EYE-BOTH (17:17)
[2023-06-01 18:00] VITALS: BP 99/51; PULSE 98; RESP 18; TEMP 36.4; O2SAT 94
[2023-06-01] MEDS: Divalproex Sodium ER 500 MG TAB.ER.24H PO (20:55)
[2023-06-01] MEDS: hydrOXYzine HCL 25 MG TABLET PO (23:24)
[2023-06-01] MEDS: QUEtiapine Fumarate 100 MG TABLET PO (23:24)
[2023-06-02] MEDS: Omeprazole 20 MG CAPSULE.DR PO (06:23)
[2023-06-02] MEDS: Levothyroxine Sodium 25 MCG TABLET PO (06:47)
--- NOTE | 2023-06-02 09:00 | HO.PSYCHPN ---
Subjective Subjective Date of Service: 06/02/23 Reason For Visit: Psychosis Interim History: met with patient; discussed with team; pt more calm, still w/ some affect lability and talking about paranoid delusions, such as worried about AC (being sucked in); worried about discharge, saying auditory hallucinations are saying that she is going to get beat up out there. Mental Status Exam Mental Status Exam Narrative: Pt is alert and oriented; behavior is hypo-manic and still intermittently disorganized though overall less so; often repeatedly asks same question; patient is friendly and cooperative; patient is not in distress; dressed in casual attire with adequate hygiene; mood is described as anxious and affect congruent, but not tearful; eye contact appropriate; Speech is normal rate, volume and prosody and not pressured; some psychomotor agitation present but less; thought process little more goal oriented and linear but still can be tangential; Thought content random things, discharge date, intermittent paranoid delusional thoughts; no SI; no HI. Positive for AH. Patients insight and judgment impaired but a little improved Diagnostics Vital Signs (24Hr): Vital Signs - 24 hr 06/01/23 10:10 06/01/23 18:00 Temperature 97.5 F Pulse Rate 83 98 Respiratory Rate 18 Blood Pressure 117/69 99/51 L Pulse Oximetry 94 Oxygen Delivery Method Room Air BMI result Body Mass Index 27.4 Labs 05/30/23 08:18 Labs: Laboratory Results - last 48 hr 05/30/23 05/30/23 05/30/23 12:43 18:25 21:01 Urine Color Urine Appearance Urine pH Ur Specific [place] Urine Protein Urine Glucose (UA) Urine Ketones Urine Blood Urine Nitrite Ur Leukocyte Esterase Urine RBC Urine WBC Ur Squamous Epith Cells Urine Bacteria Hyaline Casts Trina species DNA Negative Chlam trachomat DNA PCR NOT DETECTED Gardnerella DNA Probe Positive A Hep B Core Total Ab Reactive Hep B Core IgM Ab Cancelled N.gonorrhoeae DNA (PCR) NOT DETECTED Trichomonas DNA Probe Negative 05/31/23 10:25 Urine Color Yellow Urine Appearance Clear Urine pH 6.0 Ur Specific [place] <= 1.005 Urine Protein Negative Urine Glucose (UA) Negative Urine Ketones Negative Urine Blood Negative Urine Nitrite Negative Ur Leukocyte Esterase Negative Urine RBC 0-2 Urine WBC 0-5 Ur Squamous Epith Cells 0-2 Urine Bacteria None Seen Hyaline Casts 0-2 Trina species DNA Chlam trachomat DNA PCR Gardnerella DNA Probe Hep B Core Total Ab Hep B Core IgM Ab N.gonorrhoeae DNA (PCR) Trichomonas DNA Probe Medications Medications Current Medications Acetaminophen (Acetaminophen 325 Mg Tablet) 650 mg PO Q6H PRN PRN Reason: Headache/Pain Mild Scale (1-3) Last Admin: 05/31/23 12:21 Dose: 650 mg Al Hydroxide/Mg Hydroxide (Magnesium Hydrox/Alum Hydrox 30 Ml Oral.Susp) 30 ml PO Q6H PRN PRN Reason: Heartburn/Nausea Last Admin: 05/31/23 10:13 Dose: 30 ml Albuterol Sulfate (Albuterol Sulfate 90 Mcg 8 Gm Inhaler) 2 puff INHALE RQ4H PRN PRN Reason: Shortness of Breath Artificial Tears (Artificial Tears 15 Ml Drops) 1 drop EYE-BOTH Q4H PRN PRN Reason: Dry Eyes Last Admin: 06/01/23 17:17 Dose: 1 drop Clonidine HCl (Clonidine Hcl 0.1 Mg Tablet) 0.1 mg PO Q4H PRN; Protocol PRN Reason: anxiety Last Admin: 06/01/23 10:09 Dose: 0.1 mg Divalproex Sodium (Divalproex Sodium Er 500 Mg Tab.Er.24h) 500 mg PO BEDTIME [facility] Last Admin: 06/01/23 20:55 Dose: 500 mg Hydroxyzine HCl (Hydroxyzine Hcl 25 Mg Tablet) 25 mg PO Q6H PRN PRN Reason: Anxiety Last Admin: 06/01/23 23:24 Dose: 25 mg Levothyroxine Sodium (Levothyroxine Sodium 25 Mcg Tablet) 25 mcg PO DAILY@0600 [facility] Last Admin: 06/02/23 06:47 Dose: 25 mcg Magnesium Hydroxide (Milk Of Magnesia 30 Ml Oral.Susp) 30 ml PO DAILY PRN PRN Reason: Constipation Metformin HCl (Metformin Hcl 500 Mg Tablet) 500 mg PO BIDWM [facility] Last Admin: 06/01/23 16:10 Dose: 500 mg Metronidazole (Metronidazole 500 Mg Tablet) 500 mg PO Q12H [facility] Last Admin: 06/01/23 20:55 Dose: 500 mg Omeprazole (Omeprazole 20 Mg Capsule.Dr) 20 mg PO DAILY@0630 [facility] Last Admin: 06/02/23 06:23 Dose: 20 mg Paliperidone Palmitate (Paliperidone Palmitate 156 Mg/Ml Syringe) 156 mg IM Q30D [facility] Quetiapine Fumarate (Quetiapine Fumarate 100 Mg Tablet) 100 mg PO BEDTIME MRX1 PRN PRN Reason: insomnia Last Admin: 06/01/23 23:24 Dose: 100 mg Trazodone HCl (Trazodone Hcl 50 Mg Tablet) 50 mg PO BEDTIME PRN PRN Reason: Insomnia Last Admin: 05/29/23 22:09 Dose: 50 mg Zinc Oxide (Zinc Oxide 20% Ointment 28.35 Gm Tube) 1 appl TOPICAL BID PRN; Protocol PRN Reason: Itching Allergies Allergies Allergy/AdvReac Type Severity Reaction Status Date / Time lisinopril [LISINOPRIL] Allergy Unknown UNKNOWN Unverified 06/17/20 14:51 Assessment & Plan Assessment & Plan (1) Schizoaffective disorder: Status: Acute Code(s): F25.9 - Schizoaffective disorder, unspecified (2) PTSD (post-traumatic stress disorder): Status: Acute Code(s): F43.10 - Post-traumatic stress disorder, unspecified (3) Bacterial vaginal infection: Status: Acute Code(s): N76.0 - Acute vaginitis; B96.89 - Other specified bacterial agents as the cause of diseases classified elsewhere Plan Patient is a 52-year-old female with schizoaffective disorder, PTSD long history of severe cocaine abuse, who presents for dysregulated behavior, paranoid delusions in the face of non medication adherence and crack cocaine -currently patient is disorganized in speech and behavior however she is cooperative and wanting hospitalization and medication treatment -Will seek collateral for information on medication history; patient reports she thinks more clearly on Invega Sustenna Hospital course: on admission, -Patient currently presents with hannah with psychotic symptoms including AH and paranoid delusions.? Will start patient on Invega Sustenna 234 mg today and restart Depakote 500 mg, further titrating during the admission.? Will also restart Seroquel but will make it a p.r.n. for insomnia in order to avoid over sedation given that she has not been on medications for a while.? Will hold off on restarting oxybutynin for now. 05/31 little improvement after getting Invega shot and being restarted on Depakote; speech a little more organized and goal oriented them before though can still make nonsensical remarks; still expressing some paranoid delusions but less so.? Clothing attire a little more organized.? Seroquel normally 100 mg daily and 150 q.h.s.; however patient slept without using Seroquel so will keep it as a p.r.n. for now to avoid polypharmacy; will restart if needed.? Also For now will keep Depakote at 500 mg;? patient normally on a 1000 mg q.h.s. however she did sleep last night and is a little more organized so will leave at lower dose for now and monitor 06/01 though a little bit improved since admission she is still disorganized and manic, labile and with psychotic symptoms. Will very likely increase Depakote as her home dose is a 1000 mg q.h.s., however she is due for lab work tomorrow so will 1st get that take guide treatment 06/01 less manic than on admission but still with paranoid delusions, AH and mood lability; initially refused Depakote level labs this morning but agrees to get them now; will hold off on increasing Depakote until results in Plan: CV Q 15 minute checks Received Invega Sustenna 234 mg IM on 05/30 Pending Invega Sustenna 156 mg IM on 06/04 Continue Depakote ER 500 mg q.h.s.; patient normally on a 1000 mg q.h.s. still manic and will increase pending labs -valproic acid level and associated lab work on 06/02 Continue metformin 500 mg b.i.d. Continue levothyroxine 25 mcg Seroquel 100 mg p.r.n. q.h.s. with a repeat for insomnia (normally 100 mg daily and 150 q.h.s) Hold oxybutynin for now (history of 5 mg t.i.d.); no c/o urinary incontinence On the unit, at this time, pt is not appropriate for psych groups due to disorganized speech and behavior Hospitalist: Bacterial vaginosis Patient tested positive for BV Will treat with metronidazole 500 mg p.o. b.i.d. 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 and 100 mg daily. Also prescribed is levothyroxine 25 mcg daily; omeprazole 20 mg daily; oxybutynin 5 mg t.i.d. for history of urinary incontinence, trazodone 150 mg q.h.s.; metformin 500 mg b.i.d.. -Reviewed discharge summary from [facility].? Patient was prescribed clonidine, Seroquel 150 mg q.h.s. and 100 mg daily and trazodone 100 mg q.h.s..? Patient not restarted on Depakote or Invega Sustenna Patient educated on: diagnosis and medication risk/benefits Informed Consent: understands, does not understand and further education needed Reason for continued inpatient stay Substantial Risk for: rapid decompensation Time Spent With Patient Time: Total time managing care of this patient today ____ minutes.
[2023-06-02 10:29] VITALS: BP 109/68; PULSE 92; RESP 16; TEMP 36.7; O2SAT 98
[2023-06-02] MEDS: metroNIDAZOLE 500 MG TABLET PO ×2 (10:45→22:32)
[2023-06-02] MEDS: metFORMIN HCl 500 MG TABLET PO ×2 (10:45→16:25)
[2023-06-02 15:25] LABS: Ammonia 34 umol/L (13-55)
[2023-06-02 15:34] LABS: Alanine Aminotransferase 12 U/L (0-31); Albumin Level 4.2 g/dL (3.5-5.0); Alkaline Phosphatase 85 U/L (39-117); Aspartate Amino Transferase 14 U/L (5-31); Bilirubin Direct < 0.2 mg/dL (0.0-0.5); Bilirubin Total 0.1 mg/dL (0.0-1.0); Total Protein 7.5 g/dL (6.5-8.0)
[2023-06-02 15:56] LABS: Valproate 25.9 mcg/mL (50.0-100.0)
[2023-06-02] MEDS: Acetaminophen 325 MG TABLET 650 MG PO (16:24)
[2023-06-02] MEDS: Divalproex Sodium ER 500 MG TAB.ER.24H 1000 MG PO (22:32)
[2023-06-03] MEDS: Omeprazole 20 MG CAPSULE.DR PO (06:31)
[2023-06-03] MEDS: Levothyroxine Sodium 25 MCG TABLET PO (06:31)
[2023-06-03 08:00] VITALS: BP 121/71; PULSE 78; RESP 18; TEMP 36.4; O2SAT 97
[2023-06-03] MEDS: metFORMIN HCl 500 MG TABLET PO ×2 (09:43→17:07)
[2023-06-03] MEDS: Acetaminophen 325 MG TABLET 650 MG PO ×2 (09:43→20:23)
[2023-06-03] MEDS: metroNIDAZOLE 500 MG TABLET PO ×2 (09:43→20:12)
--- NOTE | 2023-06-03 09:43 | P.PNPSI_ITS ---
Subjective Subjective Date of Service: 06/03/23 Reason For Visit: Psychosis Interim History: Met with Patient; discussed with team Patient seems little more disorganized today, labile, wearing too much makeup and not put on neatly. 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 You know I talk to mys elf all day.... I can help it... is anything you can give me that will stop that? Discussed medications and patient said that Seroquel has helped her in the past however past doses were overly sedating. She agreed to restart this at 50 mg doses during the day. Perseverates on discharge. Continues to bring up paranoid delusional things, saying she needs help From the electricity from the AC; talking about certain kind of gil... But does not tolerate reality testing, instead just changing the subject Mental Status Exam Mental Status Exam Narrative: Pt is alert and oriented; behavior is hypo-manic and still intermittently disorganized; often repeatedly asks same question; patient is friendly and cooperative; patient is not in distress; dressed in casual attire, disorganized makeup application; mood is described as anxious and affect congruent and labile; eye contact appropriate; Speech is normal rate, volume and prosody and not pressured; some psychomotor agitation present but less; thought process is more goal oriented and linear than on admission however still becomes tangential; Thought content on discharge, on treatment; all also on paranoid delusional thoughts; no SI; no HI. Positive for AH. Patients insight and judgment impaired but a little improved Diagnostics Vital Signs (24Hr): Vital Signs - 24 hr 06/02/23 10:29 Temperature 98.0 F Pulse Rate 92 Respiratory Rate 16 Blood Pressure 109/68 Pulse Oximetry 98 Oxygen Delivery Method Room Air BMI result Body Mass Index 27.4 Labs 05/30/23 08:18 Labs: Laboratory Results - last 48 hr 06/02/23 06/02/23 06/02/23 15:10 15:10 15:10 Total Bilirubin 0.1 Direct Bilirubin < 0.2 AST 14 ALT 12 Alkaline Phosphatase 85 Ammonia 34 Total Protein 7.5 Albumin 4.2 Valproic Acid 25.9 L Medications Medications Current Medications Acetaminophen (Acetaminophen 325 Mg Tablet) 650 mg PO Q6H PRN PRN Reason: Headache/Pain Mild Scale (1-3) Last Admin: 06/02/23 16:24 Dose: 650 mg Al Hydroxide/Mg Hydroxide (Magnesium Hydrox/Alum Hydrox 30 Ml Oral.Susp) 30 ml PO Q6H PRN PRN Reason: Heartburn/Nausea Last Admin: 05/31/23 10:13 Dose: 30 ml Albuterol Sulfate (Albuterol Sulfate 90 Mcg 8 Gm Inhaler) 2 puff INHALE RQ4H PRN PRN Reason: Shortness of Breath Artificial Tears (Artificial Tears 15 Ml Drops) 1 drop EYE-BOTH Q4H PRN PRN Reason: Dry Eyes Last Admin: 06/01/23 17:17 Dose: 1 drop Clonidine HCl (Clonidine Hcl 0.1 Mg Tablet) 0.1 mg PO Q4H PRN; Protocol PRN Reason: anxiety Last Admin: 06/01/23 10:09 Dose: 0.1 mg Divalproex Sodium (Divalproex Sodium Er 500 Mg Tab.Er.24h) 1,000 mg PO BEDTIME [facility] Last Admin: 06/02/23 22:32 Dose: 1,000 mg Hydroxyzine HCl (Hydroxyzine Hcl 25 Mg Tablet) 25 mg PO Q6H PRN PRN Reason: Anxiety Last Admin: 06/01/23 23:24 Dose: 25 mg Levothyroxine Sodium (Levothyroxine Sodium 25 Mcg Tablet) 25 mcg PO DAILY@0600 [facility] Last Admin: 06/03/23 06:31 Dose: 25 mcg Magnesium Hydroxide (Milk Of Magnesia 30 Ml Oral.Susp) 30 ml PO DAILY PRN PRN Reason: Constipation Metformin HCl (Metformin Hcl 500 Mg Tablet) 500 mg PO BIDWM [facility] Last Admin: 06/02/23 16:25 Dose: 500 mg Metronidazole (Metronidazole 500 Mg Tablet) 500 mg PO Q12H [facility] Last Admin: 06/02/23 22:32 Dose: 500 mg Nicotine (Nicotine 21 Mg Patch.Td24) 21 mg TRANSDERMA DAILY [facility] Omeprazole (Omeprazole 20 Mg Capsule.Dr) 20 mg PO DAILY@0630 [facility] Last Admin: 06/03/23 06:31 Dose: 20 mg Paliperidone Palmitate (Paliperidone Palmitate 156 Mg/Ml Syringe) 156 mg IM Q30D [facility] Quetiapine Fumarate (Quetiapine Fumarate 100 Mg Tablet) 100 mg PO BEDTIME MRX1 PRN PRN Reason: insomnia Last Admin: 06/01/23 23:24 Dose: 100 mg Trazodone HCl (Trazodone Hcl 50 Mg Tablet) 50 mg PO BEDTIME PRN PRN Reason: Insomnia Last Admin: 05/29/23 22:09 Dose: 50 mg Zinc Oxide (Zinc Oxide 20% Ointment 28.35 Gm Tube) 1 appl TOPICAL BID PRN; Protocol PRN Reason: Itching Allergies Allergies Allergy/AdvReac Type Severity Reaction Status Date / Time lisinopril [LISINOPRIL] Allergy Unknown UNKNOWN Unverified 06/17/20 14:51 Assessment & Plan Assessment & Plan (1) Schizoaffective disorder: Status: Acute Code(s): F25.9 - Schizoaffective disorder, unspecified (2) PTSD (post-traumatic stress disorder): Status: Acute Code(s): F43.10 - Post-traumatic stress disorder, unspecified (3) Bacterial vaginal infection: Status: Acute Code(s): N76.0 - Acute vaginitis; B96.89 - Other specified bacterial agents as the cause of diseases classified elsewhere Plan Patient is a 52-year-old female with schizoaffective disorder, PTSD long history of severe cocaine abuse, who presents for dysregulated behavior, paranoid delusions in the face of non medication adherence and crack cocaine -currently patient is disorganized in speech and behavior however she is cooperative and wanting hospitalization and medication treatment -Will seek collateral for information on medication history; patient reports she thinks more clearly on Invega Sustenna Hospital course: on admission, -Patient currently presents with hannah with psychotic symptoms including AH and paranoid delusions.? Will start patient on Invega Sustenna 234 mg today and restart Depakote 500 mg, further titrating during the admission.? Will also restart Seroquel but will make it a p.r.n. for insomnia in order to avoid over sedation given that she has not been on medications for a while.? Will hold off on restarting oxybutynin for now. 05/31 little improvement after getting Invega shot and being restarted on Depakote; speech a little more organized and goal oriented them before though can still make nonsensical remarks; still expressing some paranoid delusions but less so.? Clothing attire a little more organized.? Seroquel normally 100 mg daily and 150 q.h.s.; however patient slept without using Seroquel so will keep it as a p.r.n. for now to avoid polypharmacy; will restart if needed.? Also For now will keep Depakote at 500 mg;? patient normally on a 1000 mg q.h.s. however she did sleep last night and is a little more organized so will leave at lower dose for now and monitor 06/01 though a little bit improved since admission she is still disorganized and manic, labile and with psychotic symptoms. Will very likely increase Depakote as her home dose is a 1000 mg q.h.s., however she is due for lab work tomorrow so will 1st get that take guide treatment 06/01 less manic than on admission but still with paranoid delusions, AH and mood lability; initially refused Depakote level labs this morning but agrees to get them now; will hold off on increasing Depakote until results in 06/03 increase Depakote to 1000 mg last night since subtherapeutic at 500 and associated labs WNL; patient will soon be due for next installment of Invega Sustenna. Patient asked to have Seroquel started during the daytime as well for psychotic confusion and AH Plan: CV Q 15 minute checks Received Invega Sustenna 234 mg IM on 05/30 Pending Invega Sustenna 156 mg IM on 06/04 Start Seroquel 50 mg t.i.d. Increased to Depakote ER 1000 mg q.h.s.; patient normally on a 1000 mg q.h.s. still manic and will increase pending labs -valproic acid level and associated lab work on 06/02 Continue metformin 500 mg b.i.d. Continue levothyroxine 25 mcg Seroquel 100 mg p.r.n. q.h.s. with a repeat for insomnia (normally 100 mg daily and 150 q.h.s) Hold oxybutynin for now (history of 5 mg t.i.d.); no c/o urinary incontinence On the unit, at this time, pt is not appropriate for psych groups due to d isorganized speech and behavior Hospitalist: Bacterial vaginosis Patient tested positive for BV Will treat with metronidazole 500 mg p.o. b.i.d. 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 and 100 mg daily. Also prescribed is levothyroxine 25 mcg daily; omeprazole 20 mg daily; oxybutynin 5 mg t.i.d. for history of urinary incontinence, trazodone 150 mg q.h.s.; metformin 500 mg b.i.d.. -Reviewed discharge summary from [facility].? Patient was prescribed clonidine, Seroquel 150 mg q.h.s. and 100 mg daily and trazodone 100 mg q.h.s..? Patient not restarted on Depakote or Invega Sustenna Patient educated on: diagnosis, medication risk/benefits and substance abuse Informed Consent: understands, does not understand and further education needed Reason for continued inpatient stay Substantial Risk for: rapid decompensation Time Spent With Patient Time: Total time managing care of this patient today ____ minutes.
[2023-06-03] MEDS: Nicotine 21 MG PATCH.TD24 TRANSDERMA (09:56)
[2023-06-03] MEDS: cloNIDine HCL 0.1 MG TABLET PO (09:56)
[2023-06-03 12:06] LABS: Glucose, Whole Blood 98 mg/dL (60-115)
--- NOTE | 2023-06-03 12:21 | PC.NURSE ---
Nurse missed POC this morning, took before lunch, was 98.
[2023-06-03] MEDS: QUEtiapine Fumarate 50 MG TABLET PO ×3 (14:09→20:13)
[2023-06-03 19:35] VITALS: BP 121/78; PULSE 81; RESP 18; TEMP 36.6; O2SAT 97
[2023-06-03] MEDS: Divalproex Sodium ER 500 MG TAB.ER.24H 1000 MG PO (20:12)
[2023-06-04] MEDS: Levothyroxine Sodium 25 MCG TABLET PO (06:13)
[2023-06-04] MEDS: Omeprazole 20 MG CAPSULE.DR PO (06:13)
[2023-06-04] MEDS: QUEtiapine Fumarate 50 MG TABLET PO ×2 (08:29→13:13)
[2023-06-04] MEDS: Artificial Tears 15 ML DROPS 1 DROP EYE-BOTH (08:29)
[2023-06-04] MEDS: Nicotine 21 MG PATCH.TD24 TRANSDERMA (08:29)
[2023-06-04] MEDS: metFORMIN HCl 500 MG TABLET PO ×2 (08:30→17:25)
[2023-06-04] MEDS: metroNIDAZOLE 500 MG TABLET PO ×2 (08:30→21:09)
--- NOTE | 2023-06-04 10:26 | HO.PSYCHPN ---
Subjective Subjective Date of Service: 06/04/23 Reason For Visit: Psychosis Interim History: Met with Patient; discussed with team Patient says she is feeling better. She says today is the 1st day she has very little auditory hallucinations which she is pleased to share. Also she says she is not worried about the air conditioning. Patient said she thinks she will be ready to go later this week. Patient asks if clonidine could be scheduled since she feels it helps her anxiety to which scientific writer agrees Mental Status Exam Mental Status Exam Narrative: Pt is alert and oriented; behavior is more calm, friendly, cooperative; however can still be intermittently disorganized; patient is not in distress; dressed in casual attire, disorganized makeup application; mood is described as feel better and affect congruent, little more calm and less frequently labile;; eye contact appropriate; Speech is normal rate, volume and prosody and not pressured; no psychomotor agitation present; thought process is more goal oriented and linear , though can still wander off and become tangential; Thought content on discharge, on treatment; denies paranoid delusional thoughts; no SI; no HI. Says AH Viveros almost all gone. Patients insight and judgment impaired improved and likely approaching baseline. Diagnostics Vital Signs (24Hr): Vital Signs - 24 hr 06/03/23 19:35 Temperature 97.9 F Pulse Rate 81 Respiratory Rate 18 Blood Pressure 121/78 Pulse Oximetry 97 Oxygen Delivery Method Room Air BMI result Body Mass Index 27.4 Labs 05/30/23 08:18 Labs: Laboratory Results - last 48 hr 06/02/23 06/02/23 06/02/23 15:10 15:10 15:10 POC Glucose Total Bilirubin 0.1 Direct Bilirubin < 0.2 AST 14 ALT 12 Alkaline Phosphatase 85 Ammonia 34 Total Protein 7.5 Albumin 4.2 Valproic Acid 25.9 L 06/03/23 12:02 POC Glucose 98 Total Bilirubin Direct Bilirubin AST ALT Alkaline Phosphatase Ammonia Total Protein Albumin Valproic Acid Medications Medications Current Medications Acetaminophen (Acetaminophen 325 Mg Tablet) 650 mg PO Q6H PRN PRN Reason: Headache/Pain Mild Scale (1-3) Last Admin: 06/03/23 20:23 Dose: 650 mg Al Hydroxide/Mg Hydroxide (Magnesium Hydrox/Alum Hydrox 30 Ml Oral.Susp) 30 ml PO Q6H PRN PRN Reason: Heartburn/Nausea Last Admin: 05/31/23 10:13 Dose: 30 ml Albuterol Sulfate (Albuterol Sulfate 90 Mcg 8 Gm Inhaler) 2 puff INHALE RQ4H PRN PRN Reason: Shortness of Breath Artificial Tears (Artificial Tears 15 Ml Drops) 1 drop EYE-BOTH Q4H PRN PRN Reason: Dry Eyes Last Admin: 06/04/23 08:29 Dose: 1 drop Clonidine HCl (Clonidine Hcl 0.1 Mg Tablet) 0.1 mg PO Q4H PRN; Protocol PRN Reason: anxiety Last Admin: 06/03/23 09:56 Dose: 0.1 mg Divalproex Sodium (Divalproex Sodium Er 500 Mg Tab.Er.24h) 1,000 mg PO BEDTIME [facility] Last Admin: 06/03/23 20:12 Dose: 1,000 mg Hydroxyzine HCl (Hydroxyzine Hcl 25 Mg Tablet) 25 mg PO Q6H PRN PRN Reason: Anxiety Last Admin: 06/01/23 23:24 Dose: 25 mg Levothyroxine Sodium (Levothyroxine Sodium 25 Mcg Tablet) 25 mcg PO DAILY@0600 [facility] Last Admin: 06/04/23 06:13 Dose: 25 mcg Magnesium Hydroxide (Milk Of Magnesia 30 Ml Oral.Susp) 30 ml PO DAILY PRN PRN Reason: Constipation Metformin HCl (Metformin Hcl 500 Mg Tablet) 500 mg PO BIDWM [facility] Last Admin: 06/04/23 08:30 Dose: 500 mg Metronidazole (Metronidazole 500 Mg Tablet) 500 mg PO Q12H [facility] Last Admin: 06/04/23 08:30 Dose: 500 mg Nicotine (Nicotine 21 Mg Patch.Td24) 21 mg TRANSDERMA DAILY [facility] Last Admin: 06/04/23 08:29 Dose: 21 mg Omeprazole (Omeprazole 20 Mg Capsule.Dr) 20 mg PO DAILY@0630 [facility] Last Admin: 06/04/23 06:13 Dose: 20 mg Paliperidone Palmitate (Paliperidone Palmitate 156 Mg/Ml Syringe) 156 mg IM Q30D [facility] Quetiapine Fumarate (Quetiapine Fumarate 100 Mg Tablet) 100 mg PO BEDTIME MRX1 PRN PRN Reason: insomnia Last Admin: 06/01/23 23:24 Dose: 100 mg Quetiapine Fumarate (Quetiapine Fumarate 50 Mg Tablet) 50 mg PO BID@0900,1400 [facility] Last Admin: 06/04/23 08:29 Dose: 50 mg Quetiapine Fumarate (Quetiapine Fumarate 50 Mg Tablet) 50 mg PO TID JOSHUA Last Admin: 06/03/23 20:13 Dose: 50 mg Trazodone HCl (Trazodone Hcl 50 Mg Tablet) 50 mg PO BEDTIME PRN PRN Reason: Insomnia Last Admin: 05/29/23 22:09 Dose: 50 mg Zinc Oxide (Zinc Oxide 20% Ointment 28.35 Gm Tube) 1 appl TOPICAL BID PRN; Protocol PRN Reason: Itching Allergies Allergies Allergy/AdvReac Type Severity Reaction Status Date / Time lisinopril [LISINOPRIL] Allergy Unknown UNKNOWN Unverified 06/17/20 14:51 Assessment & Plan Assessment & Plan (1) Schizoaffective disorder: Status: Acute Code(s): F25.9 - Schizoaffective disorder, unspecified (2) PTSD (post-traumatic stress disorder): Status: Acute Code(s): F43.10 - Post-traumatic stress disorder, unspecified (3) Bacterial vaginal infection: Status: Acute Code(s): N76.0 - Acute vaginitis; B96.89 - Other specified bacterial agents as the cause of diseases classified elsewhere Plan Patient is a 52-year-old female with schizoaffective disorder, PTSD long history of severe cocaine abuse, who presents for dysregulated behavior, paranoid delusions in the face of non medication adherence and crack cocaine -currently patient is disorganized in speech and behavior however she is cooperative and wanting hospitalization and medication treatment -Will seek collateral for information on medication history; patient reports she thinks more clearly on Invega Sustenna Hospital course: on admission, -Patient currently presents with hannah with psychotic symptoms including AH and paranoid delusions.? Will start patient on Invega Sustenna 234 mg today and restart Depakote 500 mg, further titrating during the admission.? Will also restart Seroquel but will make it a p.r.n. for insomnia in order to avoid over sedation given that she has not been on medications for a while.? Will hold off on restarting oxybutynin for now. 05/31 little improvement after getting Invega shot and being restarted on Depakote; speech a little more organized and goal oriented them before though can still make nonsensical remarks; still expressing some paranoid delusions but less so.? Clothing attire a little more organized.? Seroquel normally 100 mg daily and 150 q.h.s.; however patient slept without using Seroquel so will keep it as a p.r.n. for now to avoid polypharmacy; will restart if needed.? Also For now will keep Depakote at 500 mg;? patient normally on a 1000 mg q.h.s. however she did sleep last night and is a little more organized so will leave at lower dose for now and monitor 06/01 though a little bit improved since admission she is still disorganized and manic, labile and with psychotic symptoms. Will very likely increase Depakote as her home dose is a 1000 mg q.h.s., however she is due for lab work tomorrow so will 1st get that take guide treatment 06/01 less manic than on admission but still with paranoid delusions, AH and mood lability; initially refused Depakote level labs this morning but agrees to get them now; will hold off on increasing Depakote until results in 06/03 increase Depakote to 1000 mg last night since subtherapeutic at 500 and associated labs WNL; patient will soon be due for next installment of Invega Sustenna. Patient asked to have Seroquel started during the daytime as well for psychotic confusion and AH 06/04 patient says she is feeling better today; says today's 1st day without auditory hallucinations which she says are overall much less; also says she has not worried about the air conditioning at all. Patient asking about discharge for sometime next week. Asks for clonidine to be scheduled Plan: CV Q 15 minute checks Schedule clonidine 0.1 mg t.i.d. for anxiety Received Invega Sustenna 234 mg IM on 05/30 Received Invega Sustenna 156 mg IM on 06/04 Continue Seroquel 50 mg t.i.d. Continue Depakote ER 1000 mg q.h.s.; patient normally on a 1000 mg q.h.s. -valproic acid level and associated lab work 06/05 Continue metformin 500 mg b.i.d. Continue levothyroxine 25 mcg Seroquel 100 mg p.r.n. q.h.s. with a repeat for insomnia (normally 100 mg daily and 150 q.h.s) Hold oxybutynin for now (history of 5 mg t.i.d.); no c/o urinary incontinence On the unit, at this time, pt is not appropriate for psych groups due to disorganized speech and behavior Hospitalist: Bacterial vaginosis Patient tested positive for BV Will treat with metronidazole 500 mg p.o. b.i.d. x7 days, started 05/31/2023 discomfort Patient complaining that her scar has become ?unstitched ; complains of area being pruritic and damp No sign of dehiscence or subcutaneous abscess No erythema, sign of infection Zinc oxide cream prn for itch/rash Patient has been counseled to towel area off after shower and to keep dry -Reviewed labs from [facility] ED: CBC, lytes, BUN/creatinine, LFTs are WNL; COVID negative; UDS positive for cocaine -Geography Professor reviewed notes provided by [facility], including [facility] signed order by patient's outpatient provider, LUCIEN Arzate, dated 05/04/23 indicating that patient takes Invega Sustenna 234 mg Q 28 days; Depakote 1000 mg q.h.s.; Seroquel 200 mg q.h.s. and 100 mg daily. Also prescribed is levothyroxine 25 mcg daily; omeprazole 20 mg daily; oxybutynin 5 mg t.i.d. for history of urinary incontinence, trazodone 150 mg q.h.s.; metformin 500 mg b.i.d.. -Reviewed discharge summary from [facility].? Patient was prescribed clonidine, Seroquel 150 mg q.h.s. and 100 mg daily and trazodone 100 mg q.h.s..? Patient not restarted on Depakote or Invega Sustenna Patient educated on: diagnosis and medication risk/benefits Informed Consent: understands and further education needed Reason for continued inpatient stay Substantial Risk for: rapid decompensation Time Spent With Patient Time: Total time managing care of this patient today ____ minutes.
[2023-06-04] MEDS: cloNIDine HCL 0.1 MG TABLET PO ×3 (13:12→21:11)
[2023-06-04] MEDS: Paliperidone Palmitate 156 MG/ML SYRINGE IM (15:33)
[2023-06-04 17:03] LABS: Glucose, Whole Blood 115 mg/dL (60-115)
[2023-06-04 18:00] VITALS: BP 125/76; PULSE 88; RESP 18; TEMP 36.6; O2SAT 98
[2023-06-04] MEDS: Divalproex Sodium ER 500 MG TAB.ER.24H 1000 MG PO (21:09)
[2023-06-05] MEDS: QUEtiapine Fumarate 100 MG TABLET PO ×2 (01:58→19:54)
[2023-06-05] MEDS: Levothyroxine Sodium 25 MCG TABLET PO (06:05)
[2023-06-05] MEDS: Omeprazole 20 MG CAPSULE.DR PO (06:05)
[2023-06-05 09:30] VITALS: RESP 18
[2023-06-05] MEDS: QUEtiapine Fumarate 50 MG TABLET PO ×2 (10:29→14:26)
[2023-06-05] MEDS: metroNIDAZOLE 500 MG TABLET PO ×2 (10:29→19:51)
[2023-06-05] MEDS: metFORMIN HCl 500 MG TABLET PO (10:30)
[2023-06-05] MEDS: Nicotine 21 MG PATCH.TD24 TRANSDERMA (10:30)
[2023-06-05 10:35] VITALS: BP 100/50; PULSE 67; RESP 20; TEMP 36.2; O2SAT 98
--- NOTE | 2023-06-05 11:02 | P.PNPSI_ITS ---
Subjective Subjective Date of Service: 06/05/23 Reason For Visit: Psychosis Interim History: Met with patient; discussed with team Patient is overall more clear and organized than on admission however she continues to intermittently be bothered by delusional thinking and remains intermittently tangential. Patient did start crying today while talking with conventional mortgage underwriter however she was able to isolate the reason, thinking about how she will miss her friends at the [facility] since the plan is her for her to eventually move. She says I like crying.. It takes the stress out. Patient says that she feels at her regular self and she is looking forward to discharging this week. Depakote bottom limit of therapeutic; ammonia is upper limit of normal. Mental Status Exam Mental Status Exam Narrative: Pt is alert and oriented; behavior is more calm, friendly, cooperative; mostly organized though can still be intermittently disorganized; patient is not in distress; dressed in casual attire, reasonable enough makeup application; mood is described as good and affect congruent, more calm and less frequently labile;; eye contact appropriate; Speech is normal rate, volume and prosody and not pressured; no psychomotor agitation present; thought process is more goal oriented and linear , though can still wander off and become tangential; Thought content on discharge, on treatment; intermittent paranoid delusional thoughts; no SI; no HI. Intermittent AH though less intense and not as bothersome. Patients insight and judgment impaired but improved and likely approaching baseline. Diagnostics Vital Signs (24Hr): Vital Signs - 24 hr 06/04/23 18:00 06/05/23 09:30 06/05/23 10:35 Temperature 97.9 F 97.1 F Pulse Rate 88 67 Respiratory Rate 18 18 20 Blood Pressure 125/76 100/50 L Pulse Oximetry 98 98 Oxygen Delivery Method Room Air Room Air BMI result Body Mass Index 27.4 Labs 05/30/23 08:18 Labs: Laboratory Results - last 48 hr 06/03/23 06/04/23 12:02 16:58 POC Glucose 98 115 Medications Medications Current Medications Acetaminophen (Acetaminophen 325 Mg Tablet) 650 mg PO Q6H PRN PRN Reason: Headache/Pain Mild Scale (1-3) Last Admin: 06/03/23 20:23 Dose: 650 mg Al Hydroxide/Mg Hydroxide (Magnesium Hydrox/Alum Hydrox 30 Ml Oral.Susp) 30 ml PO Q6H PRN PRN Reason: Heartburn/Nausea Last Admin: 05/31/23 10:13 Dose: 30 ml Albuterol Sulfate (Albuterol Sulfate 90 Mcg 8 Gm Inhaler) 2 puff INHALE RQ4H PRN PRN Reason: Shortness of Breath Artificial Tears (Artificial Tears 15 Ml Drops) 1 drop EYE-BOTH Q4H PRN PRN Reason: Dry Eyes Last Admin: 06/04/23 08:29 Dose: 1 drop Clonidine HCl (Clonidine Hcl 0.1 Mg Tablet) 0.1 mg PO Q4H PRN; Protocol PRN Reason: anxiety Last Admin: 06/04/23 21:11 Dose: 0.1 mg Clonidine HCl (Clonidine Hcl 0.1 Mg Tablet) 0.1 mg PO TID [facility]; Protocol Last Admin: 06/05/23 10:31 Dose: Not Given Divalproex Sodium (Divalproex Sodium Er 500 Mg Tab.Er.24h) 1,000 mg PO BEDTIME [facility] Last Admin: 06/04/23 21:09 Dose: 1,000 mg Hydroxyzine HCl (Hydroxyzine Hcl 25 Mg Tablet) 25 mg PO Q6H PRN PRN Reason: Anxiety Last Admin: 06/01/23 23:24 Dose: 25 mg Levothyroxine Sodium (Levothyroxine Sodium 25 Mcg Tablet) 25 mcg PO DAILY@0600 [facility] Last Admin: 06/05/23 06:05 Dose: 25 mcg Magnesium Hydroxide (Milk Of Magnesia 30 Ml Oral.Susp) 30 ml PO DAILY PRN PRN Reason: Constipation Metformin HCl (Metformin Hcl 500 Mg Tablet) 500 mg PO BIDWM [facility] Last Admin: 06/05/23 10:30 Dose: 500 mg Metronidazole (Metronidazole 500 Mg Tablet) 500 mg PO Q12H [facility] Last Admin: 06/05/23 10:29 Dose: 500 mg Nicotine (Nicotine 21 Mg Patch.Td24) 21 mg TRANSDERMA DAILY [facility] Last Admin: 06/05/23 10:30 Dose: 21 mg Omeprazole (Omeprazole 20 Mg Capsule.Dr) 20 mg PO DAILY@0630 [facility] Last Admin: 06/05/23 06:05 Dose: 20 mg Paliperidone Palmitate (Paliperidone Palmitate 156 Mg/Ml Syringe) 156 mg IM Q30D [facility] Last Admin: 06/04/23 15:33 Dose: 156 mg Quetiapine Fumarate (Quetiapine Fumarate 100 Mg Tablet) 100 mg PO BEDTIME MRX1 PRN PRN Reason: insomnia Last Admin: 06/05/23 01:58 Dose: 100 mg Quetiapine Fumarate (Quetiapine Fumarate 50 Mg Tablet) 50 mg PO BID@0900,1400 [facility] Last Admin: 06/05/23 10:29 Dose: 50 mg Trazodone HCl (Trazodone Hcl 50 Mg Tablet) 50 mg PO BEDTIME PRN PRN Reason: Insomnia Last Admin: 05/29/23 22:09 Dose: 50 mg Zinc Oxide (Zinc Oxide 20% Ointment 28.35 Gm Tube) 1 appl TOPICAL BID PRN; Protocol PRN Reason: Itching Allergies Allergies Allergy/AdvReac Type Severity Reaction Status Date / Time lisinopril [LISINOPRIL] Allergy Unknown UNKNOWN Unverified 06/17/20 14:51 Assessment & Plan Assessment & Plan (1) Schizoaffective disorder: Status: Acute Code(s): F25.9 - Schizoaffective disorder, unspecified (2) PTSD (post-traumatic stress disorder): Status: Acute Code(s): F43.10 - Post-traumatic stress disorder, unspecified (3) Bacterial vaginal infection: Status: Acute Code(s): N76.0 - Acute vaginitis; B96.89 - Other specified bacterial agents as the cause of diseases classified elsewhere Plan Patient is a 52-year-old female with schizoaffective disorder, PTSD long history of severe cocaine abuse, who presents for dysregulated behavior, paranoid delusions in the face of non medication adherence and crack cocaine -currently patient is disorganized in speech and behavior however she is cooperative and wanting hospitalization and medication treatment -Will seek collateral for information on medication history; patient reports she thinks more clearly on Invega Sustenna Hospital course: on admission, -Patient currently presents with hannah with psychotic symptoms including AH and paranoid delusions.? Will start patient on Invega Sustenna 234 mg today and restart Depakote 500 mg, further titrating during the admission.? Will also restart Seroquel but will make it a p.r.n. for insomnia in order to avoid over sedation given that she has not been on medications for a while.? Will hold off on restarting oxybutynin for now. 05/31 little improvement after getting Invega shot and being restarted on Depakote; speech a little more organized and goal oriented them before though can still make nonsensical remarks; still expressing some paranoid delusions but less so.? Clothing attire a little more organized.? Seroquel normally 100 mg daily and 150 q.h.s.; however patient slept without using Seroquel so will keep it as a p.r.n. for now to avoid polypharmacy; will restart if needed.? Also For now will keep Depakote at 500 mg;? patient normally on a 1000 mg q.h.s. however she did sleep last night and is a little more organized so will leave at lower dose for now and monitor 06/01 though a little bit improved since admission she is still disorganized and manic, labile and with psychotic symptoms. Will very likely increase Depakote as her home dose is a 1000 mg q.h.s., however she is due for lab work tomorrow so will 1st get that take guide treatment 06/01 less manic than on admission but still with paranoid delusions, AH and mood lability; initially refused Depakote level labs this morning but agrees to get them now; will hold off on increasing Depakote until results in 06/03 increase Depakote to 1000 mg last night since subtherapeutic at 500 and associated labs WNL; patient will soon be due for next installment of Invega Sustenna. Patient asked to have Seroquel started during the daytime as well for psychotic confusion and AH 06/04 patient says she is feeling better today; says today's 1st day without auditory hallucinations which she says are overall much less; also says she has not worried about the air conditioning at all. Patient asking about discharge for sometime next week. Asks for clonidine to be scheduled 06/04 Patient is overall more clear and organized than on admission however she continues to intermittently be bothered by delusional thinking and remains intermittently tangential, talking about off topic points of interest. Patient did start crying today while talking with conventional mortgage underwriter however she was able to isolate the reason, thinking about how she will miss her friends at the [facility] since the plan is her for her to eventually move. She says I like crying.. It takes the stress out. Patient says that she feels at her regular self and she is looking forward to discharging this week. Despite that intermittent disorganization/psychotic symptoms, patient has been overall appropriate with peers and staff and though asks the same questions over and over, has overall been in appropriate behavioral and impulse control. Seems likely patient is at baseline Regarding medication, Depakote bottom limit of therapeutic; however ammonia is the very upper limit of normal (and a little bit beyond) leaving no room for increase. Plan: CV Q 15 minute checks Schedule clonidine 0.1 mg t.i.d. for anxiety Received Invega Sustenna 234 mg IM on 05/30 Received Invega Sustenna 156 mg IM on 06/04 Continue Seroquel 50 mg t.i.d. Continue Depakote ER 1000 mg q.h.s.; -valproic acid level bottom limit of therapeutic; however ammonia is the very upper limit of normal (and a little bit beyond) leaving no room for increase. Continue metformin 500 mg b.i.d. Continue levothyroxine 25 mcg Seroquel 100 mg p.r.n. q.h.s. with a repeat for insomnia (normally 100 mg daily and 150 q.h.s) Hold oxybutynin for now (history of 5 mg t.i.d.); no c/o urinary incontinence On the unit, at this time, pt is not appropriate for psych groups due to disorganized speech and behavior Hospitalist: Bacterial vaginosis Patient tested positive for BV Will treat with metronidazole 500 mg p.o. b.i.d. x7 days, started 05/31/2023 discomfort Patient complaining that her scar has become ?unstitched ; complains of area being pruritic and damp No sign of dehiscence or subcutaneous abscess No erythema, sign of infection Zinc oxide cream prn for itch/rash Patient has been counseled to towel area off after shower and to keep dry -Reviewed labs from [facility] ED: CBC, lytes, BUN/creatinine, LFTs are WNL; COVID negative; UDS positive for cocaine -Coil Connector reviewed notes provided by [facility], including [facility] signed order by patient's outpatient provider, LUCIEN Arzate, dated 05/04/23 indicating that patient takes Invega Sustenna 234 mg Q 28 days; Depakote 1000 mg q.h.s.; Seroquel 200 mg q.h.s. and 100 mg daily. Also prescribed is levothyroxine 25 mcg daily; omeprazole 20 mg daily; oxybutynin 5 mg t.i.d. for history of urinary incontinence, trazodone 150 mg q.h.s.; metformin 500 mg b.i.d.. -Reviewed discharge summary from [facility].? Patient was prescribed clonidine, Seroquel 150 mg q.h.s. and 100 mg daily and trazodone 100 mg q.h.s..? Patient not restarted on Depakote or Invega Sustenna Patient educated on: diagnosis and medication risk/benefits Informed Consent: understands and further education needed Reason for continued inpatient stay Substantial Risk for: stable for discharge Time Spent With Patient Time: Total time managing care of this patient today ____ minutes.
[2023-06-05 11:09] LABS: Ammonia 57 umol/L (13-55)
[2023-06-05 11:12] LABS: Valproate 50.5 mcg/mL (50.0-100.0)
[2023-06-05 11:15] LABS: Alanine Aminotransferase 16 U/L (0-31); Alkaline Phosphatase 76 U/L (39-117); Aspartate Amino Transferase 14 U/L (5-31); Bilirubin Direct < 0.2 mg/dL (0.0-0.5); Bilirubin Total 0.2 mg/dL (0.0-1.0); Total Protein 7.1 g/dL (6.5-8.0)
[2023-06-05] MEDS: cloNIDine HCL 0.1 MG TABLET PO ×2 (14:26→19:50)
[2023-06-05] MEDS: Acetaminophen 325 MG TABLET 650 MG PO (14:26)
[2023-06-05 14:28] VITALS: BP 109/75
--- NOTE | 2023-06-05 17:14 | PC.NURSE ---
Pt refused Metformin 500 mg po at 1700 and stated I'm not diabectic. So I'm sorry I'm not taking that.
[2023-06-05 19:50] VITALS: BP 105/63; PULSE 88; TEMP 35.9; O2SAT 98
[2023-06-05] MEDS: Divalproex Sodium ER 500 MG TAB.ER.24H 1000 MG PO (19:51)
[2023-06-06] MEDS: Omeprazole 20 MG CAPSULE.DR PO (06:26)
[2023-06-06] MEDS: Levothyroxine Sodium 25 MCG TABLET PO (06:27)
[2023-06-06 08:33] LABS: Glucose, Whole Blood 114 mg/dL (60-115)
[2023-06-06] MEDS: QUEtiapine Fumarate 50 MG TABLET PO ×2 (08:48→14:01)
[2023-06-06] MEDS: cloNIDine HCL 0.1 MG TABLET PO ×4 (08:48→22:29)
[2023-06-06] MEDS: metroNIDAZOLE 500 MG TABLET PO ×2 (08:48→22:29)
[2023-06-06] MEDS: Nicotine 21 MG PATCH.TD24 TRANSDERMA (08:48)
[2023-06-06 08:53] VITALS: BP 114/67; PULSE 82; RESP 18; TEMP 36.3; O2SAT 98
[2023-06-06] MEDS: metFORMIN HCl 500 MG TABLET PO ×2 (09:06→16:19)
--- NOTE | 2023-06-06 09:54 | P.PNPSI_ITS ---
Subjective Subjective Date of Service: 06/06/23 Reason For Visit: Psychosis Interim History: Met with patient; discussed with team Patient reports she is doing better. Says she feels ready for discharge. Denies any auditory hallucinations. Intermittently making bizarre comments but staff in or say this is baseline. Sleeping and eating well. Mental Status Exam Mental Status Exam Narrative: Pt is alert and oriented; behavior is cooperative, friendly and calm; patient is not in distress; dressed in casual attire with unkempt hair but adequate hygiene; mood is described as good and affect congruent; eye contact appropriate; Speech is normal rate, volume and prosody and not pressured; no psychomotor agitation/retardation present; thought process is organized and goal directed; Thought content is on tx; otherwise pertinent to relevant topics and without any delusional content, paranoid ideations or grandiosity; denies any SI/HI. There is no evidence of perceptual disturbance. Patients insight and judgment appear intact. Diagnostics Vital Signs (24Hr): Vital Signs - 24 hr 06/05/23 10:35 06/05/23 14:28 06/05/23 19:50 Temperature 97.1 F 96.6 F L Pulse Rate 67 88 Respiratory Rate 20 Blood Pressure 100/50 L 109/75 105/63 Pulse Oximetry 98 98 Oxygen Delivery Method Room Air Room Air 06/06/23 08:53 Temperature 97.4 F Pulse Rate 82 Respiratory Rate 18 Blood Pressure 114/67 Pulse Oximetry 98 Oxygen Delivery Method Room Air BMI result Body Mass Index 27.4 Labs 05/30/23 08:18 Labs: Laboratory Results - last 48 hr 06/04/23 06/05/23 06/05/23 16:58 10:50 10:50 POC Glucose 115 Total Bilirubin 0.2 Direct Bilirubin < 0.2 AST 14 ALT 16 Alkaline Phosphatase 76 Ammonia 57 H Total Protein 7.1 Albumin 4.0 Valproic Acid 06/05/23 06/06/23 10:51 08:29 POC Glucose 114 Total Bilirubin Direct Bilirubin AST ALT Alkaline Phosphatase Ammonia Total Protein Albumin Valproic Acid 50.5 Medications Medications Current Medications Acetaminophen (Acetaminophen 325 Mg Tablet) 650 mg PO Q6H PRN PRN Reason: Headache/Pain Mild Scale (1-3) Last Admin: 06/05/23 14:26 Dose: 650 mg Al Hydroxide/Mg Hydroxide (Magnesium Hydrox/Alum Hydrox 30 Ml Oral.Susp) 30 ml PO Q6H PRN PRN Reason: Heartburn/Nausea Last Admin: 05/31/23 10:13 Dose: 30 ml Albuterol Sulfate (Albuterol Sulfate 90 Mcg 8 Gm Inhaler) 2 puff INHALE RQ4H PRN PRN Reason: Shortness of Breath Artificial Tears (Artificial Tears 15 Ml Drops) 1 drop EYE-BOTH Q4H PRN PRN Reason: Dry Eyes Last Admin: 06/04/23 08:29 Dose: 1 drop Clonidine HCl (Clonidine Hcl 0.1 Mg Tablet) 0.1 mg PO Q4H PRN; Protocol PRN Reason: anxiety Last Admin: 06/04/23 21:11 Dose: 0.1 mg Clonidine HCl (Clonidine Hcl 0.1 Mg Tablet) 0.1 mg PO TID [facility]; Protocol Last Admin: 06/06/23 08:48 Dose: 0.1 mg Divalproex Sodium (Divalproex Sodium Er 500 Mg Tab.Er.24h) 1,000 mg PO BEDTIME [facility] Last Admin: 06/05/23 19:51 Dose: 1,000 mg Hydroxyzine HCl (Hydroxyzine Hcl 25 Mg Tablet) 25 mg PO Q6H PRN PRN Reason: Anxiety Last Admin: 06/01/23 23:24 Dose: 25 mg Levothyroxine Sodium (Levothyroxine Sodium 25 Mcg Tablet) 25 mcg PO DAILY@0600 [facility] Last Admin: 06/06/23 06:27 Dose: 25 mcg Magnesium Hydroxide (Milk Of Magnesia 30 Ml Oral.Susp) 30 ml PO DAILY PRN PRN Reason: Constipation Metformin HCl (Metformin Hcl 500 Mg Tablet) 500 mg PO BIDWM [facility] Last Admin: 06/06/23 09:06 Dose: 500 mg Metronidazole (Metronidazole 500 Mg Tablet) 500 mg PO Q12H [facility] Last Admin: 06/06/23 08:48 Dose: 500 mg Nicotine (Nicotine 21 Mg Patch.Td24) 21 mg TRANSDERMA DAILY [facility] Last Admin: 06/06/23 08:48 Dose: 21 mg Omeprazole (Omeprazole 20 Mg Capsule.Dr) 20 mg PO DAILY@0630 [facility] Last Admin: 06/06/23 06:26 Dose: 20 mg Paliperidone Palmitate (Paliperidone Palmitate 156 Mg/Ml Syringe) 156 mg IM Q30D [facility] Last Admin: 06/04/23 15:33 Dose: 156 mg Quetiapine Fumarate (Quetiapine Fumarate 100 Mg Tablet) 100 mg PO BEDTIME MRX1 PRN PRN Reason: insomnia Last Admin: 06/05/23 19:54 Dose: 100 mg Quetiapine Fumarate (Quetiapine Fumarate 50 Mg Tablet) 50 mg PO BID@0900,1400 [facility] Last Admin: 06/06/23 08:48 Dose: 50 mg Trazodone HCl (Trazodone Hcl 50 Mg Tablet) 50 mg PO BEDTIME PRN PRN Reason: Insomnia Last Admin: 05/29/23 22:09 Dose: 50 mg Zinc Oxide (Zinc Oxide 20% Ointment 28.35 Gm Tube) 1 appl TOPICAL BID PRN; Protocol PRN Reason: Itching Allergies Allergies Allergy/AdvReac Type Severity Reaction Status Date / Time lisinopril [LISINOPRIL] Allergy Unknown UNKNOWN Unverified 06/17/20 14:51 Assessment & Plan Assessment & Plan (1) Schizoaffective disorder: Status: Acute Code(s): F25.9 - Schizoaffective disorder, unspecified (2) PTSD (post-traumatic stress disorder): Status: Acute Code(s): F43.10 - Post-traumatic stress disorder, unspecified (3) Bacterial vaginal infection: Status: Acute Code(s): N76.0 - Acute vaginitis; B96.89 - Other specified bacterial agents as the cause of diseases classified elsewhere Plan Patient is a 52-year-old female with schizoaffective disorder, PTSD long history of severe cocaine abuse, who presents for dysregulated behavior, paranoid delusions in the face of non medication adherence and crack cocaine -currently patient is disorganized in speech and behavior however she is cooperative and wanting hospitalization and medication treatment -Will seek collateral for information on medication history; patient reports she thinks more clearly on Invega Sustenna Hospital course: on admission, -Patient currently presents with hannah with psychotic symptoms including AH and paranoid delusions.? Will start patient on Invega Sustenna 234 mg today and restart Depakote 500 mg, further titrating during the admission.? Will also restart Seroquel but will make it a p.r.n. for insomnia in order to avoid over sedation given that she has not been on medications for a while.? Will hold off on restarting oxybutynin for now. 05/31 little improvement after getting Invega shot and being restarted on D epakote; speech a little more organized and goal oriented them before though can still make nonsensical remarks; still expressing some paranoid delusions but less so.? Clothing attire a little more organized.? Seroquel normally 100 mg daily and 150 q.h.s.; however patient slept without using Seroquel so will keep it as a p.r.n. for now to avoid polypharmacy; will restart if needed.? Also For now will keep Depakote at 500 mg;? patient normally on a 1000 mg q.h.s. however she did sleep last night and is a little more organized so will leave at lower dose for now and monitor 06/01 though a little bit improved since admission she is still disorganized and manic, labile and with psychotic symptoms. Will very likely increase Depakote as her home dose is a 1000 mg q.h.s., however she is due for lab work tomorrow so will 1st get that take guide treatment 06/01 less manic than on admission but still with paranoid delusions, AH and mood lability; initially refused Depakote level labs this morning but agrees to get them now; will hold off on increasing Depakote until results in 06/03 increase Depakote to 1000 mg last night since subtherapeutic at 500 and associated labs WNL; patient will soon be due for next installment of Invega Sustenna. Patient asked to have Seroquel started during the daytime as well for psychotic confusion and AH 06/04 patient says she is feeling better today; says today's 1st day without auditory hallucinations which she says are overall much less; also says she has not worried about the air conditioning at all. Patient asking about discharge for sometime next week. Asks for clonidine to be scheduled 06/04 Patient is overall more clear and organized than on admission however she continues to intermittently be bothered by delusional thinking and remains intermittently tangential, talking about off topic points of interest. Patient did start crying today while talking with bond underwriter however she was able to isolate the reason, thinking about how she will miss her friends at the [employer] since the plan is her for her to eventually move. She says I like crying.. It takes the stress out. Patient says that she feels at her regular self and she is looking forward to discharging this week. Despite that intermittent disorganization/psychotic symptoms, patient has been overall appropriate with peers and staff and though asks the same questions over and over, has overall been in appropriate behavioral and impulse control. Seems likely patient is at baseline -Regarding medication, Depakote bottom limit of therapeutic; however ammonia is the very upper limit of normal (and a little bit beyond) leaving no room for increase. 06/06 patient remains stable; staff who know her find her to be at baseline. Patient reports auditory hallucinations have resolved; they seem to come back here and there but she consistently says they are much less bothersome. Int ermittently making odd statements but again this is baseline. Patient wants to go home. No SI at all; future oriented. Patient is not in imminent risk for harm to self or others and request for discharge honored Plan: CV Q 15 minute checks Schedule clonidine 0.1 mg t.i.d. for anxiety Received Invega Sustenna 234 mg IM on 05/30 Received Invega Sustenna 156 mg IM on 06/04 Continue Seroquel 50 mg t.i.d. Continue Depakote ER 1000 mg q.h.s.; -valproic acid level bottom limit of therapeutic; however ammonia is the very upper limit of normal (and a little bit beyond) leaving no room for increase. Continue metformin 500 mg b.i.d. Continue levothyroxine 25 mcg Seroquel 100 mg p.r.n. q.h.s. with a repeat for insomnia (normally 100 mg daily and 150 q.h.s) Hold oxybutynin for now (history of 5 mg t.i.d.); no c/o urinary incontinence On the unit, at this time, pt is not appropriate for psych groups due to disorganized speech and behavior Hospitalist: Bacterial vaginosis Patient tested positive for BV Will treat with metronidazole 500 mg p.o. b.i.d. x7 days, started 05/31/2023 discomfort Patient complaining that her scar has become ?unstitched ; complains of area being pruritic and damp No sign of dehiscence or subcutaneous abscess No erythema, sign of infection Zinc oxide cream prn for itch/rash Patient has been counseled to towel area off after shower and to keep dry -Reviewed labs from [facility] ED: CBC, lytes, BUN/creatinine, LFTs are WNL; COVID negative; UDS positive for cocaine -Development Technical Lead reviewed notes provided by [employer], including [facility] signed order by patient's outpatient provider, LUCIEN Arzate, dated 05/04/23 indicating that patient takes Invega Sustenna 234 mg Q 28 days; Depakote 1000 mg q.h.s.; Seroquel 200 mg q.h.s. and 100 mg daily. Also prescribed is levothyroxine 25 mcg daily; omeprazole 20 mg daily; oxybutynin 5 mg t.i.d. for history of urinary incontinence, trazodone 150 mg q.h.s.; metformin 500 mg b.i.d.. -Reviewed discharge summary from [facility] Patient was prescribed clonidine, Seroquel 150 mg q.h.s. and 100 mg daily and trazodone 100 mg q.h.s..? Patient not restarted on Depakote or Invega Sustenna Patient educated on: diagnosis and medication risk/benefits Informed Consent: understands Reason for continued inpatient stay Substantial Risk for: stable for discharge Time Spent With Patient Time: Total time managing care of this patient today ____ minutes.
[2023-06-06 10:18] LABS: Creatinine Clr Calc Pharmacy 100.2; Estimated Glomerular Filt Rate > 60
[2023-06-06] MEDS: Acetaminophen 325 MG TABLET 650 MG PO (12:47)
[2023-06-06 16:15] VITALS: BP 128/69; PULSE 85; TEMP 36.2; O2SAT 97
[2023-06-06] MEDS: hydrOXYzine HCL 25 MG TABLET PO (16:19)
--- NOTE | 2023-06-06 17:16 | P.DS_ITS ---
DS: Providers Provider Date of Service: 06/07/23 Date of admission: 05/29/23 21:13 Date of discharge: 06/07/23 Primary care physician: Arlene Hernandez DO Attending physician on admission: Vishnu Hendricks Consults: 05/31/23 09:39 Consult to Hospitalist Routine Comment: Consulting Provider: Hospitalist Reason For Exam: admission physical Attending physician on discharge: Vishnu Hendricks DS: Diagnosis Discharge Diagnosis (1) Schizoaffective disorder: Status: Acute (2) PTSD (post-traumatic stress disorder): Status: Acute (3) Bacterial vaginal infection: Status: Resolved DS: Medications Discharge Medications Home Medications: Home Medications Medication Instructions Recorded Confirmed acetaminophen 650 mg 1 - 2 tab PO Q8H PRN pain 12/18/20 12/18/20 tablet,extended release (Mapap Arthritis Pain) ascorbic acid 7.5 mg-vit E 7.5 tab PO DIRECTED 12/18/20 unit-biotin 1,250 mcg chewable tablet (Hair,Skin,Nails with Biotin) cyanocobalamin (vitamin B-12) 250 1 tab PO DAILY 12/18/20 12/18/20 mcg tablet (Vitamin B-12) diphenhydramine HCl 25 mg capsule 1 cap PO BEDTIME 12/18/20 12/18/20 (Banophen) docusate sodium 100 mg capsule 1 cap PO BID PRN constipation 12/18/20 12/18/20 lanolin alcohols-mineral appl topical BID 12/18/20 oil-w.petrolatum-ceresin topical cream (Minerin Creme topical) lorazepam 0.5 mg tablet 1 tab PO BID PRN dyspnea 12/18/20 12/18/20 nicotine 14 mg/24 hr daily 1 patch topical DAILY 12/18/20 12/18/20 transdermal patch omeprazole 40 mg capsule,delayed 1 cap PO DAILY 12/18/20 12/18/20 release oxybutynin chloride 10 mg 1 tab PO DAILY 12/18/20 12/18/20 tablet,extended release 24 hr paliperidone palmitate 156 mg/mL 1 syringe IM Q4W 12/18/20 12/18/20 intramuscular syringe (Invega Sustenna) quetiapine 100 mg tablet 1 tab PO BEDTIME 12/18/20 12/18/20 quetiapine 50 mg tablet 1 tab PO DAILY PRN anxiety 12/18/20 12/18/20 topiramate 100 mg tablet 1 tab PO QAM 12/18/20 12/18/20 divalproex 500 mg tablet,delayed 500 mg PO BID 05/30/23 05/30/23 release levothyroxine 25 mcg tablet 25 mcg PO DAILY 05/30/23 05/30/23 metformin 500 mg tablet 500 mg PO BID 05/30/23 05/30/23 paliperidone 3 mg tablet,extended 3 mg PO DAILY 05/30/23 05/30/23 release 24 hr (Invega) Mental Status Exam Mental Status Exam Narrative: Pt is alert and oriented; behavior is cooperative, friendly and calm; patient is not in distress; dressed in casual attire with unkempt hair but adequate hygiene; mood is described as good and affect congruent; eye contact appropriate; Speech is normal rate, volume and prosody and not pressured; no psychomotor agitation/retardation present; thought process is organized and goal directed; Thought content is on tx; otherwise pertinent to relevant topics and without any delusional content, paranoid ideations or grandiosity; denies any SI/HI. There is no evidence of perceptual disturbance. Patients insight and judgment appear intact. Data Data Completed and Pending Completed studies during hospitalization [Text1]: 05/30/23 05/30/23 05/30/23 12:43 18:25 21:01 Creatinine Estim Creat Clear Calc Estimated GFR POC Glucose Total Bilirubin Direct Bilirubin AST ALT Alkaline Phosphatase Ammonia Total Protein Albumin Urine Color Urine Appearance Urine pH Ur Specific [place] Urine Protein Urine Glucose (UA) Urine Ketones Urine Blood Urine Nitrite Ur Leukocyte Esterase Urine RBC Urine WBC Ur Squamous Epith Cells Urine Bacteria Hyaline Casts Valproic Acid Trina species DNA Negative Chlam trachomat DNA PCR NOT DETECTED Gardnerella DNA Probe Positive A Hep Bs Antigen Negative Hep Bs Antibody REACTIVE Hep B Core Total Ab Reactive Hep B Core IgM Ab Cancelled Hepatitis C Ab (EIA) Nonreactive HIV 1&2 Ab/P24 Ag 4thGn Nonreactive N.gonorrhoeae DNA (PCR) NOT DETECTED Trichomonas DNA Probe Negative 05/31/23 06/02/23 06/02/23 10:25 15:10 15:10 Creatinine Estim Creat Clear Calc Estimated GFR POC Glucose Total Bilirubin 0.1 Direct Bilirubin < 0.2 AST 14 ALT 12 Alkaline Phosphatase 85 Ammonia 34 Total Protein 7.5 Albumin 4.2 Urine Color Yellow Urine Appearance Clear Urine pH 6.0 Ur Specific [place] <= 1.005 Urine Protein Negative Urine Glucose (UA) Negative Urine Ketones Negative Urine Blood Negative Urine Nitrite Negative Ur Leukocyte Esterase Negative Urine RBC 0-2 Urine WBC 0-5 Ur Squamous Epith Cells 0-2 Urine Bacteria None Seen Hyaline Casts 0-2 Valproic Acid Trina species DNA Chlam trachomat DNA PCR Gardnerella DNA Probe Hep Bs Antigen Hep Bs Antibody Hep B Core Total Ab Hep B Core IgM Ab Hepatitis C Ab (EIA) HIV 1&2 Ab/P24 Ag 4thGn N.gonorrhoeae DNA (PCR) Trichomonas DNA Probe 06/02/23 06/03/23 06/04/23 15:10 12:02 16:58 Creatinine Estim Creat Clear Calc Estimated GFR POC Glucose 98 115 Total Bilirubin Direct Bilirubin AST ALT Alkaline Phosphatase Ammonia Total Protein Albumin Urine Color Urine Appearance Urine pH Ur Specific [place] Urine Protein Urine Glucose (UA) Urine Ketones Urine Blood Urine Nitrite Ur Leukocyte Esterase Urine RBC Urine WBC Ur Squamous Epith Cells Urine Bacteria Hyaline Casts Valproic Acid 25.9 L Trina species DNA Chlam trachomat DNA PCR Gardnerella DNA Probe Hep Bs Antigen Hep Bs Antibody Hep B Core Total Ab Hep B Core IgM Ab Hepatitis C Ab (EIA) HIV 1&2 Ab/P24 Ag 4thGn N.gonorrhoeae DNA (PCR) Trichomonas DNA Probe 06/05/23 06/05/23 06/05/23 10:50 10:50 10:51 Creatinine Estim Creat Clear Calc Estimated GFR POC Glucose Total Bilirubin 0.2 Direct Bilirubin < 0.2 AST 14 ALT 16 Alkaline Phosphatase 76 Ammonia 57 H Total Protein 7.1 Albumin 4.0 Urine Color Urine Appearance Urine pH Ur Specific [place] Urine Protein Urine Glucose (UA) Urine Ketones Urine Blood Urine Nitrite Ur Leukocyte Esterase Urine RBC Urine WBC Ur Squamous Epith Cells Urine Bacteria Hyaline Casts Valproic Acid 50.5 Trina species DNA Chlam trachomat DNA PCR Gardnerella DNA Probe Hep Bs Antigen Hep Bs Antibody Hep B Core Total Ab Hep B Core IgM Ab Hepatitis C Ab (EIA) HIV 1&2 Ab/P24 Ag 4thGn N.gonorrhoeae DNA (PCR) Trichomonas DNA Probe 06/06/23 06/06/23 08:29 08:57 Creatinine 0.72 Estim Creat Clear Calc 100.2 Estimated GFR > 60 POC Glucose 114 Total Bilirubin Direct Bilirubin AST ALT Alkaline Phosphatase Ammonia Total Protein Albumin Urine Color Urine Appearance Urine pH Ur Specific [place] Urine Protein Urine Glucose (UA) Urine Ketones Urine Blood Urine Nitrite Ur Leukocyte Esterase Urine RBC Urine WBC Ur Squamous Epith Cells Urine Bacteria Hyaline Casts Valproic Acid Trina species DNA Chlam trachomat DNA PCR Gardnerella DNA Probe Hep Bs Antigen Hep Bs Antibody Hep B Core Total Ab Hep B Core IgM Ab Hepatitis C Ab (EIA) HIV 1&2 Ab/P24 Ag 4thGn N.gonorrhoeae DNA (PCR) Trichomonas DNA Probe 05/30/23 21:01 Vaginal Trichomonas Preparation - Final DS: Summary Hospital Course Hospital Course: Patient is a 52-year-old female with schizoaffective disorder, PTSD long history of severe cocaine abuse, who presents for dysregulated behavior, paranoid delusions in the face of non medication adherence and crack cocaine -currently patient is disorganized in speech and behavior however she is cooperative and wanting hospitalization and medication treatment -Will seek collateral for information on medication history; patient reports she thinks more clearly on Invega Sustenna Hospital course: on admission, -Patient currently presents with hannah with psychotic symptoms including AH and paranoid delusions.? Will start patient on Invega Sustenna 234 mg today and restart Depakote 500 mg, further titrating during the admission.? Will also restart Seroquel but will make it a p.r.n. for insomnia in order to avoid over sedation given that she has not been on medications for a while.? Will hold off on restarting oxybutynin for now. 05/31 little improvement after getting Invega shot and being restarted on Depakote; speech a little more organized and goal oriented them before though can still make nonsensical remarks; still expressing some paranoid delusions but less so.? Clothing attire a little more organized.? Seroquel normally 100 mg daily and 150 q.h.s.; however patient slept without using Seroquel so will keep it as a p.r.n. for now to avoid polypharmacy; will restart if needed.? Also For now will keep Depakote at 500 mg;? patient normally on a 1000 mg q.h.s. however she did sleep last night and is a little more organized so will leave at lower dose for now and monitor 06/01 though a little bit improved since admission she is still disorganized and manic, labile and with psychotic symptoms. Will very likely increase Depakote as her home dose is a 1000 mg q.h.s., however she is due for lab work tomorrow so will 1st get that take guide treatment 06/01 less manic than on admission but still with paranoid delusions, AH and mood lability; initially refused Depakote level labs this morning but agrees to get them now; will hold off on increasing Depakote until results in 06/03 increase Depakote to 1000 mg last night since subtherapeutic at 500 and associated labs WNL; patient will soon be due for next installment of Invega Sustenna. Patient asked to have Seroquel started during the daytime as well for psychotic confusion and AH 06/04 patient says she is feeling better today; says today's 1st day without auditory hallucinations which she says are overall much less; also says she has not worried about the air conditioning at all. Patient asking about discharge for sometime next week. Asks for clonidine to be scheduled 06/04 Patient is overall more clear and organized than on admission however she continues to intermittently be bothered by delusional thinking and remains intermittently tangential, talking about off topic points of interest. Patient did start crying today while talking with technical publications writer however she was able to isolate the reason, thinking about how she will miss her friends at the [facility] the plan is her for her to eventually move. She says I like crying.. It takes the stress out. Patient says that she feels at her regular self and she is looking forward to discharging this week. Despite that intermittent disorganization/psychotic symptoms, patient has been overall appropriate with peers and staff and though asks the same questions over and over, has overall been in appropriate behavioral and impulse control. Seems likely patient is at baseline -Regarding medication, Depakote bottom limit of therapeutic; however ammonia is the very upper limit of normal (and a little bit beyond) leaving no room for increase. 06/06 patient remains stable; staff who know her find her to be at baseline. Patient reports auditory hallucinations have resolved; they seem to come back here and there but she consistently says they are much less bothersome. Intermittently making odd statements but again this is baseline. Patient wants to go home. No SI at all; future oriented. While she remains chronically vulnerable to relapse and dysregulation, this is an issue that is been going on for years and will not change with longer stay on inpatient unit. Patient is appropriate to return to community for treatment. She is not in imminent risk for harm to self or others and request for discharge honored Meds: clonidine 0.1 mg t.i.d. for anxiety Received Invega Sustenna 234 mg IM on 05/30 and Invega Sustenna 156 mg IM on 06/04 Seroquel 50 mg t.i.d. Depakote ER 1000 mg q.h.s.; valproic acid level lower limit of therapeutic; but ammonia very upper limit of normal; no room for increase. metformin 500 mg b.i.d. levothyroxine 25 mcg Seroquel 100 mg p.r.n. q.h.s. with a repeat for insomnia (normally 100 mg daily and 150 q.h.s) Hold oxybutynin for now (history of 5 mg t.i.d.); no c/o urinary incontinence Hold Topimax; has not been taking Metronidazole treatment for UTI Time spent discussing smoking cessation with patient: 3 to 10 minutes Status at Discharge Functional status at discharge: independent ambulation Overall status at discharge: patient is back to baseline Time Spent with Patient Time attestation: Total time managing care of this patient today ____ minutes. Time spent: Less than 30 minutes Discharge Plan Discharge Anticipated Discharge Date/Time: 06/07/23 23:30 Patient Disposition: Home, Self-Care Discharge Diagnosis: Schizoaffective disorder, bipolar type Referrals: [facility]): Blanco Morrow [Other] - 07/03/23 9:00 am (Hospital Discharge Appointment with outpatient psychiatric medication provider Appointment in person at [facility]) Arlene Hernandez DO [Primary Care Provider] - 1 Week Discharge Medications: New albuterol sulfate [Ventolin HFA] 90 mcg/actuation Hfa Aerosol Inhaler 2 puff inhalation RQ4H PRN (Reason: Shortness Of Breath) 30 Days Qty: 6.7 1RF nicotine 21 mg/24 hr Patch 24 Hour 21 mg transdermal DAILY 28 Days Qty: 28 1RF clonidine HCl 0.1 mg Tablet See Rx Instructions .ROUTE .COMPLEX 30 Days Qty: 120 1RF Protocol: Hold for SBP< HOLD for SBP < : 90 Rx Instructions: take 1 tab TID; may additionally take 1 extra tab per day as needed for anxiety (leave at least 2 hours in-between doses divalproex 500 mg Tablet Extended Release 24 Hr 1,000 mg PO BEDTIME 30 Days Qty: 60 1RF Artificial Tears([id number]) 1-0.2-0.2 % Drops 1 drp ophthalmic (eye) Q4H PRN (Reason: Dry Eyes) 30 Days Qty: 15 1RF levothyroxine 25 mcg Tablet 25 mcg PO DAILY 30 Days Qty: 30 1RF Rx Instructions: try to take at least 1 hour before food and other medications Continued cyanocobalamin (vitamin B-12) [Vitamin B-12] 250 mcg tablet 1 tab PO DAILY acetaminophen [Mapap Arthritis Pain] 650 mg tablet extended release 1 - 2 tab PO Q8H PRN (Reason: pain) docusate sodium 100 mg capsule 1 cap PO BID PRN (Reason: constipation) Minerin Creme Cream topical BID Hair, Skin, Nails with Biotin 7.5-7.5-1,250 mg-unit-mcg tablet,chewable PO DIRECTED Changed metformin 500 mg tablet 500 mg PO BIDWMEAL 30 Days Qty: 60 1RF quetiapine 100 mg tablet 100 mg PO BEDTIME PRN (Reason: insomnia) 30 Days Qty: 30 1RF omeprazole 20 mg capsule,delayed release(DR/EC) 20 mg PO DAILY 30 Days Qty: 30 1RF topiramate 100 mg tablet 100 mg PO QAM PRN (Reason: headaches) Qty: 30 0RF quetiapine 50 mg tablet 50 mg PO BID PRN (Reason: anxiety/dysregulation) 30 Days Qty: 60 1RF paliperidone palmitate 234 mg/1.5 mL syringe 234 mg IM .[id number] 30 Days Qty: 1.5 1RF Rx Instructions: due 07/02/23 oxybutynin chloride 10 mg tablet extended release 24hr 10 mg PO DAILY PRN (Reason: as needed for urinary incontinence) Qty: 30 0RF Discontinued nicotine 14 mg/24 hr patch 24 hour 1 patch topical DAILY lorazepam 0.5 mg tablet 1 tab PO BID PRN (Reason: dyspnea) diphenhydramine HCl [Banophen] 25 mg capsule 1 cap PO BEDTIME divalproex 500 mg tablet,delayed release (DR/EC) 500 mg PO BID levothyroxine 25 mcg tablet 25 mcg PO DAILY paliperidone [Invega] 3 mg tablet extended release 24 hr 3 mg PO DAILY Discharge Orders: Discharge Order (Routine); Ordered 06/07/23 Ordered By: Vishnu Hendricks Diet: Regular diet Activity on Discharge: As tolerated Stand Alone Forms: Patient Portal Discharge page, Community Support Care Plan Goals: Maintain mood and safe behaviors Take medications as prescribed Continue to pursue sobriety Practice coping skills Continue with outpatient providers and reach out to them as needed Health Concerns: Mood stability and behaviors Sobriety Plan of Treatment: Follow up with your PCP, psychiatric provider and other outpatient providers regarding above concerns Take medications as prescribed Assessment: Risk assessment at time of discharge:? Patient was interviewed prior to discharge and found to be fully oriented and without any SI or HI. Patient has insight and demonstrates good judgment in terms of wanting to pursue treatment. Patient is not in imminent risk of harm to self or others and has a safety plan that includes presenting to the closest ER or calling 911 if feeling unsafe.? Patient has been observed closely by nursing and unit staff throughout admission; patient has not engaged in any behaviors that suggest dangerousness to self or others and has demonstrated appropriate behaviors and impulse control Discharge Date/Time: 06/07/23 11:54
--- NOTE | 2023-06-06 18:59 | PC.NURSE ---
Patient has not had any relief with prn Hydroxyzine and Clonidine for a feeling of wanting to jump out of my skin . scallop raker provider, Dr. Odell notified, and telephone order was obtaioned for Seroquel 200 mg po x one dose now.
[2023-06-06] MEDS: QUEtiapine Fumarate 200 MG TABLET PO (19:06)
[2023-06-06 22:23] VITALS: BP 105/55; PULSE 84
[2023-06-06] MEDS: Divalproex Sodium ER 500 MG TAB.ER.24H 1000 MG PO (22:30)
--- NOTE | 2023-06-06 23:21 | PC.NURSE ---
Patient told t/w that she was so excited about d/c tomorrow that she feels like I'm jumpoing out of my skin . Seroquel 200 mg po as a prn was given per order from Dr. Alexander with positive effect. Patient able to rest and then take HS. meds.
[2023-06-07] MEDS: Omeprazole 20 MG CAPSULE.DR PO (06:47)
[2023-06-07] MEDS: Levothyroxine Sodium 25 MCG TABLET PO (06:47)
[2023-06-07 08:28] LABS: Glucose, Whole Blood 103 mg/dL (60-115)
[2023-06-07 08:30] VITALS: BP 121/86; PULSE 81; RESP 18; TEMP 36.5; O2SAT 97
[2023-06-07] MEDS: Naloxone HCl Nasal TAKE HOME 4 MG SPRAY 8 MG NOSTRILALT (08:30)
[2023-06-07] MEDS: Nicotine 21 MG PATCH.TD24 TRANSDERMA (08:35)
[2023-06-07] MEDS: metroNIDAZOLE 500 MG TABLET PO (08:35)
[2023-06-07] MEDS: cloNIDine HCL 0.1 MG TABLET PO (08:35)
[2023-06-07] MEDS: QUEtiapine Fumarate 50 MG TABLET PO (08:36)
[2023-06-07] MEDS: metFORMIN HCl 500 MG TABLET PO (08:37)
== END 2023-06-07 11:54 | disposition home or self-care (01) | DRG 750 ==
PROVIDERS: Social Worker; Admitting Provider Psychiatry & Neurology Psychiatry; PCP Pediatrics; Visit Provider Psychiatry & Neurology Psychiatry
DX: F25.0 Schizoaffective disorder, bipolar type (principal); E11.9 Type 2 diabetes mellitus without complications; E03.9 Hypothyroidism, unspecified; F17.210 Nicotine dependence, cigarettes, uncomplicated; F14.20 Cocaine dependence, uncomplicated; N76.0 Acute vaginitis; R32 Unspecified urinary incontinence; K21.9 Gastro-esophageal reflux disease without esophagitis; F43.10 Post-traumatic stress disorder, unspecified; Z91.148 Patient's other noncompliance with medication regimen for other reason; Z71.6 Tobacco abuse counseling; Z79.84 Long term (current) use of oral hypoglycemic drugs; Z79.899 Other long term (current) drug therapy
CPT/HCPCS: 0353U; 36415; 80053; 80061; 80076; 80164; 81001; 82140; 82565; 82607; 82746; 82947; 83036; 84443; 86704; 86706; 86780; 86803; 87340; 87389; 87480; 87510; 87660; J2426

== ENCOUNTER → 2023-05-29 21:13 | Outpatient (BNV) | payer OTHER, SELFPAY | PROVIDERS: Admitting Provider Psychiatry & Neurology Psychiatry; PCP Pediatrics; Visit Provider Psychiatry & Neurology Psychiatry | DX: F25.0 Schizoaffective disorder, bipolar type (principal); F43.11 Post-traumatic stress disorder, acute; N76.0 Acute vaginitis; B96.89 Other specified bacterial agents as the cause of diseases classified elsewhere | CPT/HCPCS: 99231; 99232; 99233; 99238 ==

== ENCOUNTER → 2023-05-29 21:13 | Outpatient (BNV) | payer OTHER, SELFPAY | PROVIDERS: Admitting Provider Psychiatry & Neurology Psychiatry; PCP Pediatrics; Visit Provider Student in an Organized Health Care Education/Training Program | DX: N76.0 Acute vaginitis (principal); B96.89 Other specified bacterial agents as the cause of diseases classified elsewhere; Z00.00 Encounter for general adult medical examination without abnormal findings | CPT/HCPCS: 99232 ==